=== PATIENT | male | born 1950 | race African-American/Black ===

== ENCOUNTER 2017-12-13 05:12 | Inpatient (IN) | payer MEDICARE, MEDICAID ==
[2017-12-13 05:34] LABS: Actual Bicarbonate (HCO3a) 46.3 mEq/L (22-26); CO2 Tension 114.1 mmHg (35.0-45.0); O2 Tension (PaO2) 147.2 mmHg (80.0-100.0); pH, Arterial 7.23 (7.35-7.45)
[2017-12-13 05:35] LABS: Base Excess (BEa) 14.3 mEq/L (0 (+/-) 2.5); Hematocrit-ABG 40.9 % (42.0-52.0)
[2017-12-13 05:36] LABS: Analyzer IN Cardio ER; Calcium, Ionized 1.2 mmol/L (1.12-1.30); Puncture Site LR
[2017-12-13] MEDS ORDERED: Albuterol Sulfate 2.5 mg/0.5 ml Neb ONE ×2 (05:40→05:41)
[2017-12-13] MEDS ORDERED: Ondansetron HCl/PF 4 MG/2 ML Vial IVP PRN (07:20)
[2017-12-13] MEDS ORDERED: Acetaminophen 325 MG TAB PO PRN (07:20)
[2017-12-13 07:22] LABS: #Basophils 0.1 thou/uL (0.0-0.2); #Eosinphils 0.4 thou/uL (0.0-0.7); #Lymphocytes 4.1 thou/uL (1.20-3.40); %Eosinophils 3.4 % (0.0-10.0); %Monocytes 8.8 % (0.0-10.0); %Neutrophils 51.8 % (42.0-75.0); Hemoglobin 12.2 g/dL (14.0-18.0); Mean Corpuscular HGB CONC 31.1 g/dL (32.0-36.0); Mean Corpuscular Hemoglobin 25.9 pg (27.0-31.0); Mean Corpuscular Volume 83.1 fl (80.0-94.0); Platelet Count 172 thou/uL (130-400); RBC Distribution Width 13.2 % (11.5-14.5); White Blood Cell (WBC) Count 11.6 thou/uL (4.8-10.8)
--- NOTE | 2017-12-13 07:34 | RAD ---
RADIOGRAPH CHEST 1 VIEW: HISTORY: 67-year-old male with dyspnea. FINDINGS: There is hyperinflation of the lungs, consistent with COPD. There is no evidence of air space densit y, pneumothorax, or pulmonary edema. The lateral costophrenic angles are sharp. Cardiomediastinal si lhouette is slightly narrowed by the hyperinflation. IMPRESSION: 1) No acute pulmonary findings. 2) Emphysema. jn POS: TPC
[2017-12-13 07:40] LABS: CKMB 5.4 ng/mL (0-6.6); Troponin I Less than 0.010 ng/mL (< 0.028)
--- NOTE | 2017-12-13 07:59 | HP ---
PRIMARY CARE PROVIDER: Dr. Pereira. REASON FOR ADMISSION/CHIEF COMPLAINT: Referred to [facility] by [facility]. HISTORY OF PRESENT ILLNESS: The patient became acutely short of breath and in respiratory distress a bout 30 minutes before calling 911. He was brought to the emergency room where he was treated aggrsurekha forde for acute exacerbation of COPD. He was found to have marked CO2 retention and a respiratory a cidosis. He is currently on BiPAP. The patient denies any chest pain, fever, or chills. He has sca nt cough. No production. PAST MEDICAL HISTORY: Pertinent for severe COPD, about once a month admissions to [facility] with ac aniak exacerbations. He has hypertension, peripheral vascular disease, chronic hypoxic respiratory rakesh lure. PAST SURGICAL HISTORY: Includes appendectomy and surgery for small bowel obstruction. CURRENT MEDICATIONS: DuoNeb 3 mL 4-5 times a day, Symbicort 2 puffs twice a day, prednisone 10 mg a day, Lasix 40 mg a day, Spiriva HandiHaler 18 one puff daily, Augmentin twice a day, Coreg 3.125 mg t wice a day, Protonix 40 mg a day. SOCIAL HISTORY: . CODE STATUS: FULL CODE status. next of kin for decision making. No tobacco, no alcohol. FAMILY HISTORY: Significant for diabetes, hypertension, coronary artery disease in multiple members. REVIEW OF SYSTEMS: General: He has headaches at times. No dizziness, no fainting. Eyes: No doubl e vision, blurred vision, flashing lights. Ears, Nose, and Throat: No ear pain or drainage. No bryan al bleeding. No trouble swallowing. Cardiac: No history of pressure, chest pain, orthopnea, paroxy smal nocturnal dyspnea. Respirations: See present illness. He has chronic shortness of breath, whe ezes at times. Long history of chronic obstructive pulmonary disease. Gastrointestinal: No nausea, vomiting, diarrhea, constipation, abdominal pain. Genitourinary: No hematuria or dysuria. Musculo skeletal: Positive swelling in his legs chronically. No pain in his muscles. Neurological: No str alejandro, seizures, focal weakness. Psychiatric: No anxiety or depression. Skin: He states he bruises easy on his arms. No rashes. H e does have some chronic skin changes on his lower legs. Heme/Lymph: No tender or swollen lymph nod es in axilla, inguinal, or cervical area. PHYSICAL EXAMINATION: GENERAL: He is comfortable on BiPAP right at the moment. VITAL SIGNS: Respirations 24-30, temperature 99, O2 sats 100 on BiPAP. Blood pressures ranged in [facility] emergency room from 108/68-143/83. Pulses ranged from 113-126. He is alert, oriented, cooperative . HEENT: Examination of his head, eyes, ears, nose, and throat reveal pupils equal and round. Extraoc ular movements are intact. Sclerae white. Tympanic membranes clear. Nose is clear. Oral mucous me mbranes are wet. He is on BiPAP. It is difficult to get a better exam. NECK: No jugular venous distention, adenopathy, or thyromegaly. CHEST: Hyperresonant, decreased breath sounds, coarse inspiratory effort, diffuse rhonchi, wheezes o n expiratory effort. HEART: Tachycardic, hyperdynamic. First and second heart sounds are accentuated no murmurs noted. ABDOMEN: Soft, bowel sounds are normal. There is no hepatosplenomegaly, no mass, no rebound. EXTREMITIES: Reveal 1-2+ edema with what appears to be stasis edema changes in his legs. No cyanosi s or clubbing. PULSES: Carotid, radial, femoral pulses intact, symmetric. Pedal pulses diminished markedly. SKIN: Warm and dry without bruises or rashes. He does have the aforementioned chronic stasis change s on his lower legs. LYMPHATIC SURVEY: No tender or swollen lymph nodes in axilla, inguinal, or cervical area. NEUROLOGICAL: Cranial nerves II-XII are intact. Moves all extremities. Sensation intact. Toes giuliana ngoing. X-RAY FINDINGS: EKG none presented. One will be ordered. Chest x-ray: Marked hyperinflation, no c ardiomegaly, CHF, or infiltrate, reviewed by me. LABORATORY DATA: Only laboratory obtained so far is arterial blood gas, which shows a pH of 7.23, CO 2 of 114, O2 of 147 on 35% O2 BiPAP 09/19/2017. ADMITTING DIAGNOSES: 1. Acute respiratory distress with acute on chronic respiratory failure with hypercapnia. 2. Chronic obstructive pulmonary disease exacerbation. 4. Hypertension. 5. Peripheral vascular disease. PLAN: 1. Continue BiPAP. 2. We will notify Dr. Spencer of his presence. 3. DuoNeb q.4 hours 3 mL. 4. Continue Symbicort substitute 2 puffs q.4 hours. 5. Solu-Medrol IV high dose. 6. IV Zithromax. 7. Selected home medicines.
[2017-12-13 08:18] LABS: ALT (SGPT) 9 U/L (8-55); AST (SGOT) 17 U/L (5-34); Albumin 4.1 g/dL (3.4-4.8); Alkaline Phosphatase 62 U/L (40-150); BUN (Urea Nitrogen) 12 mg/dL (8.4-25.7); Bilirubin, Total 0.3 mg/dL (0.2-1.2); CK (CPK) 180 U/L (30-200); Calc. Creatinine Clearance 0 mL/min (70-130); Estimated GFR-MDRD Greater than 90; Globulin 2.4 g/dL (2.4-3.5); Glucose 148 mg/dL (80-115); Protein, Total 6.5 g/dL (5.8-8.1)
[2017-12-13] MEDS ORDERED: Enoxaparin Sodium 40 MG/0.4 ML SYRINGE ONE (08:18)
[2017-12-13 08:25] LABS: Chloride 93 mmol/L (98-107); Potassium 3.8 mmol/L (3.5-5.1); Sodium 144 mmol/L (136-145)
[2017-12-13 08:26] LABS: Carbon Dioxide 42 mmol/L (23-31)
[2017-12-13 08:27] LABS: Anion Gap 13 mmol/L (10-20)
[2017-12-13 08:51] LABS: Troponin I Less than 0.010 ng/mL (< 0.028)
[2017-12-13] MEDS ORDERED: Furosemide 20 MG TAB PO SCH (09:00)
[2017-12-13 16:28] VITALS: BMI 20.7
[2017-12-13] MEDS: Carvedilol 3.125 MG TAB PO SCH ×2 (16:39→17:30)
[2017-12-13] MEDS: Azithromycin 500 MG in Sodium Chloride 0.9% 250 ML 250 ML IVPB SCH (16:39)
[2017-12-13] MEDS: Enoxaparin Sodium 40 MG/0.4 ML SYRINGE SC SCH (16:39)
[2017-12-13] MEDS: guaiFENesin ER 600 MG TAB PO SCH ×2 (16:40→21:51)
[2017-12-13] MEDS ORDERED: predniSONE 20 MG TAB PO SCH (18:00)
--- NOTE | 2017-12-13 18:08 | CON ---
DATE OF CONSULTATION: 12/13/2017 SERVICE: Pulmonary Medicine. INTERVAL HISTORY: The patient is a 67-year-old -[place] male with past medical history significant for COPD. He had a 2-3 week history of increasing difficulty breathing. Ultimately, he became more abruptly short of breath early this morning and called EMS services. He was brought to the Emergency Department and had a markedly elevated CO2 with increasing oxygen requirements. He was initially placed on BiPAP, but subsequently downgraded. Either way, he was tucked in onto the floor. He feels much improved compared his presentation to the hospital. He denies any recent fevers, chills, nausea or vomiting. His cough is still bringing up clear sputum and has nothing of color. He notes having a right hand stiffness. He occasionally gets some discomfort in his arm, but does not currently have it. Otherwise, he is in his usual state of health. PAST MEDICAL HISTORY: 1. COPD. 2. Chronic hypoxic respiratory failure. 3. Hypertension. 4. Peripheral vascular disease. 5. Chronic hypoxic respiratory failure. PAST SURGICAL HISTORY: 1. Appendectomy. 2. Laparotomy for small-bowel obstruction. ALLERGIES: No known drug allergies. MEDICATIONS LIST: His list of inpatient medications were reviewed. Multiple small updates were made. FAMILY HISTORY: Noncontributory. SOCIAL HISTORY: Negative for current alcohol, tobacco or illicit drug use. He denies any exposure to chemicals, dust asbestos or tuberculosis. REVIEW OF SYSTEMS: Including general, head, ears, eyes, nose, throat, cardiovascular, respiratory, GI, , musculoskeletal, neurologic and skin is negative except as mentioned in the HPI. PHYSICAL EXAMINATION: VITAL SIGNS: Afebrile, pulse 81, blood pressure 138/72, respirations 14, saturation 96% on 2 liters nasal cannula. GENERAL: The patient is awake, alert, in no apparent distress. HEENT: Normocephalic, atraumatic. Sclerae are white, conjunctivae pink. Oral and nasal mucosa is moist without lesions. LUNGS: Reduced air entry with a prolonged expiratory phase. Minimal crackles are present. He is not moving enough air to hear any adventitious sounds. HEART: Normal rate, regular. ABDOMEN: Soft, nontender, nondistended. Bowel sounds are positive. MUSCULOSKELETAL: No cyanosis or clubbing. No pitting in the bilateral lower extremities. He has swelling of the MCP joints of the right upper extremity. GENITOURINARY: No Hinton. LABORATORY DATA: WBC 11.6, hemoglobin 12.2, platelets 172,000. PH 7.23, pCO2 of 114, pO2 of 147. This was on BiPAP at 12/5 with inspired oxygen of 35%. Bicarb 42. Basic metabolic profile and liver function studies are otherwise unremarkable. Cardiac enzymes x2 are negative. IMAGING: Chest x-ray demonstrates extensive reticular changes as well as hyperexpansion of the bilateral lung paige. There is no acute cardiopulmonary abnormality identified, however. ASSESSMENT: 1. Acute on chronic hypoxic and hypercapnic respiratory failure. 2. COPD exacerbation. 3. Metabolic alkalosis above baseline. 4. Right hand swelling. DISCUSSION AND PLAN: We will add rheumatoid factor and CCP to tomorrow morning' s laboratories. We will also get a right hand x-ray to particular attention to the MCP joints to make sure there are no erosions. We will continue our oxygen , nebulized medications, steroids and antibiotics as well as other supportive measures. The patient has extraordinarily sick lungs at baseline and may benefit from a home ventilator, particularly if he is still of a relatively high functional status. Pulmonary Critical Care will continue to follow while the patient remains in this location. 70 minutes have been devoted to this patient in various activities. I personally reviewed all imaging studies and laboratory data noted within this document. For greater than fifty percent of this time, I was interacting with the patient at the bedside or coordinating care with the care team. For the remainder of the time I was immediately available to the patient in the hospital unit. LILIYA
--- NOTE | 2017-12-13 18:45 | RAD ---
RIGHT HAND THREE VIEWS: 12/13/17 HISTORY: Right hand pain. FINDINGS: There is partial collapse of the trapezium where osteoarthritic changes are most pronounced at the fi rst carpometacarpal joint. Less prominent degenerative changes involve the distal interphalangeal re nts. No acute fracture, dislocation, or aggressive osseous erosions. IMPRESSION: Osteoarthritis, most pronounced at the first carpometacarpal joint. POS: ANURADHA
[2017-12-13] MEDS: Mometasone/Formoterol 120 PUFF INHALER INH SCH (19:41)
[2017-12-14 04:53] LABS: #Monocytes 0.3 thou/uL (0.11-0.59); #Neutrophils 8.9 thou/uL (1.40-6.50); %Basophils 0.1 % (0.0-1.0); %Eosinophils 0.1 % (0.0-10.0); %Lymphocytes 9.7 % (21.0-51.0); %Monocytes 3.3 % (0.0-10.0); %Neutrophils 86.8 % (42.0-75.0); Mean Corpuscular HGB CONC 31.9 g/dL (32.0-36.0); Mean Corpuscular Hemoglobin 25.8 pg (27.0-31.0); Mean Corpuscular Volume 80.9 fl (80.0-94.0); Mean Platelet Volume 10.2 fL (7.4-10.4); Platelet Count 163 thou/uL (130-400); RBC Distribution Width 13.1 % (11.5-14.5); Red Blood Cell (RBC) Count 4.26 mill/uL (4.70-6.10); White Blood Cell (WBC) Count 10.2 thou/uL (4.8-10.8)
[2017-12-14 05:14] LABS: BUN (Urea Nitrogen) 13 mg/dL (8.4-25.7); Calc. Creatinine Clearance 95 mL/min (70-130); Calcium 9.1 mg/dL (7.8-10.44); Estimated GFR-MDRD Greater than 90; Glucose 120 mg/dL (80-115)
[2017-12-14 05:23] LABS: Anion Gap 13 mmol/L (10-20); Carbon Dioxide 37 mmol/L (23-31); Chloride 93 mmol/L (98-107); Potassium 4.5 mmol/L (3.5-5.1); Sodium 138 mmol/L (136-145)
[2017-12-14] MEDS: Mometasone/Formoterol 120 PUFF INHALER INH SCH ×2 (06:54→19:21)
[2017-12-14] MEDS ORDERED: FLU VACC TS2017-18 (>65YR) 0.5 ML SYRINGE IM ONE (09:00)
[2017-12-14] MEDS: Carvedilol 3.125 MG TAB PO SCH ×2 (09:34→17:18)
[2017-12-14] MEDS: Enoxaparin Sodium 40 MG/0.4 ML SYRINGE SC SCH (09:34)
[2017-12-14] MEDS: predniSONE 20 MG TAB PO SCH (09:34)
[2017-12-14] MEDS: Furosemide 20 MG TAB PO SCH (09:34)
[2017-12-14] MEDS: guaiFENesin ER 600 MG TAB PO SCH ×3 (09:34→20:11)
[2017-12-14] MEDS: Azithromycin 500 MG in Sodium Chloride 0.9% 250 ML 250 ML IVPB SCH (09:45)
--- NOTE | 2017-12-14 11:04 | PDOC.PN ---
- Subjective Encounter Start Date: 12/14/17 Encounter Start Time: 11:02 Subjective: seen and examined feeling a little bit better - Objective Resuscitation Status: Resuscitation Status FULL:Full Resuscitation Vital Signs & Weight: Vital Signs (12 hours) Temp Pulse Resp BP Pulse Ox 12/14/17 10:56 98.1 F 95 22 H 110/64 99 12/14/17 10:55 100 16 97 12/14/17 07:20 98.4 F 115 H 22 H 126/77 95 12/14/17 06:53 97 18 95 12/14/17 04:00 97.9 F 103 H 18 123/68 92 L 12/14/17 02:08 102 H 16 96 12/14/17 00:00 98.2 F 107 H 20 148/75 H 96 Weight Admit Weight 145 lb Weight 145 lb Result Diagrams: 12/14/17 03:40 12/14/17 03:40 Phys Exam - Physical Examination Constitutional: NAD HEENT: PERRLA, moist MMs, sclera anicteric, TM's clear, oral pharynx no lesions Neck: no nodes, no JVD, supple, full ROM Respiratory: no rales, wheezing present Cardiovascular: RRR, no significant murmur, no rub, gallop Gastrointestinal: soft, non-tender, no distention, positive bowel sounds Dx/Plan (1) Osteoarthritis Code(s): M19.90 - UNSPECIFIED OSTEOARTHRITIS, UNSPECIFIED SITE Status: Acute (2) Acute and chronic respiratory failure ([id number]) Code(s): J96.20 - ACUTE AND CHR RESP FAILURE, UNSP W HYPOXIA OR HYPERCAPNIA Status: Acute (3) COPD exacerbation Code(s): J44.1 - CHRONIC OBSTRUCTIVE PULMONARY DISEASE W (ACUTE) EXACERBATION Status: Acute (4) HTN (hypertension) Code(s): I10 - ESSENTIAL (PRIMARY) HYPERTENSION Status: Chronic Qualifiers: (5) PVD (peripheral vascular disease) Code(s): I73.9 - PERIPHERAL VASCULAR DISEASE, UNSPECIFIED Status: Chronic - Plan continue antibiotics, PT/OT, 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
[2017-12-14 12:32] LABS: CCP IgG Antibody 0.5 EliAU/mL (<7 Negative); EliA RAS New Method **** NEW METHOD ****; Rheumatoid Factor IgA Antibody 3.7 IU/mL (<14 Negative); Rheumatoid Factor IgM Antibody 1.9 IU/mL (<3.5 Negative)
--- NOTE | 2017-12-14 16:28 | PRG ---
DATE OF SERVICE: 12/14/2017 SERVICE: Pulmonary Medicine. INTERVAL HISTORY: The patient is doing fine from a respiratory standpoint. He denies any current fe vers, chills, nausea, vomiting or chest discomfort. Otherwise, there has been no interval change to his condition. His breathing is actually much improved. He has been able to get around his room a t ouch more. PHYSICAL EXAMINATION: VITAL SIGNS: Afebrile, pulse 95, blood pressure 110/64, respirations 16, saturation 97% on room air. GENERAL: The patient is awake, alert, no apparent distress. LUNGS: Excellent air entry with no prolonged expiratory phase, wheezing, rhonchi or crackles. HEART: Normal rate, regular. ABDOMEN: Soft, nontender, nondistended. Bowel sounds are positive. MUSCULOSKELETAL: No cyanosis or clubbing. No pitting in the bilateral lower extremities. NEUROLOGIC: Grossly nonfocal. LABORATORY DATA: WBC 10.2, hemoglobin 11.0, platelets 163,000. Chloride 93. Bicarbonate 37. Basic metabolic profile is otherwise unremarkable. Rheumatoid factor and CCP antibodies were unremarkable . IMAGING: Hand x-ray on the right demonstrates osteoarthritis, most pronounced at the first metacarpo phalangeal joint. DIPs are less involved. No erosions are identified. ASSESSMENT: 1. Acute on chronic hypoxic and hypercapnic respiratory failure. 2. Metabolic alkalosis, back to baseline. 3. Osteoarthritis of the right hand. PLAN: I have assessed this patient and will be ordering volume ventilation for nocturnal and as need ed daytime use for symptom management of chronic respiratory failure. Traditional home BiPAP is insu fficient due to the severity of his disease process. COPD is a major contributing factor to the tha ent's underlying respiratory failure. We will consult a local respiratory therapist to see if we can help this patient get some relief and decrease his frequent hospitalizations. Pulmonary Critical Ca re will continue to follow if he remains in-house, but from my perspective, he is stable for transiti on home.
[2017-12-15] MEDS: Mometasone/Formoterol 120 PUFF INHALER INH SCH (07:00)
[2017-12-15 07:51] VITALS: TEMP 97.9
[2017-12-15] MEDS: predniSONE 20 MG TAB PO SCH (09:00)
[2017-12-15] MEDS: Carvedilol 3.125 MG TAB PO SCH ×2 (09:00→16:19)
[2017-12-15] MEDS: guaiFENesin ER 600 MG TAB PO SCH ×2 (09:27→14:40)
[2017-12-15] MEDS: Enoxaparin Sodium 40 MG/0.4 ML SYRINGE SC SCH (09:27)
[2017-12-15] MEDS: Furosemide 20 MG TAB PO SCH (09:27)
[2017-12-15] MEDS: Azithromycin 500 MG in Sodium Chloride 0.9% 250 ML 250 ML IVPB SCH (09:43)
--- NOTE | 2017-12-15 15:44 | PRG ---
DATE OF SERVICE: 12/15/2017 SERVICE: Pulmonary Medicine. INTERVAL HISTORY: The patient is doing fine from a respiratory standpoint. He currently denies any fevers, chills, nausea or vomiting. He suggests to me that he has returned to his usual state of hea lth and is pretty happy with the way this hospital stay has gone. OBJECTIVE: VITAL SIGNS: Afebrile, pulse 91, blood pressure 110/66, respirations 18%, saturation 100% on 2 liter s nasal cannula. GENERAL: The patient is awake and alert, in no apparent distress. LUNGS: Decreased air entry with a prolonged expiratory phase. No crackles or rhonchi are present. Minimal wheezing is present. HEART: Normal rate and regular. ABDOMEN: Soft, nontender, nondistended. Bowel sounds are positive. MUSCULOSKELETAL: No cyanosis or clubbing. There is no pitting today. : No Hinton. NEUROLOGIC: Grossly nonfocal. ASSESSMENT: 1. Acute on chronic hypoxic and hypercapnic respiratory failure. 2. Chronic obstructive pulmonary disease with acute exacerbation. 3. Metabolic alkalosis at baseline. 4. Osteoarthritis of the right hand. DISCUSSION AND PLAN: The patient is doing absolutely fantastic from a cardiovascular and respiratory perspective. A consultation to [facility] has been made in order to see if we can set the patient up w ith a home ventilator. The patient indicates that whenever he comes into the Emergency Department he was put on BiPAP, he really likes this device and if he could get this thing at home, he would be ve ry appreciative. I will see if we can arrange for this to occur. Pulmonary will continue to follow if he remains in house, but from my perspective, he is stable for transition out of the hospital.
[2017-12-15 16:22] VITALS: BP 119/77
--- NOTE | 2017-12-16 15:45 | EKG ---
Test Reason : SOB Blood Pressure : / mmHG Vent. Rate : 111 BPM Atrial Rate : 111 BPM P-R Int : 086 ms QRS Dur : 088 ms QT Int : 332 ms P-R-T Axes : 000 068 050 degrees QTc Int : 451 ms Sinus tachycardia with short CT Otherwise normal ECG Confirmed by JESUS SO D.O. ([id number]), purchasing expeditor KRISTOPHER BURNETT ([id number]) on 12/16/2017 3:45:38 PM Referred By: Confirmed By:JESUS SO D.O.
== END 2017-12-15 17:38 | disposition home or self-care (01) | DRG 189 ==
LOC: ERS 05:12 → ERHOLD 06:22 → T4-A 15:56
PROVIDERS: ADMIT Family Medicine; ATTEND Family Medicine
PROC: 5A09357 Assistance with Respiratory Ventilation, Less than 24 Consecutive Hours, Continuous Positive Airway Pressure (ICD-10-PCS; principal; 2017-12-13)
DX: J96.22 Acute and chronic respiratory failure with hypercapnia (principal); E87.3 Alkalosis; J44.1 Chronic obstructive pulmonary disease with (acute) exacerbation; J96.21 Acute and chronic respiratory failure with hypoxia; I10 Essential (primary) hypertension; I73.9 Peripheral vascular disease, unspecified; M19.041 Primary osteoarthritis, right hand; F17.210 Nicotine dependence, cigarettes, uncomplicated; Z79.52 Long term (current) use of systemic steroids; Z79.899 Other long term (current) drug therapy
CPT/HCPCS: 36415; 71045; 80048; 80053; 82553; 82805; 83520; 84484; 85025; 86200; 90471; 90682; 93005; 94640; 94644; 94660; 94664; 94760; 96365; 96366; 96367; 96372; G0008; J0456; J1650; J1956; J7050; J7506; J7611; J7620; Q2036

== ENCOUNTER 2018-01-18 05:39 | Inpatient (IN) | payer MEDICARE, MEDICAID ==
[2018-01-18] MEDS ORDERED: Dexamethasone 10 MG/ML VIAL ONE (06:07)
[2018-01-18] MEDS ORDERED: Magnesium 2 GM/NS 0.9% 50 ML 2 GM in Premix Bag 1 BAG IVPB SCH (06:15)
[2018-01-18 06:19] LABS: #Basophils 0.1 thou/uL (0.0-0.2); #Eosinphils 0.3 thou/uL (0.0-0.7); #Lymphocytes 3.7 thou/uL (1.20-3.40); #Monocytes 1.2 thou/uL (0.11-0.59); #Neutrophils 5.5 thou/uL (1.40-6.50); %Basophils 0.8 % (0.0-1.0); %Eosinophils 2.7 % (0.0-10.0); %Lymphocytes 34.7 % (21.0-51.0); %Monocytes 10.8 % (0.0-10.0); %Neutrophils 51.1 % (42.0-75.0); Hemoglobin 12.6 g/dL (14.0-18.0); Mean Corpuscular HGB CONC 31.6 g/dL (32.0-36.0); Mean Corpuscular Volume 82.3 fl (80.0-94.0); Mean Platelet Volume 9.9 fL (7.4-10.4); Platelet Count 204 thou/uL (130-400); RBC Distribution Width 13.3 % (11.5-14.5); Red Blood Cell (RBC) Count 4.84 mill/uL (4.70-6.10); White Blood Cell (WBC) Count 10.7 thou/uL (4.8-10.8)
[2018-01-18 06:20] LABS: pH, Arterial 7.29 (7.35-7.45)
[2018-01-18 06:21] LABS: Actual Bicarbonate (HCO3a) 43.9 mEq/L (22-26); Base Excess (BEa) 13.5 mEq/L (0 (+/-) 2.5); CO2 Tension 94.3 mmHg (35.0-45.0); Hematocrit-ABG 39.5 % (42.0-52.0); Hemoglobin (Hb) 11.9 g/dL (14.0-18.0); O2 Tension (PaO2) 143.1 mmHg (80.0-100.0)
[2018-01-18 06:22] LABS: ALV-art Gradient -4.295 (0-20); Analyzer IN Cardio ER; Calcium, Ionized 1.2 mmol/L (1.12-1.30); Puncture Site RBRACH
[2018-01-18] MEDS ORDERED: Albuterol Sulfate 2.5 mg/0.5 ml Neb ONE (06:23)
[2018-01-18] MEDS ORDERED: Albuterol Sulfate 2.5 mg/3 ml Neb ONE (06:24)
[2018-01-18 06:30] LABS: ALT (SGPT) 13 U/L (8-55); AST (SGOT) 19 U/L (5-34); Albumin 4.1 g/dL (3.4-4.8); Alkaline Phosphatase 62 U/L (40-150); BUN (Urea Nitrogen) 11 mg/dL (8.4-25.7); Bilirubin, Total 0.3 mg/dL (0.2-1.2); CK (CPK) 115 U/L (30-200); Calc. Creatinine Clearance 0 mL/min (70-130); Calcium 9.4 mg/dL (7.8-10.44); Estimated GFR-MDRD Greater than 90; Globulin 2.8 g/dL (2.4-3.5); Glucose 123 mg/dL (80-115); Lipase 30 U/L (8-78); Protein, Total 6.9 g/dL (5.8-8.1)
[2018-01-18 06:34] LABS: CKMB 3.9 ng/mL (0-6.6); Troponin I Less than 0.010 ng/mL (< 0.028)
[2018-01-18 06:38] LABS: Anion Gap 10 mmol/L (10-20); Chloride 93 mmol/L (98-107); Potassium 4.4 mmol/L (3.5-5.1); Sodium 142 mmol/L (136-145)
[2018-01-18 06:47] LABS: Carbon Dioxide 43 mmol/L (23-31)
[2018-01-18 09:02] VITALS: BMI 18.1
[2018-01-18] MEDS ORDERED: Ondansetron HCl/PF 4 MG/2 ML Vial IVP PRN ×2 (09:21→11:35)
[2018-01-18] MEDS ORDERED: Sodium Chloride 0.9% 1,000 ML IV SCH ×2 (09:21→09:30)
[2018-01-18] MEDS ORDERED: Ondansetron ODT 4 MG TAB SL PRN (09:21)
--- NOTE | 2018-01-18 09:37 | RAD ---
SINGLE VIEW CHEST: Date: 01/18/18 COMPARISON: 12/13/17. HISTORY: Shortness of breath that started last night and dyspnea. FINDINGS: Single view of the chest shows normal sized cardiomediastinal silhouette with atherosclerotic calcifi cations in aorta. There is no evidence of consolidation, mass, or pleural effusion. Increased interst itial markings are stable. IMPRESSION: No evidence of acute cardiopulmonary disease. POS: TPC
[2018-01-18] MEDS ORDERED: Acetaminophen 500 MG TAB PO PRN (11:35)
[2018-01-18] MEDS ORDERED: Ondansetron ODT 4 MG TAB PO PRN (11:35)
[2018-01-18] MEDS ORDERED: cloNIDine 0.1 MG TAB PO PRN (11:35)
[2018-01-18] MEDS ORDERED: hydrALAZINE 20 MG/ML VIAL SLOW IVP PRN (11:35)
--- NOTE | 2018-01-18 13:08 | HP ---
PRIMARY CARE PROVIDER: Nestor Pereira M.D. CHIEF COMPLAINT: Shortness of breath. HISTORY OF PRESENT ILLNESS: This is a 67-year-old -[place] male, well known to the [facility] service for repetitive admissions due to hypoxic hypercapnic respiratory failure. The patient is on chronic oxygen supplementation at home up to 2.5-3 liters per minute via nasal cannula. The patie nt apparently ran out of his oxygen concentrator and was in the process of getting this reestablished through [facility], his home provider. The patient developed increasing shortness of breath, worsening over the course of the night on 01/17/2018, presenting at the emergency room for evaluation. The pa madonna denied chest pain, fever, chills, exposure history or recent vaccinations. The patient states he has been compliant with his chronic medication regimen and inhalers to include Symbicort and daily prednisone. In the emergency room, the patient underwent general evaluation including chest imaging showing no acute infiltrates. The patient received DuoNeb therapy x3, as well as 125 mg of IV Solu- Medrol. The patient was placed on BiPAP noninvasive mechanical ventilation with overall stabilizatio n of respiratory status. The patient also received magnesium sulfate, Levaquin, Decadron and inhaled albuterol sulfate. The patient states he had been considered for nocturnal CPAP at home; however, s angélica he has not undergone any specific sleep studies or evaluation. The patient was transferred to the Intermediate Care Unit for further evaluation. PAST MEDICAL HISTORY: 1. Acute on chronic hypoxic hypercapnic respiratory failure. 2. Chronic oxygen supplementation at 2.5-3 liters per minute by nasal cannula. 3. Chronic obstructive pulmonary disease. 4. Emphysema. 5. Hypertension. 6. History of bowel obstruction. PAST SURGICAL HISTORY: 1. Status post appendectomy. 2. Status post bowel resection after small-bowel obstruction. CURRENT MEDICATIONS: 1. Symbicort 160/4.5 two puffs inhaled b.i.d. 2. Coreg 3.125 mg p.o. b.i.d. 3. Lasix 20 mg 1 tab p.o. daily. 4. Mucinex ER 600 mg p.o. t.i.d. p.r.n. 5. Protonix 40 mg 1 tab p.o. daily. 6. Potassium chloride 20 mEq p.o. daily. 7. Prednisone 20 mg p.o. daily. ALLERGIES: No known drug allergies. FAMILY HISTORY: Positive for diabetes, hypertension and coronary artery disease in multiple family m embers. SOCIAL HISTORY: . Resides in [place], [place]. Retired. No current alcohol, tobacco or illi cit drug use. REVIEW OF SYSTEMS: Otherwise negative except as stated per HPI. Constitutional: Weight loss or gain, ability to conduct usual activities. Skin: Rash, itching. Eyes: Double vision, pain. ENT/Mouth: Nose bleeding, neck stiffness, pain, tenderness. Cardiovascular: Palpitations, dyspnea on exertion, orthopnea. Respiratory: Shortness of breath, wheezing, cough, hemoptysis, fever or night sweats. Gastrointestinal: Poor appetite, abdominal pain, heartburn, nausea, vomiting, constipation, or diarr hea. Genitourinary: Urgency, frequency, dysuria, nocturia. Musculoskeletal: Pain, swelling. Neurologic/Psychiatric: Anxiety, depression. Allergy/Immunologic: Skin rash, bleeding tendency. PHYSICAL EXAMINATION: VITAL SIGNS: On admission, blood pressure 113/54, pulse 113, temperature 98.1 degrees Fahrenheit, re spiratory rate 20 and O2 saturation 100% on 2 liters per minute by nasal cannula. GENERAL APPEARANCE: This is a 67-year-old -[place] male, alert and oriented x3, pleasant, co nversant, in no acute distress. HEENT: Pupils are equal, round, and reactive to light and accommodation. Extraocular muscles are in tact. No scleral icterus, no conjunctival injection. Nares patent. OP is clear. NECK: Supple. No cervical adenopathy, no thyromegaly, no carotid bruits, no JVD appreciated. Cervi maribeth spine with full active and passive range of motion. CHEST: Diminished breath sounds in the bases bilaterally. Prolonged expiratory phase. CARDIOVASCULAR: S1 and S2 with distant heart sounds. ABDOMEN: Flat, soft, nontender and nondistended. Bowel sounds are positive in all four quadrants. There is no hepatosplenomegaly, no abdominal bruits, no rebound or guarding appreciated. EXTREMITIES: Warm and dry with fair turgor. No clubbing, cyanosis or asymmetric edema appreciated. Pulses are palpable distally at the dorsalis pedis, posterior tibial, and popliteal arteries bilater ally. Capillary refill less than 2 seconds. NEUROLOGIC: Cranial nerves II-XII are grossly intact. No focal or lateralizing signs appreciated. PERTINENT LABORATORY AND X-RAY FINDINGS: Portable chest x-ray dated 01/18/2018 showed no acute cardi opulmonary process. EKG dated 01/18/2018 by my interpretation shows sinus tachycardia with heart rat es in the 20s. Attenuated R waves noted in the precordial leads. Normal axis. No acute ST-T wave c hanges appreciated. ASSESSMENT AND PLAN: 1. Acute on chronic hypoxic hypercapnic respiratory failure. [facility] Initially, managed with BiPAP noninvasive mechanical ventilation, currently ma intaining O2 saturations on 2 liters per minute by nasal cannula. We will continue general pulmonary supportive measures with DuoNebs q.4 hours. Add Solu-Medrol 40 mg IV q.6 hours. Continue Symbicort 160/4.5 two puffs inhaled b.i.d. Consult Pulmonology Service for further evaluation. 2. Chronic obstructive pulmonary disease exacerbation. See #1 above. Initiate Augmentin 875 mg p.o . b.i.d. Continue oxygen supplementation to maintain O2 saturations greater than or equal to 90%. 3. Hypertension. Resume Coreg 3.125 mg p.o. b.i.d. Continue serial blood pressure monitoring. 4. Gastroesophageal reflux. Continue Pepcid 20 mg p.o. b.i.d. 5. Prophylaxis. Sequential compression devices while in bed. Pepcid 20 mg p.o. b.i.d. 6. CODE STATUS is FULL. Surrogate medical decision maker is the patient's spouse.
[2018-01-18] MEDS ORDERED: Furosemide 40 MG/4 ML VIAL SLOW IVP SCH (14:00)
--- NOTE | 2018-01-18 14:24 | CON ---
DATE OF CONSULTATION: 01/18/2018 SERVICE: Pulmonary Medicine. REASON FOR CONSULTATION: Respiratory failure. HISTORY OF PRESENT ILLNESS: The patient is a 67-year-old -Australian male with past medical history significant for severe COPD and chronic hypercapnic respiratory failure. He is on home oxygen. He is in his usual state of health when he started having increasing shortness of breath over about 12-24 hours. He presented to the Emergency Department. He was given nebulized medications, and steroids. He was put on BiPAP, but as soon as he got to the [facility], it was abruptly discontinued. At that point, he had no conversational dyspnea, chest pain, nausea, vomiting, and was already feeling better. PAST MEDICAL HISTORY: 1. Chronic hypoxic and hypercapnic respiratory failure. 2. Chronic obstructive pulmonary disease. 3. Hypertension. 4. History of bowel obstruction. PAST SURGICAL HISTORY: 1. Appendectomy. 2. Bowel resection following small-bowel obstruction. ALLERGIES: No known drug allergies. MEDICATIONS: List of his inpatient medications were reviewed. Multiple updates were made including deescalating steroids. FAMILY HISTORY: Noncontributory. SOCIAL HISTORY: Lives in [place] and is . He is retired. He denies any alcohol, tobacco or illicit drug use. He has a remote history of smoking. He has no exposure to chemicals, asbestos or tuberculosis. REVIEW OF SYSTEMS: General, head, ears, eyes, nose, throat, cardiovascular, respiratory, GI, , musculoskeletal, neurologic and skin is negative except as mentioned in the HPI. PHYSICAL EXAMINATION: VITAL SIGNS: Afebrile, pulse 113, blood pressure 113/54, respirations 20, saturation 100% on 2 liters nasal cannula. GENERAL: The patient is awake, alert, in no apparent distress. LUNGS: Decreased air entry. There is not much in the way of prolonged expiratory phase or wheezing. Crackles are present dependently. HEART: Normal rate, regular. ABDOMEN: Soft, nontender, nondistended. Bowel sounds are positive. MUSCULOSKELETAL: No cyanosis or clubbing. There are 1-2+ pitting in the bilateral lower extremities, limited to the feet. LABORATORY DATA: WBC 10.7, hemoglobin 12.6, platelets 204,000. PH 7.29, pCO2 of 94, pO2 of 143 on 36% FiO2 at that time. Bicarbonate 43 and likely at baseline. Basic metabolic profile and liver function studies are otherwise unremarkable. BNP 43. Troponin negative. Lactate is 0.9. IMAGING: Chest x-ray demonstrates no acute cardiopulmonary process. He has hyperexpansion of bilateral lung paige. ASSESSMENT. 1. Chronic hypoxic and hypercapnic respiratory failure. 2. Chronic obstructive pulmonary disease with mild acute exacerbation. PLAN: I have assessed the patient and will be ordering volume ventilation for nocturnal and as needed daytime use for symptom management of chronic respiratory failure. Traditional home BiPAP is insufficient due to the severity of his disease process. COPD is a major contributing factor to the patient's chronic respiratory failure. I will deescalated his steroids, and continue nebulized medications. Antibiotics can be limited to a 5-day course. I will give him 1 dose of Lasix and he may need to go out on as needed doses. Dr. Thorne will be notified that the patient is here. Pulmonary will continue to follow while he remains in-house, but if he improves by tomorrow morning, he can be considered for transition home. 70 minutes have been devoted to this patient in various activities. I personally reviewed all imaging studies and laboratory data noted within this document. For fifty percent of this time, I was interacting with the patient at the bedside or coordinating care with the care team. For the remainder of the time I was immediately available to the patient in the hospital unit. LILIYA
[2018-01-18] MEDS: guaiFENesin ER 600 MG TAB PO SCH ×2 (15:05→20:47)
[2018-01-18] MEDS: Carvedilol 3.125 MG TAB PO SCH (16:55)
[2018-01-18] MEDS: Mometasone/Formoterol 120 PUFF INHALER INH SCH (19:51)
[2018-01-18] MEDS: Amoxicillin/Potassium Clav 875 MG TAB PO SCH (20:47)
[2018-01-18] MEDS ORDERED: Famotidine 20 MG TAB PO SCH (21:00)
[2018-01-19 04:49] LABS: BUN (Urea Nitrogen) 13 mg/dL (8.4-25.7); Calc. Creatinine Clearance 79 mL/min (70-130); Calcium 8.6 mg/dL (7.8-10.44); Estimated GFR-MDRD Greater than 90; Glucose 143 mg/dL (80-115)
[2018-01-19 04:58] LABS: Anion Gap 12 mmol/L (10-20); Carbon Dioxide 40 mmol/L (23-31); Chloride 92 mmol/L (98-107); Potassium 3.9 mmol/L (3.5-5.1); Sodium 140 mmol/L (136-145)
[2018-01-19 05:16] LABS: Band 1 % (5-11); Hemoglobin 10.2 g/dL (14.0-18.0); Lymphocytes 16 % (21-51); MDiff Complete? YES; Mean Corpuscular HGB CONC 32.2 g/dL (32.0-36.0); Mean Platelet Volume 9.5 fL (7.4-10.4); Monocytes 10 % (0-10); Neutrophil 73 % (42-75); PLT Morphology Comment Appears Adequate; Platelet Count 181 thou/uL (130-400); RBC Distribution Width 13.2 % (11.5-14.5); RBC Morphology Normal; Red Blood Cell (RBC) Count 3.94 mill/uL (4.70-6.10); White Blood Cell (WBC) Count 14.7 thou/uL (4.8-10.8)
[2018-01-19] MEDS: Mometasone/Formoterol 120 PUFF INHALER INH SCH (06:22)
[2018-01-19] MEDS: Carvedilol 3.125 MG TAB PO SCH ×2 (09:05→18:47)
[2018-01-19] MEDS: Potassium Chloride 20 MEQ TAB PO SCH (09:05)
[2018-01-19] MEDS: predniSONE 20 MG TAB PO SCH (09:06)
[2018-01-19] MEDS: guaiFENesin ER 600 MG TAB PO SCH ×3 (09:06→20:21)
[2018-01-19] MEDS: Furosemide 20 MG TAB PO SCH (09:06)
[2018-01-19] MEDS: Amoxicillin/Potassium Clav 875 MG TAB PO SCH ×2 (09:06→20:21)
--- NOTE | 2018-01-19 10:49 | PRG ---
DATE OF SERVICE: 01/19/2018 SUBJECTIVE: Mr. Jones is a 67-year-old gentleman who was admitted yesterday with COPD exacerbation . He said he is feeling better. He is on low flow O2. OBJECTIVE: VITAL SIGNS: His sats are 98%, respirations 18, temperature 98, blood pressure 130/80. CHEST: Chest reveals decreased breath sounds, no wheezing. CARDIAC: Normal S1, S2. No gallops. ABDOMEN: Soft, no masses. LABORATORY DATA: White count 14,000, H&H is 10 and 31, platelet count is normal. Electrolytes are n ormal. X-RAY FINDINGS: His chest x-ray on admission showed no acute infiltrates. IMPRESSION: Chronic obstructive pulmonary disease with exacerbation, bronchitis, former smoker, end- stage chronic obstructive pulmonary disease. PLAN: He is on p.o. medication. Continue aggressive PT and supportive care. We will follow.
--- NOTE | 2018-01-19 11:55 | PDOC.PN ---
- Subjective Encounter Start Date: 01/19/18 Encounter Start Time: 11:30 Subjective: f/u for acute/chronic hypoxic resp failure and COPD exacerbation. -: Overall feels better maintaining saturations on 2L NC(baseline). - Objective Resuscitation Status: Resuscitation Status FULL:Full Resuscitation MAR Reviewed: Yes Vital Signs & Weight: Vital Signs (12 hours) Temp Pulse Resp BP Pulse Ox 01/19/18 11:00 98.9 F 109 H 20 91/56 L 100 01/19/18 07:58 98.4 F 104 H 18 99 01/19/18 07:05 98.4 F 104 H 18 100/50 L 99 01/19/18 06:22 113 H 14 01/19/18 03:52 98.8 F 86 14 99/51 L 100 Weight Weight 129 lb 4.8 oz I&O: 01/18/18 01/19/18 01/20/18 06:59 06:59 06:59 Intake Total 250 Output Total 1450 300 Balance -1200 -300 Result Diagrams: 01/19/18 04:15 01/19/18 04:15 Additional Labs: Microbiology 01/18/18 05:58 Venous blood - Left Arm Blood Culture - Preliminary Specimen has been received and culture in progress. No Growth to date. 01/18/18 05:48 Venous blood - Left Arm Blood Culture - Preliminary Specimen has been received and culture in progress. No Growth to date. EKG Reviewed by me: Yes (Tele - SR) Phys Exam - Physical Examination Constitutional: NAD HEENT: PERRLA, oral pharynx no lesions Neck: no JVD, supple diminished in bases, few exp wheezes Cardiovascular: RRR Gastrointestinal: soft, non-tender, no distention, positive bowel sounds Musculoskeletal: no edema, pulses present Neurological: normal sensation, moves all 4 limbs Psychiatric: A&O x 3 Skin: normal turgor, cap refill <2 seconds Dx/Plan (1) Acute on chronic respiratory failure with hypoxia and hypercapnia Code(s): J96.21 - ACUTE AND CHRONIC RESPIRATORY FAILURE WITH HYPOXIA; J96.22 - ACUTE AND CHRONIC RESPIRATORY FAILURE WITH HYPERCAPNIA Status: Acute Comment : Improved with pulmonary supportive measures, continue Duonebs, Prednisone, Pulmonology assisting with home CPAP (2) COPD exacerbation Code(s): J44.1 - CHRONIC OBSTRUCTIVE PULMONARY DISEASE W (ACUTE) EXACERBATION Status: Acute Comment: Improved, continue Prednisone, Duonebs, Augmentin (3) HTN (hypertension) Code(s): I10 - ESSENTIAL (PRIMARY) HYPERTENSION Status: Chronic Qualifiers: Hypertension type: essential hypertension Comment: BP low currently, monitor clinically (4) GERD (gastroesophageal reflux disease) Code(s): K21.9 - GASTRO-ESOPHAGEAL REFLUX DISEASE WITHOUT ESOPHAGITIS Status: Chronic Comment: Protonix 40mg po daily - Plan continue antibiotics, PT/OT, social economist, respiratory therapy, out of bed/ ambulate, DVT proph w/SCDs Stable currently -: CM for assistance with resuming home O2 -: Home CPAP being coordinated -: Continue Prednisone -: Continue Augmentin * Transfer to medical * Likely home 01/20/18
--- NOTE | 2018-01-19 14:05 | PQF ---
CLINICAL DOCUMENTATION IMPROVEMENT CLARIFICATION FORM: ICD-10 Updated PLEASE DO AN ADDENDUM TO THE PROGRESS NOTE WITH ANY DOCUMENTATION UPDATES OR ADDITIONS AND CARRY THROUGH TO DC SUMMARY. THANK YOU. Date: 01/19/18 ATTN: DR. WOOD Please exercise your independent, professional judgment in responding to the clarification form. Clinical indicators are provided on the bottom of this form for your review Please check appropriate box(s): [ ] Protein Calorie Malnutrition: [ ] Mild [ ] Moderate [ ] Severe [ ] Other Malnutrition (please specify) __ [ ] Underweight without malnutrition [ ] Cachexia [ ] Other diagnosis [ x ] Unable to determine In addition, please specify: Present on Admission (POA): [ ] Yes [ ] No [ x ] Unable to determine CLINICAL INDICATORS - SIGNS / SYMPTOMS / LABS DIETARY NOTE: "CLAVICLE AND LUTHERAN MUSCLE WASTING" "PATIENT LOST 10% BODY WEIGHT IN 5 WEEKS" BMI 18.1 RISKS: COPD TREATMENT: DIETARY CONSULT NUTRITIONAL SUPPLEMENTS RECOMMENDED Moderate Malnutrition (in acute illness) Energy Intake: <75% of estimated energy requirement for > 7 days Weight Loss: 1-2%/1 week; 5%/ 1 month; 7.5%/3 months Other: mild body fat loss; mild muscle mass loss; mild fluid accumulation; Severe Malnutrition (in acute illness) Energy Intake: < 50% of estimated energy requirement for > 5 days Weight Loss: >1-2%/1 week; >5%/1 month; >7.5%/3 months Other: moderate body fat loss; moderate muscle mass loss; moderate- severe fluid accumulation; measurably reduced twisting frame fixer strength Moderate Malnutrition (in chronic illness) Energy Intake: <75% of estimated energy requirement for >1 month Weight Loss: 5%/1 month; 7.5%/3 months; 10%/6 months; 20%/1 year MTDD
[2018-01-20] MEDS: Mometasone/Formoterol 120 PUFF INHALER INH SCH ×3 (00:09→18:07)
[2018-01-20] MEDS: guaiFENesin ER 600 MG TAB PO SCH ×2 (07:20→15:58)
[2018-01-20] MEDS: Carvedilol 3.125 MG TAB PO SCH ×2 (07:20→15:58)
[2018-01-20] MEDS: Amoxicillin/Potassium Clav 875 MG TAB PO SCH (07:20)
[2018-01-20] MEDS: predniSONE 20 MG TAB PO SCH (07:20)
[2018-01-20] MEDS: Potassium Chloride 20 MEQ TAB PO SCH (07:20)
[2018-01-20] MEDS: Furosemide 20 MG TAB PO SCH (07:20)
[2018-01-20 07:34] VITALS: TEMP 97.9
--- NOTE | 2018-01-20 17:50 | PDOC.PN ---
- Subjective Encounter Start Date: 01/20/18 Encounter Start Time: 10:00 Pt seen for followup re: acute on chronic respiratory failure. Says he feels better. No fevers or chills. - Objective Resuscitation Status: Resuscitation Status FULL:Full Resuscitation MAR Reviewed: Yes Vital Signs & Weight: Vital Signs (12 hours) Temp Pulse Resp BP Pulse Ox 01/20/18 07:39 97.9 F 97 20 91 L 01/20/18 07:33 97.9 F 97 20 117/71 91 L 01/20/18 06:31 98 F 115 H 22 H 99/63 96 Weight Admit Weight 130 lb Weight 130 lb I&O: 01/19/18 01/20/18 01/21/18 06:59 06:59 06:59 Intake Total 250 750 Output Total 1450 3050 Balance -1200 -2300 Result Diagrams: 01/19/18 04:15 01/19/18 04:15 Additional Labs: Accuchecks 01/20/18 01/19/18 04:42 20:43 POC Glucose 82 121 H Phys Exam - Physical Examination Appears frail HEENT: moist MMs Neck: supple Respiratory: clear to auscultation bilateral Cardiovascular: RRR Gastrointestinal: soft Neurological: moves all 4 limbs Psychiatric: normal affect Dx/Plan (1) Acute on chronic respiratory failure with hypoxia and hypercapnia Code(s): J96.21 - ACUTE AND CHRONIC RESPIRATORY FAILURE WITH HYPOXIA; J96.22 - ACUTE AND CHRONIC RESPIRATORY FAILURE WITH HYPERCAPNIA Status: Acute Comment : Improved. Now on oral steroids and antibiotics. Some confusion as to whether his oxygen concetrator is working, therefore unable to discharge home today. (2) COPD exacerbation Code(s): J44.1 - CHRONIC OBSTRUCTIVE PULMONARY DISEASE W (ACUTE) EXACERBATION Status: Acute Comment: Improved, continue steroids and antibiotics and bronchocilators along with supplemental oxygen. (3) GERD (gastroesophageal reflux disease) Code(s): K21.9 - GASTRO-ESOPHAGEAL REFLUX DISEASE WITHOUT ESOPHAGITIS Status: Chronic Comment: Continue Protonix 40mg po daily (4) Osteoarthritis Code(s): M19.90 - UNSPECIFIED OSTEOARTHRITIS, UNSPECIFIED SITE Status: Chronic Comment: stable (5) HTN (hypertension) Code(s): I10 - ESSENTIAL (PRIMARY) HYPERTENSION Status: Chronic Qualifiers: Hypertension type: essential hypertension Comment: Monitor vital signs, titrate antihypertensives as needed. (6) PVD (peripheral vascular disease) Code(s): I73.9 - PERIPHERAL VASCULAR DISEASE, UNSPECIFIED Status: Chronic Comment: stable (7) Moderate protein-calorie malnutrition Code(s): E44.0 - MODERATE PROTEIN-CALORIE MALNUTRITION Status: Chronic Comment: appareciate dietitian input - Plan * . Review of Systems - Review of Systems Constitutional: negative: fever, chills, sweats, weakness, malaise Respiratory: Cough, Dry, SOB with Excertion. negative: Shortness of Breath, Hemoptysis, Pleuritic Pain, Wheezing Cardiovascular: negative: chest pain, palpitations, orthopnea, paroxysmal nocturnal dyspnea, edema, light headedness - Medications/Allergies Allergies/Adverse Reactions: Allergies Allergy/AdvReac Type Severity Reaction Status Date / Time No Known Drug Allergies Allergy Verified 01/18/18 08:54 Medications: Current Medications Acetaminophen (Tylenol) 1,000 mg PO Q6H PRN PRN Reason: Headache/Fever or Mild Pain Albuterol/Ipratropium (Duoneb) 3 ml NEB Q4H PRN PRN Reason: SOB &/or Wheezing Last Admin: 01/19/18 06:22 Dose: 3 ml Amoxicillin/Clavulanate Potassium (Augmentin) 875 mg PO BID [facility] Stop: 01/23/18 09:01 Last Admin: 01/20/18 07:20 Dose: 875 mg Carvedilol (Coreg) 3.125 mg PO BID-WM [facility] Last Admin: 01/20/18 15:58 Dose: Not Given Clonidine (Catapres) 0.1 mg PO Q4H PRN PRN Reason: Systolic BP > 180 Furosemide (Lasix) 20 mg PO DAILY [facility] Last Admin: 01/20/18 07:20 Dose: 20 mg Guaifenesin (Mucinex) 600 mg PO TID [facility] Last Admin: 01/20/18 15:58 Dose: 600 mg Hydralazine HCl (Apresoline) 10 mg SLOW IVP Q4H PRN PRN Reason: Systolic BP > 180 Mometasone Furoate/Formoterol Fumar (Dulera 200 Mcg/5 Mcg Inhaler) 2 puff INH BID-RT [facility] Last Admin: 01/20/18 07:43 Dose: 2 puff Ondansetron HCl (Zofran Odt) 4 mg PO Q6H PRN PRN Reason: Nausea/Vomiting Ondansetron HCl (Zofran) 4 mg IVP Q6H PRN PRN Reason: Nausea/Vomiting Pantoprazole Sodium (Protonix) 40 mg PO DAILY [facility] Last Admin: 01/20/18 07:20 Dose: 40 mg Potassium Chloride (K-Dur) 20 meq PO [facility] Last Admin: 01/20/18 07:20 Dose: 20 meq Prednisone (Prednisone) 40 mg PO [facility] Stop: 01/22/18 08:01 Last Admin: 01/20/18 07:20 Dose: 40 mg
[2018-01-20 18:13] VITALS: BP 104/66
--- NOTE | 2018-01-21 01:31 | DIS ---
PRIMARY CARE PROVIDER: Nestor Pereira MD DATE OF ADMISSION: 01/18/2018 DATE OF DISCHARGE: 01/20/2018 DISCHARGE DIAGNOSES: 1. Acute on chronic respiratory failure, hypoxic and hypercapnic. 2. Chronic obstructive pulmonary disease exacerbation. CONDITION OF PATIENT ON THE DAY OF DISCHARGE: Stable. I assessed Mr. Jones on the day of discharg e. Please refer to my daily hospitalist progress note for further information regarding this face-to -face encounter. CONSULTATIONS DURING THIS HOSPITALIZATION: Pulmonology, Dr. Fernandez. DISCHARGE MEDICATIONS: Amoxicillin/potassium clavulanate 875 mg 2 times a day for 6 more doses, Symb icort 160/4.5 mg 2 puffs 2 times a day, Coreg 3.125 mg 2 times a day, Lasix 20 mg daily, Mucinex 600 mg 3 times a day, Protonix 40 mg daily, potassium chloride 20 mEq daily, prednisone 40 mg daily for 2 more days. HOSPITAL COURSE: Mr. Jones is a pleasant 67-year-old gentleman who was admitted to [facility] on 01/18/2018 for acute on chronic respiratory failure. He was admitted to [facility]. He was initially managed with BiPAP. He was seen by pulmonology service. He was transferred to the medical floor after clinical improvement. He is being discharged home in a stable condition. Pulmo nary service has cleared him for discharge. Many thanks for allowing me to participate in your patient's care. Please feel free to contact me wi th any questions or concerns. DISCHARGE DESTINATION: Home. TOTAL AMOUNT OF TIME SPENT COORDINATING THIS DISCHARGE: 33 minutes.
--- NOTE | 2018-01-21 11:14 | PRG ---
DATE OF SERVICE: 01/20/2018 SUBJECTIVE: This morning, he is awake, alert, and responsive. He is doing better. OBJECTIVE: VITAL SIGNS: Blood pressure is 170/71, sats are 91% on 2 liters, temperature 97 , daope76_, respiratory rate 20. CHEST: Decreased breath sounds, no wheezing. CARDIAC: Normal S1, S2. No gallops. ABDOMEN: Soft, no masses. IMPRESSION: Severe chronic obstructive pulmonary disease, previous former smoker. PLAN: The patient can be discharged home on scheduled neb treatments, Symbicort , and tapering dose of steroids. He can follow up in the office in a month. LILIYA
== END 2018-01-20 20:05 | disposition home or self-care (01) | DRG 189 ==
LOC: ERS 05:39 → IMCU/EMU 07:11 → T4-A 01-19 18:36
PROVIDERS: ADMIT Family Medicine; ATTEND Family Medicine
PROC: 5A09357 Assistance with Respiratory Ventilation, Less than 24 Consecutive Hours, Continuous Positive Airway Pressure (ICD-10-PCS; principal; 2018-01-18)
DX: J96.21 Acute and chronic respiratory failure with hypoxia (principal); E44.0 Moderate protein-calorie malnutrition; Z99.81 Dependence on supplemental oxygen; J44.1 Chronic obstructive pulmonary disease with (acute) exacerbation; Z68.1 Body mass index [BMI] 19.9 or less, adult; J96.22 Acute and chronic respiratory failure with hypercapnia; I10 Essential (primary) hypertension; K21.9 Gastro-esophageal reflux disease without esophagitis; I73.9 Peripheral vascular disease, unspecified
CPT/HCPCS: 36415; 36416; 71045; 80048; 80053; 82550; 82553; 82805; 83605; 83690; 83880; 84484; 85007; 85025; 85027; 87040; 93005; 94640; 94660; 96365; 96375; J1100; J1956; J3475; J7506; J7611; J7620

== ENCOUNTER 2018-02-02 01:50 | Inpatient (IN) | payer MEDICARE, MEDICAID ==
[2018-02-02] MEDS ORDERED: Albuterol Sulfate 2.5 mg/0.5 ml Neb ONE ×2 (02:17)
[2018-02-02] MEDS ORDERED: Albuterol Sulfate 2.5 mg/3 ml Neb ONE ×2 (02:17→02:18)
[2018-02-02] MEDS ORDERED: methylPREDNISolone Sod Succ/PF 125 MG/2 ML VIAL ONE ×2 (02:21→02:24)
[2018-02-02 02:25] LABS: #Basophils 0.1 thou/uL (0.0-0.2); #Eosinphils 0.3 thou/uL (0.0-0.7); #Lymphocytes 4.2 thou/uL (1.20-3.40); #Monocytes 1.4 thou/uL (0.11-0.59); #Neutrophils 7.1 thou/uL (1.40-6.50); %Basophils 0.6 % (0.0-1.0); %Lymphocytes 32.1 % (21.0-51.0); %Neutrophils 54.3 % (42.0-75.0); Hemoglobin 12.5 g/dL (14.0-18.0); Mean Corpuscular HGB CONC 31.5 g/dL (32.0-36.0); Mean Corpuscular Hemoglobin 26.2 pg (27.0-31.0); Mean Corpuscular Volume 83.1 fl (80.0-94.0); Mean Platelet Volume 10.1 fL (7.4-10.4); Platelet Count 172 thou/uL (130-400); RBC Distribution Width 13.5 % (11.5-14.5); Red Blood Cell (RBC) Count 4.76 mill/uL (4.70-6.10)
[2018-02-02 02:50] LABS: ALT (SGPT) 11 U/L (8-55); AST (SGOT) 16 U/L (5-34); Albumin 4.1 g/dL (3.4-4.8); Alkaline Phosphatase 59 U/L (40-150); BUN (Urea Nitrogen) 13 mg/dL (8.4-25.7); Bilirubin, Total 0.3 mg/dL (0.2-1.2); CK (CPK) 88 U/L (30-200); Calc. Creatinine Clearance 0 mL/min (70-130); Calcium 9.6 mg/dL (7.8-10.44); Estimated GFR-MDRD Greater than 90; Globulin 2.9 g/dL (2.4-3.5); Glucose 116 mg/dL (80-115)
[2018-02-02 02:51] LABS: CKMB 2.4 ng/mL (0-6.6); Troponin I Less than 0.010 ng/mL (< 0.028)
[2018-02-02 03:00] LABS: Chloride 93 mmol/L (98-107); Potassium 4.4 mmol/L (3.5-5.1); Sodium 144 mmol/L (136-145)
[2018-02-02 03:02] LABS: Base Excess-Venous 16.8 mmol/L (0 (+/- 2.5)); Bicarbonate (HCO3v) 47.1 mmol/L (1.0-85.0); CO2 Tension (PvCO2) 83.7 mmHg (41.0-51.0); Calcium, Ionized 1.02 mmol/L (1.12-1.32); Hemoglobin - Calc 14.4 g/dL (12.0-18.0); O2 Tension (PvO2) 46.3 mmHg (35.0-45.0); Potassium 4.7 mmol/L (3.4-4.7); T. Carbon Dioxide 49.6 mmol/L (1.0-85.0); pH (Venous) 7.358 (7.35-7.45); vO2 Saturation-calc 76.7 % (94-98)
[2018-02-02 03:03] LABS: Anion Gap 13 mmol/L (10-20)
[2018-02-02 03:05] LABS: Carbon Dioxide 42 mmol/L (23-31)
[2018-02-02] MEDS ORDERED: Cefepime 2 GM, Syringe 2.5 ML in Sodium Chloride 0.9% 10 ML SLOW IVP SCH (03:30)
[2018-02-02] MEDS ORDERED: Ondansetron HCl/PF 4 MG/2 ML Vial IVP PRN (06:22)
[2018-02-02] MEDS ORDERED: Acetaminophen 325 MG TAB PO PRN ×2 (06:22→10:42)
[2018-02-02] MEDS ORDERED: Sodium Chloride 0.9% 1,000 ML IV SCH (06:22)
[2018-02-02] MEDS ORDERED: Ondansetron ODT 4 MG TAB SL PRN (06:22)
--- NOTE | 2018-02-02 08:18 | RAD ---
CHEST 1 VIEW: HISTORY: Dyspnea. COMPARISON: 01/18/18. FINDINGS: Cardiac silhouette and pulmonary vasculature are unremarkable. Mediastinum is midline with aortic ca lcification. Lungs are hyperinflated with flattening of each hemidiaphragm. No lobar consolidation or evidence of pneumothorax. seam closer leads overlie the chest. IMPRESSION: 1. Chronic obstructive pulmonary disease. 2. Atherosclerosis. POS: [facility]
--- NOTE | 2018-02-02 10:26 | CON ---
DATE OF CONSULTATION: 02/02/2018 HISTORY OF PRESENT ILLNESS: Mr. Jones is a 67-year-old male who is a patient of Dr. Gonsalez. He was readmitted to the hospital last night with increasing shortness of breath. It looks like he had just been discharged on 01/20/2018 after a similar hospitalization. The patient is having increasing shortness of breath and cough. He is ordinarily on 2-2.5 liters of oxygen at home. He does have a BiPAP machine at home which he apparently purchased from a friend, but has not been able to use it because he only has a nasal mask. PAST MEDICAL HISTORY: 1. Severe COPD requiring oxygen. 2. Hypertension. 3. Bowel obstruction. PAST SURGICAL HISTORY: Appendectomy and partial small bowel resection. ALLERGIES: None. MEDICATIONS: Medications were reviewed and listed in the home medication orders on the chart. FAMILY MEDICAL HISTORY: Unremarkable. SOCIAL HISTORY: He says he still smokes off and on, but denies that he has smoked since his last hospitalization. Does not consume alcohol. REVIEW OF SYSTEMS: Otherwise, negative. PHYSICAL EXAMINATION: VITAL SIGNS: Temperature 97.8, pulse 102, respirations 29, O2 sat 100%, blood pressure 110/53. GENERAL: He is awake, alert, and in no acute distress. HEENT: Unremarkable. NECK: No JVD. LUNGS: Very distant breath sounds without wheezing or rhonchi. CARDIOVASCULAR: S1, S2 regular. ABDOMEN: Soft, nontender. EXTREMITIES: No clubbing, cyanosis or edema. NEUROLOGIC: Grossly intact throughout. LABORATORY DATA: Sodium 144, potassium 4.4, chloride 93, CO2 42, BUN 13, creatinine 0.7, glucose 166, pH 7.35, pCO2 83.46 - that is a venous blood gas. White blood cell count 13, hematocrit 39.6, platelet count 172. Chest x-ray reviewed by myself shows hyperinflation without mass, effusion or infiltrate. ASSESSMENT: 1. Acute hypoxic respiratory failure. 2. Chronic obstructive pulmonary disease exacerbation. PLAN: 1. Steroids, nebulization treatments. 2. I am not sure he needs antibiotics at this time. 3. Discontinue BiPAP. If he does okay off BiPAP this afternoon he could be transferred to the floor. 70 minutes time spent on consultation. Of that time, >50% was spent with the patient and/or on the patients unit MTDD
[2018-02-02] MEDS ORDERED: Guaifenesin DM 100-10/5 ML UDCUP PO PRN (10:42)
[2018-02-02] MEDS ORDERED: Senokot 8.6 MG TAB PO PRN (10:42)
--- NOTE | 2018-02-02 11:50 | HP ---
REASON FOR ADMISSION: Acute on chronic obstructive pulmonary disease exacerbation, acute on chronic respiratory failure with hypoxia. HISTORY OF PRESENT ILLNESS: The patient gives history of having severe shortness of breath, which started around 11:00 p.m. yesterday night. He could not breathe and finally took 2 nebulizations at home. He normally uses 2 liters of nasal cannula oxygen and increased it up to 2-1/2-3 liters, but did not find any relief. He has expectoration of very little white sputum. No fever at home. The patient states he is very compliant with his medications. Although he admits to smoking 1-2 cigarettes at times, the last one was day before. He finally called 911 and patient was brought to emergency room. No complaints of chest pain, palpitation, PND, or orthopnea. Patient states his threw him out after his last hospitalization and he is currently staying with his sister. PAST MEDICAL/SURGICAL HISTORY: Chronic respiratory failure, on 2 liters nasal cannula; chronic COPD; hypertension; history of bowel obstruction with bowel resection; appendectomy. PERSONAL HISTORY: Smokes 1-2 cigarettes on occasions. Quit heavy smoking of 1- 1/2 packs or so per day from early part of this year. Denies alcohol abuse or drug abuse. FAMILY HISTORY: Mother is alive and is 90 years old and has age-related issues including osteoarthritis. Father at the age of 84 years. He has had history of CVA. No known drug allergies. CURRENT MEDICATIONS: Symbicort inhaler 160/4.5 mcg 2 puffs twice daily, Coreg 3.125 mg p.o. twice daily, Lasix 20 mg daily, Mucinex extended release 600 mg 3 times daily, Protonix 40 mg daily, potassium chloride 20 mEq p.o. daily, prednisone 20 mg daily. Code status: FULL REVIEW OF SYSTEMS: The following complete review of systems was negative, unless otherwise mentioned in the HPI or below: Constitutional: Weight loss or gain, ability to conduct usual activities. Skin: Rash, itching. Eyes: Double vision, pain. ENT/Mouth: Nose bleeding, neck stiffness, pain, tenderness. Cardiovascular: Palpitations, dyspnea on exertion, orthopnea. Respiratory: Shortness of breath, wheezing, cough, hemoptysis, fever, or night sweats. Gastrointestinal: Poor appetite, abdominal pain, heartburn, nausea, vomiting, constipation, or diarrhea. Genitourinary: Urgency, frequency, dysuria, nocturia. Musculoskeletal: Pain, swelling. Neurologic/Psychiatric: Anxiety, depression. Allergy/Immunologic: Skin rash, bleeding tendency. PHYSICAL EXAMINATION: GENERAL: The patient is a 67-year-old male, who is currently off BiPAP from this morning. He has nasal oxygen at 2 liters by nasal cannula and is saturating well. VITAL SIGNS: Temperature is 97.8 degrees Fahrenheit, saturating 100% on 2 liters nasal cannula, pulse is 100 per minute, temperature 97.8 degrees Fahrenheit, blood pressure is 110/54. NECK: Supple, no elevated JVD. HEENT: Extraocular muscles intact. Pupils reacting to light. Oral cavity, mucous membranes are dry. No exudates or congestion. CARDIOVASCULAR SYSTEM: S1 and S2 heard. Regular rhythm. RESPIRATORY SYSTEM: Air entry 1+ bilaterally. Scattered wheezes plus, bilateral. ABDOMEN: Soft, bowel sounds heard. No tenderness, rigidity, or guarding. EXTREMITIES: No peripheral edema or calf tenderness. VASCULAR SYSTEM: Peripheral pulses 1+ bilateral, no ischemic ulcerations or gangrene. CENTRAL NERVOUS SYSTEM: No gross focal deficits seen. Patient is alert, awake , oriented well. PSYCHIATRIC SYSTEM: The patient's mood is euthymic. No hallucinations or delusions. LABORATORY AND X-RAY FINDINGS: Chest x-ray done shows changes of COPD, otherwise no acute infiltrate. Serum glucose 116. Serum bicarbonate 42, BUN is 13, creatinine is 0.7. Electrolytes are stable. Otherwise, liver enzymes are within normal limits. First set of cardiac enzymes are negative. Albumin is 4.1. BNP is 67. White count of 13, H and H 12 and 39, platelet count 172, MCV is 83 with 54% neutrophils. EKG done shows sinus tachycardia at 123 beats per minute with signs suggestive of old Q-waves in V1 and V2. CLINICAL IMPRESSION AND PLAN: The patient will be admitted to medical floor and will be shortly downgraded from [facility] at present. He is off BiPAP. He has a known history of COPD on 2 liters nasal cannula with chronic respiratory failure. He has had acute on chronic obstructive pulmonary disease exacerbation. He will be placed on DuoNeb q.6 hourly along with prednisone 40 mg daily. No further antibiotics will be given. The plan is to mobilize him on the floor. We will continue his Coreg, Pulmicort, Brovana, Lasix 20 mg daily for now. He is already evaluated by Dr. Parks for now. The patient has his birthday on Monday and has plans for celebrating it with his family. We will try to discharge him prior to that. CODE STATUS: FULL. This was discussed with patient. Also, he wants his sister , Ms. Filomena Landers, to be his power of tax associate attorney. [facility]
[2018-02-02] MEDS: Carvedilol 3.125 MG TAB PO SCH (17:32)
[2018-02-02] MEDS: guaiFENesin ER 600 MG TAB PO SCH ×2 (17:32→20:33)
[2018-02-02] MEDS: Budesonide 0.5 MG/2 ML NEB INH SCH (18:54)
[2018-02-02] MEDS: Arformoterol 15 MCG/2 ML NEB NEB SCH (18:54)
[2018-02-02] MEDS: Famotidine 20 MG TAB PO SCH (20:33)
[2018-02-03 05:11] LABS: BUN (Urea Nitrogen) 12 mg/dL (8.4-25.7); Calc. Creatinine Clearance 93 mL/min (70-130); Calcium 8.4 mg/dL (7.8-10.44); Estimated GFR-MDRD Greater than 90; Glucose 115 mg/dL (80-115)
[2018-02-03 05:16] LABS: #Basophils 0.1 thou/uL (0.0-0.2); #Eosinphils 0.1 thou/uL (0.0-0.7); #Lymphocytes 2.3 thou/uL (1.20-3.40); #Monocytes 1.2 thou/uL (0.11-0.59); #Neutrophils 8.2 thou/uL (1.40-6.50); %Basophils 0.5 % (0.0-1.0); %Eosinophils 1.1 % (0.0-10.0); %Lymphocytes 19.1 % (21.0-51.0); %Neutrophils 69.4 % (42.0-75.0); Hemoglobin 9.8 g/dL (14.0-18.0); Mean Corpuscular HGB CONC 30.9 g/dL (32.0-36.0); Mean Corpuscular Hemoglobin 25.5 pg (27.0-31.0); Mean Corpuscular Volume 82.5 fl (80.0-94.0); Mean Platelet Volume 11.1 fL (7.4-10.4); Platelet Count 101 thou/uL (130-400); RBC Distribution Width 13.5 % (11.5-14.5); Red Blood Cell (RBC) Count 3.86 mill/uL (4.70-6.10); White Blood Cell (WBC) Count 11.9 thou/uL (4.8-10.8)
[2018-02-03 05:20] LABS: Anion Gap 9 mmol/L (10-20); Carbon Dioxide 38 mmol/L (23-31); Chloride 97 mmol/L (98-107); Potassium 4.2 mmol/L (3.5-5.1); Sodium 140 mmol/L (136-145)
[2018-02-03] MEDS: Budesonide 0.5 MG/2 ML NEB INH SCH ×2 (08:04→18:35)
[2018-02-03] MEDS: Arformoterol 15 MCG/2 ML NEB NEB SCH ×2 (08:05→18:45)
[2018-02-03] MEDS: Enoxaparin Sodium 40 MG/0.4 ML SYRINGE SC SCH (08:22)
[2018-02-03] MEDS: Furosemide 20 MG TAB PO SCH (08:23)
[2018-02-03] MEDS: Famotidine 20 MG TAB PO SCH ×2 (08:23→20:06)
[2018-02-03] MEDS: Carvedilol 3.125 MG TAB PO SCH ×2 (08:23→16:52)
[2018-02-03] MEDS: predniSONE 20 MG TAB PO SCH (08:23)
[2018-02-03] MEDS: guaiFENesin ER 600 MG TAB PO SCH ×3 (08:23→20:06)
--- NOTE | 2018-02-03 11:22 | PRG ---
DATE OF SERVICE: 02/03/2018 SUBJECTIVE: He feels better, has no complaints. PHYSICAL EXAMINATION: VITAL SIGNS: Temperature 97.8, pulse 85, respiration 16, and O2 sat 100%. He is on 2.5 liters nasal cannula. HEENT: Unremarkable. NECK: No JVD. LUNGS: Clear but distant breath sounds. CARDIAC: S1 and S2, regular. ABDOMEN: Soft. EXTREMITIES: No edema. LABORATORY DATA: White blood cell count 11.9, hematocrit 31.8, platelet count 101. Sodium 140, pota ssium 4.2, chloride 97, CO2 of 38, BUN 12, creatinine 0.6, glucose 115. ASSESSMENT: Chronic obstructive pulmonary disease with exacerbation. PLAN: 1. Try to maintain off BiPAP. 2. Continue nebulization treatments. Hopefully can go home tomorrow.
--- NOTE | 2018-02-03 11:51 | PDOC.PN ---
- Subjective Encounter Start Date: 02/03/18 Encounter Start Time: 12:00 Subjective: No complaints. Admitted yesterday for respiratory failure -: No acute events overnight -: Weaned off Bilevel this am. - Objective Resuscitation Status: Resuscitation Status FULL:Full Resuscitation MAR Reviewed: Yes Vital Signs & Weight: Vital Signs (12 hours) Temp Pulse Resp BP Pulse Ox 02/03/18 11:20 97.8 F 81 18 98/58 L 100 02/03/18 08:05 85 16 100 02/03/18 08:04 96 16 100 02/03/18 07:36 100 02/03/18 07:29 100 02/03/18 07:28 96 16 10 L 02/03/18 07:12 97.8 F 85 16 100 02/03/18 07:00 97.8 F 95 20 102/61 100 02/03/18 04:00 98.5 F 90 20 92/51 L 100 02/03/18 00:18 90 17 100 02/03/18 00:00 84 22 H 104/56 L 100 Weight Admit Weight 129 lb 9.6 oz Weight 133 lb 9.6 oz I&O: 02/02/18 02/03/18 02/04/18 06:59 06:59 06:59 Intake Total 150 980 Output Total 1600 Balance 150 -620 Result Diagrams: 02/03/18 04:41 02/03/18 04:41 Phys Exam - Physical Examination Constitutional: NAD HEENT: PERRLA, moist MMs, sclera anicteric, oral pharynx no lesions Neck: no JVD, supple, full ROM Respiratory: no rales, no rhonchi, wheezing present, clear to auscultation bilateral Cardiovascular: RRR, no significant murmur, no rub Gastrointestinal: soft, non-tender, no distention, positive bowel sounds Musculoskeletal: no edema, pulses present Neurological: non-focal, moves all 4 limbs Psychiatric: normal affect, A&O x 3 Skin: no rash, normal turgor Dx/Plan (1) Acute on chronic respiratory failure with hypoxia and hypercapnia Code(s): J96.21 - ACUTE AND CHRONIC RESPIRATORY FAILURE WITH HYPOXIA; J96.22 - ACUTE AND CHRONIC RESPIRATORY FAILURE WITH HYPERCAPNIA Status: Acute Comment : Improved. Weaned off Bipap. (2) COPD exacerbation Code(s): J44.1 - CHRONIC OBSTRUCTIVE PULMONARY DISEASE W (ACUTE) EXACERBATION Status: Acute Comment: Improved. Continue steroids, antibiotics, bronchocilators, and supplemental oxygen. (3) HTN (hypertension) Code(s): I10 - ESSENTIAL (PRIMARY) HYPERTENSION Status: Chronic Qualifiers: Hypertension type: essential hypertension Comment: Borderline low BP. Will hold antihypertensives. - Plan cont current plan of care, continue antibiotics, out of bed/ambulate, DVT proph w/lovenox Likely discharge tomnorrow if continued improvement.. * . Review of Systems - Medications/Allergies Allergies/Adverse Reactions: Allergies Allergy/AdvReac Type Severity Reaction Status Date / Time No Known Drug Allergies Allergy Verified 01/18/18 08:54 Medications: Current Medications Acetaminophen (Tylenol) 650 mg PO Q4H PRN PRN Reason: Headache/Fever or Pain Albuterol/Ipratropium (Duoneb) 3 ml NEB [id number] [facility] Last Admin: 02/03/18 07:28 Dose: 3 ml Arformoterol Tartrate (Brovana) 15 mcg NEB BID-RT [facility] Last Admin: 02/03/18 08:05 Dose: 15 mcg Budesonide (Pulmicort Neb Solution) 0.5 mg INH BID-RT [facility] Last Admin: 02/03/18 08:04 Dose: 0.5 mg Carvedilol (Coreg) 3.125 mg PO BID-WM [facility] Last Admin: 02/03/18 08:23 Dose: 3.125 mg Enoxaparin Sodium (Lovenox) 40 mg SC 0900 [facility] Last Admin: 02/03/18 08:22 Dose: 40 mg Famotidine (Pepcid) 20 mg PO BID [facility] Last Admin: 02/03/18 08:23 Dose: 20 mg Furosemide (Lasix) 20 mg PO DAILY [facility] Last Admin: 02/03/18 08:23 Dose: 20 mg Guaifenesin (Mucinex) 600 mg PO TID [facility] Last Admin: 02/03/18 08:23 Dose: 600 mg Guaifenesin/Dextromethorphan (Robitussin Dm) 15 ml PO Q4H PRN PRN Reason: Cough Pantoprazole Sodium (Protonix) 40 mg PO DAILY PRN PRN Reason: Heartburn or Indigestion Prednisone (Prednisone) 40 mg PO DAILY [facility] Last Admin: 02/03/18 08:23 Dose: 40 mg Senna (Senokot) 2 tab PO HSPRN PRN PRN Reason: Constipation
[2018-02-04 05:22] LABS: #Basophils 0.1 thou/uL (0.0-0.2); #Eosinphils 0.1 thou/uL (0.0-0.7); #Lymphocytes 2.5 thou/uL (1.20-3.40); #Monocytes 0.8 thou/uL (0.11-0.59); %Basophils 0.6 % (0.0-1.0); %Lymphocytes 23.5 % (21.0-51.0); %Monocytes 7.9 % (0.0-10.0); %Neutrophils 66.9 % (42.0-75.0); Hemoglobin 10.4 g/dL (14.0-18.0); Mean Corpuscular Hemoglobin 26.1 pg (27.0-31.0); Mean Corpuscular Volume 81.6 fl (80.0-94.0); Mean Platelet Volume 9.5 fL (7.4-10.4); Platelet Count 156 thou/uL (130-400); RBC Distribution Width 13.5 % (11.5-14.5); Red Blood Cell (RBC) Count 3.96 mill/uL (4.70-6.10); White Blood Cell (WBC) Count 10.4 thou/uL (4.8-10.8)
[2018-02-04 05:29] LABS: BUN (Urea Nitrogen) 10 mg/dL (8.4-25.7); Calc. Creatinine Clearance 89 mL/min (70-130); Calcium 8.4 mg/dL (7.8-10.44); Estimated GFR-MDRD Greater than 90; Glucose 151 mg/dL (80-115)
[2018-02-04 05:39] LABS: Anion Gap 12 mmol/L (10-20); Carbon Dioxide 38 mmol/L (23-31); Chloride 95 mmol/L (98-107); Potassium 3.5 mmol/L (3.5-5.1); Sodium 141 mmol/L (136-145)
[2018-02-04] MEDS: Arformoterol 15 MCG/2 ML NEB NEB SCH ×2 (07:14→18:40)
[2018-02-04] MEDS: Budesonide 0.5 MG/2 ML NEB INH SCH ×2 (07:15→18:31)
[2018-02-04] MEDS: Enoxaparin Sodium 40 MG/0.4 ML SYRINGE SC SCH (10:01)
[2018-02-04] MEDS: guaiFENesin ER 600 MG TAB PO SCH ×3 (10:01→20:36)
[2018-02-04] MEDS: Carvedilol 3.125 MG TAB PO SCH ×2 (10:01→16:26)
[2018-02-04] MEDS: predniSONE 20 MG TAB PO SCH (10:02)
[2018-02-04] MEDS: Furosemide 20 MG TAB PO SCH (10:02)
[2018-02-04] MEDS: Famotidine 20 MG TAB PO SCH ×2 (10:02→20:35)
--- NOTE | 2018-02-04 10:43 | PRG ---
DATE OF SERVICE: 02/04/2018. SUBJECTIVE: He feels better today. He did not have to wear his BiPAP last night. OBJECTIVE: VITAL SIGNS: Temperature 97.9, pulse 86, respiration 24, O2 sat 98% on 2 liters. HEENT: Unremarkable. NECK: No JVD. CHEST: Clear without wheezing or rhonchi. CARDIAC: S1 and S2 regular. ABDOMEN: Soft. EXTREMITIES: No edema. LABORATORY DATA: White blood cell count 10.4, hematocrit 32.4, platelet count 156. Sodium 141, pota ssium 3.5, chloride 95, CO2 38, BUN 10, creatinine 0.6, glucose 151. ASSESSMENT: Chronic obstructive pulmonary disease exacerbation. PLAN: The patient can be safely moved to the medical floor. Continue steroids and nebulization yuniel tments. If he does well, he can probably go home tomorrow.
[2018-02-04] MEDS ORDERED: Potassium Chloride 20 MEQ TAB PO SCH (10:45)
--- NOTE | 2018-02-04 14:27 | PDOC.PN ---
- Subjective Encounter Start Date: 02/04/18 Encounter Start Time: 14:28 Subjective: No complaints. Feels much better -: No acute events overnight. - Objective Resuscitation Status: Resuscitation Status FULL:Full Resuscitation MAR Reviewed: Yes Vital Signs & Weight: Vital Signs (12 hours) Temp Pulse Resp BP Pulse Ox 02/04/18 11:07 98.1 F 97 19 112/60 100 02/04/18 08:25 97.9 F 86 24 H 98 02/04/18 07:16 97.9 F 86 24 H 103/53 L 100 02/04/18 07:15 107 H 16 100 02/04/18 07:14 107 H 16 100 02/04/18 04:02 98.1 F 92 21 H 109/59 L 100 Weight Admit Weight 129 lb 9.6 oz Weight 133 lb 13.129 oz I&O: 02/03/18 02/04/18 02/05/18 06:59 06:59 06:59 Intake Total 980 1350 Output Total 1600 1925 Balance -620 -378 Result Diagrams: 02/04/18 04:54 02/04/18 04:54 Phys Exam - Physical Examination Constitutional: NAD HEENT: PERRLA, moist MMs, sclera anicteric Neck: no JVD, supple, full ROM Respiratory: no wheezing, no rales, no rhonchi, clear to auscultation bilateral Cardiovascular: RRR, no significant murmur, no rub Gastrointestinal: soft, non-tender, no distention, positive bowel sounds Musculoskeletal: no edema, pulses present Neurological: non-focal, moves all 4 limbs Psychiatric: normal affect, A&O x 3 Skin: no rash, normal turgor Dx/Plan (1) COPD exacerbation Code(s): J44.1 - CHRONIC OBSTRUCTIVE PULMONARY DISEASE W (ACUTE) EXACERBATION Status: Acute Comment: Improved. Continue steroids, antibiotics, bronchocilators, and supplemental oxygen. (2) HTN (hypertension) Code(s): I10 - ESSENTIAL (PRIMARY) HYPERTENSION Status: Chronic Qualifiers: Hypertension type: essential hypertension Comment: At goal now. He had borderline low BP so antihypertensives were held. (3) Acute on chronic respiratory failure with hypoxia and hypercapnia Code(s): J96.21 - ACUTE AND CHRONIC RESPIRATORY FAILURE WITH HYPOXIA; J96.22 - ACUTE AND CHRONIC RESPIRATORY FAILURE WITH HYPERCAPNIA Status: Resolved Comment: Improved. Weaned off Bipap. Uses 2-3 L of O2 at home. - Plan cont current plan of care, continue antibiotics, PT/OT, respiratory therapy, incentive spirometry, out of bed/ambulate, DVT proph w/lovenox Transfer [facility] medical floor from [facility] -: Likely discharge tomorrow. * . Review of Systems - Medications/Allergies Allergies/Adverse Reactions: Allergies Allergy/AdvReac Type Severity Reaction Status Date / Time No Known Drug Allergies Allergy Verified 01/18/18 08:54 Medications: Current Medications Acetaminophen (Tylenol) 650 mg PO Q4H PRN PRN Reason: Headache/Fever or Pain Albuterol/Ipratropium (Duoneb) 3 ml NEB [id number] [facility] Last Admin: 02/04/18 07:15 Dose: 3 ml Arformoterol Tartrate (Brovana) 15 mcg NEB BID-RT [facility] Last Admin: 02/04/18 07:14 Dose: 15 mcg Budesonide (Pulmicort Neb Solution) 0.5 mg INH BID-RT [facility] Last Admin: 02/04/18 07:15 Dose: 0.5 mg Carvedilol (Coreg) 3.125 mg PO BID-WM [facility] Last Admin: 02/04/18 10:01 Dose: 3.125 mg Enoxaparin Sodium (Lovenox) 40 mg SC 0900 [facility] Last Admin: 02/04/18 10:01 Dose: 40 mg Famotidine (Pepcid) 20 mg PO BID [facility] Last Admin: 02/04/18 10:02 Dose: 20 mg Furosemide (Lasix) 20 mg PO DAILY [facility] Last Admin: 02/04/18 10:02 Dose: 20 mg Guaifenesin (Mucinex) 600 mg PO TID [facility] Last Admin: 02/04/18 10:01 Dose: 600 mg Guaifenesin/Dextromethorphan (Robitussin Dm) 15 ml PO Q4H PRN PRN Reason: Cough Pantoprazole Sodium (Protonix) 40 mg PO DAILY PRN PRN Reason: Heartburn or Indigestion Last Admin: 02/03/18 20:06 Dose: 40 mg Potassium Chloride (K-Dur) 20 meq PO QAM-[facility] Prednisone (Prednisone) 40 mg PO DAILY [facility] Last Admin: 02/04/18 10:02 Dose: 40 mg Senna (Senokot) 2 tab PO HSPRN PRN PRN Reason: Constipation
[2018-02-04] MEDS ORDERED: Sodium Chloride 0.9% 500 ML IV SCH (20:15)
[2018-02-05] MEDS: Diltiazem 125 MG in Sodium Chloride 0.9% 100 ML IVPB SCH (04:39)
[2018-02-05] MEDS: Budesonide 0.5 MG/2 ML NEB INH SCH ×2 (06:56→18:10)
[2018-02-05] MEDS: Arformoterol 15 MCG/2 ML NEB NEB SCH ×2 (06:57→18:10)
--- NOTE | 2018-02-05 09:12 | PRG ---
DATE OF SERVICE: 02/05/2018 This morning, awake, responsive and is doing better. He is on Cardizem for his SVT. PHYSICAL EXAMINATION: VITAL SIGNS: Temperature is 98, pulse 100, respirations 20, sats 99%, blood pressure 106/70. He den ies difficulty breathing. CHEST: Chest reveals decreased breath sounds without any wheezing. CARDIAC: Normal S1, S2, no gallops. ABDOMEN: Soft, no masses. IMPRESSION: 1. Severe end-stage chronic obstructive pulmonary disease. 2. Supraventricular tachycardia. PLAN: Switch over to oral medication, Cardizem. Hopefully, can be discharged home in the next 24-48 hours. He is on scheduled neb treatments. He is on Brovana along with Pulmicort twice a day and prednisone.
[2018-02-05] MEDS: Famotidine 20 MG TAB PO SCH ×2 (10:31→21:29)
[2018-02-05] MEDS: Potassium Chloride 20 MEQ TAB PO SCH (10:31)
[2018-02-05] MEDS: predniSONE 20 MG TAB PO SCH (10:31)
[2018-02-05] MEDS: Enoxaparin Sodium 40 MG/0.4 ML SYRINGE SC SCH (10:32)
[2018-02-05] MEDS: guaiFENesin ER 600 MG TAB PO SCH ×3 (10:32→21:29)
[2018-02-05] MEDS: Carvedilol 3.125 MG TAB PO SCH ×2 (10:33→17:24)
[2018-02-05] MEDS: Furosemide 20 MG TAB PO SCH (10:34)
--- NOTE | 2018-02-05 11:05 | PDOC.PN ---
- Subjective Encounter Start Date: 02/05/18 Encounter Start Time: 09:15 Subjective: no c/o sob or wheezing -: no c/o palpitations - Objective Resuscitation Status: Resuscitation Status FULL:Full Resuscitation MAR Reviewed: Yes Vital Signs & Weight: Vital Signs (12 hours) Temp Pulse Resp BP Pulse Ox 02/05/18 08:00 97.8 F 152 H 20 89/52 L 97 02/05/18 00:34 20 99 02/05/18 00:00 98.4 F 141 H 18 106/70 98 Weight Admit Weight 129 lb 9.6 oz Weight 133 lb 13.129 oz I&O: 02/04/18 02/05/18 02/06/18 06:59 06:59 06:59 Intake Total 1350 420 Output Total 1925 300 Balance -575 120 Result Diagrams: 02/04/18 04:54 02/04/18 04:54 Phys Exam - Physical Examination HEENT: PERRLA, moist MMs Neck: no JVD, supple Respiratory: no wheezing, no rales Cardiovascular: no significant murmur, irregular Gastrointestinal: soft, non-tender, positive bowel sounds Musculoskeletal: no edema, pulses present Neurological: non-focal, moves all 4 limbs Psychiatric: normal affect, A&O x 3 Dx/Plan (1) Atrial flutter Code(s): I48.92 - UNSPECIFIED ATRIAL FLUTTER Status: Acute (2) Acute and chronic respiratory failure ([id number]) Code(s): J96.20 - ACUTE AND CHR RESP FAILURE, UNSP W HYPOXIA OR HYPERCAPNIA Status: Acute Qualifiers: Respiratory failure complication: hypoxia and hypercapnia Qualified Code(s) : J96.21 - Acute and chronic respiratory failure with hypoxia; J96.22 - Acute and chronic respiratory failure with hypercapnia; J96.22 - Acute and chronic respiratory failure with hypercapnia; J96.22 - Acute and chronic respiratory failure with hypercapnia (3) COPD exacerbation Code(s): J44.1 - CHRONIC OBSTRUCTIVE PULMONARY DISEASE W (ACUTE) EXACERBATION Status: Acute (4) HTN (hypertension) Code(s): I10 - ESSENTIAL (PRIMARY) HYPERTENSION Status: Chronic Qualifiers: Hypertension type: essential hypertension (5) PVD (peripheral vascular disease) Code(s): I73.9 - PERIPHERAL VASCULAR DISEASE, UNSPECIFIED Status: Chronic Comment: stable - Plan on cardizem drip, may add digoxin if ok with cardio/EP -: hold lasix, continue prednisone, nebs -: gentle iv hydration for low BP -: will f/u, oob to chair -: keep pt npo for possible ep eval/cardioversion/ablation * . Review of Systems - Medications/Allergies Allergies/Adverse Reactions: Allergies Allergy/AdvReac Type Severity Reaction Status Date / Time No Known Drug Allergies Allergy Verified 01/18/18 08:54 Medications: Current Medications Acetaminophen (Tylenol) 650 mg PO Q4H PRN PRN Reason: Headache/Fever or Pain Albuterol/Ipratropium (Duoneb) 3 ml NEB [id number] Last Admin: 02/05/18 06:58 Dose: Not Given Arformoterol Tartrate (Brovana) 15 mcg NEB BID-RT [facility] Last Admin: 02/05/18 06:57 Dose: Not Given Budesonide (Pulmicort Neb Solution) 0.5 mg INH BID-RT [facility] Last Admin: 02/05/18 06:56 Dose: Not Given Carvedilol (Coreg) 3.125 mg PO BID-WM [facility] Last Admin: 02/05/18 10:33 Dose: Not Given Enoxaparin Sodium (Lovenox) 40 mg SC 0900 [facility] Last Admin: 02/05/18 10:32 Dose: 40 mg Famotidine (Pepcid) 20 mg PO BID [facility] Last Admin: 02/05/18 10:31 Dose: 20 mg Furosemide (Lasix) 20 mg PO DAILY [facility] Last Admin: 02/05/18 10:34 Dose: Not Given Guaifenesin (Mucinex) 600 mg PO TID [facility] Last Admin: 02/05/18 10:32 Dose: 600 mg Guaifenesin/Dextromethorphan (Robitussin Dm) 15 ml PO Q4H PRN PRN Reason: Cough Diltiazem HCl 125 mg/ Sodium (Chloride) 125 mls @ 5 mls/hr IVPB INF [facility]; 5 MG/ HR PRN Reason: Protocol Last Admin: 02/05/18 04:39 Dose: 125 mls Pantoprazole Sodium (Protonix) 40 mg PO DAILY PRN PRN Reason: Heartburn or Indigestion Last Admin: 02/03/18 20:06 Dose: 40 mg Potassium Chloride (K-Dur) 20 meq PO QAM-WM [facility] Last Admin: 02/05/18 10:31 Dose: 20 meq Prednisone (Prednisone) 40 mg PO DAILY [facility] Last Admin: 02/05/18 10:31 Dose: 40 mg Senna (Senokot) 2 tab PO HSPRN PRN PRN Reason: Constipation Sodium Chloride (Flush - Normal Saline) 10 ml IVF Q12HR [facility] Last Admin: 02/05/18 10:34 Dose: Not Given Sodium Chloride (Flush - Normal Saline) 10 ml IVF PRN PRN PRN Reason: Saline Flush
[2018-02-05] MEDS: Sodium Chloride 0.9% 1,000 ML IV SCH (11:20)
--- NOTE | 2018-02-05 16:19 | CON ---
DATE OF CONSULTATION: 02/05/2018 ELECTROPHYSIOLOGY CONSULTATION NOTE REFERRING PHYSICIAN: Dr. Aguila. I am seeing Mr. 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 His probl ems are: 1. Newly found atrial flutter. A. Remote history of tachyarrhythmia associated with surgery. 2. History of chronic obstructive pulmonary disease, requiring home oxygen. 3. Hypertension. 4. Preserved left ventricular ejection fraction at 50%-55%, normal left atrial size, mild tricuspid regurgitation and a mitral regurgitation on echo 02/05/2018. ALLERGIES: None. MEDICATIONS AT HOME: Included furosemide, Symbicort, Mucinex, Protonix, prednisone 20 mg a day, Core g 3.125 mg twice a day, potassium chloride, and Augmentin. SUBJECTIVE: Mr. Jones is here admitted with symptoms of dyspnea and appears to be COPD exacerbatio n and acute hypoxic respiratory failure. He received steroids and inhalers, but while on pulmonary f gabby, he did develop rapid heartbeats and was noted to be in atrial flutter. Hence, transferred to [facility]. Dr. Aguila requested my consult for management of his atrial flutter. At this point, jane enriquez is unaware of the rapid heartbeats. He has moderate dyspnea, although not present at rest in his b ed. He denies PND, orthopnea. No current fever, chills, or cough is noted. He has no dizziness, lo ss of consciousness, no stroke-like symptoms. No PND or orthopnea documented. REVIEW OF SYSTEMS: Rest of 12-point system otherwise unremarkable. SOCIAL HISTORY: Patient smoked 1 or 2 cigarettes on occasions with heavy smoking, one and a half pac ks per day early part of this year. Denies ETOH or drug abuse. PAST MEDICAL HISTORY: Significant for chronic obstructive pulmonary disease, hypertension, bowel obs truction in the past with recurrent resection, appendectomy. FAMILY HISTORY: Significant for mother alive at age 90, osteoarthritis. Father at age 84, hist ory of stroke. OBJECTIVE DATA: VITAL SIGNS: The blood pressure is currently 89/52, heart rate 150, respirations 20, temperature 97. 8 degrees Fahrenheit. GENERAL: He is alert and oriented man in no apparent distress. NECK: Supple. Jugular veins not distended. CHEST: Coarse without crackles. CARDIOVASCULAR: Heart sounds are regular to rate and rhythm. No murmur, rub, or gallop. ABDOMEN: Benign. Bowel sounds positive. EXTREMITIES: Lower extremities without edema, clubbing, or cyanosis. Pulses are adequate. NEUROLOGIC: Patient nonfocal. MUSCULOSKELETAL EXAM: No joint swelling or deformities. SKIN: Without rash. DATABASE: EKGs reviewed reveal atrial flutter with 2:1 AV conduction, appears to be typical isthmus- dependent in morphology. Telemetry strips reveal mostly heart rates in 150s. LABORATORY DATA: The sodium is 141, potassium 3.5, BUN is 10, creatinine 0.68. The white count is 1 0.4, hemoglobin 10.4, platelet count is 156. ASSESSMENT AND PLAN: Mr. Jones is a 68-year-old man with history of chronic obstructive pulmonary disease . He has been admitted with chronic obstructive pulmonary disease exacerbation and found to be in atrial flutter. Of note, in a prior surgery, at the time of his bowel obstruction and colon re section, he did have some palpitation as well. Possibly atrial flutter could have been present at at time. Now, he has a recurrence. I discussed the pros and cons about different treatment options. A simple cardioversion would not prevent further recurrences. Antiarrhythmic medication likely less efficaci ous and a safe than the radiofrequency ablation of the cavotricuspid isthmus circuit. As the EKG is suggestive of typical isthmus-dependent flutter, it would be very reasonable to proceed with that. P ros and cons again discussed. He understands potential chance for issues with anesthesia and his res piratory status, although not greatly improved. Transesophageal echocardiogram might be necessary if he does not convert to sinus rhythm until then.
--- NOTE | 2018-02-05 16:39 | EKG ---
Test Reason : STAT Blood Pressure : / mmHG Vent. Rate : 144 BPM Atrial Rate : 288 BPM P-R Int : 000 ms QRS Dur : 072 ms QT Int : 276 ms P-R-T Axes : 269 077 075 degrees QTc Int : 427 ms Atrial flutter with 2:1 A-V conduction Anteroseptal infarct , age undetermined cannot be excluded Abnormal ECG Confirmed by GLORIA ZABALA ([id number]) on 02/05/2018 4:39:00 PM Referred By: Confirmed By:GLORIA ZABALA
[2018-02-06] MEDS: Diltiazem 125 MG in Sodium Chloride 0.9% 100 ML IVPB SCH (01:37)
[2018-02-06] MEDS: Carvedilol 3.125 MG TAB PO SCH ×2 (05:42→18:01)
[2018-02-06] MEDS: Budesonide 0.5 MG/2 ML NEB INH SCH ×2 (06:56→19:09)
[2018-02-06] MEDS: Arformoterol 15 MCG/2 ML NEB NEB SCH (06:57)
[2018-02-06] MEDS: Famotidine 20 MG TAB PO SCH ×2 (08:36→21:19)
[2018-02-06] MEDS: predniSONE 20 MG TAB PO SCH (08:37)
[2018-02-06] MEDS: Enoxaparin Sodium 40 MG/0.4 ML SYRINGE SC SCH (08:37)
[2018-02-06] MEDS: guaiFENesin ER 600 MG TAB PO SCH ×3 (08:37→21:19)
[2018-02-06] MEDS: Potassium Chloride 20 MEQ TAB PO SCH (08:37)
--- NOTE | 2018-02-06 09:42 | PRG ---
DATE OF SERVICE: 02/06/2018 This morning the patient is better, he is less short of breath, still having flutter. EP study, the patient is probably scheduled for an ablation. PHYSICAL EXAMINATION: VITAL SIGNS: Respiratory rate 22, sats 100%, temperature 97, blood pressure 110/61. CHEST: Chest revealed decreased breath sounds, no wheezing. CARDIAC: Normal S1-S2. ABDOMEN: Soft, no masses. IMPRESSION: 1. Chronic obstructive pulmonary disease exacerbation. 2. Atrial flutter. PLAN: Continue neb treatments, supportive care. For ablation today. I will follow.
--- NOTE | 2018-02-06 10:51 | PDOC.PN ---
- Subjective Encounter Start Date: 02/06/18 Encounter Start Time: 07:30 Subjective: no c/o palp or sob -: feels better - Objective Resuscitation Status: Resuscitation Status FULL:Full Resuscitation MAR Reviewed: Yes Vital Signs & Weight: Vital Signs (12 hours) Temp Pulse Resp BP Pulse Ox 02/06/18 08:00 97.3 F L 95 22 H 100 02/06/18 07:00 97.3 F L 95 22 H 110/61 100 02/06/18 06:57 74 16 100 02/06/18 06:56 74 16 100 02/06/18 06:54 74 16 100 02/06/18 04:24 97.7 F 71 20 92/50 L 98 02/06/18 00:15 100 02/06/18 00:00 97.7 F 83 18 113/67 96 02/05/18 23:05 77 18 100 Weight Admit Weight 129 lb 9.6 oz Weight 133 lb 13.129 oz I&O: 02/05/18 02/06/18 02/07/18 06:59 06:59 06:59 Intake Total 420 1560 Output Total 300 1775 Balance 120 -215 Result Diagrams: 02/04/18 04:54 02/04/18 04:54 Phys Exam - Physical Examination HEENT: PERRLA, moist MMs Neck: no JVD, supple Respiratory: no wheezing, no rales Cardiovascular: RRR, no significant murmur Gastrointestinal: soft, non-tender, positive bowel sounds Musculoskeletal: no edema, pulses present Neurological: non-focal, moves all 4 limbs Psychiatric: normal affect, A&O x 3 Dx/Plan (1) Atrial flutter Code(s): I48.92 - UNSPECIFIED ATRIAL FLUTTER Status: Acute Comment: paroxysmal (2) Acute and chronic respiratory failure ([id number]) Code(s): J96.20 - ACUTE AND CHR RESP FAILURE, UNSP W HYPOXIA OR HYPERCAPNIA Status: Resolved Qualifiers: Respiratory failure complication: hypoxia and hypercapnia Qualified Code(s) : J96.21 - Acute and chronic respiratory failure with hypoxia; J96.22 - Acute and chronic respiratory failure with hypercapnia; J96.22 - Acute and chronic respiratory failure with hypercapnia; J96.22 - Acute and chronic respiratory failure with hypercapnia (3) COPD exacerbation Code(s): J44.1 - CHRONIC OBSTRUCTIVE PULMONARY DISEASE W (ACUTE) EXACERBATION Status: Acute Comment: resolving (4) HTN (hypertension) Code(s): I10 - ESSENTIAL (PRIMARY) HYPERTENSION Status: Chronic Qualifiers: Hypertension type: essential hypertension (5) PVD (peripheral vascular disease) Code(s): I73.9 - PERIPHERAL VASCULAR DISEASE, UNSPECIFIED Status: Chronic Comment: stable - Plan is in sinus rhythm now -: on cardizem drip, may dc if ok with EP/cardio -: oral steroids, nebs -: echo shows ef of 50%, no mention of thrombus on TTE -: for ablation and EPS today, is npo * . Review of Systems - Medications/Allergies Allergies/Adverse Reactions: Allergies Allergy/AdvReac Type Severity Reaction Status Date / Time No Known Drug Allergies Allergy Verified 01/18/18 08:54 Medications: Current Medications Acetaminophen (Tylenol) 650 mg PO Q4H PRN PRN Reason: Headache/Fever or Pain Albuterol/Ipratropium (Duoneb) 3 ml NEB [id number] [facility] Last Admin: 02/06/18 06:54 Dose: 3 ml Arformoterol Tartrate (Brovana) 15 mcg NEB BID-RT [facility] Last Admin: 02/06/18 06:57 Dose: 15 mcg Budesonide (Pulmicort Neb Solution) 0.5 mg INH BID-RT [facility] Last Admin: 02/06/18 06:56 Dose: 0.5 mg Carvedilol (Coreg) 3.125 mg PO BID-WM [facility] Last Admin: 02/06/18 05:42 Dose: 3.125 mg Enoxaparin Sodium (Lovenox) 40 mg SC 0900 [facility] Last Admin: 02/06/18 08:37 Dose: Not Given Famotidine (Pepcid) 20 mg PO BID [facility] Last Admin: 02/06/18 08:36 Dose: 20 mg Guaifenesin (Mucinex) 600 mg PO TID [facility] Last Admin: 02/06/18 08:37 Dose: 600 mg Guaifenesin/Dextromethorphan (Robitussin Dm) 15 ml PO Q4H PRN PRN Reason: Cough Diltiazem HCl 125 mg/ Sodium (Chloride) 125 mls @ 5 mls/hr IVPB INF [facility]; 5 MG/ HR PRN Reason: Protocol Last Admin: 02/06/18 01:37 Dose: 125 mls Sodium Chloride (Normal Saline 0.9%) 1,000 mls @ 50 mls/hr IV .Q20H [facility] Last Admin: 02/05/18 11:20 Dose: 1,000 mls Pantoprazole Sodium (Protonix) 40 mg PO DAILY PRN PRN Reason: Heartburn or Indigestion Last Admin: 02/03/18 20:06 Dose: 40 mg Potassium Chloride (K-Dur) 20 meq PO QA-[facility] Last Admin: 02/06/18 08:37 Dose: Not Given Prednisone (Prednisone) 40 mg PO DAILY [facility] Last Admin: 02/06/18 08:37 Dose: 40 mg Senna (Senokot) 2 tab PO HSPRN PRN PRN Reason: Constipation Sodium Chloride (Flush - Normal Saline) 10 ml IVF Q12HR [facility] Last Admin: 02/06/18 08:37 Dose: 10 ml Sodium Chloride (Flush - Normal Saline) 10 ml IVF PRN PRN PRN Reason: Saline Flush
[2018-02-06] MEDS ORDERED: Lidocaine 1% (PF) 30 ML VIAL ONE (12:11)
[2018-02-06] MEDS ORDERED: Heparin 10,000 UNITS/1 ML VIAL ONE (12:11)
[2018-02-06] MEDS ORDERED: Ketamine 50 MG/ML VIAL ONE (13:49)
[2018-02-06] MEDS ORDERED: Midazolam HCl 2 mg/2 ml Vial ONE (13:56)
[2018-02-06] MEDS ORDERED: DOPamine 400 MG/D5W 250 ML 250 ML ONE (15:13)
[2018-02-06] MEDS ORDERED: Promethazine HCl 25 MG/ML VIAL IM PRN (15:57)
[2018-02-06] MEDS ORDERED: Promethazine HCl 25 MG/ML VIAL SLOW IVP PRN (15:57)
[2018-02-06] MEDS ORDERED: Ondansetron HCl/PF 4 MG/2 ML Vial IVP PRN ×2 (15:57→16:56)
[2018-02-06] MEDS ORDERED: Glycopyrrolate 0.2 MG/ML 5 ML SYRINGE ONE (16:20)
[2018-02-06] MEDS ORDERED: Temazepam 15 MG CAP PO PRN (16:56)
[2018-02-06] MEDS ORDERED: Acetaminophen 325 MG TAB PO PRN (16:56)
[2018-02-06] MEDS ORDERED: Bisacodyl 10 MG SUPP PR PRN (16:56)
[2018-02-06] MEDS ORDERED: traMADol HCl 50 MG TAB PO PRN (16:56)
[2018-02-06] MEDS ORDERED: Silver Sulfadiazine 1% Cream 50 GM JAR TOP PRN (16:56)
[2018-02-06] MEDS ORDERED: Nitroglycerin 0.4 MG TAB (25 Tab Bottle) SL PRN (16:56)
[2018-02-06] MEDS ORDERED: Mag-Al 1200 mg/1200 mg/30 ML UDCUP PO PRN (16:56)
[2018-02-06] MEDS ORDERED: diphenhydrAMINE 25 MG CAP PO PRN (16:56)
[2018-02-06] MEDS ORDERED: Bisacodyl 5 MG TAB PO PRN (16:56)
[2018-02-06] MEDS: Sodium Chloride 0.9% 1,000 ML IV SCH (18:03)
--- NOTE | 2018-02-06 19:00 | OP ---
ELECTROPHYSIOLOGY STUDY AND RADIOFREQUENCY ABLATION PROCEDURE REFERRING PHYSICIAN: Alo Aguila M.D. REASON FOR PROCEDURE: Mr. Jones is a 68-year-old man with prior history of COPD, but normal LV fun ction, who presenting with atrial flutter with rapid rates, difficult rate control, who eventually alexandre d a spontaneous termination yesterday. He is here for EP study and radiofrequency ablation of flutte r circuit. PROCEDURE: The patient received a propofol for deep sedation. After adequate sedation, the right fe moral vein was prepped and draped and anesthetized with subcutaneous lidocaine and with ultrasound gu idance, the right femoral vein was cannulated x2 with two 8-[place] short sheath was then introduced. Through these, a Decapolar catheter was raised to the right ventricle, right atrium, His bundle and eventually to the CS position. Pacing, mapping, and recording were performed in each location. The following findings were found, baseline rhythm is sinus rhythm, cycle length is 674, LA 146, QRS 90, QT was 322, AH 97, HV 44 milliseconds. Sinus node recovery time was 240 milliseconds corrected. The AV Wenckebach cycle length 320 milliseconds, retrograde Wenckebach cycle was 300 milliseconds with c oncentric retrograde VA activation was noted. No definite dual AV node physiology was observed. Wit h burst atrial pacing, we were able to induce an atrial flutter with cycle length about 230 milliseco nds with typical proximal to distal activation in the CS atrial signal. Post-pacing intervals is mor e prolonged than lateral CS than in the proximal CS lead to right atrial origin. Following that, a ThermoCool ST catheter was advanced to the right atrium and right atrial map was pe rformed. Radiofrequency ablation of the cavotricuspid isthmus eliminated atrial flutter with proxima l CS spacing. Cavotricuspid isthmus block was demonstrated with longest transisthmus time measured b y the ablation line and shorter transisthmus times were measured by the lateral right atrium suggesti ve of complete cavotricuspid isthmus block. Following that a dopamine was administered and these fin dings were still present. No induction of atrial flutter and was seen. At the end of case, the card iac silhouette did not change. CONCLUSION: 1. Typical isthmus dependent atrial flutter was induced. 2. Successful cavotricuspid isthmus ablation eliminated CTA conduction as well as inducible atrial f lutter. 3. Normal sinus and AV pierce physiology was demonstrated. PLAN: For now, continue current regimen. Consider short term, 30-days of anticoagulation. Monitor for recurrence of non-atrial flutter, atrial arrhythmias, although none seen during the study.
[2018-02-07] MEDS: Sodium Chloride 0.9% 1,000 ML IV SCH (01:14)
[2018-02-07] MEDS: Budesonide 0.5 MG/2 ML NEB INH SCH (07:13)
[2018-02-07] MEDS: Famotidine 20 MG TAB PO SCH (09:29)
[2018-02-07] MEDS: predniSONE 20 MG TAB PO SCH (09:30)
[2018-02-07] MEDS: Potassium Chloride 20 MEQ TAB PO SCH (09:31)
[2018-02-07] MEDS: Carvedilol 3.125 MG TAB PO SCH (09:32)
[2018-02-07] MEDS: guaiFENesin ER 600 MG TAB PO SCH ×2 (09:32→15:34)
[2018-02-07] MEDS: Enoxaparin Sodium 40 MG/0.4 ML SYRINGE SC SCH (09:32)
--- NOTE | 2018-02-07 11:36 | PDOC.PN ---
- Subjective Encounter Start Date: 02/07/18 Encounter Start Time: 08:00 Subjective: no sob or palp - Objective Resuscitation Status: Resuscitation Status FULL:Full Resuscitation MAR Reviewed: Yes Vital Signs & Weight: Vital Signs (12 hours) Temp Pulse Resp BP Pulse Ox 02/07/18 10:53 96 15 02/07/18 07:52 96.2 F L 101 H 18 100 02/07/18 07:51 96.2 F L 101 H 18 120/59 L 100 02/07/18 07:11 80 18 02/07/18 04:32 97.7 F 93 20 89/55 L 100 Weight Admit Weight 129 lb 9.6 oz Weight 133 lb 13.129 oz I&O: 02/06/18 02/07/18 02/08/18 06:59 06:59 06:59 Intake Total 1560 1950 240 Output Total 1775 2325 Balance -215 -375 240 Result Diagrams: 02/04/18 04:54 02/04/18 04:54 Phys Exam - Physical Examination HEENT: PERRLA, moist MMs Neck: no JVD, supple Respiratory: no wheezing, no rales Cardiovascular: RRR, no significant murmur Gastrointestinal: soft, non-tender, positive bowel sounds Musculoskeletal: no edema, pulses present Neurological: non-focal, moves all 4 limbs Psychiatric: normal affect, A&O x 3 Dx/Plan (1) Atrial flutter Code(s): I48.92 - UNSPECIFIED ATRIAL FLUTTER Status: Resolved Comment: s/p cavotricuspid isthmus ablation 02/06/18 (2) Acute and chronic respiratory failure ([id number]) Code(s): J96.20 - ACUTE AND CHR RESP FAILURE, UNSP W HYPOXIA OR HYPERCAPNIA Status: Resolved Qualifiers: Respiratory failure complication: hypoxia and hypercapnia Qualified Code(s) : J96.21 - Acute and chronic respiratory failure with hypoxia; J96.22 - Acute and chronic respiratory failure with hypercapnia; J96.22 - Acute and chronic respiratory failure with hypercapnia; J96.22 - Acute and chronic respiratory failure with hypercapnia (3) COPD exacerbation Code(s): J44.1 - CHRONIC OBSTRUCTIVE PULMONARY DISEASE W (ACUTE) EXACERBATION Status: Acute Comment: resolving (4) HTN (hypertension) Code(s): I10 - ESSENTIAL (PRIMARY) HYPERTENSION Status: Chronic Qualifiers: Hypertension type: essential hypertension (5) PVD (peripheral vascular disease) Code(s): I73.9 - PERIPHERAL VASCULAR DISEASE, UNSPECIFIED Status: Chronic Comment: stable - Plan hemostable -: dc pt home -: 4 weeks of eliquis and stop, for post ablation -: HH if he qualifies * .
--- NOTE | 2018-02-07 14:01 | PRG ---
DATE OF SERVICE: 02/07/2018 SUBJECTIVE: This morning, he is better, less short of breath, he has cough yesterday. He said he alexandre d a problem with Brovana, had some kind of reaction, though I am looking at his medical records, he u sed too many times. Today he was switched over to DuoNeb without any issues. OBJECTIVE: VITAL SIGNS: Sats are 100% on 2 liters, respiration rate 18, pulse 101, temperature 96, blood pressu re 120/59. CHEST: Chest reveals decreased breath sounds, no wheezing. CARDIAC: Normal S1, S2. No gallops. IMPRESSION: 1. Status post ablation, atrial flutter. 2. End-stage chronic obstructive pulmonary disease, tobacco abuse, severe deconditioning. PLAN: Pulmonary kat, he can be discharged home on tapering doses, baseline prednisone 5-10 mg a day .
[2018-02-07 14:25] VITALS: BMI 19.2
[2018-02-07 15:38] VITALS: BP 110/65; TEMP 97.7
--- NOTE | 2018-02-07 16:15 | EKG ---
Test Reason : Blood Pressure : / mmHG Vent. Rate : 080 BPM Atrial Rate : 080 BPM P-R Int : 122 ms QRS Dur : 088 ms QT Int : 344 ms P-R-T Axes : 079 068 062 degrees QTc Int : 396 ms Sinus rhythm with marked sinus arrhythmia Otherwise normal ECG Confirmed by GLORIA ZABALA ([id number]) on 02/07/2018 4:14:49 PM Referred By: Confirmed By:GLORIA ZABALA
--- NOTE | 2018-02-07 18:17 | PRG ---
DATE OF SERVICE: 02/07/2018 ATTENDING PHYSICIAN: Dr. Aguila. SUBJECTIVE: Mr. Jones seems to be doing well one day after his ablation procedure. OBJECTIVE: VITAL SIGNS: Blood pressure is 116/58, heart rate 92, respirations 17, temperature 96.8 degrees Fahr enheit. GENERAL: He is alert and oriented man in no apparent distress. NECK: Supple. Jugular veins not distended. CHEST: Coarse without crackles. CARDIOVASCULAR: Heart sounds are regular to rate and rhythm. No murmur or gallop. ABDOMEN: Benign. Bowel sounds positive. Right femoral venous catheter insertion site is without re action in bandage. EXTREMITIES: Lower extremities without edema, clubbing or cyanosis. DATABASE: Telemetry strips reveal sinus rhythm. LABORATORY DATA: None new labs noted. ASSESSMENT AND PLAN: Mr. Jones is a pleasant 68-year-old man with advanced chronic obstructive pul monary disease, who was noted to have atrial flutter with rapid rates. The flutter eventually , but an EP study was reducible and he underwent a cavotricuspid isthmus ablation eliminating it. Currently, maintaining sinus rhythm. He is stable. I agree with a consideration for a month anticoa gulation, which likely could be stopped afterwards if no further atrial arrhythmias are seen. I have to see him back in the office in about 6 weeks. I discussed the case with Dr. Lopez, his primary care physician.
--- NOTE | 2018-02-07 22:36 | DIS ---
DATE OF ADMISSION: 02/02/2018 DATE OF DISCHARGE: 02/07/2018 DISCHARGE DISPOSITION: To home. PRIMARY DISCHARGE DIAGNOSES: Atrial flutter, status post cavotriscuspid isthmus ablation done on 02/06/2018. Acute on chronic respiratory failure with hypoxia, resolved. Chronic obstructive pulmonary disease exacerbation, resolving. SECONDARY DISCHARGE DIAGNOSES: Hypertension and peripheral vascular disease. PROCEDURES DONE DURING HOSPITALIZATION: Chest x-ray done on the day of admission showed findings of COPD with no acute infiltrate. Echo with 2D Doppler done showed an EF of 50%-55%. Had a cavotricuspid isthmus ablation done by Dr. Mark Wagner on 02/06/2018 for typical isthmus-dependent atrial flutter. DISCHARGE MEDICATIONS: Eliquis 5 mg p.o. twice daily for a total of 30 days post-ablation done for post-ablation, Symbicort inhaler 160/4.5 mcg 2 puffs twice daily, Coreg 3.125 mg p.o. twice daily, Lasix 20 mg daily, Protonix 40 mg daily, K-Dur 20 mEq p.o. daily, and prednisone tapering dose starting at 10 mg twice daily over a course of 10 days. ALLERGIES: No known drug allergies. DISCHARGE PLAN: Patient to follow up with primary care physician in 1 week. He also needs followup with Dr. Thorne as advised. BRIEF COURSE DURING HOSPITALIZATION: Patient initially came in with complaints of shortness of breath and wheezing. He was essentially admitted for acute on chronic COPD exacerbation. He was on steroids and nebulizers. 36 hours into hospitalization, patient went into atrial flutter and had to be moved to telemetry. Patient has had consultation with Cardiology and Dr. Wagner for Electrophysiology. He has had cavotricuspid isthmus ablation done on the . Post-ablation, the patient was placed on Eliquis for a period of 30 days. He is at his baseline 2.5 liters by nasal cannula with saturations above 90%. He is also ambulating in room and eating well prior to discharge. Please see a face to face documentation on [employer] for the day of discharge. [facility]
== END 2018-02-07 17:16 | disposition home or self-care (01) | DRG 981 ==
LOC: ERS 01:50 → IMCU/EMU 02:50 → SURG B 02-04 14:25 → 2NO 02-05 04:00
PROVIDERS: ADMIT Internal Medicine; ATTEND Internal Medicine
PROC: 02583ZZ Destruction of Conduction Mechanism, Percutaneous Approach (ICD-10-PCS; principal; 2018-02-06)
PROC: 02K83ZZ Map Conduction Mechanism, Percutaneous Approach (ICD-10-PCS; 2018-02-06)
PROC: 4A023FZ Measurement of Cardiac Rhythm, Percutaneous Approach (ICD-10-PCS; 2018-02-06)
PROC: 4A0234Z Measurement of Cardiac Electrical Activity, Percutaneous Approach (ICD-10-PCS; 2018-02-06)
DX: J44.1 Chronic obstructive pulmonary disease with (acute) exacerbation (principal); J96.21 Acute and chronic respiratory failure with hypoxia; J96.22 Acute and chronic respiratory failure with hypercapnia; I47.1 Supraventricular tachycardia; I48.3 Typical atrial flutter; I08.1 Rheumatic disorders of both mitral and tricuspid valves; I10 Essential (primary) hypertension; I73.9 Peripheral vascular disease, unspecified; F17.210 Nicotine dependence, cigarettes, uncomplicated
CPT/HCPCS: 36415; 71045; 76942; 80048; 80053; 82330; 82550; 82553; 82803; 83880; 84484; 85025; 87040; 93005; 93010; 93306; 93613; 93623; 93653; 94640; 94644; 94660; 94760; 96361; 96374; 96375; A4216; C1730; C1769; J0692; J1265; J1644; J1650; J2001; J2250; J2930; J3370; J7050; J7506; J7611; J7620; J7626

== ENCOUNTER 2018-03-08 05:46 | Inpatient (IN) | payer MEDICARE, MEDICAID ==
[2018-03-08] MEDS ORDERED: methylPREDNISolone Sod Succ/PF 125 MG/2 ML VIAL ONE (06:14)
[2018-03-08 06:26] LABS: #Basophils 0.1 thou/uL (0.0-0.2); #Eosinphils 0.2 thou/uL (0.0-0.7); #Neutrophils 5.6 thou/uL (1.40-6.50); %Basophils 1.2 % (0.0-1.0); %Eosinophils 1.9 % (0.0-10.0); %Lymphocytes 22.4 % (21.0-51.0); %Neutrophils 63.5 % (42.0-75.0); Mean Corpuscular HGB CONC 31.6 g/dL (32.0-36.0); Mean Corpuscular Hemoglobin 26.3 pg (27.0-31.0); Mean Corpuscular Volume 83.3 fl (80.0-94.0); Mean Platelet Volume 9.4 fL (7.4-10.4); Platelet Count 198 thou/uL (130-400); RBC Distribution Width 13.2 % (11.5-14.5); Red Blood Cell (RBC) Count 4.19 mill/uL (4.70-6.10); White Blood Cell (WBC) Count 8.8 thou/uL (4.8-10.8)
[2018-03-08 06:46] LABS: ALT (SGPT) 9 U/L (8-55); AST (SGOT) 16 U/L (5-34); Albumin 3.8 g/dL (3.4-4.8); Alkaline Phosphatase 60 U/L (40-150); BUN (Urea Nitrogen) 12 mg/dL (8.4-25.7); Bilirubin, Total 0.3 mg/dL (0.2-1.2); Calc. Creatinine Clearance 0 mL/min (70-130); Estimated GFR-MDRD Greater than 90; Globulin 2.6 g/dL (2.4-3.5); Glucose 113 mg/dL (80-115); Protein, Total 6.4 g/dL (5.8-8.1)
[2018-03-08 06:52] LABS: CKMB 1.9 ng/mL (0-6.6); Troponin I Less than 0.010 ng/mL (< 0.028)
[2018-03-08 07:01] LABS: Anion Gap 10 mmol/L (10-20); Chloride 93 mmol/L (98-107); Potassium 3.9 mmol/L (3.5-5.1); Sodium 140 mmol/L (136-145)
[2018-03-08] MEDS ORDERED: Albuterol Sulfate 2.5 mg/0.5 ml Neb ONE (07:08)
[2018-03-08 07:09] LABS: Carbon Dioxide 41 mmol/L (23-31)
[2018-03-08] MEDS ORDERED: Albuterol Sulfate 2.5 mg/3 ml Neb ONE (07:09)
--- NOTE | 2018-03-08 08:59 | RAD ---
CHEST 1 VIEW: Date: 03/08/18 COMPARISON: 02/02/18. HISTORY: Dyspnea. FINDINGS: Atherosclerosis of aorta. Normal cardiac silhouette. Chronic change in lung parenchyma. No pneumothor ax or acute osseous abnormalities. IMPRESSION: COPD. Chronic changes. Atherosclerosis. POS: FERNANDO
[2018-03-08] MEDS ORDERED: Acetaminophen 325 MG TAB PO PRN (10:12)
[2018-03-08] MEDS ORDERED: Guaifenesin DM 100-10/5 ML UDCUP PO PRN (10:12)
--- NOTE | 2018-03-08 11:23 | HP ---
REASON FOR ADMISSION: COPD exacerbation. HISTORY OF PRESENT ILLNESS: The patient gives history of worsening shortness of breath from early this morning. The patient states the humidity with the rain in the last 2 days, made his COPD worse. He started wheezing badly this morning. The patient normally ambulates inside the house and was unable to move or lay down. He finally called 911 and was brought to the emergency room. Initially, he was placed on BiPAP with patient having pursed lip breathing. He has slowly come out of BiPAP at present. He is on his home dose of 2-1/2 liters of oxygen by nasal cannula at present. He still has orthopnea and is at 45 degrees head elevation on the ER gurney at present. The patient states he is compliant with medication. He states he has stopped smoking. No complaints of chest pain, palpitation, PND or orthopnea. The patient has had recurrent hospitalization here and was discharged on the of last month for COPD exacerbation. PAST MEDICAL AND SURGICAL HISTORY: History of atrial flutter, status post cavotricuspid isthmus ablation; chronic respiratory failure with hypoxia, on home oxygen; COPD; hypertension; peripheral vascular disease; prior history of bowel obstruction with surgery and resection; appendectomy. CURRENT MEDICATIONS: The patient is on Symbicort inhaler 2 puffs twice daily, DuoNebs q.6 hourly, Lasix 20 mg daily, Eliquis 5 mg twice daily until the of this month post-ablation, Coreg 3.125 mg p.o. twice daily, Lasix 20 mg daily , Mucinex 600 mg p.o. 3 times daily, Protonix 40 mg daily, potassium chloride 20 mEq p.o. daily. ALLERGIES: No known drug allergies. PERSONAL HISTORY: Quit smoking after his last hospitalization here, does not abuse alcohol or drugs. Lives with his sister. FAMILY HISTORY: Mother is alive and has age related issues including osteoarthritis. Father at the age of 84 years. He had stroke. No known drug allergies. REVIEW OF SYSTEMS: Constitutional: Weight loss or gain, ability to conduct usual activities. Skin: Rash, itching. Eyes: Double vision, pain. ENT/Mouth: Nose bleeding, neck stiffness, pain, tenderness. Cardiovascular: Palpitations, dyspnea on exertion, orthopnea. Respiratory: Shortness of breath, wheezing, cough, hemoptysis, fever or night sweats. Gastrointestinal: Poor appetite, abdominal pain, heartburn, nausea, vomiting, constipation, or diarrhea. Genitourinary: Urgency, frequency, dysuria, nocturia. Musculoskeletal: Pain, swelling. Neurologic/Psychiatric: Anxiety, depression. Allergy/Immunologic: Skin rash, bleeding tendency. PHYSICAL EXAMINATION: GENERAL: The patient is a 68-year-old male who is currently in moderate respiratory distress. VITAL SIGNS: Blood pressure 128/80, pulse 120 per minute, respiratory rate 26 per minute, temperature 97.9 degrees Fahrenheit, saturating 93% on 2-1/2 liters nasal cannula. NECK: Supple, no elevated JVD. HEENT: Eyes: Extraocular muscles intact. Pupils reacting to light. Oral cavity, mucous membranes are moist. No exudates or congestion. CARDIOVASCULAR: S1, S2 heard. Tachycardic, no murmur. RESPIRATORY: Air entry 1+ bilateral. Scattered wheezes plus bilateral. ABDOMEN: Soft, bowel sounds heard. No tenderness, rigidity or guarding. EXTREMITIES: No peripheral edema or calf tenderness. VASCULAR SYSTEM: Peripheral pulses 1+ bilateral, no ischemic ulcerations or gangrene. CENTRAL NERVOUS SYSTEM: No gross focal deficits seen. The patient is alert, awake, oriented well. PSYCHIATRIC: The patient is a bit anxious, otherwise no hallucinations or delusions. LABORATORY AND X-RAY FINDINGS: EKG done shows sinus tachycardia at 110 beats per minute. There are frequent PVC seen. White count of 8, H&H 11 and 34, platelet count 198 with 63% neutrophils, MCV is 83. Electrolytes are stable. Serum bicarbonate 41, BUN 12, creatinine 0.7, glucose 113. Liver enzymes are within normal limits. BNP is 66, troponin I less than 0.01. Albumin is 3.8. Chest x-ray done shows no acute infiltrate. There are chronic changes of COPD seen. CLINICAL IMPRESSION AND PLAN: The patient will be admitted to telemetry for acute on chronic obstructive pulmonary disease exacerbation, acute on chronic respiratory failure with hypoxia and hypercapnia. We will continue him on DuoNebs q.6 hourly, Solu-Medrol 40 mg IV q.6 hourly along with Mucinex as before. We will also continue his Eliquis, Symbicort inhaler, Coreg. We will consult Dr. Thorne, his balance wheel motion inspector. We will continue to closely monitor him for any hemodynamic compromise. He will also be on telemetry to closely monitor for recurrence of supraventricular arrhythmias. MTDD
[2018-03-08] MEDS ORDERED: Sodium Chloride 0.65% Nasal 44 ML BOT EA NARE PRN (14:44)
[2018-03-08 14:49] VITALS: BMI 18.7
[2018-03-08] MEDS: guaiFENesin ER 600 MG TAB PO SCH ×2 (15:31→21:34)
[2018-03-08] MEDS: Carvedilol 3.125 MG TAB PO SCH (16:14)
[2018-03-08] MEDS: Mometasone/Formoterol 120 PUFF INHALER INH SCH (18:34)
[2018-03-08] MEDS: Apixaban 5 MG TAB PO SCH (21:33)
[2018-03-08] MEDS: Docusate 100 MG CAP PO SCH (21:34)
[2018-03-08] MEDS: Famotidine 20 MG TAB PO SCH (21:34)
--- NOTE | 2018-03-09 02:30 | CON ---
DATE OF CONSULTATION: 03/08/2018 HISTORY OF PRESENT ILLNESS: A 68-year-old gentleman well known to me who was in the office on Monday came without any oxygen, saturations on the 80s. He finally gotten some oxygen. A [employer] company was contacted to get him nocturnal ventilation for his end-stage COPD in the process of trying to assess his needs comes into the hospital with marked weakness, shortness of breath, coughing, and basically tired. In fact, he was on some kind of noninvasive ventilation in the ER. He is now being admitted. He had been here numerous times in the hospital. His history is extensively well outlined. On admission, his blood pressure was 121/81, sats were 97% on 1 liter, respirations 30, temperature 97. Chest, dec reased breath sounds. He received several neb treatments in the ER en route. BiPAP in place. He can barely walk even 20 feet without getting markedly short of breath. He recently underwent abla tion for SVT. Discharged home. He continues to smoke, though he stays infrequently. PAST MEDICAL HISTORY: Recent diagnose of atrial fibrillation, end-stage COPD, hypertension, and recu rrent admission for COPD exacerbation. PAST SURGICAL HISTORY: Bowel obstruction and resection of appendix. MEDICATIONS FROM HOME: Includes low flow O2, neb treatment, Symbicort, Eliquis 5 twice a day, Lasix 20, Protonix, potassium, prednisone to be tapered to 10 a day. ALLERGIES: None. SOCIAL/FAMILY HISTORY: Otherwise, as noted. Alcohol, none. Tobacco, persistent, unknown quantity u sed. REVIEW OF SYSTEMS: Ten point negative. PHYSICAL EXAMINATION: VITAL SIGNS: His mouth cannula in place, sats 100% on 2 liters, blood pressure 103/72, temperature 9 7, respirations 18. LUNGS: Decreased breath sounds, no wheezing. CARDIAC: Normal S1, S2, no gallops. ABDOMEN: Soft. EXTREMITIES: No edema. NEUROLOGIC: Awake, alert and responsive. IMAGING AND LABORATORY DATA: Chest x-ray shows hyperinflation, no acute infiltrates seen. His white count 8,000, hemoglobin and hematocrit 11 and 34, platelet count is normal. His bicarbonate is 41 s uggesting chronic respiratory acidosis. Electrolytes are normal. IMPRESSION: 1. Acute on chronic respiratory failure. 2. End-stage chronic obstructive pulmonary disease, severe deconditioning. PLAN: Neb treatments, steroids have been initiated. Low flow O2. Advice to try and keep his nasal cannula in his nose as possible. Consultation note, 70 minutes of which 50% in direct patient care.
[2018-03-09 04:43] LABS: #Lymphocytes 0.9 thou/uL (1.20-3.40); #Monocytes 0.4 thou/uL (0.11-0.59); #Neutrophils 12.3 thou/uL (1.40-6.50); %Basophils 0.1 % (0.0-1.0); %Eosinophils 0.1 % (0.0-10.0); %Lymphocytes 6.6 % (21.0-51.0); %Monocytes 2.6 % (0.0-10.0); %Neutrophils 90.7 % (42.0-75.0); Hemoglobin 9.6 g/dL (14.0-18.0); Mean Corpuscular HGB CONC 31.8 g/dL (32.0-36.0); Mean Corpuscular Volume 81.9 fl (80.0-94.0); Mean Platelet Volume 9.4 fL (7.4-10.4); Platelet Count 192 thou/uL (130-400); RBC Distribution Width 13.2 % (11.5-14.5); White Blood Cell (WBC) Count 13.6 thou/uL (4.8-10.8)
[2018-03-09 05:05] LABS: BUN (Urea Nitrogen) 10 mg/dL (8.4-25.7); Calc. Creatinine Clearance 94 mL/min (70-130); Estimated GFR-MDRD Greater than 90; Glucose 137 mg/dL (80-115)
[2018-03-09 05:15] LABS: Anion Gap 10 mmol/L (10-20); Carbon Dioxide 37 mmol/L (23-31); Chloride 97 mmol/L (98-107); Potassium 4.4 mmol/L (3.5-5.1); Sodium 140 mmol/L (136-145)
[2018-03-09] MEDS: Mometasone/Formoterol 120 PUFF INHALER INH SCH ×2 (06:43→18:55)
[2018-03-09] MEDS: guaiFENesin ER 600 MG TAB PO SCH ×3 (08:42→20:42)
[2018-03-09] MEDS: Docusate 100 MG CAP PO SCH ×2 (08:42→20:42)
[2018-03-09] MEDS: Apixaban 5 MG TAB PO SCH ×2 (08:42→20:42)
[2018-03-09] MEDS: Carvedilol 3.125 MG TAB PO SCH ×2 (08:42→17:17)
[2018-03-09] MEDS: Famotidine 20 MG TAB PO SCH ×2 (08:42→20:42)
--- NOTE | 2018-03-09 08:54 | PRG ---
DATE OF SERVICE: 03/09/2018 He is at his baseline. He is doing well, no new symptoms, coughing, shortness of breath, wheezing. He had a BiPAP last night. PHYSICAL EXAMINATION: VITAL SIGNS: Sats 92%, pulse 93, respiration 20, temperature 97, blood pressure is 96/57. GENERAL: Awake, alert, responsive, less short of breath. CHEST: Chest reveals decreased breath sounds, no wheezing. CARDIAC: Normal S1, S2, no gallops. ABDOMEN: Soft, no mass. IMPRESSION: 1. Chronic obstructive pulmonary disease exacerbation. 2. Bronchitis. 3. Ongoing tobacco abuse. PLAN: I am going to switch him over to his p.o. prednisone baseline. He could be discharged home in the next 24-48 hours. We have arranged from noninvasive ventilation at nighttime on him.
--- NOTE | 2018-03-09 11:45 | PQF ---
Date: 03-09-18 ATTN: DR. FLAVIO ALANIZ Please exercise your independent, professional judgment in responding to the clarification form. Clinical indicators are provided on the bottom of this form for your review Please check appropriate box(s): [ x] Protein Calorie Malnutrition: [ x] Mild [ ] Moderate [ ] Severe [ ] Underweight without malnutrition [ ] Cachexia [ ] Other diagnosis [ ] Unable to determine In addition, please specify: Present on Admission (POA): [ ] Yes [ ] No [ ] Unable to determine CLINICAL INDICATORS - SIGNS / SYMPTOMS / LABS BMI of 18.7 RN MATERNAL CHILD CONSULT 03-08-18: Patient states he has a good appetite, has eaten a little less the last 2-3 days d/t SOB. CONTINUE HEART HEALTHY DIET, CONTINUE GLUCERNA BID TO AID WITH INTAKE, NUTRITION PRESCRIPTION CONSULT NOTE DR. GUERRA 03-08-18: SEVERE DECONDITIONING RISK FACTORS: H&P: HX OF SEVERE COPD, CHRONIC RESPIRATORY FAILURE ON HOME OXYGEN, HTN, PVD, SMOKER TREATMENT: RN MATERNAL CHILD CONSULT 03-08-18: CONTINUE HEART HEALTHY DIET, CONTINUE GLUCERNA BID TO AID WITH INTAKE, NUTRITION PRESCRIPTION Moderate Malnutrition (in acute illness) Energy Intake: <75% of estimated energy requirement for > 7 days Weight Loss: 1-2%/1 week; 5%/ 1 month; 7.5%/3 months Other: mild body fat loss; mild muscle mass loss; mild fluid accumulation; Severe Malnutrition (in acute illness) Energy Intake: < 50% of estimated energy requirement for > 5 days Weight Loss: >1-2%/1 week; >5%/1 month; >7.5%/3 months Other: moderate body fat loss; moderate muscle mass loss; moderate- severe fluid accumulation; measurably reduced produce inspector strength Moderate Malnutrition (in chronic illness) Energy Intake: <75% of estimated energy requirement for >1 month Weight Loss: 5%/1 month; 7.5%/3 months; 10%/6 months; 20%/1 year Other: mild body fat loss; mild muscle mass loss; mild fluid accumulation Severe Malnutrition (in chronic illness) Energy Intake: <75% of estimated energy requirement for >1 month Weight Loss: >5%/1 month; >7.5%/3 months; >10%/6 months; >20%/1 year Other: severe body fat loss; severe muscle mass loss; severe fluid accumulation ; measurably reduced produce inspector strength (This form is maintained as a part of the permanent medical record) 2014 [employer]. All Rights Reserved [email or web address] [email or web address] Office: [phone] [facility] CENTERC[facility]
--- NOTE | 2018-03-09 12:42 | PDOC.PN ---
- Subjective Encounter Start Date: 03/09/18 Encounter Start Time: 08:25 Subjective: breathing better -: no palpitations or chest pain -: is watching tv - Objective Resuscitation Status: Resuscitation Status DNR:Do Not Resuscitate MAR Reviewed: Yes Vital Signs & Weight: Vital Signs (12 hours) Temp Pulse Resp BP Pulse Ox 03/09/18 10:24 117 H 18 97 03/09/18 08:00 97.4 F L 74 20 99 03/09/18 06:46 93 20 95 03/09/18 06:43 93 18 95 03/09/18 04:00 97.7 F 102 H 18 96/57 L 03/09/18 01:34 104 H 26 H 97 03/09/18 01:33 102 H 24 H 99 Weight Admit Weight 130 lb 8 oz Weight 130 lb 8 oz I&O: 03/08/18 03/09/18 03/10/18 06:59 06:59 06:59 Intake Total 325 Output Total 150 Balance 175 Result Diagrams: 03/09/18 04:24 03/09/18 04:24 Phys Exam - Physical Examination HEENT: PERRLA, moist MMs Neck: no JVD, supple Respiratory: no wheezing, no rales Cardiovascular: RRR, no significant murmur Gastrointestinal: soft, non-tender, positive bowel sounds Musculoskeletal: no edema, pulses present Neurological: non-focal, moves all 4 limbs Psychiatric: normal affect, A&O x 3 Dx/Plan (1) Acute on chronic respiratory failure with hypoxia and hypercapnia Code(s): J96.21 - ACUTE AND CHRONIC RESPIRATORY FAILURE WITH HYPOXIA; J96.22 - ACUTE AND CHRONIC RESPIRATORY FAILURE WITH HYPERCAPNIA Status: Acute Comment : resolving (2) COPD exacerbation Code(s): J44.1 - CHRONIC OBSTRUCTIVE PULMONARY DISEASE W (ACUTE) EXACERBATION Status: Acute Comment: resolving (3) Mild protein-calorie malnutrition Code(s): E44.1 - MILD PROTEIN-CALORIE MALNUTRITION Status: Chronic (4) GERD (gastroesophageal reflux disease) Code(s): K21.9 - GASTRO-ESOPHAGEAL REFLUX DISEASE WITHOUT ESOPHAGITIS Status: Chronic Qualifiers: Esophagitis presence: esophagitis presence not specified Qualified Code(s) : K21.9 - Gastro-esophageal reflux disease without esophagitis Comment: Continue Protonix 40mg po daily (5) HTN (hypertension) Code(s): I10 - ESSENTIAL (PRIMARY) HYPERTENSION Status: Chronic Qualifiers: Hypertension type: essential hypertension (6) PVD (peripheral vascular disease) Code(s): I73.9 - PERIPHERAL VASCULAR DISEASE, UNSPECIFIED Status: Chronic Comment: stable (7) Chronic anemia Code(s): D64.9 - ANEMIA, UNSPECIFIED Status: Chronic - Plan is on solumedrol, nebs -: continue eliquis for h/o ablation for a.flutter -: bipap prn -: has end stage copd on home oxygen, lives with his sister -: to amb as tolerated, will tx to med floor * . Review of Systems - Medications/Allergies Allergies/Adverse Reactions: Allergies Allergy/AdvReac Type Severity Reaction Status Date / Time No Known Drug Allergies Allergy Verified 01/18/18 08:54 Medications: Current Medications Acetaminophen (Tylenol) 650 mg PO Q4H PRN PRN Reason: Headache/Fever or Pain Albuterol/Ipratropium (Duoneb) 3 ml NEB [id number] [facility] Last Admin: 03/09/18 10:24 Dose: 3 ml Apixaban (Eliquis) 5 mg PO BID [facility] Stop: 04/07/18 21:01 Last Admin: 03/09/18 08:42 Dose: 5 mg Carvedilol (Coreg) 3.125 mg PO BID-[facility] Last Admin: 03/09/18 08:42 Dose: 3.125 mg Docusate Sodium (Colace) 100 mg PO BID [facility] Last Admin: 03/09/18 08:42 Dose: 100 mg Famotidine (Pepcid) 20 mg PO BID [facility] Last Admin: 03/09/18 08:42 Dose: 20 mg Guaifenesin (Mucinex) 600 mg PO TID [facility] Last Admin: 03/09/18 08:42 Dose: 600 mg Guaifenesin/Dextromethorphan (Robitussin Dm) 15 ml PO Q4H PRN PRN Reason: Cough Mometasone Furoate/Formoterol Fumar (Dulera 200 Mcg/5 Mcg Inhaler) 2 puff INH BID-RT [facility] Last Admin: 03/09/18 06:43 Dose: 2 puff Prednisone (Prednisone) 40 mg PO QAM-[facility] Sodium Chloride ([place] Nasal [place] 0.65%) 1 ml EA NARE TIDPRN PRN PRN Reason: Nasal Congestion
[2018-03-10] MEDS: Mometasone/Formoterol 120 PUFF INHALER INH SCH ×2 (06:27→18:53)
[2018-03-10] MEDS: Carvedilol 3.125 MG TAB PO SCH ×2 (09:30→17:18)
[2018-03-10] MEDS: predniSONE 20 MG TAB PO SCH (09:30)
[2018-03-10] MEDS: Famotidine 20 MG TAB PO SCH ×2 (09:31→21:17)
[2018-03-10] MEDS: Docusate 100 MG CAP PO SCH ×2 (09:31→21:17)
[2018-03-10] MEDS: Apixaban 5 MG TAB PO SCH ×2 (09:31→21:17)
[2018-03-10] MEDS: guaiFENesin ER 600 MG TAB PO SCH ×3 (09:31→21:17)
--- NOTE | 2018-03-10 11:17 | PDOC.PN ---
- Subjective Encounter Start Date: 03/10/18 Encounter Start Time: 09:55 Subjective: breathing better, has not amb yet -: says he gets good sleep now on bipap at night - Objective Resuscitation Status: Resuscitation Status DNR:Do Not Resuscitate MAR Reviewed: Yes Vital Signs & Weight: Vital Signs (12 hours) Temp Pulse Resp BP BP Pulse Ox 03/10/18 09:39 102 H 25 H 97 03/10/18 07:02 97.8 F 86 18 98/62 100 03/10/18 06:27 75 18 98 03/10/18 06:22 75 18 98 03/10/18 04:12 98.1 F 91 20 97/58 L 100 03/10/18 02:25 20 03/10/18 00:40 98 99 03/09/18 23:51 98.0 F 80 20 105/57 L 100 Weight Admit Weight 130 lb 8 oz Weight 130 lb 8 oz I&O: 03/09/18 03/10/18 03/11/18 06:59 06:59 06:59 Intake Total 325 770 Output Total 150 590 Balance 175 180 Result Diagrams: 03/09/18 04:24 03/09/18 04:24 Phys Exam - Physical Examination HEENT: PERRLA, moist MMs Neck: no JVD, supple Respiratory: no wheezing, no rales Cardiovascular: RRR, no significant murmur Gastrointestinal: soft, non-tender, positive bowel sounds Musculoskeletal: no edema, pulses present Neurological: non-focal, moves all 4 limbs Psychiatric: normal affect, A&O x 3 Dx/Plan (1) Acute on chronic respiratory failure with hypoxia and hypercapnia Code(s): J96.21 - ACUTE AND CHRONIC RESPIRATORY FAILURE WITH HYPOXIA; J96.22 - ACUTE AND CHRONIC RESPIRATORY FAILURE WITH HYPERCAPNIA Status: Acute Comment : resolving (2) COPD exacerbation Code(s): J44.1 - CHRONIC OBSTRUCTIVE PULMONARY DISEASE W (ACUTE) EXACERBATION Status: Acute Comment: resolving (3) Mild protein-calorie malnutrition Code(s): E44.1 - MILD PROTEIN-CALORIE MALNUTRITION Status: Chronic (4) GERD (gastroesophageal reflux disease) Code(s): K21.9 - GASTRO-ESOPHAGEAL REFLUX DISEASE WITHOUT ESOPHAGITIS Status: Chronic Qualifiers: Esophagitis presence: esophagitis presence not specified Qualified Code(s) : K21.9 - Gastro-esophageal reflux disease without esophagitis Comment: Continue Protonix 40mg po daily (5) HTN (hypertension) Code(s): I10 - ESSENTIAL (PRIMARY) HYPERTENSION Status: Chronic Qualifiers: Hypertension type: essential hypertension (6) PVD (peripheral vascular disease) Code(s): I73.9 - PERIPHERAL VASCULAR DISEASE, UNSPECIFIED Status: Chronic Comment: stable (7) Chronic anemia Code(s): D64.9 - ANEMIA, UNSPECIFIED Status: Chronic - Plan is using bipap at night, has set this for home use per notes -: is on prednisone, nebs -: to amb as tolerated -: dc plan per pulm advice * . Review of Systems - Medications/Allergies Allergies/Adverse Reactions: Allergies Allergy/AdvReac Type Severity Reaction Status Date / Time No Known Drug Allergies Allergy Verified 01/18/18 08:54 Medications: Current Medications Acetaminophen (Tylenol) 650 mg PO Q4H PRN PRN Reason: Headache/Fever or Pain Albuterol/Ipratropium (Duoneb) 3 ml NEB [id number] [facility] Last Admin: 03/10/18 09:39 Dose: 3 ml Apixaban (Eliquis) 5 mg PO BID [facility] Stop: 04/07/18 21:01 Last Admin: 03/10/18 09:31 Dose: 5 mg Carvedilol (Coreg) 3.125 mg PO BID-[facility] Last Admin: 03/10/18 09:30 Dose: 3.125 mg Docusate Sodium (Colace) 100 mg PO BID [facility] Last Admin: 03/10/18 09:31 Dose: 100 mg Famotidine (Pepcid) 20 mg PO BID [facility] Last Admin: 03/10/18 09:31 Dose: 20 mg Guaifenesin (Mucinex) 600 mg PO TID [facility] Last Admin: 03/10/18 09:31 Dose: 600 mg Guaifenesin/Dextromethorphan (Robitussin Dm) 15 ml PO Q4H PRN PRN Reason: Cough Mometasone Furoate/Formoterol Fumar (Dulera 200 Mcg/5 Mcg Inhaler) 2 puff INH BID-RT [facility] Last Admin: 03/10/18 06:27 Dose: 2 puff Prednisone (Prednisone) 40 mg PO QAM-WM [facility] Last Admin: 03/10/18 09:30 Dose: 40 mg Sodium Chloride ([place] Nasal [place] 0.65%) 1 ml EA NARE TIDPRN PRN PRN Reason: Nasal Congestion
--- NOTE | 2018-03-10 16:04 | PRG ---
DATE OF SERVICE: 03/10/2018 SERVICE: Pulmonary Medicine. INTERVAL HISTORY: The patient is doing fine from cardiovascular and respiratory standpoint. He is breathing comfortably. He says he has essentially returned to his baseline. He has no complaints of fevers or chills. He is coughing up a little bit of white phlegm. PHYSICAL EXAMINATION: VITAL SIGNS: Afebrile, pulse 102, blood pressure 98/62, respirations 20, saturation 98% on 2 liters nasal cannula. GENERAL: The patient is awake, alert, no apparent distress. LUNGS: Reduced air entry. Dependent crackles are present. There is a prolonged expiratory phase, but I do not hear any wheezing or rhonchi. HEART: Normal rate, regular. ABDOMEN: Soft, nontender, nondistended. Bowel sounds are positive. MUSCULOSKELETAL: No cyanosis or clubbing. There is no pitting in the bilateral lower extremities. NEUROLOGIC: Grossly nonfocal. LABORATORY DATA: WBC 13.6, hemoglobin 9.6, platelets 192,000. Basic metabolic profile is essentially unremarkable with bicarbonate of 37, which is down trending to normal range. BNP 66. Troponin is negative x1. Liver function studies were previously unremarkable. ASSESSMENT: 1. Acute on chronic hypoxic respiratory failure. 2. Chronic obstructive pulmonary disease with acute exacerbation. 3. Tobacco abuse, ongoing. 4. Chronic hypercapnic respiratory failure. DISCUSSION AND PLAN: The patient is doing fine from a respiratory standpoint and indicates that he is already returning to his usual state of health. As such, if the white blood cell count comes down by tomorrow morning, he can be considered for transition out of the hospital. We will continue giving him prednisone on a daily basis. I will get rid of cough suppressants. He is being considered for noninvasive ventilation in the outpatient setting. LILIYA
[2018-03-11 05:25] LABS: #Eosinphils 0.1 thou/uL (0.0-0.7); #Lymphocytes 2.4 thou/uL (1.20-3.40); #Monocytes 1.2 thou/uL (0.11-0.59); #Neutrophils 9.4 thou/uL (1.40-6.50); %Basophils 0.1 % (0.0-1.0); %Eosinophils 0.4 % (0.0-10.0); %Lymphocytes 18.2 % (21.0-51.0); %Monocytes 9.3 % (0.0-10.0); %Neutrophils 71.9 % (42.0-75.0); Hemoglobin 9.7 g/dL (14.0-18.0); Mean Corpuscular HGB CONC 32.4 g/dL (32.0-36.0); Mean Corpuscular Hemoglobin 26.4 pg (27.0-31.0); Mean Corpuscular Volume 81.3 fl (80.0-94.0); Mean Platelet Volume 9.8 fL (7.4-10.4); Platelet Count 189 thou/uL (130-400); RBC Distribution Width 13.2 % (11.5-14.5); Red Blood Cell (RBC) Count 3.68 mill/uL (4.70-6.10)
[2018-03-11] MEDS: Mometasone/Formoterol 120 PUFF INHALER INH SCH ×2 (05:59→18:51)
[2018-03-11] MEDS: Docusate 100 MG CAP PO SCH ×2 (08:35→21:31)
[2018-03-11] MEDS: Apixaban 5 MG TAB PO SCH ×2 (08:36→21:31)
[2018-03-11] MEDS: guaiFENesin ER 600 MG TAB PO SCH ×3 (08:36→21:31)
[2018-03-11] MEDS: predniSONE 20 MG TAB PO SCH (08:36)
[2018-03-11] MEDS: Carvedilol 3.125 MG TAB PO SCH ×2 (08:36→16:10)
[2018-03-11] MEDS: Famotidine 20 MG TAB PO SCH ×2 (08:38→21:32)
--- NOTE | 2018-03-11 11:05 | PDOC.PN ---
- Subjective Encounter Start Date: 03/11/18 Encounter Start Time: 09:20 Subjective: breathing better, is amb in room -: on 2.5lts oxygen by nasal canula - Objective Resuscitation Status: Resuscitation Status DNR:Do Not Resuscitate MAR Reviewed: Yes Vital Signs & Weight: Vital Signs (12 hours) Temp Pulse Resp BP BP Pulse Ox 03/11/18 09:41 101 H 18 99 03/11/18 08:00 97.8 F 96 16 99 03/11/18 07:48 97.8 F 96 16 104/60 99 03/11/18 05:59 99 18 97 03/11/18 05:55 99 18 97 03/11/18 04:00 98.2 F 107 H 20 101/51 L 100 03/11/18 02:45 96 20 03/11/18 02:40 112 H 20 03/10/18 23:49 97.9 F 81 20 100/66 100 Weight Admit Weight 130 lb 8 oz Weight 130 lb 8 oz I&O: 03/10/18 03/11/18 03/12/18 06:59 06:59 06:59 Intake Total 770 600 Output Total 590 2950 Balance 180 -2350 Result Diagrams: 03/11/18 04:17 03/09/18 04:24 Phys Exam - Physical Examination HEENT: PERRLA, moist MMs Neck: no JVD, supple Respiratory: no wheezing, no rales Cardiovascular: RRR, no significant murmur Gastrointestinal: soft, non-tender, positive bowel sounds Musculoskeletal: no edema, pulses present Neurological: non-focal, moves all 4 limbs Psychiatric: normal affect, A&O x 3 Dx/Plan (1) Acute on chronic respiratory failure with hypoxia and hypercapnia Code(s): J96.21 - ACUTE AND CHRONIC RESPIRATORY FAILURE WITH HYPOXIA; J96.22 - ACUTE AND CHRONIC RESPIRATORY FAILURE WITH HYPERCAPNIA Status: Acute Comment : resolving (2) COPD exacerbation Code(s): J44.1 - CHRONIC OBSTRUCTIVE PULMONARY DISEASE W (ACUTE) EXACERBATION Status: Acute Comment: resolving (3) Mild protein-calorie malnutrition Code(s): E44.1 - MILD PROTEIN-CALORIE MALNUTRITION Status: Chronic (4) GERD (gastroesophageal reflux disease) Code(s): K21.9 - GASTRO-ESOPHAGEAL REFLUX DISEASE WITHOUT ESOPHAGITIS Status: Chronic Qualifiers: Esophagitis presence: esophagitis presence not specified Qualified Code(s) : K21.9 - Gastro-esophageal reflux disease without esophagitis Comment: Continue Protonix 40mg po daily (5) HTN (hypertension) Code(s): I10 - ESSENTIAL (PRIMARY) HYPERTENSION Status: Chronic Qualifiers: Hypertension type: essential hypertension (6) PVD (peripheral vascular disease) Code(s): I73.9 - PERIPHERAL VASCULAR DISEASE, UNSPECIFIED Status: Chronic Comment: stable (7) Chronic anemia Code(s): D64.9 - ANEMIA, UNSPECIFIED Status: Chronic - Plan on prednisone 40mg daily -: nebs, coreg, eliquis 5mg bid -: may dc home if bipap at home is arranged for use at bedtime -: is at home dose of oxygen now -: hemostable * . Review of Systems - Medications/Allergies Allergies/Adverse Reactions: Allergies Allergy/AdvReac Type Severity Reaction Status Date / Time No Known Drug Allergies Allergy Verified 01/18/18 08:54 Medications: Current Medications Acetaminophen (Tylenol) 650 mg PO Q4H PRN PRN Reason: Headache/Fever or Pain Albuterol/Ipratropium (Duoneb) 3 ml NEB [id number] [facility] Last Admin: 03/11/18 09:41 Dose: 3 ml Apixaban (Eliquis) 5 mg PO BID [facility] Stop: 04/07/18 21:01 Last Admin: 03/11/18 08:36 Dose: 5 mg Carvedilol (Coreg) 3.125 mg PO BID-[facility] Last Admin: 03/11/18 08:36 Dose: 3.125 mg Docusate Sodium (Colace) 100 mg PO BID [facility] Last Admin: 03/11/18 08:35 Dose: 100 mg Famotidine (Pepcid) 20 mg PO BID [facility] Last Admin: 03/11/18 08:38 Dose: 20 mg Guaifenesin (Mucinex) 600 mg PO TID [facility] Last Admin: 03/11/18 08:36 Dose: 600 mg Mometasone Furoate/Formoterol Fumar (Dulera 200 Mcg/5 Mcg Inhaler) 2 puff INH BID-RT [facility] Last Admin: 03/11/18 05:59 Dose: 2 puff Prednisone (Prednisone) 40 mg PO QAM-[facility] Last Admin: 03/11/18 08:36 Dose: 40 mg Sodium Chloride ([place] Nasal [place] 0.65%) 1 ml EA NARE TIDPRN PRN PRN Reason: Nasal Congestion
--- NOTE | 2018-03-11 12:00 | PRG ---
DATE OF SERVICE: 03/11/2018 SERVICE: Pulmonary Medicine. INTERVAL HISTORY: The patient is doing fine from a respiratory standpoint. He is breathing better t keating baseline. He indicates having no cough or difficulty with breathing. He has been able to walk a round the room. Otherwise, there has been no interval change to his condition. He is interested in possibly getting out of here today. PHYSICAL EXAMINATION: VITAL SIGNS: Afebrile, pulse 96, blood pressure 104/60, respirations 16, saturation 99% on 3 liters nasal cannula. GENERAL: The patient is awake, alert, no apparent distress. LUNGS: Decent air entry. There is a prolonged expiratory phase with wheezing. No rhonchi or crackl es are appreciated. No wheezing. HEART: Normal rate and regular. ABDOMEN: Soft, nontender, nondistended. Bowel sounds are positive. MUSCULOSKELETAL: No cyanosis or clubbing. There is no pitting in the bilateral lower extremities. NEUROLOGIC: Grossly nonfocal. LABORATORY DATA: WBC 13.0, hemoglobin 9.7 and platelets 189,000. ASSESSMENT: 1. Acute on chronic hypoxic respiratory failure. 2. Chronic obstructive pulmonary disease with acute exacerbation. 3. Tobacco abuse, ongoing. 4. Chronic hypercapnic respiratory failure. DISCUSSION AND PLAN: The patient would benefit from noninvasive ventilation in the outpatient teddy dutton. I will leave this up to Dr. Thorne to discuss with this patient. Pulmonary or Critical Care will c ontandrewue to follow along as long as he remains in the hospital, but from my perspective, he is stable for transition out of the hospital. He can complete a 7-day course of antibiotic and 10-day course o f prednisone.
[2018-03-11] MEDS: Calcium Carbonate 500 MG ChewTAB PO PRN (19:28)
[2018-03-12 05:15] LABS: #Eosinphils 0.1 thou/uL (0.0-0.7); #Monocytes 1.1 thou/uL (0.11-0.59); #Neutrophils 9.9 thou/uL (1.40-6.50); %Basophils 0.3 % (0.0-1.0); %Eosinophils 0.5 % (0.0-10.0); %Lymphocytes 21.1 % (21.0-51.0); %Monocytes 7.5 % (0.0-10.0); %Neutrophils 70.5 % (42.0-75.0); Hemoglobin 10.7 g/dL (14.0-18.0); Mean Corpuscular HGB CONC 32.1 g/dL (32.0-36.0); Mean Corpuscular Hemoglobin 25.9 pg (27.0-31.0); Mean Corpuscular Volume 80.8 fl (80.0-94.0); Mean Platelet Volume 9.8 fL (7.4-10.4); Platelet Count 193 thou/uL (130-400); RBC Distribution Width 13.3 % (11.5-14.5); Red Blood Cell (RBC) Count 4.11 mill/uL (4.70-6.10); White Blood Cell (WBC) Count 14.1 thou/uL (4.8-10.8)
[2018-03-12] MEDS: Mometasone/Formoterol 120 PUFF INHALER INH SCH ×2 (05:49→18:00)
[2018-03-12] MEDS: predniSONE 20 MG TAB PO SCH (08:16)
[2018-03-12] MEDS: Famotidine 20 MG TAB PO SCH ×2 (08:17→19:34)
[2018-03-12] MEDS: guaiFENesin ER 600 MG TAB PO SCH ×3 (08:17→19:34)
[2018-03-12] MEDS: Apixaban 5 MG TAB PO SCH ×2 (08:17→19:34)
[2018-03-12] MEDS: Docusate 100 MG CAP PO SCH ×2 (08:17→19:34)
[2018-03-12] MEDS: Calcium Carbonate 500 MG ChewTAB PO PRN (08:21)
--- NOTE | 2018-03-12 11:32 | PRG ---
DATE OF SERVICE: 03/12/2018 He has no complaints. He says he is feeling better. PHYSICAL EXAMINATION: VITAL SIGNS: He is afebrile, heart rates in the 90s, respiratory rate is 18, oximetry is 99 on 2-1/2 liters, blood pressure 96/59. LUNGS: Distant and clear. HEART: Regular rhythm. ABDOMEN: Soft. LABORATORY DATA: White count 14.1, hemoglobin 10.7, platelets 193,000. Sodium 140, potassium 4.4, c hloride 97, bicarbonate 37, BUN 10, creatinine 0.63. IMPRESSION: Chronic obstructive pulmonary disease exacerbation, improving. PLAN: Current care. Discharge home would not be unreasonable either today or tomorrow. He will nee d to follow up with Dr. Thorne in 2-3 weeks.
[2018-03-12] MEDS: Carvedilol 3.125 MG TAB PO SCH ×2 (12:19→16:51)
--- NOTE | 2018-03-12 12:54 | PDOC.PN ---
- Subjective Encounter Start Date: 03/12/18 Encounter Start Time: 12:53 Patient seen and examined, no new issues or complaints, no family at bedside, all questions answered. - Objective Resuscitation Status: Resuscitation Status DNR:Do Not Resuscitate Vital Signs & Weight: Vital Signs (12 hours) Temp Pulse Resp BP Pulse Ox 03/12/18 12:17 92 22 H 105/66 99 03/12/18 09:32 94 18 99 03/12/18 08:00 97.6 F 94 18 100 03/12/18 07:46 97.6 F 74 20 96/59 L 100 03/12/18 05:49 110 H 20 96 03/12/18 05:46 110 H 20 96 03/12/18 02:39 95 03/12/18 02:19 16 Weight Admit Weight 130 lb 8 oz Weight 130 lb 8 oz I&O: 03/11/18 03/12/18 03/13/18 06:59 06:59 06:59 Intake Total 600 900 Output Total 2950 1300 Balance -2350 -400 Result Diagrams: 03/12/18 04:38 03/09/18 04:24 Phys Exam - Physical Examination Constitutional: NAD HEENT: PERRLA, moist MMs, sclera anicteric Neck: no nodes, no JVD, supple, full ROM Respiratory: no wheezing, no rales, no rhonchi Cardiovascular: RRR, no significant murmur, no rub Gastrointestinal: soft, non-tender, no distention, positive bowel sounds Musculoskeletal: no edema, pulses present Neurological: non-focal, normal sensation Psychiatric: normal affect, A&O x 3 Skin: no rash, normal turgor Dx/Plan (1) COPD exacerbation Code(s): J44.1 - CHRONIC OBSTRUCTIVE PULMONARY DISEASE W (ACUTE) EXACERBATION Status: Acute Comment: resolving (2) GERD (gastroesophageal reflux disease) Code(s): K21.9 - GASTRO-ESOPHAGEAL REFLUX DISEASE WITHOUT ESOPHAGITIS Status: Chronic Qualifiers: Esophagitis presence: esophagitis presence not specified Qualified Code(s) : K21.9 - Gastro-esophageal reflux disease without esophagitis Comment: Continue Protonix 40mg po daily (3) HTN (hypertension) Code(s): I10 - ESSENTIAL (PRIMARY) HYPERTENSION Status: Chronic Qualifiers: Hypertension type: essential hypertension (4) Osteoarthritis Code(s): M19.90 - UNSPECIFIED OSTEOARTHRITIS, UNSPECIFIED SITE Status: Chronic Comment: stable (5) PVD (peripheral vascular disease) Code(s): I73.9 - PERIPHERAL VASCULAR DISEASE, UNSPECIFIED Status: Chronic Comment: stable - Plan * continue current plan of care * pending insurance approval for Bipap arrangements for home * DC plans once bipap is arranged * case and plan d/w patient at length, he understands and agrees with this plan
[2018-03-13 05:09] LABS: #Basophils 0.1 thou/uL (0.0-0.2); #Eosinphils 0.1 thou/uL (0.0-0.7); #Lymphocytes 2.8 thou/uL (1.20-3.40); #Monocytes 1.3 thou/uL (0.11-0.59); #Neutrophils 10.3 thou/uL (1.40-6.50); %Basophils 0.4 % (0.0-1.0); %Eosinophils 0.7 % (0.0-10.0); %Lymphocytes 19.5 % (21.0-51.0); %Monocytes 8.7 % (0.0-10.0); %Neutrophils 70.8 % (42.0-75.0); Hemoglobin 10.7 g/dL (14.0-18.0); Mean Corpuscular HGB CONC 31.9 g/dL (32.0-36.0); Mean Corpuscular Hemoglobin 25.8 pg (27.0-31.0); Mean Corpuscular Volume 80.9 fl (80.0-94.0); Mean Platelet Volume 9.8 fL (7.4-10.4); Platelet Count 202 thou/uL (130-400); RBC Distribution Width 13.5 % (11.5-14.5); Red Blood Cell (RBC) Count 4.14 mill/uL (4.70-6.10); White Blood Cell (WBC) Count 14.6 thou/uL (4.8-10.8)
[2018-03-13] MEDS: Mometasone/Formoterol 120 PUFF INHALER INH SCH ×2 (07:03→18:57)
[2018-03-13] MEDS: predniSONE 20 MG TAB PO SCH (08:16)
[2018-03-13] MEDS: Apixaban 5 MG TAB PO SCH ×2 (08:16→20:11)
[2018-03-13] MEDS: Docusate 100 MG CAP PO SCH ×2 (08:16→20:11)
[2018-03-13] MEDS: Carvedilol 3.125 MG TAB PO SCH ×2 (08:17→17:09)
[2018-03-13] MEDS: guaiFENesin ER 600 MG TAB PO SCH ×3 (08:17→20:11)
[2018-03-13] MEDS: Famotidine 20 MG TAB PO SCH ×2 (08:17→20:11)
[2018-03-13] MEDS ORDERED: predniSONE 20 MG TAB PO SCH ×2 (09:08→09:30)
--- NOTE | 2018-03-13 09:19 | PRG ---
DATE OF SERVICE: 03/13/2018 This morning she is awake, alert, responsive. PHYSICAL EXAMINATION: VITAL SIGNS: Sats are 100% on 2 liters, respiration 20, temperature 97, pulse 97, blood pressure 102 /63. Denies difficulty breathing. He is walking in the [place]. CHEST: Chest reveals decreased breath sounds, no wheezing. CARDIAC: Normal S1, S2. ABDOMEN: Soft, no masses. LABORATORY DATA: White count 14,000. IMPRESSION: 1. Chronic obstructive pulmonary disease exacerbation, end-stage. 2. Tobacco abuse. PLAN: Nocturnal ventilation. He could be discharged home today if he can arrange for outpatient noct urnal ventilation.
[2018-03-13] MEDS: Calcium Carbonate 500 MG ChewTAB PO PRN (10:35)
--- NOTE | 2018-03-13 12:48 | PDOC.PN ---
- Subjective Encounter Start Date: 03/13/18 Encounter Start Time: 12:47 Patient seen and examined, no new issues or complaints, all questions answered. - Objective Resuscitation Status: Resuscitation Status DNR:Do Not Resuscitate Vital Signs & Weight: Vital Signs (12 hours) Temp Pulse Resp BP Pulse Ox 03/13/18 11:30 97.9 F 84 20 104/59 L 99 03/13/18 10:52 90 14 03/13/18 08:59 93 20 102/63 100 03/13/18 08:15 97.9 F 93 20 100 03/13/18 07:42 97.9 F 87 20 100/68 100 03/13/18 07:03 80 14 03/13/18 05:16 98 17 95 03/13/18 02:35 98 17 95 03/13/18 01:37 102 H 18 97 Weight Admit Weight 130 lb 8 oz Weight 130 lb 8 oz I&O: 03/12/18 03/13/18 03/14/18 06:59 06:59 06:59 Intake Total 900 1195 500 Output Total 1300 1120 1200 Balance -400 75 -700 Result Diagrams: 03/13/18 04:17 03/09/18 04:24 Phys Exam - Physical Examination Constitutional: NAD HEENT: PERRLA, moist MMs, sclera anicteric Neck: no nodes, no JVD, supple, full ROM Respiratory: no wheezing, no rales, no rhonchi Cardiovascular: RRR, no significant murmur, no rub Gastrointestinal: soft, non-tender, no distention Musculoskeletal: no edema, pulses present Neurological: non-focal, normal sensation Psychiatric: normal affect, A&O x 3 Skin: no rash, normal turgor Dx/Plan (1) COPD exacerbation Code(s): J44.1 - CHRONIC OBSTRUCTIVE PULMONARY DISEASE W (ACUTE) EXACERBATION Status: Acute Comment: resolving (2) GERD (gastroesophageal reflux disease) Code(s): K21.9 - GASTRO-ESOPHAGEAL REFLUX DISEASE WITHOUT ESOPHAGITIS Status: Chronic Qualifiers: Esophagitis presence: esophagitis presence not specified Qualified Code(s) : K21.9 - Gastro-esophageal reflux disease without esophagitis Comment: Continue Protonix 40mg po daily (3) HTN (hypertension) Code(s): I10 - ESSENTIAL (PRIMARY) HYPERTENSION Status: Chronic Qualifiers: Hypertension type: essential hypertension (4) Osteoarthritis Code(s): M19.90 - UNSPECIFIED OSTEOARTHRITIS, UNSPECIFIED SITE Status: Chronic Comment: stable (5) PVD (peripheral vascular disease) Code(s): I73.9 - PERIPHERAL VASCULAR DISEASE, UNSPECIFIED Status: Chronic Comment: stable - Plan * continue current plan of care * DC plans once bipap is arranged * d/w CM, pending insurance approval * case and plan d/w patient at length, he understands and agrees with this plan
[2018-03-14] MEDS: Mometasone/Formoterol 120 PUFF INHALER INH SCH ×2 (07:01→19:43)
[2018-03-14] MEDS: Apixaban 5 MG TAB PO SCH ×2 (08:00→20:33)
[2018-03-14] MEDS: Carvedilol 3.125 MG TAB PO SCH ×2 (08:00→16:41)
[2018-03-14] MEDS: Docusate 100 MG CAP PO SCH ×2 (08:02→20:33)
[2018-03-14] MEDS: Famotidine 20 MG TAB PO SCH ×2 (08:03→20:33)
[2018-03-14] MEDS: predniSONE 20 MG TAB PO SCH (08:03)
[2018-03-14] MEDS: guaiFENesin ER 600 MG TAB PO SCH ×3 (08:04→20:33)
[2018-03-14] MEDS: Calcium Carbonate 500 MG ChewTAB PO PRN (08:04)
--- NOTE | 2018-03-14 09:03 | PRG ---
DATE OF SERVICE: 03/14/2018 This morning the patient is awake, alert and responsive. Awaiting his insurance to approve his jacob nvasive ventilation at nighttime. PHYSICAL EXAMINATION: VITAL SIGNS: Sats 100% on 2 liters, temperature 97, blood pressure 95/65. CHEST: Chest reveals decreased breath sounds without any wheezing. CARDIAC: Normal S1, S2. No gallops. ABDOMEN: Soft, no masses. IMPRESSION: 1. End-stage chronic obstructive pulmonary disease. 2. Tobacco abuse. 3. Hypertension. PLAN: Awaiting his BiPAP for discharge. Otherwise, nebulizer treatments and supportive care.
--- NOTE | 2018-03-14 14:24 | PDOC.PN ---
- Subjective Encounter Start Date: 03/14/18 Encounter Start Time: 13:30 patient is seen today, alert and oriented. he seen sitting on chair, alert and oriented. His COPD is under control, and is waiitng on Bipap. - Objective Resuscitation Status: Resuscitation Status DNR:Do Not Resuscitate MAR Reviewed: Yes Vital Signs & Weight: Vital Signs (12 hours) Temp Pulse Resp BP Pulse Ox 03/14/18 10:23 90 14 03/14/18 08:03 97.5 F L 60 20 95/65 100 03/14/18 08:00 97.5 F L 60 20 100 03/14/18 07:02 110 H 14 03/14/18 05:19 97.8 F 105 H 20 105/72 100 03/14/18 03:46 95 18 95 Weight Admit Weight 130 lb 8 oz Weight 130 lb 8 oz I&O: 03/13/18 03/14/18 03/15/18 06:59 06:59 06:59 Intake Total 1195 1780 Output Total 1120 3000 700 Balance 75 -1220 -700 Result Diagrams: 03/13/18 04:17 03/09/18 04:24 Radiology Reviewed by me: Yes Phys Exam - Physical Examination HEENT: PERRLA, moist MMs Neck: no nodes, no JVD Respiratory: no wheezing, no rales Cardiovascular: RRR, no significant murmur Gastrointestinal: soft, non-tender Musculoskeletal: no edema, pulses present Neurological: non-focal, normal sensation Dx/Plan (1) Mild protein-calorie malnutrition Code(s): E44.1 - MILD PROTEIN-CALORIE MALNUTRITION Status: Chronic Comment: improving with modified diet, stbale,. (2) Acute on chronic respiratory failure with hypoxia and hypercapnia Code(s): J96.21 - ACUTE AND CHRONIC RESPIRATORY FAILURE WITH HYPOXIA; J96.22 - ACUTE AND CHRONIC RESPIRATORY FAILURE WITH HYPERCAPNIA Status: Acute Comment : resolving (3) COPD exacerbation Code(s): J44.1 - CHRONIC OBSTRUCTIVE PULMONARY DISEASE W (ACUTE) EXACERBATION Status: Acute Comment: resolving, waiitng on Home Bipap (4) GERD (gastroesophageal reflux disease) Code(s): K21.9 - GASTRO-ESOPHAGEAL REFLUX DISEASE WITHOUT ESOPHAGITIS Status: Chronic Qualifiers: Esophagitis presence: esophagitis presence not specified Qualified Code(s) : K21.9 - Gastro-esophageal reflux disease without esophagitis Comment: Continue Protonix 40mg po daily (5) HTN (hypertension) Code(s): I10 - ESSENTIAL (PRIMARY) HYPERTENSION Status: Chronic Qualifiers: Hypertension type: essential hypertension Comment: stbaole BP. - Plan cont current plan of care, PT/OT, manager social work, respiratory therapy, incentive spirometry, out of bed/ambulate, DVT proph w/lovenox * . Review of Systems - Review of Systems Constitutional: negative: fever, chills, sweats, weakness, malaise, other Eyes: negative: Pain, Vision Change, Conjunctivae Inflammation, Eyelid Inflammation, Redness, Other ENT: negative: Ear Pain, Ear Discharge, Nose Pain, Nose Discharge, Nose Congestion, Mouth Pain, Mouth Swelling, Throat Pain, Throat Swelling, Other Respiratory: Shortness of Breath, SOB with Excertion, Wheezing. negative: Dry, Hemoptysis, Pleuritic Pain, Sputum Cardiovascular: negative: chest pain, palpitations, orthopnea, paroxysmal nocturnal dyspnea, edema, light headedness, other Musculoskeletal: negative: Neck Pain, Shoulder Pain, Arm Pain, Back Pain, Hand Pain, Leg Pain, Foot Pain, Other - Medications/Allergies Allergies/Adverse Reactions: Allergies Allergy/AdvReac Type Severity Reaction Status Date / Time No Known Drug Allergies Allergy Verified 01/18/18 08:54 Medications: Current Medications Acetaminophen (Tylenol) 650 mg PO Q4H PRN PRN Reason: Headache/Fever or Pain Last Admin: 03/11/18 11:07 Dose: 650 mg Albuterol/Ipratropium (Duoneb) 3 ml NEB [id number] [facility] Last Admin: 03/14/18 10:23 Dose: 3 ml Apixaban (Eliquis) 5 mg PO BID [facility] Stop: 04/07/18 21:01 Last Admin: 03/14/18 08:00 Dose: 5 mg Calcium Carbonate (Tums) 500 mg PO BID PRN PRN Reason: Heartburn or Indigestion Last Admin: 03/14/18 08:04 Dose: 500 mg Carvedilol (Coreg) 3.125 mg PO BID-[facility] Last Admin: 03/14/18 08:00 Dose: Not Given Docusate Sodium (Colace) 100 mg PO BID [facility] Last Admin: 03/14/18 08:02 Dose: 100 mg Famotidine (Pepcid) 20 mg PO BID [facility] Last Admin: 03/14/18 08:03 Dose: 20 mg Guaifenesin (Mucinex) 600 mg PO TID [facility] Last Admin: 03/14/18 08:04 Dose: 600 mg Mometasone Furoate/Formoterol Fumar (Dulera 200 Mcg/5 Mcg Inhaler) 2 puff INH BID-RT [facility] Last Admin: 03/14/18 07:01 Dose: 2 puff Prednisone (Prednisone) 20 mg PO QAM-WM [facility] Last Admin: 03/14/18 08:03 Dose: 20 mg Sodium Chloride ([place] Nasal [place] 0.65%) 1 ml EA NARE TIDPRN PRN PRN Reason: Nasal Congestion
[2018-03-15 07:43] VITALS: BP 100/45; TEMP 97.9
[2018-03-15] MEDS: Mometasone/Formoterol 120 PUFF INHALER INH SCH (07:46)
[2018-03-15] MEDS: predniSONE 20 MG TAB PO SCH (08:17)
[2018-03-15] MEDS: Calcium Carbonate 500 MG ChewTAB PO PRN (08:18)
[2018-03-15] MEDS: Apixaban 5 MG TAB PO SCH (08:18)
[2018-03-15] MEDS: guaiFENesin ER 600 MG TAB PO SCH ×2 (08:18→15:37)
[2018-03-15] MEDS: Docusate 100 MG CAP PO SCH (08:18)
[2018-03-15] MEDS: Carvedilol 3.125 MG TAB PO SCH (08:29)
--- NOTE | 2018-03-15 09:19 | PRG ---
DATE OF SERVICE: 03/15/2018 This morning the patient is awake, alert and responsive, appears in no distress. Unable to get a BiPAP because of insurance. PHYSICAL EXAMINATION: VITAL SIGNS: Sats are 99 on 2 liters, temperature 97, blood pressure 100/45, respirations 24. CHEST: Chest reveals decreased breath sounds, no wheezing. CARDIAC: Normal S1, S2, no gallops. ABDOMEN: Soft. IMPRESSION: 1. Severe chronic obstructive pulmonary disease. 2. Ongoing tobacco abuse. PLAN: If he is unable to get BiPAP he could be discharged home on his present neb treatments, Symbicort inhaler,\\or Dulera inhaler, low dose prednisone. MTDD
[2018-03-15] MEDS: Famotidine 20 MG TAB PO SCH (10:01)
--- NOTE | 2018-03-15 14:42 | DIS ---
DATE OF ADMISSION: 03/08/2013 DATE OF DISCHARGE: 03/15/2018 ADMITTING DIAGNOSIS: Acute chronic obstructive pulmonary disease exacerbation. DISCHARGE DIAGNOSIS: Acute chronic obstructive pulmonary disease exacerbation. SECONDARY DIAGNOSES: 1. Acute on chronic hypoxic respiratory failure with hypoxia and hypercapnia. 2. History of atrial fibrillation, on anticoagulation. 3. Hypertension. 4. Peripheral vascular disease. CONSULTANTS INVOLVED IN THIS CARE: Dr. Thorne for Critical Care, Dr. Fernandez for Critical Care. HISTORY OF PRESENT ILLNESS AND HOSPITAL COURSE: In brief, this is a 68-year-old white male with a kn own history of COPD exacerbation with recurrent admissions. The patient initially went to Dr. Thorne's office with saturations in the 80s and he was finally started on oxygen. A [employer] was contacte d to get him nocturnal ventilation for his end-stage COPD, in the process of trying to assess his nee ds. The patient came to the hospital with marked weakness and shortness of breath. He was started o n BiPAP in the ER and is being admitted. He has been admitted many times to the hospital, so he was very well known to Critical Care, Dr. Thorne and his group. The patient was noted to have worsening CO PD and was in need of BiPAP. He was closely monitored during this hospitalization. The patient was waiting for BiPAP, which the settings have already been ordered by Dr. Thorne. The patient finally got BiPAP approved and was discharged home in stable condition. During this admission, the patient was also started on steroids, which was tapered down to his home d ose. PHYSICAL EXAMINATION: VITAL SIGNS: On day of discharge, the blood pressure was 100/45, pulse of 79, respiratory rate of 16 , saturation 100% on 2 liters nasal cannula. GENERAL: The patient is moderately built and moderately nourished, does not appear to be in acute di stress. CARDIOVASCULAR SYSTEM: S1, S2 normal. No murmurs, rubs or gallops. LUNGS: Bilateral air entry was equal. No wheezing, no crackles. ABDOMEN: Soft, nontender, no guarding, no rebound tenderness. Bowel sounds normal. DISCHARGE MEDICATIONS: 1. Lasix 20 mg p.o. daily. 2. Pantoprazole 40 mg p.o. daily. 3. Potassium 20 mEq p.o. daily. 4. Prednisone 10 mg p.o. b.i.d. 5. Eliquis 5 mg p.o. b.i.d. 6. Coreg 3.125 mg p.o. b.i.d. 7. Guaifenesin 600 mg p.o. t.i.d. DISCHARGE INSTRUCTIONS: Continue activity as tolerated. Advised to follow up with Critical Care, Dr Ita Thorne in 1-2 weeks. Advised to explain the patient, the patient would have a DME delivered to his h ome. Advised to continue with a cardiac diet. Advised to return to the ER if any worsening shortness of b philipath. I spent 35 minutes with this patient on date of discharge.
== END 2018-03-15 17:01 | disposition home or self-care (01) | DRG 189 ==
LOC: ERS 05:46 → ERHOLD 07:42 → 2NO 13:37 → T4-A 03-09 17:32
PROVIDERS: ADMIT Internal Medicine; ATTEND Internal Medicine
PROC: 5A09357 Assistance with Respiratory Ventilation, Less than 24 Consecutive Hours, Continuous Positive Airway Pressure (ICD-10-PCS; principal; 2018-03-09)
DX: J96.21 Acute and chronic respiratory failure with hypoxia (principal); J44.1 Chronic obstructive pulmonary disease with (acute) exacerbation; E44.1 Mild protein-calorie malnutrition; Z68.1 Body mass index [BMI] 19.9 or less, adult; J96.22 Acute and chronic respiratory failure with hypercapnia; I10 Essential (primary) hypertension; I73.9 Peripheral vascular disease, unspecified; H53.2 Diplopia; K21.9 Gastro-esophageal reflux disease without esophagitis; D53.9 Nutritional anemia, unspecified; I48.91 Unspecified atrial fibrillation; Z82.3 Family history of stroke; F17.210 Nicotine dependence, cigarettes, uncomplicated; Z86.79 Personal history of other diseases of the circulatory system; Z87.19 Personal history of other diseases of the digestive system; Z90.49 Acquired absence of other specified parts of digestive tract; Z79.899 Other long term (current) drug therapy; Z79.01 Long term (current) use of anticoagulants; Z99.81 Dependence on supplemental oxygen; Z82.61 Family history of arthritis; M15.9 Polyosteoarthritis, unspecified
CPT/HCPCS: 36415; 71045; 80048; 80053; 82553; 83880; 84484; 85025; 93005; 94640; 94660; J2920; J2930; J7506; J7611; J7620

== ENCOUNTER 2018-03-22 08:51 | Emergency (ER) | payer MEDICARE, OTHER ==
--- NOTE | 2018-03-22 09:43 | RAD ---
CHEST 1 VIEW: HISTORY: Dyspnea. COMPARISON: 03/08/18. FINDINGS: Cardiac silhouette and pulmonary vasculature are unremarkable. The lungs remain hyperinflated. Medi astinum midline with aortic calcification. No lobar consolidation or evidence of pneumothorax. IMPRESSION: 1. Chronic obstructive pulmonary disease. 2. Atherosclerosis. POS: [facility]
[2018-03-22 09:47] LABS: #Basophils 0.1 thou/uL (0.0-0.2); #Eosinphils 0.2 thou/uL (0.0-0.7); #Lymphocytes 1.7 thou/uL (1.20-3.40); #Monocytes 0.7 thou/uL (0.11-0.59); #Neutrophils 9.7 thou/uL (1.40-6.50); %Basophils 0.5 % (0.0-1.0); %Eosinophils 1.8 % (0.0-10.0); %Lymphocytes 13.8 % (21.0-51.0); %Monocytes 5.6 % (0.0-10.0); %Neutrophils 78.3 % (42.0-75.0); Hemoglobin 12.7 g/dL (14.0-18.0); Mean Corpuscular HGB CONC 32.1 g/dL (32.0-36.0); Mean Corpuscular Hemoglobin 26.5 pg (27.0-31.0); Mean Corpuscular Volume 82.4 fl (80.0-94.0); Mean Platelet Volume 9.8 fL (7.4-10.4); Platelet Count 175 thou/uL (130-400); RBC Distribution Width 13.7 % (11.5-14.5); Red Blood Cell (RBC) Count 4.81 mill/uL (4.70-6.10); White Blood Cell (WBC) Count 12.3 thou/uL (4.8-10.8)
[2018-03-22 10:06] LABS: ALT (SGPT) 10 U/L (8-55); AST (SGOT) 19 U/L (5-34); Alkaline Phosphatase 60 U/L (40-150); BUN (Urea Nitrogen) 10 mg/dL (8.4-25.7); Bilirubin, Total 0.4 mg/dL (0.2-1.2); Calc. Creatinine Clearance 0 mL/min (70-130); Calcium 9.4 mg/dL (7.8-10.44); Estimated GFR-MDRD Greater than 90; Globulin 2.9 g/dL (2.4-3.5); Glucose 108 mg/dL (80-115); Protein, Total 6.9 g/dL (5.8-8.1)
[2018-03-22 10:09] LABS: CKMB 3.3 ng/mL (0-6.6); Troponin I Less than 0.010 ng/mL (< 0.028)
[2018-03-22 10:15] LABS: Anion Gap 13 mmol/L (10-20); Carbon Dioxide 39 mmol/L (23-31); Chloride 96 mmol/L (98-107); Potassium 4.7 mmol/L (3.5-5.1); Sodium 143 mmol/L (136-145)
== END 2018-03-22 14:17 | disposition home or self-care (01) ==
LOC: ERS 08:51
DX: J44.1 Chronic obstructive pulmonary disease with (acute) exacerbation (principal); F41.9 Anxiety disorder, unspecified; I10 Essential (primary) hypertension; F17.210 Nicotine dependence, cigarettes, uncomplicated; Z79.899 Other long term (current) drug therapy
CPT/HCPCS: 36415; 71045; 80053; 82553; 83605; 83880; 84484; 85025; 93005; 94640; 94760; J7620

== ENCOUNTER 2018-04-07 19:50 | Emergency (ER) | payer MEDICARE, MEDICAID ==
[2018-04-07 20:38] LABS: #Basophils 0.1 thou/uL (0.0-0.2); #Eosinphils 0.1 thou/uL (0.0-0.7); #Lymphocytes 1.7 thou/uL (1.20-3.40); #Neutrophils 10.6 thou/uL (1.40-6.50); %Basophils 0.4 % (0.0-1.0); %Eosinophils 0.8 % (0.0-10.0); %Lymphocytes 12.6 % (21.0-51.0); %Monocytes 7.4 % (0.0-10.0); %Neutrophils 78.9 % (42.0-75.0); Hemoglobin 11.4 g/dL (14.0-18.0); Mean Corpuscular HGB CONC 32.4 g/dL (32.0-36.0); Mean Corpuscular Volume 80.2 fL (78.0-98.0); Mean Platelet Volume 9.5 fL (7.4-10.4); Platelet Count 246 thou/uL (130-400); RBC Distribution Width 14.1 % (11.5-14.5); Red Blood Cell (RBC) Count 4.38 mill/uL (4.70-6.10); White Blood Cell (WBC) Count 13.4 thou/uL (4.8-10.8)
[2018-04-07 20:59] LABS: ALT (SGPT) 11 U/L (8-55); AST (SGOT) 16 U/L (5-34); Albumin 3.9 g/dL (3.4-4.8); Alkaline Phosphatase 70 U/L (40-150); BUN (Urea Nitrogen) 13 mg/dL (8.4-25.7); Bilirubin, Total 0.3 mg/dL (0.2-1.2); CK (CPK) 84 U/L (30-200); Calc. Creatinine Clearance 0 mL/min (70-130); Calcium 9.5 mg/dL (7.8-10.44); Estimated GFR-MDRD Greater than 90; Globulin 3.6 g/dL (2.4-3.5); Glucose 113 mg/dL (80-115); Protein, Total 7.5 g/dL (5.8-8.1)
[2018-04-07 21:03] LABS: CKMB 3.1 ng/mL (0-6.6); Troponin I Less than 0.010 ng/mL (< 0.028)
[2018-04-07 21:09] LABS: Anion Gap 18 mmol/L (10-20); Carbon Dioxide 35 mmol/L (23-31); Chloride 92 mmol/L (98-107); Sodium 141 mmol/L (136-145)
[2018-04-07 21:23] LABS: pH, Arterial 7.35 (7.35-7.45)
[2018-04-07 21:24] LABS: Actual Bicarbonate (HCO3a) 42.2 mEq/L (22-28); Base Excess (BEa) 13.8 mEq/L (-2.0 to +3.0); CO2 Tension 78.6 mmHg (35.0-45.0); Hematocrit-ABG 35.8 % (42.0-52.0); Hemoglobin (Hb) 10.5 g/dL (14.0-18.0); O2 Tension (PaO2) 102.7 mmHg (> 80.0)
[2018-04-07 21:25] LABS: Analyzer IN Cardio ER; Calcium, Ionized 1.1 mmol/L (1.12-1.30); Puncture Site LBA
--- NOTE | 2018-04-07 21:33 | RAD ---
PORTABLE CHEST ONE VIEW: 04/07/18 at 8:56 p.m. HISTORY: Difficulty breathing, dyspnea. FINDINGS/IMPRESSION: Comparison is made with exam of 03/22/18. The heart size is normal. The aorta is tortuous. Changes of COPD are again seen. Interval developmen t of prominence of the interstitial markings, left greater than right. No pneumothoraces or pleural e ffusions are identified. No lobar consolidation is seen. POS: [facility]
== END 2018-04-08 00:50 | disposition home or self-care (01) ==
LOC: ERS 19:50
DX: J44.1 Chronic obstructive pulmonary disease with (acute) exacerbation (principal); F17.210 Nicotine dependence, cigarettes, uncomplicated; Z71.6 Tobacco abuse counseling; Z79.899 Other long term (current) drug therapy; Z79.891 Long term (current) use of opiate analgesic
CPT/HCPCS: 36415; 71045; 80053; 82553; 82805; 83880; 84484; 85025; 93005; 99406

== ENCOUNTER 2018-04-17 12:36 | Emergency (ER) | payer MEDICARE, MEDICAID ==
[2018-04-17] MEDS ORDERED: Acetaminophen 500 MG TAB ONE (13:11)
[2018-04-17 13:17] LABS: #Basophils 0.1 thou/uL (0.0-0.2); #Eosinphils 0.1 thou/uL (0.0-0.7); #Lymphocytes 1.8 thou/uL (1.20-3.40); #Neutrophils 11.7 thou/uL (1.40-6.50); %Basophils 0.8 % (0.0-1.0); %Eosinophils 0.8 % (0.0-10.0); %Lymphocytes 11.2 % (21.0-51.0); %Monocytes 12.7 % (0.0-10.0); %Neutrophils 74.5 % (42.0-75.0); Hemoglobin 11.6 g/dL (14.0-18.0); Mean Corpuscular HGB CONC 31.2 g/dL (32.0-36.0); Mean Corpuscular Hemoglobin 25.3 pg (27.0-31.0); Mean Corpuscular Volume 81.2 fL (78.0-98.0); Mean Platelet Volume 9.3 fL (7.4-10.4); Platelet Count 262 thou/uL (130-400); RBC Distribution Width 14.8 % (11.5-14.5); Red Blood Cell (RBC) Count 4.57 mill/uL (4.70-6.10); White Blood Cell (WBC) Count 15.6 thou/uL (4.8-10.8)
--- NOTE | 2018-04-17 13:29 | RAD ---
PORTABLE CHEST ONE VIEW: Date: 04-17-18 Time: 12:11 p.m. History: Dyspnea. FINDINGS: Comparison made with exam of 04-07-18. Heart size is normal. The aorta is tortuous. The lungs are well expanded without lobar consolidation, pneumothoraces or pleural effusions. Changes of COPD are again seen. IMPRESSION: No radiographic evidence of acute cardiopulmonary process. POS: [facility]
[2018-04-17 13:36] LABS: ALT (SGPT) 48 U/L (8-55); AST (SGOT) 28 U/L (5-34); Albumin 3.6 g/dL (3.4-4.8); Alkaline Phosphatase 73 U/L (40-150); BUN (Urea Nitrogen) 11 mg/dL (8.4-25.7); Bilirubin, Total 0.3 mg/dL (0.2-1.2); Calc. Creatinine Clearance 0 mL/min (70-130); Calcium 8.5 mg/dL (7.8-10.44); Estimated GFR-MDRD Greater than 90; Globulin 2.5 g/dL (2.4-3.5); Glucose 112 mg/dL (80-115); Protein, Total 6.1 g/dL (5.8-8.1)
[2018-04-17 13:47] LABS: Anion Gap 21 mmol/L (10-20); Carbon Dioxide 36 mmol/L (23-31); Chloride 92 mmol/L (98-107); Potassium 4.6 mmol/L (3.5-5.1); Sodium 144 mmol/L (136-145)
[2018-04-17 13:52] LABS: CKMB 1.6 ng/mL (0-6.6); Troponin I Less than 0.010 ng/mL (< 0.028)
== END 2018-04-17 16:09 | disposition home or self-care (01) ==
LOC: ERS 12:36
DX: J44.9 Chronic obstructive pulmonary disease, unspecified (principal); R51 Headache; I10 Essential (primary) hypertension; F17.210 Nicotine dependence, cigarettes, uncomplicated; Z79.51 Long term (current) use of inhaled steroids; Z79.899 Other long term (current) drug therapy
CPT/HCPCS: 36415; 71045; 80053; 82553; 83880; 84484; 85025; 93005; 94640; 94760; J7620

== ENCOUNTER 2018-04-18 22:49 | Inpatient (IN) | payer MEDICARE, MEDICAID ==
[~2018-04-18 22:49] MED LIST: ISOVUE-370 76%-LOCM 1 ML ONE
[2018-04-18] MEDS ORDERED: Propofol 1,000 MG/100 ML VIAL IV ONE (22:55)
[2018-04-18 23:07] LABS: Actual Bicarbonate (HCO3a) 40.6 mEq/L (22-28); Base Excess (BEa) 13.5 mEq/L (-2.0 to +3.0); CO2 Tension 68.7 mmHg (35.0-45.0); Hemoglobin (Hb) 9.4 g/dL (14.0-18.0); O2 Tension (PaO2) 88.8 mmHg (> 80.0); pH, Arterial 7.39 (7.35-7.45)
[2018-04-18 23:08] LABS: ALV-art Gradient 110.525 (0-20); Calcium, Ionized 1.1 mmol/L (1.12-1.30); Puncture Site LRA
[2018-04-18] MEDS ORDERED: Magnesium Sulfate 2 GM in Sodium Chloride 0.9% 100 ML IVPB SCH (23:15)
[2018-04-18] MEDS ORDERED: Fentanyl 100 MCG/2 ML VIAL ONE (23:26)
--- NOTE | 2018-04-19 | CT ---
CT PULMONARY ANGIO CHEST WITH CONTRAST: 04/18/18 Multiple axial tomograms obtained through the chest following pulmonary angio protocol with multiplan ar reconstruction and 3D postprocessing. HISTORY: Dyspnea. Hypotension. Assess for pulmonary embolus. FINDINGS: Pulmonary arteries show adequate opacification. There is no evidence of pulmonary embolus identified. The lungs show diffuse interstitial thickening, presumably on the basis of chronic interstitial proce ss. There is a small left effusion and mild left basilar atelectasis. There is more confluent inters titial density in the left upper lobe along the fissure which could potentially represent inflammator y infiltrate superimposed on interstitial disease. The mediastinum is unremarkable. IMPRESSION: 1. No evidence of pulmonary embolus. 2. Evidence of interstitial lung disease. 3. Question associated inflammatory infiltrate in the left upper lobe along the fissure. There i s also small left effusion and left basilar atelectasis and/or infiltrate posteriorly. POS: [facility]
[2018-04-19] MEDS ORDERED: Sodium Chloride 0.9% 100 ML ONE (00:05)
[2018-04-19] MEDS ORDERED: Piperacillin/Tazobactam 3.375 GM VIAL ONE (00:05)
[2018-04-19] MEDS ORDERED: Piperacillin/Tazobactam 4.5 GM VIAL ONE (00:06)
[2018-04-19] MEDS ORDERED: Ventilator Sedation Protocol 1 EACH FS ONE (00:13)
[2018-04-19] MEDS ORDERED: DISCONTINUE PREVIOUS NARCOTIC PAIN MEDICATIONS AND BENZODIAZEPINES FS SCH (00:16)
[2018-04-19] MEDS ORDERED: Lorazepam 2 MG/ML VIAL SLOW IVP PRN (00:16)
[2018-04-19] MEDS ORDERED: Propofol BOLUS 1,000 MG/100 ML VIAL IV PRN (00:16)
[2018-04-19] MEDS ORDERED: Fentanyl BOLUS 250 ML IVPB PRN (00:16)
[2018-04-19] MEDS ORDERED: fentaNYL Citrate/PF 2,000 MCG in Sodium Chloride 0.9% 60 ML IV SCH (00:16)
[2018-04-19] MEDS ORDERED: Acetaminophen 325 MG TAB PER TUBE PRN (00:20)
[2018-04-19 00:31] LABS: Troponin I Less than 0.010 ng/mL (< 0.028)
--- NOTE | 2018-04-19 02:16 | HP ---
CODE STATUS: FULL code. PRIMARY CARE PHYSICIAN: Damon Kaba MD TIME OF EVALUATION: 12:00 a.m. CHIEF COMPLAINT: Worsening shortness of breath. Information has been gathered from family members and ER staff. The patient is intubated and sedated. HISTORY OF PRESENT ILLNESS: This is a 68-year-old male patient with past medical history of known severe COPD, frequent flyer to hospital, compliant with medication, lives by himself, came to the hospital after having an episode of severe shortness of breath, went into respiratory failure, was hypoxic and hypercapnic, got intubated prior to transfer to our center. CT chest was done. The patient also has pneumonia, has been started on antibiotics. Repeat ABG showed improvement in pH and pCO2. We will place him in NICU, will monitor overnight. Symptoms were severe, likely triggered by COPD exacerbation. Only alleviating factor is medical treatment. REVIEW OF SYSTEMS: Unable to obtain, the patient is intubated and sedated. PAST MEDICAL HISTORY: The patient has a history of COPD, frequent hospitalizations, hypertension, emphysema. PAST SURGICAL HISTORY: Appendectomy, bowel obstruction, heart catheterization in 01/2018. PSYCHIATRIC HISTORY: No previous psychiatric history. FAMILY HISTORY: Reviewed and noncontributory for current presentation. SOCIAL HISTORY: No alcohol, no drugs. The patient smokes cigarettes. ALLERGIES: No reported drug allergies. MEDICATIONS: Prednisone, carvedilol, clonazepam, ProAir, Spiriva, Lasix, Symbicort, pantoprazole, albuterol. PHYSICAL EXAMINATION: VITAL SIGNS: On presentation, blood pressure 145/119 with heart rate 129, respiratory rate 18. He was on a vent. His vital signs have improved with sedation. GENERAL APPEARANCE: The patient is intubated, sedated. HEENT: Eyes: Normal conjunctivae. Moist oral mucosa. Anicteric. NECK: No JVD. RESPIRATORY: Bilateral air entry. The patient has scattered wheezing. No rales. Symmetrical expansion. CARDIOVASCULAR: Normal rate, regular rhythm. No murmurs. No gallop or edema. ABDOMEN: Soft. Normal bowel sounds. MUSCULOSKELETAL: Baseline range of motion and strength. No tenderness. SKIN: Warm and intact. No pallor, no rash, no redness. NEUROLOGIC: The patient is intubated and sedated, unable to fully explore. No evidence of any new focal weakness. PSYCHIATRIC: Unable to explore. LABORATORY DATA: Reviewed. The patient has on last ABG, pH 7.39 with pCO2 of 68.7, pO2 of 88, that was done on SIMV at a rate of 18, 40% oxygen, tidal volume 450, pressure support of 10, PEEP 5. Troponin was negative. White count 14.2, hemoglobin 10.1, MCV 74, platelet count 193. Chemistry: Sodium 141 , potassium 4.3, chloride 93, carbon dioxide 33, chloride 92, anion gap 22, BUN 11, creatinine 0.5. Lactic acid is 1. Beta natriuretic peptide 182. CT chest was done. The patient has no evidence of pulmonary embolism or evidence of interstitial lung disease, question associated inflammatory infiltrate in the left upper lobe along the fissure. There is also small left effusion and left basilar atelectasis and/or infiltrate posteriorly. ASSESSMENT AND PLAN: 1. Acute hypoxic and hypercapnic respiratory failure secondary to chronic obstructive pulmonary disease exacerbation, likely exacerbated by left upper lobe pneumonia. The patient is intubated, continue vent support, placed in ICU. We will consult Pulmonary in the morning for assistance with this patient. 2. Sepsis due to underlying pna, pt has presented with acute respiratory failure , acute encephalopathy, leukocytosis, tachycardia- abt's. follow cultures, adjust treatment as needed. 2. Chronic obstructive pulmonary disease exacerbation. We will place the patient on nebs, steroids, and antibiotics. 3. Ventilatory support. There has been correction of the CO2 and the pH. 4. Left upper lobe pneumonia as reported on the CAT scan. The patient has been placed on broad-spectrum antibiotics. Send cultures. We will reconcile treatment depending on culture results. 5. Acute encephalopathy. As reported, the patient presented to the previous ER with change in mental status. This is likely secondary to CO2 retention and possible component for underlying sepsis. We will treat the underlying condition. As of now, the patient is sedated and intubated. 6. Uncontrolled hypertension, on presentation, likely due to acute distress. We will reconcile home medications. Vital signs have improved after sedation. 7. Metabolic alkalosis, secondary to chronic CO2 retention. We will treat the underlying condition. 8. Hyperglycemia, blood sugar 152, likely due to acute distress. We will monitor and treat accordingly. 9. Deep venous thrombosis prophylaxis. Critical care time, probably more than 35 minutes in bedside assessment, review and elaboration of records, and coordination of care. LILIYA
[2018-04-19 03:28] LABS: Troponin I Less than 0.010 ng/mL (< 0.028)
[2018-04-19 03:30] LABS: Anion Gap 14 mmol/L (10-20); BUN (Urea Nitrogen) 11 mg/dL (8.4-25.7); Calc. Creatinine Clearance 119 mL/min (70-130); Calcium 8.1 mg/dL (7.8-10.44); Carbon Dioxide 33 mmol/L (23-31); Chloride 98 mmol/L (98-107); Estimated GFR-MDRD Greater than 90; Glucose 163 mg/dL (80-115); Potassium 4.8 mmol/L (3.5-5.1); Sodium 140 mmol/L (136-145)
[2018-04-19 03:47] LABS: Band 11 % (5-11); Hemoglobin 10.2 g/dL (14.0-18.0); Lymphocytes 10 % (21-51); MDiff Complete? YES; Mean Corpuscular HGB CONC 30.8 g/dL (32.0-36.0); Mean Corpuscular Hemoglobin 25.1 pg (27.0-31.0); Mean Corpuscular Volume 81.4 fL (78.0-98.0); Mean Platelet Volume 10.1 fL (7.4-10.4); Neutrophil 79 % (42-75); Platelet Count 182 thou/uL (130-400); RBC Distribution Width 14.5 % (11.5-14.5); Red Blood Cell (RBC) Count 4.05 mill/uL (4.70-6.10); White Blood Cell (WBC) Count 13.3 thou/uL (4.8-10.8)
[2018-04-19] MEDS: Sodium Chloride 0.9% 1,000 ML IV SCH ×2 (04:00→17:00)
[2018-04-19] MEDS: Piperacillin/Tazobactam 3.375 GM in Sodium Chloride 0.9% 100 ML IVPB SCH ×3 (06:24→19:44)
[2018-04-19 07:24] LABS: Actual Bicarbonate (HCO3a) 31.4 mEq/L (22-28); Base Excess (BEa) 8.3 mEq/L (-2.0 to +3.0); CO2 Tension 36.4 mmHg (35.0-45.0); O2 Tension (PaO2) 69.7 mmHg (> 80.0); pH, Arterial 7.55 (7.35-7.45)
[2018-04-19 07:25] LABS: Calcium, Ionized 1.1 mmol/L (1.12-1.30); Hemoglobin (Hb) 5.8 g/dL (14.0-18.0); Puncture Site RRA
[2018-04-19] MEDS: Apixaban 5 MG TAB PO SCH ×2 (08:23→21:45)
[2018-04-19] MEDS: Carvedilol 3.125 MG TAB PO SCH ×3 (08:23→19:41)
[2018-04-19] MEDS: Famotidine/PF 20 mg/2ml Vial SLOW IVP SCH ×2 (08:24→22:12)
[2018-04-19] MEDS: guaiFENesin ER 600 MG TAB PO SCH ×2 (08:25→20:13)
[2018-04-19] MEDS: Vancomycin HCl 1 GM in Premix Bag 1 BAG IVPB SCH ×2 (08:25→19:39)
[2018-04-19 08:39] LABS: Magnesium 2.4 mg/dL (1.6-2.6)
[2018-04-19] MEDS: Acetaminophen 650 MG/20.3 ML UDCUP PER TUBE PRN (08:43)
[2018-04-19 08:48] LABS: Phosphorus 1.5 mg/dL (2.3-4.7)
--- NOTE | 2018-04-19 08:51 | CON ---
DATE OF CONSULTATION: 04/19/2018 HISTORY OF PRESENT ILLNESS: This is a 68-year-old gentleman with numerous admissions, presented yest erday evening with shortness of breath. Brought in from home. He was found to have blood in the uri ne. He became sleepy, lethargic. He was on CPAP at home. He became progressively more lethargic. He has been started on noninvasive ventilation at night time for his end-stage chronic obstructive pulmonary disease. The patient was not apparently able to give any history. He states that he is still smoking. He can barely walk 20 feet without getting markedly short of breath. There is no fever or chills. He has lower extremity swelling. Denied any pain. PAST MEDICAL HISTORY: 1. End-stage chronic obstructive pulmonary disease. 2. History of previous cardiac arrhythmias. He was intubated in the ER for progressive respiratory failure. He had a CAT scan done last night which did not show any PE, but there was a questionable new left up per lung infiltrate. PAST MEDICAL HISTORY: Atrial fibrillation, COPD, multiple admissions. PAST SURGICAL HISTORY: Bowel obstruction, appendix resection. ALCOHOL: None. TOBACCO: Ongoing, unknown how much he is still smoking. HOME MEDICATIONS: Prednisone 10, guaifenesin, Klonopin 5 mg twice a day, potassium, Protonix 40, Las ix 20, Coreg 3.125, Symbicort, Eliquis 5 twice a day. ALLERGIES: None. REVIEW OF SYSTEMS: Otherwise unremarkable. PHYSICAL EXAMINATION: VITAL SIGNS: Sats are 99 on vent settings, respiration 22, pulse 100, blood pressure 110-51. GENERAL: He is awake, alert, responsive, nods, moves all 4 extremities. He has got stasis changes o n his legs, 1+ edema. CHEST: Chest reveals decreased breath sounds without any wheezing. CARDIAC: Normal S1, S2, no gallops. ABDOMEN: Soft. NEUROLOGIC: Awake, responsive. LABORATORY: White count 13,000, H&H 10 and 30, platelet count 182. His pO2 is 69, pCO2 36.55, rate of 18. Electrolytes are normal. X-ray was normal as noted. IMPRESSION: 1. Acute on chronic respiratory failure. 2. Chronic obstructive pulmonary disease exacerbation. 3. Ongoing tobacco abuse. 4. Cardiac arrhythmias. PLAN: Minimize sedation. Will start nutrition, PT. Will start weaning in the next day or two. Ove rall, long-term prognosis is grave. This is a 45 minute critical care time.
[2018-04-19] MEDS ORDERED: Prevnar 13-Val Conj/PF 0.5 ML SYRINGE IM ONE (09:00)
[2018-04-19] MEDS: Propofol 1,000 MG/100 ML VIAL IV PRN ×2 (10:12→20:56)
[2018-04-19] MEDS: Diabetic Tussin 200 MG/10 ML UDCUP PO SCH ×2 (15:37→21:45)
--- NOTE | 2018-04-19 23:51 | PDOC.PN ---
- Subjective Encounter Start Date: 04/19/18 Encounter Start Time: 17:00 -: non-verbal Subjective: nsg notes rev, jose alejandro ovn, multiple family members at bedside -: pt intubated, able to nod yes/ no, nonconversant -: h&p rev, pt seen and examined - Objective Vital Signs & Weight: Vital Signs (12 hours) Temp Pulse Resp BP Pulse Ox 04/19/18 22:14 90 100/64 04/19/18 22:00 98.6 F 33 H 04/19/18 20:00 100.2 F H 22 H 04/19/18 19:37 100.2 F H 98 36 H 98 04/19/18 19:00 100.2 F H 04/19/18 18:16 102 H 127/61 04/19/18 18:00 29 H 04/19/18 16:00 98.5 F 22 H 04/19/18 14:27 96 95/56 L 04/19/18 14:00 27 H 04/19/18 12:00 99.4 F 25 H Weight Admit Weight 138 lb 14.259 oz Weight 138 lb 14.259 oz Most Recent Monitor Data Heart Rate from ECG 90 NIBP 98/54 NIBP BP-Mean 65 Respiration from ECG 30 SpO2 100 I&O: 04/18/18 04/19/18 04/20/18 06:59 06:59 06:59 Intake Total 208 1659 Output Total 290 1620 Balance -82 39 Result Diagrams: 04/19/18 03:19 04/19/18 02:59 Phys Exam - Physical Examination Constitutional: NAD lying in hospital bed HEENT: sclera anicteric ETT in place, OGT in place limited anterior exam, coarse ventilator sounds throughout Cardiovascular: RRR, no significant murmur, no rub Gastrointestinal: soft, positive bowel sounds Musculoskeletal: pulses present Dx/Plan - Plan cont current plan of care, plan discussed w/ family, continue antibiotics, respiratory therapy * PNA * empiric antibiotics * ventilatory support * apprec pulmonary c/s COPD with exacerbation * as per above, steroids * end stage COPD * see advanced care planning note diet: TF activity: Bed bound dvt ppx Review of Systems - Medications/Allergies Allergies/Adverse Reactions: Allergies Allergy/AdvReac Type Severity Reaction Status Date / Time No Known Drug Allergies Allergy Verified 01/18/18 08:54 Medications: Current Medications Acetaminophen (Tylenol Elixir) 650 mg PER TUBE Q4H PRN PRN Reason: Headache/Fever or Pain Last Admin: 04/19/18 08:43 Dose: 650 mg Albuterol/Ipratropium (Duoneb) 3 ml NEB Q4H PRN PRN Reason: SOB &/or Wheezing Apixaban (Eliquis) 5 mg PO BID [facility] Stop: 05/19/18 09:01 Last Admin: 04/19/18 21:45 Dose: 5 mg Carvedilol (Coreg) 3.125 mg PO BID-[facility] Last Admin: 04/19/18 19:41 Dose: 3.125 mg Famotidine (Pepcid) 20 mg SLOW IVP BID [facility] Last Admin: 04/19/18 22:12 Dose: 20 mg Guaifenesin (Robitussin Sf) 400 mg PO TID [facility] Last Admin: 04/19/18 21:45 Dose: 400 mg Fentanyl Citrate 2,000 mcg/ (Sodium Chloride) 100 mls @ 0 mls/hr IV INF [facility]; Per Protocol PRN Reason: Protocol Stop: 05/19/18 00:16 Fentanyl Citrate (Fentanyl Bolus) 250 mls @ 0 mls/hr IVPB PRN PRN; As Directed PRN Reason: Breakthrough pain/agitation Stop: 05/19/18 00:16 Piperacillin Sod/Tazobactam (Sod 3.375 gm/ Sodium Chloride) 100 mls @ 200 mls/ hr IVPB Q6HR [facility] Last Admin: 04/20/18 00:05 Dose: 100 mls Vancomycin HCl 1 gm/ Device 200 mls @ 200 mls/hr IVPB 0100,0900,1700 [facility] Last Admin: 04/20/18 00:06 Dose: 200 mls Sodium Chloride (Normal Saline 0.9%) 1,000 mls @ 100 mls/hr IV .Q10H [facility] Last Admin: 04/19/18 17:00 Dose: 1,000 mls Lorazepam (Ativan) 2 mg SLOW IVP Q1H PRN PRN Reason: Breakthrough agitation Stop: 05/19/18 00:16 Methylprednisolone Sodium Succinate (Solu-Medrol) 40 mg IVP Q6HR [facility] Last Admin: 04/20/18 00:03 Dose: 40 mg Morphine Sulfate (Morphine Sulfate) 2 mg SLOW IVP Q1H PRN PRN Reason: BREAKTHROUGH PAIN/AGITATION Stop: 05/19/18 00:16 Discontinue Previous Narcotic Pain Medications And Benzodiazepines 1 each FS .ONE [facility] Stop: 05/19/18 00:16 Ondansetron HCl (Zofran) 4 mg IVP Q6H PRN PRN Reason: Nausea/Vomiting Pantoprazole Sodium (Protonix) 40 mg PO DAILY PRN PRN Reason: Heartburn or Indigestion Propofol (Diprivan) 1,000 mg IV INF PRN; Protocol PRN Reason: TO ACHIEVE GOAL RASS Stop: 05/19/18 00:16 Last Admin: 04/19/18 20:56 Dose: 1,000 mg Propofol (Diprivan Bolus) 20 mg IV Q5MIN PRN PRN Reason: BREAKTHROUGH AGITATION Stop: 05/19/18 00:16
--- NOTE | 2018-04-19 23:51 | PDOC.EVN ---
Event Note - Event Note Event Note: advanced care planning dx: pna, copd exacerbation, acute hypoxic respiratory failure present: ex-, sister, 2 daughters at bedside Summary: Reviewed active diagnoses and treatment plan. Discussed with family his overall poor prognosis as evidenced by increasingly frequent hospitalizations with hypoxic respiratory failure. PAtient has multiple sisters and daughters. They are requesting a family meeting and to keep him full code until he can be extubated and partake in a code conversation. Greater than 20 minutes spent discussing prognosis and code status.
[2018-04-20] MEDS: Piperacillin/Tazobactam 3.375 GM in Sodium Chloride 0.9% 100 ML IVPB SCH ×5 (00:05→23:41)
[2018-04-20] MEDS: Vancomycin HCl 1 GM in Premix Bag 1 BAG IVPB SCH (00:06)
[2018-04-20 00:48] LABS: Vancomycin, Trough 14.8 ug/mL
[2018-04-20 05:06] LABS: #Lymphocytes 0.5 thou/uL (1.20-3.40); #Monocytes 0.9 thou/uL (0.11-0.59); #Neutrophils 11.9 thou/uL (1.40-6.50); %Eosinophils 0.1 % (0.0-10.0); %Lymphocytes 3.9 % (21.0-51.0); %Monocytes 6.4 % (0.0-10.0); %Neutrophils 89.6 % (42.0-75.0); Hemoglobin 8.6 g/dL (14.0-18.0); Mean Corpuscular HGB CONC 32.2 g/dL (32.0-36.0); Mean Corpuscular Hemoglobin 25.4 pg (27.0-31.0); Platelet Count 193 thou/uL (130-400); RBC Distribution Width 14.4 % (11.5-14.5); Red Blood Cell (RBC) Count 3.37 mill/uL (4.70-6.10); White Blood Cell (WBC) Count 13.3 thou/uL (4.8-10.8)
[2018-04-20 05:12] LABS: BUN (Urea Nitrogen) 13 mg/dL (8.4-25.7); Calc. Creatinine Clearance 105 mL/min (70-130); Calcium 8.5 mg/dL (7.8-10.44); Estimated GFR-MDRD Greater than 90; Glucose 152 mg/dL (80-115)
[2018-04-20] MEDS: Sodium Chloride 0.9% 1,000 ML IV SCH ×3 (05:14→21:03)
[2018-04-20 05:21] LABS: Anion Gap 10 mmol/L (10-20); Carbon Dioxide 36 mmol/L (23-31); Chloride 100 mmol/L (98-107); Potassium 3.8 mmol/L (3.5-5.1); Sodium 142 mmol/L (136-145)
[2018-04-20] MEDS: Propofol 1,000 MG/100 ML VIAL IV PRN ×2 (06:33→16:43)
--- NOTE | 2018-04-20 07:44 | PRG ---
DATE OF SERVICE: 04/20/2018 Jessy Jones is intubated on the vent. He is o Diprivan. PHYSICAL EXAMINATION: VITAL SIGNS: His pulse is 93, blood pressure 103/86, sats 90%, respirations 37. His I's and O's are 3562 in, 2275 out. NEUROLOGIC: He is awake, responsive. CHEST: Chest revealed decreased breath sounds, no wheezing. CARDIAC: Normal S1, S2. No gallops. ABDOMEN: Soft, no masses. LABORATORY: His phosphorus was 1.4 was replaced yesterday. White count 13,000, H&H 8 and 26, platel et count is normal. Electrolytes are normal. X-ray shows a left-sided infiltrate. IMPRESSION: 1. End-stage chronic obstructive pulmonary disease. 2. Left-sided pneumonia. 3. Severe deconditioning. PLAN: Overall, prognosis is grave. At this stage, we will try and wean slowly if possible. I see no reason to suspect staph. I am going to discontinue vancomycin. He is on Zosyn, steroids, ne b treatments, Levaquin. Will continue nutrition, PT. Discussed with family once again a code status. Awaiting blood gases, neb treatments. One-half hour critical care time.
[2018-04-20] MEDS ORDERED: Carvedilol 3.125 MG TAB PO SCH (08:00)
[2018-04-20 08:28] LABS: CO2 Tension 54.2 mmHg (35.0-45.0); pH, Arterial 7.45 (7.35-7.45)
[2018-04-20 08:29] LABS: Actual Bicarbonate (HCO3a) 36.7 mEq/L (22-28); Base Excess (BEa) 11.2 mEq/L (-2.0 to +3.0); Calcium, Ionized 1.1 mmol/L (1.12-1.30); Hemoglobin (Hb) 9.1 g/dL (14.0-18.0); Puncture Site RBA
[2018-04-20] MEDS: clonazePAM 1 MG TAB PO SCH ×2 (08:54→21:02)
[2018-04-20] MEDS: Apixaban 5 MG TAB PO SCH (08:54)
[2018-04-20] MEDS: Diabetic Tussin 200 MG/10 ML UDCUP PO SCH ×3 (08:54→21:02)
[2018-04-20] MEDS: Famotidine/PF 20 mg/2ml Vial SLOW IVP SCH (08:54)
[2018-04-20] MEDS ORDERED: CLONAZEPAM 5 MG PO SCH (09:00)
--- NOTE | 2018-04-20 09:21 | RAD ---
CHEST 1 VIEW: COMPARISON: 04/18/18. HISTORY: Respiratory distress. Ventilated patient. FINDINGS: Redemonstration of an endotracheal tube. Interval placement of nasogastric tube, traversing the left upper quadrant. Atherosclerosis of the aorta is noted. Stable configuration of the cardiac silhoue tte. Chronic change of the lung parenchyma. No pneumothorax or pleural effusion. IMPRESSION: Interval placement of nasogastric tube. Otherwise, stable change of the lung parenchyma. POS: [facility]
--- NOTE | 2018-04-20 11:40 | PDOC.PN ---
- Subjective Encounter Start Date: 04/20/18 Encounter Start Time: 11:10 Subjective: awake on vent, minimal sedation - Objective MAR Reviewed: Yes Vital Signs & Weight: Vital Signs (12 hours) Temp Pulse Resp BP Pulse Ox 04/20/18 08:52 101 H 36 H 96 04/20/18 08:00 100.4 F H 04/20/18 07:21 96 103/49 L 04/20/18 06:00 32 H 04/20/18 04:00 98.7 F 25 H 04/20/18 03:29 95 120/65 04/20/18 02:00 26 H 04/20/18 00:00 98.8 F 23 H Weight Admit Weight 138 lb 14.259 oz Weight 138 lb 14.259 oz Most Recent Monitor Data Heart Rate from ECG 108 NIBP 127/78 NIBP BP-Mean 81 Respiration from ECG 35 SpO2 95 I&O: 04/19/18 04/20/18 04/21/18 06:59 06:59 06:59 Intake Total 208 3562.3 Output Total 290 2275 140 Balance -82 1287.3 -140 Result Diagrams: 04/20/18 04:23 04/20/18 04:23 Phys Exam - Physical Examination HEENT: PERRLA, sclera anicteric Neck: no JVD, supple Respiratory: no rales, wheezing present Cardiovascular: RRR, no significant murmur Gastrointestinal: soft, non-tender, positive bowel sounds Musculoskeletal: no edema, pulses present Neurological: non-focal, moves all 4 limbs Dx/Plan (1) Acute on chronic respiratory failure with hypoxia and hypercapnia Code(s): J96.21 - ACUTE AND CHRONIC RESPIRATORY FAILURE WITH HYPOXIA; J96.22 - ACUTE AND CHRONIC RESPIRATORY FAILURE WITH HYPERCAPNIA Status: Acute (2) COPD exacerbation Code(s): J44.1 - CHRONIC OBSTRUCTIVE PULMONARY DISEASE W (ACUTE) EXACERBATION Status: Acute (3) Chronic anemia Code(s): D64.9 - ANEMIA, UNSPECIFIED Status: Chronic (4) HTN (hypertension) Code(s): I10 - ESSENTIAL (PRIMARY) HYPERTENSION Status: Chronic Qualifiers: Hypertension type: essential hypertension (5) Moderate protein-calorie malnutrition Code(s): E44.0 - MODERATE PROTEIN-CALORIE MALNUTRITION Status: Chronic (6) PVD (peripheral vascular disease) Code(s): I73.9 - PERIPHERAL VASCULAR DISEASE, UNSPECIFIED Status: Chronic - Plan may dc eliquis for now -: is on vent, has end stage copd and breathes usually through his mouth with -: oxygen at baseline -: is on solumedrol q6h, coreg and empiric zosyn -: prognosis guarded, was DNR before * . Review of Systems - Medications/Allergies Allergies/Adverse Reactions: Allergies Allergy/AdvReac Type Severity Reaction Status Date / Time No Known Drug Allergies Allergy Verified 01/18/18 08:54 Medications: Current Medications Acetaminophen (Tylenol Elixir) 650 mg PER TUBE Q4H PRN PRN Reason: Headache/Fever or Pain Last Admin: 04/19/18 08:43 Dose: 650 mg Albuterol/Ipratropium (Duoneb) 3 ml NEB [id number] [facility] Last Admin: 04/20/18 08:52 Dose: 3 ml Apixaban (Eliquis) 5 mg PO BID [facility] Stop: 05/19/18 09:01 Last Admin: 04/20/18 08:54 Dose: 5 mg Carvedilol (Coreg) 3.125 mg PO BID-[facility] Last Admin: 04/19/18 19:41 Dose: 3.125 mg Clonazepam (Klonopin) 2 mg PO BID [facility] Last Admin: 04/20/18 08:54 Dose: 2 mg Famotidine (Pepcid) 20 mg PO BID [facility] Guaifenesin (Robitussin Sf) 400 mg PO TID [facility] Last Admin: 04/20/18 08:54 Dose: 400 mg Fentanyl Citrate 2,000 mcg/ (Sodium Chloride) 100 mls @ 0 mls/hr IV INF [facility]; Per Protocol PRN Reason: Protocol Stop: 05/19/18 00:16 Fentanyl Citrate (Fentanyl Bolus) 250 mls @ 0 mls/hr IVPB PRN PRN; As Directed PRN Reason: Breakthrough pain/agitation Stop: 05/19/18 00:16 Piperacillin Sod/Tazobactam (Sod 3.375 gm/ Sodium Chloride) 100 mls @ 200 mls/ hr IVPB Q6HR [facility] Last Admin: 04/20/18 06:00 Dose: 100 mls Sodium Chloride (Normal Saline 0.9%) 1,000 mls @ 100 mls/hr IV .Q10H [facility] Last Admin: 04/20/18 05:14 Dose: 1,000 mls Levofloxacin 750 mg/ Device 150 mls @ 100 mls/hr IVPB Q24HR [facility] Last Admin: 04/20/18 08:53 Dose: 150 mls Lorazepam (Ativan) 2 mg SLOW IVP Q1H PRN PRN Reason: Breakthrough agitation Stop: 05/19/18 00:16 Methylprednisolone Sodium Succinate (Solu-Medrol) 40 mg IVP Q6HR [facility] Last Admin: 04/20/18 06:00 Dose: 40 mg Morphine Sulfate (Morphine Sulfate) 2 mg SLOW IVP Q1H PRN PRN Reason: BREAKTHROUGH PAIN/AGITATION Stop: 05/19/18 00:16 Discontinue Previous Narcotic Pain Medications And Benzodiazepines 1 each FS .ONE [facility] Stop: 05/19/18 00:16 Ondansetron HCl (Zofran) 4 mg IVP Q6H PRN PRN Reason: Nausea/Vomiting Pantoprazole Sodium (Protonix) 40 mg PO DAILY PRN PRN Reason: Heartburn or Indigestion Propofol (Diprivan) 1,000 mg IV INF PRN; Protocol PRN Reason: TO ACHIEVE GOAL RASS Stop: 05/19/18 00:16 Last Admin: 04/20/18 06:33 Dose: 1,000 mg Propofol (Diprivan Bolus) 20 mg IV Q5MIN PRN PRN Reason: BREAKTHROUGH AGITATION Stop: 05/19/18 00:16
--- NOTE | 2018-04-20 17:11 | EKG ---
Test Reason : PREOP Blood Pressure : / mmHG Vent. Rate : 096 BPM Atrial Rate : 096 BPM P-R Int : 110 ms QRS Dur : 082 ms QT Int : 322 ms P-R-T Axes : 076 077 065 degrees QTc Int : 406 ms Sinus rhythm with short OH with Premature supraventricular complexes and with occasional Premature ve ntricular complexes possible septal infarct unknown age When compared with ECG of 18-APR-2018 22:57, (Unconfirmed) Sinus rhythm has replaced Junctional rhythm Confirmed by DR. Kerry STEPHENSON ([id number]) on 04/20/2018 5:10:59 PM Referred By: ELENO Confirmed By:DR. Kerry STEPHENSON
[2018-04-20] MEDS: Carvedilol 3.125 MG TAB PO SCH (17:47)
[2018-04-20] MEDS: Famotidine 20 MG TAB PO SCH (21:03)
--- NOTE | 2018-04-20 22:22 | CON ---
DATE OF CONSULT: 04/20/18 HISTORY OF PRESENT ILLNESS: The patient is a 60-year-old gentleman with history of severe COPD who presented with respiratory failure. The patient has a history of atrial flutter. The patient has been on chronic anticoagulation therapy. The patient was admitted with respiratory failure and was once again emergently intubated. The patient is intubated and sedated. PAST MEDICAL HISTORY: 1. COPD. 2. Atrial flutter. 3. Hypertension. PAST SURGICAL HISTORY: Appendectomy, bowel surgery. SOCIAL HISTORY: Long history of tobacco abuse. MEDICATIONS: See nursing list. REVIEW OF SYSTEMS: Not obtainable. PHYSICAL EXAMINATION: GENERAL: Ill-appearing gentleman, intubated with a blood pressure 102/55, heart rate is 96 and irregular NECK: Full. LUNGS: Coarse breath sounds bilateral. HEART: Irregular rate and rhythm, normal S1, S2. ABDOMEN: Nondistended. EXTREMITIES: Showed trace edema. VASCULAR: Radial pulses 2+. LABORATORY DATA: Sodium 142, potassium 3.8, chloride 100, bicarbonate 36, BUN 30, creatinine, troponin less than 0.01. White blood cell count is 13.3, hemoglobin 8.6, hematocrit 26.6 and his platelets are 193. His EKG revealed him to have an ectopic atrial rhythm with occasional premature ectopic complexes. IMPRESSION: 1. Respiratory failure. 2. Severe chronic obstructive pulmonary disease. 3. History of atrial flutter. This gentleman presents with a severe COPD exacerbation and was emergently intubated. The patient is on chronic anticoagulation therapy with Eliquis. He has also on Coreg. Would recommend discontinuing this medication with severe COPD. Would consider low dose calcium channel vilma with the patient's blood pressure stabilized. We will follow this patient with you through his hospitalization. LILIYA
[2018-04-21 05:05] LABS: #Lymphocytes 0.5 thou/uL (1.20-3.40); #Monocytes 0.9 thou/uL (0.11-0.59); #Neutrophils 12.4 thou/uL (1.40-6.50); %Basophils 0.3 % (0.0-1.0); %Eosinophils 0.1 % (0.0-10.0); %Lymphocytes 3.7 % (21.0-51.0); %Monocytes 6.1 % (0.0-10.0); %Neutrophils 89.9 % (42.0-75.0); Hemoglobin 8.5 g/dL (14.0-18.0); Mean Corpuscular HGB CONC 32.1 g/dL (32.0-36.0); Mean Corpuscular Hemoglobin 25.3 pg (27.0-31.0); Mean Corpuscular Volume 78.7 fL (78.0-98.0); Mean Platelet Volume 10.3 fL (7.4-10.4); Platelet Count 174 thou/uL (130-400); RBC Distribution Width 14.5 % (11.5-14.5); Red Blood Cell (RBC) Count 3.35 mill/uL (4.70-6.10); White Blood Cell (WBC) Count 13.8 thou/uL (4.8-10.8)
[2018-04-21] MEDS: Piperacillin/Tazobactam 3.375 GM in Sodium Chloride 0.9% 100 ML IVPB SCH ×4 (05:06→23:36)
[2018-04-21 05:29] LABS: Anion Gap 8 mmol/L (10-20); BUN (Urea Nitrogen) 17 mg/dL (8.4-25.7); Calc. Creatinine Clearance 111 mL/min (70-130); Calcium 8.6 mg/dL (7.8-10.44); Carbon Dioxide 36 mmol/L (23-31); Chloride 104 mmol/L (98-107); Estimated GFR-MDRD Greater than 90; Glucose 142 mg/dL (80-115); Potassium 3.9 mmol/L (3.5-5.1); Sodium 144 mmol/L (136-145)
[2018-04-21] MEDS: Sodium Chloride 0.9% 1,000 ML IV SCH ×2 (06:04→18:29)
[2018-04-21] MEDS: Propofol 1,000 MG/100 ML VIAL IV PRN ×2 (09:17→18:33)
[2018-04-21] MEDS: Famotidine 20 MG TAB PO SCH ×2 (09:17→20:32)
[2018-04-21] MEDS: Diabetic Tussin 200 MG/10 ML UDCUP PO SCH ×3 (09:17→20:31)
[2018-04-21] MEDS: clonazePAM 1 MG TAB PO SCH ×2 (09:46→20:32)
--- NOTE | 2018-04-21 09:52 | RAD ---
FRONTAL VIEW CHEST: COMPARISON: Previous day. INDICATION: Ventilated patient. FINDINGS: Endotracheal and enteric catheters persist. The lungs are hyperinflated with interstitial prominence . No significant interval change. IMPRESSION: Stable chest. POS: [facility]
[2018-04-21 10:34] LABS: Actual Bicarbonate (HCO3a) 33.8 mEq/L (22-28); Base Excess (BEa) 8.7 mEq/L (-2.0 to +3.0); CO2 Tension 49.6 mmHg (35.0-45.0); O2 Tension (PaO2) 74.7 mmHg (> 80.0); pH, Arterial 7.45 (7.35-7.45)
[2018-04-21 10:35] LABS: Hemoglobin (Hb) 9.3 g/dL (14.0-18.0)
[2018-04-21 10:36] LABS: Calcium, Ionized 1.2 mmol/L (1.12-1.30); Puncture Site RRA
--- NOTE | 2018-04-21 12:05 | PRG ---
DATE OF SERVICE: 04/21/2018 SUBJECTIVE: Mr. Jones remains mechanically ventilated. He will awaken and he nods that he is reasonably comfortable. He moves all extremities to command. PHYSICAL EXAMINATION: HEENT: His pupils are equal. LUNGS: Remarkable for coarse equal breath sounds. HEART: Regular rhythm. ABDOMEN: Soft. EXTREMITIES: Without asymmetry. VITAL SIGNS: Blood pressure 103/56, heart rate is 83. Intake and output is positive 2376. IMPRESSION: 1. Respiratory failure, acute on chronic. 2. Pneumonia. 3. Advanced chronic obstructive pulmonary disease. 4. Deconditioning. 5. Ongoing tobacco use. His son was at bedside. He sounds 2 pack a day smoker and I counseled him about his smoking, but he is watching his dad go through. We will continue with his nebulizer treatments. We will continue with mechanical ventilation. He is not weanable at this point in my opinion. He is still on Zosyn. He is still on Solu-Medrol, probably decrease the dose of his Solu-Medrol tomorrow, he is still on Le vaquin. Tube feeds need to start. Critical care time was 30 minutes.
--- NOTE | 2018-04-21 12:45 | PDOC.PN ---
- Subjective Encounter Start Date: 04/21/18 Encounter Start Time: 12:00 Subjective: on vent, awakens easily - Objective MAR Reviewed: Yes Vital Signs & Weight: Vital Signs (12 hours) Temp Pulse Resp BP Pulse Ox 04/21/18 10:17 83 103/56 L 04/21/18 09:17 81 101/56 L 04/21/18 08:00 27 H 04/21/18 07:00 98.4 F 04/21/18 06:00 28 H 04/21/18 04:00 98.5 F 25 H 04/21/18 02:50 77 04/21/18 02:49 81 25 H 98 04/21/18 02:00 19 Weight Admit Weight 138 lb 14.259 oz Weight 138 lb 14.259 oz Most Recent Monitor Data Heart Rate from ECG 82 NIBP 111/51 NIBP BP-Mean 73 Respiration from ECG 34 SpO2 95 I&O: 04/20/18 04/21/18 04/22/18 06:59 06:59 06:59 Intake Total 3562.3 3606.7 Output Total 2275 1230 130 Balance 1287.3 2376.7 -130 Result Diagrams: 04/21/18 04:26 04/21/18 04:26 Phys Exam - Physical Examination HEENT: PERRLA, sclera anicteric Neck: no JVD, supple Respiratory: no wheezing, no rales rhonchi+ Cardiovascular: RRR, no significant murmur Gastrointestinal: soft, non-tender, positive bowel sounds Musculoskeletal: no edema, pulses present Neurological: non-focal, moves all 4 limbs Dx/Plan (1) Acute on chronic respiratory failure with hypoxia and hypercapnia Code(s): J96.21 - ACUTE AND CHRONIC RESPIRATORY FAILURE WITH HYPOXIA; J96.22 - ACUTE AND CHRONIC RESPIRATORY FAILURE WITH HYPERCAPNIA Status: Acute (2) COPD exacerbation Code(s): J44.1 - CHRONIC OBSTRUCTIVE PULMONARY DISEASE W (ACUTE) EXACERBATION Status: Acute (3) Chronic anemia Code(s): D64.9 - ANEMIA, UNSPECIFIED Status: Chronic (4) HTN (hypertension) Code(s): I10 - ESSENTIAL (PRIMARY) HYPERTENSION Status: Chronic Qualifiers: Hypertension type: essential hypertension (5) Moderate protein-calorie malnutrition Code(s): E44.0 - MODERATE PROTEIN-CALORIE MALNUTRITION Status: Chronic (6) PVD (peripheral vascular disease) Code(s): I73.9 - PERIPHERAL VASCULAR DISEASE, UNSPECIFIED Status: Chronic - Plan weaning per pulm advice -: has end stage copd -: on klonopin for anxiety, cardizem cd for paroxysmal a.flutter -: levaquin and zosyn, steroids, nebs. * . Review of Systems - Medications/Allergies Allergies/Adverse Reactions: Allergies Allergy/AdvReac Type Severity Reaction Status Date / Time No Known Drug Allergies Allergy Verified 01/18/18 08:54 Medications: Current Medications Acetaminophen (Tylenol Elixir) 650 mg PER TUBE Q4H PRN PRN Reason: Headache/Fever or Pain Last Admin: 04/19/18 08:43 Dose: 650 mg Albuterol/Ipratropium (Duoneb) 3 ml NEB [id number] [facility] Last Admin: 04/21/18 09:09 Dose: 3 ml Clonazepam (Klonopin) 2 mg PO BID [facility] Last Admin: 04/21/18 09:46 Dose: 2 mg Diltiazem HCl (Cardizem Cd) 120 mg PO DAILY [facility] Last Admin: 04/21/18 09:17 Dose: 120 mg Famotidine (Pepcid) 20 mg PO BID [facility] Last Admin: 04/21/18 09:17 Dose: 20 mg Guaifenesin (Robitussin Sf) 400 mg PO TID [facility] Last Admin: 04/21/18 09:17 Dose: 400 mg Fentanyl Citrate 2,000 mcg/ (Sodium Chloride) 100 mls @ 0 mls/hr IV INF [facility]; Per Protocol PRN Reason: Protocol Stop: 05/19/18 00:16 Fentanyl Citrate (Fentanyl Bolus) 250 mls @ 0 mls/hr IVPB PRN PRN; As Directed PRN Reason: Breakthrough pain/agitation Stop: 05/19/18 00:16 Piperacillin Sod/Tazobactam (Sod 3.375 gm/ Sodium Chloride) 100 mls @ 200 mls/ hr IVPB Q6HR [facility] Last Admin: 04/21/18 05:06 Dose: 100 mls Sodium Chloride (Normal Saline 0.9%) 1,000 mls @ 100 mls/hr IV .Q10H [facility] Last Admin: 04/21/18 06:04 Dose: 1,000 mls Levofloxacin 750 mg/ Device 150 mls @ 100 mls/hr IVPB Q24HR [facility] Last Admin: 04/21/18 09:16 Dose: 150 mls Lorazepam (Ativan) 2 mg SLOW IVP Q1H PRN PRN Reason: Breakthrough agitation Stop: 05/19/18 00:16 Methylprednisolone Sodium Succinate (Solu-Medrol) 40 mg IVP Q6HR [facility] Last Admin: 04/21/18 05:06 Dose: 40 mg Morphine Sulfate (Morphine Sulfate) 2 mg SLOW IVP Q1H PRN PRN Reason: BREAKTHROUGH PAIN/AGITATION Stop: 05/19/18 00:16 Discontinue Previous Narcotic Pain Medications And Benzodiazepines 1 each FS .ONE [facility] Stop: 05/19/18 00:16 Ondansetron HCl (Zofran) 4 mg IVP Q6H PRN PRN Reason: Nausea/Vomiting Pantoprazole Sodium (Protonix) 40 mg PO DAILY PRN PRN Reason: Heartburn or Indigestion Propofol (Diprivan) 1,000 mg IV INF PRN; Protocol PRN Reason: TO ACHIEVE GOAL RASS Stop: 05/19/18 00:16 Last Admin: 04/21/18 09:17 Dose: 1,000 mg Propofol (Diprivan Bolus) 20 mg IV Q5MIN PRN PRN Reason: BREAKTHROUGH AGITATION Stop: 05/19/18 00:16
[2018-04-22] MEDS: Propofol 1,000 MG/100 ML VIAL IV PRN ×2 (01:39→18:28)
[2018-04-22] MEDS: Sodium Chloride 0.9% 1,000 ML IV SCH ×3 (04:04→23:55)
[2018-04-22 04:32] LABS: Anion Gap 8 mmol/L (10-20); BUN (Urea Nitrogen) 17 mg/dL (8.4-25.7); Calc. Creatinine Clearance 105 mL/min (70-130); Calcium 8.6 mg/dL (7.8-10.44); Carbon Dioxide 35 mmol/L (23-31); Chloride 104 mmol/L (98-107); Estimated GFR-MDRD Greater than 90; Glucose 155 mg/dL (80-115); Potassium 4.3 mmol/L (3.5-5.1); Sodium 143 mmol/L (136-145)
[2018-04-22] MEDS: Piperacillin/Tazobactam 3.375 GM in Sodium Chloride 0.9% 100 ML IVPB SCH ×4 (05:03→23:54)
[2018-04-22 05:36] LABS: Mean Corpuscular HGB CONC 32.2 g/dL (32.0-36.0); Mean Corpuscular Hemoglobin 25.3 pg (27.0-31.0); Mean Corpuscular Volume 78.7 fL (78.0-98.0); Mean Platelet Volume 10.4 fL (7.4-10.4); Platelet Count 173 thou/uL (130-400); RBC Distribution Width 14.4 % (11.5-14.5); Red Blood Cell (RBC) Count 3.56 mill/uL (4.70-6.10); White Blood Cell (WBC) Count 14.9 thou/uL (4.8-10.8)
[2018-04-22 05:37] LABS: Band 12 % (5-11); Lymphocytes 6 % (21-51); MDiff Complete? YES; Monocytes 5 % (0-10); Neutrophil 77 % (42-75); PLT Morphology Comment Appears Adequate
[2018-04-22] MEDS: clonazePAM 1 MG TAB PO SCH ×2 (09:48→20:42)
[2018-04-22] MEDS: Diabetic Tussin 200 MG/10 ML UDCUP PO SCH ×3 (09:48→20:41)
[2018-04-22] MEDS: Famotidine 20 MG TAB PO SCH ×2 (09:49→20:42)
--- NOTE | 2018-04-22 11:59 | RAD ---
CHEST 1 VIEW: COMPARISON: 04/21/18. HISTORY: Ventilated patient. Respiratory distress. FINDINGS: Redemonstration of endotracheal and nasogastric tubes. Stable pleural and parenchymal changes. Stab le hyperinflation. Atherosclerosis of the aorta is noted. Stable cardiac silhouette. IMPRESSION: No significant interval change. POS: [facility]
--- NOTE | 2018-04-22 13:10 | PDOC.PN ---
- Subjective Encounter Start Date: 04/22/18 Encounter Start Time: 11:35 Subjective: awake on vent -: family at bedside - Objective MAR Reviewed: Yes Vital Signs & Weight: Vital Signs (12 hours) Temp Pulse Resp BP Pulse Ox 04/22/18 12:06 84 121/54 L 04/22/18 09:49 81 107/55 L 04/22/18 08:00 98.5 F 81 25 H 100 04/22/18 07:00 98.5 F 04/22/18 06:51 69 103/46 L 04/22/18 06:00 15 04/22/18 04:00 97.7 F 22 H 04/22/18 02:12 93 04/22/18 02:11 75 21 H 100 04/22/18 02:00 18 Weight Admit Weight 138 lb 14.259 oz Weight 155 lb 6.814 oz Most Recent Monitor Data Heart Rate from ECG 85 NIBP 117/38 NIBP BP-Mean 48 Respiration from ECG 25 SpO2 100 I&O: 04/21/18 04/22/18 04/23/18 06:59 06:59 06:59 Intake Total 3606.7 3454 Output Total 1230 1165 150 Balance 2376.7 2289 -150 Result Diagrams: 04/22/18 03:21 04/22/18 03:21 Phys Exam - Physical Examination HEENT: PERRLA, moist MMs Neck: no JVD, supple Respiratory: no wheezing, no rales rhonchi+ Cardiovascular: RRR, no significant murmur Gastrointestinal: soft, non-tender, positive bowel sounds Musculoskeletal: no edema, pulses present Neurological: non-focal, moves all 4 limbs Psychiatric: A&O x 3 Dx/Plan (1) Acute on chronic respiratory failure with hypoxia and hypercapnia Code(s): J96.21 - ACUTE AND CHRONIC RESPIRATORY FAILURE WITH HYPOXIA; J96.22 - ACUTE AND CHRONIC RESPIRATORY FAILURE WITH HYPERCAPNIA Status: Acute (2) COPD exacerbation Code(s): J44.1 - CHRONIC OBSTRUCTIVE PULMONARY DISEASE W (ACUTE) EXACERBATION Status: Acute (3) Chronic anemia Code(s): D64.9 - ANEMIA, UNSPECIFIED Status: Chronic (4) HTN (hypertension) Code(s): I10 - ESSENTIAL (PRIMARY) HYPERTENSION Status: Chronic Qualifiers: Hypertension type: essential hypertension (5) Moderate protein-calorie malnutrition Code(s): E44.0 - MODERATE PROTEIN-CALORIE MALNUTRITION Status: Chronic (6) PVD (peripheral vascular disease) Code(s): I73.9 - PERIPHERAL VASCULAR DISEASE, UNSPECIFIED Status: Chronic - Plan weaning per pulm advice -: is on steroids, nebs, levaq and zosyn -: klonopin bid for anxiety, cardizem cd 120mg daily -: in sinus rhythm this am -: has underlying end stage copd on home oxygen * . Review of Systems - Medications/Allergies Allergies/Adverse Reactions: Allergies Allergy/AdvReac Type Severity Reaction Status Date / Time No Known Drug Allergies Allergy Verified 01/18/18 08:54 Medications: Current Medications Acetaminophen (Tylenol Elixir) 650 mg PER TUBE Q4H PRN PRN Reason: Headache/Fever or Pain Last Admin: 04/19/18 08:43 Dose: 650 mg Albuterol/Ipratropium (Duoneb) 3 ml NEB [id number] [facility] Last Admin: 04/22/18 12:05 Dose: 3 ml Clonazepam (Klonopin) 2 mg PO BID [facility] Last Admin: 04/22/18 09:48 Dose: 2 mg Diltiazem HCl (Cardizem Cd) 120 mg PO DAILY [facility] Last Admin: 04/22/18 09:49 Dose: 120 mg Famotidine (Pepcid) 20 mg PO BID [facility] Last Admin: 04/22/18 09:49 Dose: 20 mg Guaifenesin (Robitussin Sf) 400 mg PO TID [facility] Last Admin: 04/22/18 09:48 Dose: 400 mg Fentanyl Citrate 2,000 mcg/ (Sodium Chloride) 100 mls @ 0 mls/hr IV INF [facility]; Per Protocol PRN Reason: Protocol Stop: 05/19/18 00:16 Fentanyl Citrate (Fentanyl Bolus) 250 mls @ 0 mls/hr IVPB PRN PRN; As Directed PRN Reason: Breakthrough pain/agitation Stop: 05/19/18 00:16 Piperacillin Sod/Tazobactam (Sod 3.375 gm/ Sodium Chloride) 100 mls @ 200 mls/ hr IVPB Q6HR [facility] Last Admin: 04/22/18 05:03 Dose: 100 mls Sodium Chloride (Normal Saline 0.9%) 1,000 mls @ 100 mls/hr IV .Q10H [facility] Last Admin: 04/22/18 04:04 Dose: 1,000 mls Levofloxacin 750 mg/ Device 150 mls @ 100 mls/hr IVPB Q24HR [facility] Last Admin: 04/22/18 09:59 Dose: 150 mls Lorazepam (Ativan) 2 mg SLOW IVP Q1H PRN PRN Reason: Breakthrough agitation Stop: 05/19/18 00:16 Last Admin: 04/21/18 15:47 Dose: 2 mg Methylprednisolone Sodium Succinate (Solu-Medrol) 40 mg IVP Q6HR [facility] Last Admin: 04/22/18 05:03 Dose: 40 mg Morphine Sulfate (Morphine Sulfate) 2 mg SLOW IVP Q1H PRN PRN Reason: BREAKTHROUGH PAIN/AGITATION Stop: 05/19/18 00:16 Discontinue Previous Narcotic Pain Medications And Benzodiazepines 1 each FS .ONE [facility] Stop: 05/19/18 00:16 Ondansetron HCl (Zofran) 4 mg IVP Q6H PRN PRN Reason: Nausea/Vomiting Pantoprazole Sodium (Protonix) 40 mg PO DAILY PRN PRN Reason: Heartburn or Indigestion Propofol (Diprivan) 1,000 mg IV INF PRN; Protocol PRN Reason: TO ACHIEVE GOAL RASS Stop: 05/19/18 00:16 Last Admin: 04/22/18 01:39 Dose: 1,000 mg Propofol (Diprivan Bolus) 20 mg IV Q5MIN PRN PRN Reason: BREAKTHROUGH AGITATION Stop: 05/19/18 00:16
--- NOTE | 2018-04-22 17:58 | PRG ---
DATE OF SERVICE: 04/22/2018 Jessy Jones is awake and listening to gospel music with his family this morning. He is in no distr ess. I explained to him that the weaning process will be slow. PHYSICAL EXAMINATION: GENERAL: His heart rates in the 80s, blood pressure 113/54, respiratory rate was in the 20s. Intake and output was positive 2289. LUNGS: Distant clear. HEART: Regular rhythm. ABDOMEN: Soft. EXTREMITIES: Without asymmetry. Intake and output is positive 2289. He is up close to 6 L since he has been admitted. LABORATORY DATA: White count is 14.9, hemoglobin 9.0, platelets 173,000. LABORATORY DATA: Sodium 142, potassium 4.3, chloride 104, bicarbonate 35, BUN 17, creatinine 0.6. B lood gas 7.45, CO2 49, pO2 74. IMPRESSION: 1. Advanced chronic obstructive pulmonary disease. 2. Respiratory failure secondary to chronic obstructive pulmonary disease exacerbation. Even with h is positive fluid balance, he has not developed any infiltrates. PLAN: We will continue with gradual decrease in ventilatory support. Met with the family and answer ed all their questions. I did really do not feel that this family I met with today understands the s everity of his lung disease, but the son I met with yesterday clearly appeared to have a good underst anding of the gravity of the situation. We will continue with supportive care, slow weaning from mec hanical ventilation. His respiratory rate was turned down to a rate of 4, pressure support of 10 and 5 of PEEP to continue IV antibiotics for now. He is really not requiring much in the way of sedatio n. Critical care time was 30 minutes.
[2018-04-23] MEDS: Propofol 1,000 MG/100 ML VIAL IV PRN ×2 (01:35→21:18)
[2018-04-23 04:58] LABS: Anion Gap 8 mmol/L (10-20); BUN (Urea Nitrogen) 19 mg/dL (8.4-25.7); Calc. Creatinine Clearance 124 mL/min (70-130); Calcium 8.6 mg/dL (7.8-10.44); Carbon Dioxide 35 mmol/L (23-31); Chloride 105 mmol/L (98-107); Estimated GFR-MDRD Greater than 90; Glucose 149 mg/dL (80-115); Sodium 144 mmol/L (136-145)
[2018-04-23 05:42] LABS: Band 11 % (5-11); Hemoglobin 9.1 g/dL (14.0-18.0); Lymphocytes 2 % (21-51); MDiff Complete? YES; Mean Corpuscular HGB CONC 32.8 g/dL (32.0-36.0); Mean Corpuscular Hemoglobin 25.6 pg (27.0-31.0); Mean Corpuscular Volume 78.1 fL (78.0-98.0); Mean Platelet Volume 10.6 fL (7.4-10.4); Monocytes 3 % (0-10); Neutrophil 84 % (42-75); Platelet Count 179 thou/uL (130-400); RBC Distribution Width 14.4 % (11.5-14.5); Red Blood Cell (RBC) Count 3.54 mill/uL (4.70-6.10); White Blood Cell (WBC) Count 17.1 thou/uL (4.8-10.8)
[2018-04-23] MEDS: Piperacillin/Tazobactam 3.375 GM in Sodium Chloride 0.9% 100 ML IVPB SCH ×2 (05:50→13:52)
[2018-04-23 07:03] LABS: Actual Bicarbonate (HCO3a) 35.8 mEq/L (22-28); Base Excess (BEa) 10.2 mEq/L (-2.0 to +3.0); CO2 Tension 54.6 mmHg (35.0-45.0); Hemoglobin (Hb) 9.4 g/dL (14.0-18.0); O2 Tension (PaO2) 82.2 mmHg (> 80.0); pH, Arterial 7.44 (7.35-7.45)
[2018-04-23 07:04] LABS: Calcium, Ionized 1.1 mmol/L (1.12-1.30); Puncture Site RRA
--- NOTE | 2018-04-23 07:24 | PDOC.CTH ---
Cardiology Progress Note - Subjective Pt intubated sedated. - Objective Vital Signs Temp Pulse Resp BP Pulse Ox 04/23/18 06:36 65 127/66 04/23/18 06:30 71 18 99 04/23/18 06:00 21 H 04/23/18 04:00 98 F 32 H 04/23/18 03:20 69 04/23/18 03:19 70 28 H 100 04/23/18 02:00 16 04/23/18 00:00 97.7 F 17 04/22/18 23:08 81 15 100 04/22/18 22:00 32 H 04/22/18 20:00 98.2 F 92 19 100 Admit Weight 138 lb 14.259 oz Weight 157 lb 10.088 oz 04/22/18 04/23/18 04/24/18 06:59 06:59 06:59 Intake Total 3454 3530 Output Total 1165 1325 Balance 2289 2205 - Physical Examination General/Neuro: NAD, other: (I/S) Neck: no JVD present Lungs: CTA, unlabored respirations Heart: PMI normal, other: (ESB) Abdomen: no HSM, NT/ND, soft Extremities: + femoral B - Labs Result Diagrams: 04/23/18 04:08 04/23/18 04:08 Troponin/CKMB Troponin I Less than 0.010 ng/mL (< 0.028) 04/19/18 02:59 - Assessment/Plan 1. Respiratory failure 2. aflutter Pt on NOAC Continues to be intubated Stopped coreg given COPD per MS continue to monitor rate, lung status No new recs at this time
[2018-04-23] MEDS: Famotidine 20 MG TAB PO SCH ×2 (09:33→20:00)
[2018-04-23] MEDS: Apixaban 5 MG TAB PO SCH ×2 (09:39→20:00)
[2018-04-23] MEDS: Sodium Chloride 0.9% 1,000 ML IV SCH ×2 (09:40→10:00)
[2018-04-23] MEDS ORDERED: DC Sedation Protocol FS ONE (09:44)
[2018-04-23] MEDS: Diabetic Tussin 200 MG/10 ML UDCUP PO SCH ×3 (09:59→20:00)
--- NOTE | 2018-04-23 11:43 | PRG ---
DATE OF SERVICE: 04/23/2018 SUBJECTIVE: This morning, he is awake, alert, and responsive. He is sedated. His vent withheld thi s morning. OBJECTIVE: VITAL SIGNS: Temperature is 98, pulse is 73, blood pressure is 126/74, sats are 98%. NEUROLOGICAL: He is awake, alert, responsive. EXTREMITIES: Moves all 4 extremities, 2+ edema. CHEST: Decreased breath sounds, prolonged expiration. CARDIAC: Normal S1, S2, no gallops. ABDOMEN: Soft without masses. LABORATORY DATA: White count 17,000, H and H is stable. Electrolytes are normal. Bicarbonate is 35 , pO2 is 82, pCO2 of 50% on 44 on a rate of 32%. IMPRESSION: 1. End-stage chronic obstructive pulmonary disease. 2. History of cardiac arrhythmias. 3. Severe deconditioning. PLAN: All cultures are negative. We are going to put him on a CPAP trial. Discussed with the patie nt about ongoing issues, extubation, comfort care, etc. We will follow. [id number] critical care time.
--- NOTE | 2018-04-23 11:48 | PDOC.PN ---
- Subjective Encounter Start Date: 04/23/18 Encounter Start Time: 11:10 Subjective: awake, oriented well - Objective MAR Reviewed: Yes Vital Signs & Weight: Vital Signs (12 hours) Temp Pulse Resp BP Pulse Ox 04/23/18 11:13 141 H 37 H 99 04/23/18 11:06 136 H 38 H 99 04/23/18 09:45 105 H 28 H 99 04/23/18 09:33 79 04/23/18 08:00 18 04/23/18 07:55 98.1 F 69 19 98 04/23/18 07:00 98.1 F 04/23/18 06:36 65 127/66 04/23/18 06:30 71 18 99 04/23/18 06:00 21 H 04/23/18 04:00 98 F 32 H 04/23/18 03:20 69 04/23/18 03:19 70 28 H 100 04/23/18 02:00 16 04/23/18 00:00 97.7 F 17 Weight Admit Weight 138 lb 14.259 oz Weight 157 lb 10.088 oz Most Recent Monitor Data Heart Rate from ECG 135 NIBP 144/73 NIBP BP-Mean 110 Respiration from ECG 38 SpO2 100 I&O: 04/22/18 04/23/18 04/24/18 06:59 06:59 06:59 Intake Total 3454 3530 102 Output Total 1165 1325 500 Balance 2289 2205 -398 Result Diagrams: 04/23/18 04:08 04/23/18 04:08 Phys Exam - Physical Examination HEENT: PERRLA, moist MMs Neck: no JVD, supple Respiratory: no wheezing, no rales Cardiovascular: RRR, no significant murmur Gastrointestinal: soft, non-tender, positive bowel sounds Musculoskeletal: no edema, pulses present Neurological: non-focal, moves all 4 limbs Psychiatric: A&O x 3 Dx/Plan (1) Acute on chronic respiratory failure with hypoxia and hypercapnia Code(s): J96.21 - ACUTE AND CHRONIC RESPIRATORY FAILURE WITH HYPOXIA; J96.22 - ACUTE AND CHRONIC RESPIRATORY FAILURE WITH HYPERCAPNIA Status: Acute (2) COPD exacerbation Code(s): J44.1 - CHRONIC OBSTRUCTIVE PULMONARY DISEASE W (ACUTE) EXACERBATION Status: Acute (3) Chronic anemia Code(s): D64.9 - ANEMIA, UNSPECIFIED Status: Chronic (4) HTN (hypertension) Code(s): I10 - ESSENTIAL (PRIMARY) HYPERTENSION Status: Chronic Qualifiers: Hypertension type: essential hypertension (5) Moderate protein-calorie malnutrition Code(s): E44.0 - MODERATE PROTEIN-CALORIE MALNUTRITION Status: Chronic (6) PVD (peripheral vascular disease) Code(s): I73.9 - PERIPHERAL VASCULAR DISEASE, UNSPECIFIED Status: Chronic - Plan got extubated this am -: imaging for right UE edema and inability to mobilize -: on levaq and zosyn, nebs, steroids -: on cardizem, klonopin * . Review of Systems - Medications/Allergies Allergies/Adverse Reactions: Allergies Allergy/AdvReac Type Severity Reaction Status Date / Time No Known Drug Allergies Allergy Verified 01/18/18 08:54 Medications: Current Medications Acetaminophen (Tylenol Elixir) 650 mg PER TUBE Q4H PRN PRN Reason: Headache/Fever or Pain Last Admin: 04/19/18 08:43 Dose: 650 mg Albuterol/Ipratropium (Duoneb) 3 ml NEB [id number] [facility] Last Admin: 04/23/18 11:06 Dose: 3 ml Apixaban (Eliquis) 5 mg PO BID [facility] Last Admin: 04/23/18 09:39 Dose: 5 mg Clonazepam (Klonopin) 2 mg PO BID [facility] Last Admin: 04/22/18 20:42 Dose: 2 mg Diltiazem HCl (Cardizem Cd) 120 mg PO DAILY [facility] Last Admin: 04/23/18 09:33 Dose: 120 mg Famotidine (Pepcid) 20 mg PO BID [facility] Last Admin: 04/23/18 09:33 Dose: 20 mg Guaifenesin (Robitussin Sf) 400 mg PO TID [facility] Last Admin: 04/23/18 09:59 Dose: 400 mg Piperacillin Sod/Tazobactam (Sod 3.375 gm/ Sodium Chloride) 100 mls @ 200 mls/ hr IVPB Q6HR [facility] Last Admin: 04/23/18 05:50 Dose: 100 mls Levofloxacin 750 mg/ Device 150 mls @ 100 mls/hr IVPB Q24HR [facility] Last Admin: 04/23/18 09:25 Dose: 150 mls Sodium Chloride (Normal Saline 0.9%) 1,000 mls @ 50 mls/hr IV .Q20H [facility] Last Admin: 04/23/18 10:00 Dose: 1,000 mls Methylprednisolone Sodium Succinate (Solu-Medrol) 40 mg IVP Q6HR [facility] Last Admin: 04/23/18 05:50 Dose: 40 mg Ondansetron HCl (Zofran) 4 mg IVP Q6H PRN PRN Reason: Nausea/Vomiting Pantoprazole Sodium (Protonix) 40 mg PO DAILY PRN PRN Reason: Heartburn or Indigestion
[2018-04-23] MEDS: clonazePAM 1 MG TAB PO SCH (11:55)
--- NOTE | 2018-04-23 12:43 | RAD ---
RIGHT SHOULDER THREE VIEWS: HISTORY: Right shoulder pain. COMPARISON: None. FINDINGS: Three views of the right shoulder show no evidence of acute fracture or dislocation. There may be mi ld degenerative changes in the glenohumeral joint. The visualized right thorax is unremarkable. IMPRESSION: No evidence of acute osseous abnormality. POS: [facility]
--- NOTE | 2018-04-23 12:44 | RAD ---
2 VIEWS RIGHT HUMERUS: Date: 04/23/18 COMPARISON: None. HISTORY: Right arm pain. Evaluate for fracture. FINDINGS: Two views of the right humerus show no evidence of acute fracture or dislocation. No degenerative elaina nges are seen in the shoulder or elbow. IMPRESSION: No evidence of acute osseous abnormality. POS: [facility]
--- NOTE | 2018-04-23 13:11 | ULT ---
VENOUS DUPLEX SONOGRAM RIGHT UPPER EXTREMITY: History: Right arm pain and edema. FINDINGS: The right internal jugular and subclavian veins were evaluated along with the axillary, brachial, cep halic, and proximal basilic. There is good color and spectral doppler flow. IMPRESSION: No sonographic evidence of DVT right upper extremity. POS: [facility]
[2018-04-23 13:15] LABS: Actual Bicarbonate (HCO3a) 36.5 mEq/L (22-28); Base Excess (BEa) 7.1 mEq/L (-2.0 to +3.0); CO2 Tension 83.5 mmHg (35.0-45.0); Hemoglobin (Hb) 11.2 g/dL (14.0-18.0); O2 Tension (PaO2) 61.3 mmHg (> 80.0); pH, Arterial 7.26 (7.35-7.45)
[2018-04-23 13:16] LABS: ALV-art Gradient 48.225 (0-20); Calcium, Ionized 1.2 mmol/L (1.12-1.30); Puncture Site RRA
[2018-04-23] MEDS ORDERED: Midazolam HCl 2 mg/2 ml Vial ONE ×2 (14:33→15:19)
[2018-04-23] MEDS ORDERED: Propofol 1,000 MG/100 ML VIAL IV ONE (14:45)
[2018-04-23] MEDS ORDERED: Ventilator Sedation Protocol 1 EACH FS SCH (15:00)
[2018-04-23] MEDS ORDERED: fentaNYL Citrate/PF 2,000 MCG in Sodium Chloride 0.9% 60 ML IV SCH (15:03)
[2018-04-23] MEDS ORDERED: DISCONTINUE PREVIOUS NARCOTIC PAIN MEDICATIONS AND BENZODIAZEPINES FS SCH (15:03)
[2018-04-23] MEDS ORDERED: Fentanyl BOLUS 250 ML IVPB PRN (15:03)
[2018-04-23] MEDS ORDERED: Propofol BOLUS 1,000 MG/100 ML VIAL IV PRN (15:03)
[2018-04-23] MEDS ORDERED: Vecuronium 10 MG VIAL ONE (15:18)
[2018-04-23] MEDS ORDERED: Lidocaine 1% w/Epinephrine 1:100K 20 ML VIAL ONE (15:19)
[2018-04-23] MEDS ORDERED: Fentanyl 100 MCG/2 ML VIAL ONE (15:19)
[2018-04-23] MEDS ORDERED: Fentanyl 100 MCG/2 ML VIAL SLOW IVP SCH (15:30)
[2018-04-23] MEDS ORDERED: Midazolam HCl 2 mg/2 ml Vial SLOW IVP SCH (15:30)
[2018-04-23] MEDS ORDERED: Vecuronium 10 MG VIAL IV SCH (15:30)
[2018-04-23] MEDS ORDERED: Lidocaine 1% w/Epinephrine 1:100K 20 ML VIAL FS SCH (15:30)
[2018-04-23] MEDS: Lorazepam 2 MG/ML VIAL SLOW IVP PRN (16:44)
[2018-04-23] MEDS: Piperacillin/Tazobactam 3.375 GM, Admixture Fee 1 EACH in Sodium Chloride 0.9% 100 ML IVPB SCH (18:47)
--- NOTE | 2018-04-23 21:50 | PRG ---
DATE OF SERVICE: 04/23/2018 Jessy Jones is a 68-year-old gentleman who was extubated earlier. We had a very lengthy discussion with the patient prior to extubation. He wanted no trach. He did not want to be PEG'd. He wants c omfort measures. I spoke to his sister who apparently has a legal power over his medical issues. Hi s legal for years, they live apart. On BiPAP, his pO2 was 61, pCO2 83, pH 26 at a rat e of 12 and 30% FiO2. This is probably at his baseline. His sister arrived at about 0130 with charmaine ruiz family members, multiple sisters, [id number]. The patient now states that he wants to be trac hed and PEG'd. Several times I asked him the same question again whether he wants to be trached and PEG'd and sent to a long-term facility, he said yes. All his sisters are in agreement that he needs a trach including his [id number] who is a preacher. I contacted surgery on-call for the patient to be trached and PEG'd today. Surgery wanted the patient to be intubated. They are going to do a b edside trach and PEG. Therefore, once again, the patient was re-asked before intubation whether he wanted to be intubated a nd trach and PEG'd, he said yes. An endotracheal tube was placed above the bronchoscope. Patient wa s intubated without any difficulty. He was bagged and his sats were improved. He was connected to w arm cycle respirator. Trach and PEG was made. Eventually placement will be done. 30-minute critical time exclusive of the intubation with the bronchoscope.
[2018-04-24] MEDS: Propofol 1,000 MG/100 ML VIAL IV PRN (03:57)
[2018-04-24] MEDS: Sodium Chloride 0.9% 1,000 ML IV SCH (04:16)
[2018-04-24 05:21] LABS: Anion Gap 7 mmol/L (10-20); BUN (Urea Nitrogen) 20 mg/dL (8.4-25.7); Calc. Creatinine Clearance 132 mL/min (70-130); Calcium 8.6 mg/dL (7.8-10.44); Carbon Dioxide 37 mmol/L (23-31); Chloride 105 mmol/L (98-107); Estimated GFR-MDRD Greater than 90; Glucose 110 mg/dL (80-115); Potassium 4.3 mmol/L (3.5-5.1); Sodium 145 mmol/L (136-145)
[2018-04-24 06:12] LABS: Band 9 % (5-11); Hemoglobin 9.1 g/dL (14.0-18.0); MDiff Complete? YES; Mean Corpuscular HGB CONC 32.1 g/dL (32.0-36.0); Mean Corpuscular Hemoglobin 25.1 pg (27.0-31.0); Mean Corpuscular Volume 78.1 fL (78.0-98.0); Mean Platelet Volume 10.5 fL (7.4-10.4); Monocytes 2 % (0-10); Neutrophil 89 % (42-75); Platelet Count 186 thou/uL (130-400); RBC Distribution Width 14.7 % (11.5-14.5); Red Blood Cell (RBC) Count 3.63 mill/uL (4.70-6.10)
[2018-04-24] MEDS: Piperacillin/Tazobactam 3.375 GM, Admixture Fee 1 EACH in Sodium Chloride 0.9% 100 ML IVPB SCH ×5 (06:31→23:31)
--- NOTE | 2018-04-24 07:00 | PDOC.CTH ---
Cardiology Progress Note - Subjective NO changes overnight. Pt scheduled for trach and peg - Objective Vital Signs Temp Pulse Resp BP Pulse Ox 04/24/18 06:31 56 L 136/80 04/24/18 06:30 63 12 99 04/24/18 06:00 12 04/24/18 04:19 66 04/24/18 04:00 98.3 F 12 04/24/18 02:00 12 04/24/18 00:00 98.2 F 12 04/23/18 23:08 60 110/71 04/23/18 22:00 12 04/23/18 20:00 98.7 F 12 Admit Weight 138 lb 14.259 oz Weight 157 lb 10.088 oz 04/22/18 04/23/18 04/24/18 06:59 06:59 06:59 Intake Total 3454 3530 1741 Output Total 1165 1325 1695 Balance 2289 2205 46 - Physical Examination General/Neuro: NAD Neck: no JVD present Lungs: unlabored respirations Heart: other: (RRR with ESB) - Labs Result Diagrams: 04/24/18 04:05 04/24/18 04:05 Troponin/CKMB Troponin I Less than 0.010 ng/mL (< 0.028) 04/19/18 02:59 - Assessment/Plan 1. Respiratory failure 2. aflutter 3. Respiratory failure 4. COPD 5. Tobacco abuse CV status stable Trach and peg today continue CV meds as Rx prognosis guarded
[2018-04-24] MEDS ORDERED: Lidocaine 1% w/Epinephrine 1:100K 20 ML VIAL FS SCH (08:00)
[2018-04-24] MEDS ORDERED: Midazolam HCl 2 mg/2 ml Vial SLOW IVP SCH (08:00)
[2018-04-24] MEDS ORDERED: Vecuronium 10 MG VIAL IV SCH (08:00)
[2018-04-24] MEDS ORDERED: Fentanyl 100 MCG/2 ML VIAL SLOW IVP SCH (08:00)
[2018-04-24] MEDS: Apixaban 5 MG TAB PO SCH ×2 (09:01→20:35)
[2018-04-24] MEDS: Famotidine 20 MG TAB PO SCH ×2 (09:02→20:35)
[2018-04-24] MEDS: Diabetic Tussin 200 MG/10 ML UDCUP PO SCH ×3 (09:13→20:35)
--- NOTE | 2018-04-24 11:20 | RAD ---
CHEST ONE VIEW: History: COPD. Comparison: 04-22-18 FINDINGS: Cardiac silhouette is magnified by projection. Pulmonary vasculature are upper limits of normal. Medi astinum is midline with tracheostomy appliance in place. Nasogastric tube not well visualized. Medias tinum midline with aortic calcification. Lungs remain hyperinflated. potline monitor leads overlie th e chest. IMPRESSION: 1. Tracheostomy appliance is in good radiographic position. 2. Interval removal of nasogastric tube. 3. COPD and other chronic type findings are stable. POS: [facility]
--- NOTE | 2018-04-24 12:03 | PRG ---
DATE OF SERVICE: 04/24/2018 SUBJECTIVE: This morning, has a trach and a PEG in place. OBJECTIVE: VITAL SIGNS: Pulse 56, blood pressure 130/80, respirations 12, sats 98%. CHEST: Decreased breath sounds, no wheezing. CARDIAC: Normal S1 and S2, no gallops. ABDOMEN: Soft, no masses. LABORATORY DATA: White count 17,000, hemoglobin and hematocrit 9 and 28, platelet count is normal. Electrolytes are normal. IMPRESSION: 1. Cardiac arrhythmia, status post ablation. 2. End-stage chronic obstructive pulmonary disease. 3. Respiratory failure, numerous times. PLAN: Once he wakes up, I will try to get him off the vent. Eventually, he is going to need placeme nt. In the meantime, PT, supportive care and nutrition. [id number] critical care time.
[2018-04-24] MEDS: Acetaminophen 650 MG/20.3 ML UDCUP PER TUBE PRN (12:17)
--- NOTE | 2018-04-24 12:52 | OP ---
DATE OF OPERATION: 04/24/2018 PRETOPERATIVE DIAGNOSIS: Acute on chronic respiratory failure. POSTOPERATIVE DIAGNOSIS: Acute on chronic respiratory failure. PROCEDURES PERFORMED: 1. Percutaneous tracheostomy tube placement. 2. Percutaneous endoscopic gastrostomy tube placement. SURGEON: Scar Dale D.O. ANESTHESIA: Deep sedation and local. INDICATIONS FOR PROCEDURE: A 68-year-old man who has a history of chronic COPD. The patient is curr ently on mechanical ventilatory support and has failed extubation and I was asked to place percutaneo us tracheostomy tube placement to facilitate ventilatory wean. Percutaneous endoscopic gastrostomy t ube was also requested to facilitate enteral nutritional supplementation. DESCRIPTION OF PROCEDURE: Informed consent obtained from patient and family. The patient is placed in supine position. Fiberoptic bronchoscope was introduced through the previous endotracheal tube an d advanced to visualize the mery. The scope was then withdrawn visualizing the tip of the endotrac heal tube which was then withdrawn to 6 cm above the mery as light was transilluminated two fingerb readths above the suprasternal notch in the anterior neck. The anterior neck was then sterilely prep ped and draped in usual fashion. The skin two fingerbreadths above the suprasternal notch was anesth etized with 1% lidocaine with epinephrine. A 1 cm vertical incision was made using 15 scalpel. An i ntroducer needle was then inserted through this incision, advanced through the anterior tracheal wall . A guidewire was passed through the needle and advanced into distal tracheal lumen without resistan ce. Proper placement of the guidewire is confirmed by bronchoscopy. Needle was withdrawn over the g uidewire. Anterior tracheal wall was sterilely dilated over the guidewire. Finally, a size 8 trache ostomy tube and introducer plastic dilator was passed over the guidewire as a unit and placed in the distal tracheal lumen. The inner cannula dilator and a stylet were withdrawn as a unit with the guid ewire leaving the tracheostomy tube in place. Inner cannula was then inserted through the tracheosto my tube and patient was connected to mechanical ventilation via newly placed tracheostomy tube. Once the tracheal balloon was inflated, good tidal volume is returned. The tracheostomy tube was secured to anterior neck using old silk suture at 2 points. Trach dressings and tie were then applied. The bronchoscope was withdrawn with the previous endotracheal tube as a unit visualizing the tracheostom y site from above with good hemostasis. Once the endotracheal tube was removed, the bronchoscope was introduced through the newly placed tracheostomy tube and advanced to visualize the mery again. T he scope was then withdrawn visualizing the tracheostomy site from below with good hemostasis. The p atient tolerated this procedure without any apparent complications. I then turned my attention to th e abdomen for the placement of the PEG tube. At this juncture, a mouthguard was put in place. Fiber optic endoscope was introduced per oral advanced and the esophagus was intubated with gentle insuffla tion, the gastric lumen was intubated and insufflated. The scope was advanced to proximal duodenum. No gastritis or peptic ulcerations were present. The scope having been withdrawn into the gastric l umen was used to transilluminate the left upper quadrant and area chosen for the gastrostomy tube rosenda cement. At this juncture, my preschool assistant held the scope in place with fresh gown and gloves. I then w idely prepped the left upper quadrant and sterilely draped. The skin is anesthetized with 1% lidocai ne. A stab incision was made using an 11 scalpel. Then, I inserted introducer needle through this a dvancing this into the gastric lumen, visualized by endoscopy. Guidewire was passed through this nee dle and advanced into the gastric lumen and then captured with an endosnare. The guidewire, I then p ulled out through the mouth and then connected to a 20-Uzbek gastrostomy tube. The distal end of th e guidewire was then pulled out through the stab incision leaving the mushroom end of the PEG tube wi thin the gastric lumen abutting the gastric wall as visualized by endoscopy. The PEG tube was then f ashioned to length. A bolster was used to secure this to the anterior abdominal wall at 3 cm. Dress ings were then applied. The endoscope visualized. The mushroom end of the PEG tube within the gastr ic lumen, it turned freely as it was rotated. Finding no other pathology, endoscopy was terminated. The stomach was desufflated. The endoscope was withdrawn visualizing intact esophageal mucosa. The patient tolerated this operation without any apparent complication and remains hemodynamically stabl e following completion of the procedure.
--- NOTE | 2018-04-24 13:36 | PDOC.PN ---
- Subjective Encounter Start Date: 04/24/18 Encounter Start Time: 13:00 Subjective: had trach and peg placed this am -: on vent weaning, awake -: family at bedside - Objective MAR Reviewed: Yes Vital Signs & Weight: Vital Signs (12 hours) Temp Pulse Resp BP Pulse Ox 04/24/18 12:00 97.8 F 16 04/24/18 10:31 65 123/50 L 04/24/18 10:30 77 17 99 04/24/18 10:00 16 04/24/18 09:01 68 115/50 L 04/24/18 08:00 98.1 F 19 04/24/18 06:31 56 L 136/80 04/24/18 06:30 63 12 99 04/24/18 06:00 12 04/24/18 04:19 66 04/24/18 04:00 98.3 F 12 04/24/18 02:00 12 Weight Admit Weight 138 lb 14.259 oz Weight 154 lb 15.759 oz Most Recent Monitor Data Heart Rate from ECG 75 NIBP 124/68 NIBP BP-Mean 87 Respiration from ECG 15 SpO2 99 I&O: 04/23/18 04/24/18 04/25/18 06:59 06:59 06:59 Intake Total 3530 1741 54 Output Total 1325 1695 350 Balance 2205 46 -296 Result Diagrams: 04/24/18 04:05 04/24/18 04:05 Phys Exam - Physical Examination HEENT: PERRLA, sclera anicteric Neck: no JVD trach+ Respiratory: no wheezing, no rales Cardiovascular: RRR, no significant murmur Gastrointestinal: soft, no distention, positive bowel sounds peg+ Musculoskeletal: no edema, pulses present right UE edema Neurological: non-focal, moves all 4 limbs Psychiatric: A&O x 3 Dx/Plan (1) Acute on chronic respiratory failure with hypoxia and hypercapnia Code(s): J96.21 - ACUTE AND CHRONIC RESPIRATORY FAILURE WITH HYPOXIA; J96.22 - ACUTE AND CHRONIC RESPIRATORY FAILURE WITH HYPERCAPNIA Status: Acute (2) COPD exacerbation Code(s): J44.1 - CHRONIC OBSTRUCTIVE PULMONARY DISEASE W (ACUTE) EXACERBATION Status: Acute Comment: end stage copd (3) Chronic anemia Code(s): D64.9 - ANEMIA, UNSPECIFIED Status: Chronic (4) HTN (hypertension) Code(s): I10 - ESSENTIAL (PRIMARY) HYPERTENSION Status: Chronic Qualifiers: Hypertension type: essential hypertension (5) Moderate protein-calorie malnutrition Code(s): E44.0 - MODERATE PROTEIN-CALORIE MALNUTRITION Status: Chronic (6) PVD (peripheral vascular disease) Code(s): I73.9 - PERIPHERAL VASCULAR DISEASE, UNSPECIFIED Status: Chronic - Plan had trach and peg today -: weaning off vent today -: off sedation and comfortably weaning -: on levaquin and zosyn, solumedrol, gentle iv hydration -: cardizem 120mg daily and eliquis for paroxysmal afib * . Will need placement eventually. Review of Systems - Medications/Allergies Allergies/Adverse Reactions: Allergies Allergy/AdvReac Type Severity Reaction Status Date / Time No Known Drug Allergies Allergy Verified 01/18/18 08:54 Medications: Current Medications Acetaminophen (Tylenol Elixir) 650 mg PER TUBE Q4H PRN PRN Reason: Headache/Fever or Pain Last Admin: 04/24/18 12:17 Dose: 650 mg Albuterol/Ipratropium (Duoneb) 3 ml NEB [id number] [facility] Last Admin: 04/24/18 10:30 Dose: 3 ml Apixaban (Eliquis) 5 mg PO BID [facility] Last Admin: 04/24/18 09:01 Dose: 5 mg Diltiazem HCl (Cardizem Cd) 120 mg PO DAILY [facility] Last Admin: 04/24/18 09:01 Dose: 120 mg Famotidine (Pepcid) 20 mg PO BID [facility] Last Admin: 04/24/18 09:02 Dose: 20 mg Guaifenesin (Robitussin Sf) 400 mg PO TID [facility] Last Admin: 04/24/18 09:13 Dose: 400 mg Levofloxacin 750 mg/ Device 150 mls @ 100 mls/hr IVPB Q24HR [facility] Last Admin: 04/24/18 08:51 Dose: 150 mls Sodium Chloride (Normal Saline 0.9%) 1,000 mls @ 50 mls/hr IV .Q20H [facility] Last Admin: 04/24/18 04:16 Dose: 1,000 mls Fentanyl Citrate 2,000 mcg/ (Sodium Chloride) 100 mls @ 0 mls/hr IV INF [facility]; Per Protocol PRN Reason: Protocol Stop: 05/23/18 15:03 Fentanyl Citrate (Fentanyl Bolus) 250 mls @ 0 mls/hr IVPB PRN PRN; As Directed PRN Reason: Breakthrough pain/agitation Stop: 05/23/18 15:03 Piperacillin Sod/Tazobactam Sod 3.375 gm/ Miscellaneous Medication 1 each/ Sodium Chloride 100 mls @ 200 mls/hr IVPB Q6HR [facility] Last Admin: 04/24/18 12:14 Dose: Not Given Lorazepam (Ativan) 2 mg SLOW IVP Q1H PRN PRN Reason: Breakthrough agitation Stop: 05/23/18 15:03 Last Admin: 04/23/18 16:44 Dose: 2 mg Methylprednisolone Sodium Succinate (Solu-Medrol) 40 mg IVP BID [facility] Morphine Sulfate (Morphine Sulfate) 2 mg SLOW IVP Q1H PRN PRN Reason: BREAKTHROUGH PAIN/AGITATION Stop: 05/23/18 15:03 Ondansetron HCl (Zofran) 4 mg IVP Q6H PRN PRN Reason: Nausea/Vomiting Pantoprazole Sodium (Protonix) 40 mg PO DAILY PRN PRN Reason: Heartburn or Indigestion Propofol (Diprivan) 1,000 mg IV INF PRN; Protocol PRN Reason: TO ACHIEVE GOAL RASS Stop: 05/23/18 15:03 Last Admin: 04/24/18 03:57 Dose: 1,000 mg Propofol (Diprivan Bolus) 20 mg IV Q5MIN PRN PRN Reason: BREAKTHROUGH AGITATION Stop: 05/23/18 15:03
[2018-04-24] MEDS: Lorazepam 2 MG/ML VIAL SLOW IVP PRN (20:35)
[2018-04-24] MEDS: Ondansetron HCl/PF 4 MG/2 ML Vial IVP PRN (21:18)
[2018-04-25] MEDS: Ondansetron HCl/PF 4 MG/2 ML Vial IVP PRN (03:25)
[2018-04-25] MEDS: Sodium Chloride 0.9% 1,000 ML IV SCH (03:42)
[2018-04-25] MEDS: Piperacillin/Tazobactam 3.375 GM, Admixture Fee 1 EACH in Sodium Chloride 0.9% 100 ML IVPB SCH (05:19)
[2018-04-25 05:54] LABS: BUN (Urea Nitrogen) 20 mg/dL (8.4-25.7); Calc. Creatinine Clearance 120 mL/min (70-130); Calcium 8.2 mg/dL (7.8-10.44); Estimated GFR-MDRD Greater than 90; Glucose 95 mg/dL (80-115)
[2018-04-25 06:04] LABS: Anion Gap 11 mmol/L (10-20); Carbon Dioxide 32 mmol/L (23-31); Chloride 103 mmol/L (98-107); Potassium 4.2 mmol/L (3.5-5.1); Sodium 142 mmol/L (136-145)
[2018-04-25 06:50] LABS: Hemoglobin 8.9 g/dL (14.0-18.0); Mean Corpuscular HGB CONC 33.4 g/dL (32.0-36.0); Mean Corpuscular Hemoglobin 25.8 pg (27.0-31.0); Mean Corpuscular Volume 77.3 fL (78.0-98.0); Mean Platelet Volume 10.1 fL (7.4-10.4); Platelet Count 167 thou/uL (130-400); RBC Distribution Width 15.1 % (11.5-14.5); Red Blood Cell (RBC) Count 3.43 mill/uL (4.70-6.10); White Blood Cell (WBC) Count 16.1 thou/uL (4.8-10.8)
--- NOTE | 2018-04-25 06:53 | PDOC.CTH ---
Cardiology Progress Note - Objective Vital Signs Temp Pulse Resp Pulse Ox 04/25/18 06:38 98 04/25/18 06:36 66 04/25/18 06:00 14 04/25/18 04:00 98.4 F 12 04/25/18 02:55 82 17 100 04/25/18 02:00 16 04/25/18 00:00 99.1 F 29 H 04/24/18 22:46 86 16 98 04/24/18 22:00 15 04/24/18 20:00 98.7 F 86 16 99 Admit Weight 138 lb 14.259 oz Weight 153 lb 7.068 oz 04/23/18 04/24/18 04/25/18 06:59 06:59 06:59 Intake Total 3530 1741 1183 Output Total 1325 1695 1382 Balance 2205 46 -199 - Labs Result Diagrams: 04/25/18 05:29 04/25/18 05:29 Troponin/CKMB Troponin I Less than 0.010 ng/mL (< 0.028) 04/19/18 02:59 - Assessment/Plan 1. Respiratory failure 2. aflutter 3. Respiratory failure 4. COPD 5. Tobacco abuse Nothing new to add Trach and pegplaced yesterday HR appears stable
[2018-04-25 06:54] LABS: Band 7 % (5-11); Lymphocytes 7 % (21-51); MDiff Complete? YES; Monocytes 5 % (0-10); Neutrophil 81 % (42-75)
[2018-04-25] MEDS ORDERED: DC Sedation Protocol FS ONE (07:58)
--- NOTE | 2018-04-25 08:17 | PRG ---
DATE OF SERVICE: 04/25/2018 This morning he is awake, alert, responsive. He has a lot of secretions. They are relatively frothy bloody on the trachea. His x-ray looks stable. PHYSICAL EXAMINATION: VITAL SIGNS: Pulse 84, blood pressure 110/54, sats 98% on trach collar, respirations 25. GENERAL: He is in no distress. CHEST: Anterior rhonchi, without any wheezing. CARDIAC: Normal S1, S2, no gallops. ABDOMEN: Soft, no masses. IMPRESSION: 1. End-stage chronic obstructive pulmonary disease. 2. Recurrent respiratory failure requiring multiple intubations, status post trach and PEG. 3. Deconditioning. 4. Major anxiety. PLAN: I switched him over to p.o. medication and p.o. antibiotics. Discussed with the health care social worker , he needs long-term placement. Maybe nocturnal ventilation. One-half hour critical care time.
--- NOTE | 2018-04-25 08:53 | RAD ---
SINGLE VIEW CHEST: Date: 04/25/18 COMPARISON: 04/24/18. HISTORY: Ventilated patient with respiratory failure. FINDINGS: Single view of the chest shows a normal sized cardiomediastinal silhouette with atherosclerotic calci fications in the aorta. The tracheostomy is unchanged in position. There is no evidence of consolidat ion, mass, or pleural effusion. IMPRESSION: No evidence of acute cardiopulmonary disease. POS: [facility]
[2018-04-25] MEDS: Amoxicillin/Potassium Clav 250 mg/5 ml Oral Suspension PO SCH ×2 (09:49→21:06)
[2018-04-25] MEDS: Diabetic Tussin 200 MG/10 ML UDCUP PO SCH ×3 (09:50→21:08)
[2018-04-25] MEDS: Famotidine 20 MG TAB PO SCH ×2 (09:50→21:08)
[2018-04-25] MEDS: Scopolamine 1.5 mg/72 hour Patch TD SCH (09:50)
[2018-04-25] MEDS: Acetaminophen 650 MG/20.3 ML UDCUP PER TUBE PRN ×2 (09:50→21:08)
[2018-04-25] MEDS: Apixaban 5 MG TAB PO SCH ×2 (09:50→21:08)
--- NOTE | 2018-04-25 10:43 | PRG ---
DATE OF SERVICE: 04/25/2018 SUBJECTIVE: Ms. Jones is postoperative day #1 status post percutaneous tracheostomy tube and percu taneous endoscopic gastrostomy tube placement. He is awake and alert this morning. The pain is adequately controlled. He has remained hemodynamica lly stable since procedures yesterday. HEENT: Tracheostomy site is an intact, clean, and dry. No hematoma. No bloody secretions from the trachea. ABDOMEN: Reveals clean, dry, and intact PEG tube site. The patient has no peritoneal signs on exami nation. He is otherwise stable postoperatively. General Surgery will sign off and be available to evaluate the patient on demand.
--- NOTE | 2018-04-25 18:25 | PDOC.PN ---
- Subjective Encounter Start Date: 04/25/18 Encounter Start Time: 10:20 Pt seen for followup re: acute hypoxic and hypercapnic respiratory failure. s/ p tracheostomy, pt is unable to answer questions, unable to complete ROS. - Objective MAR Reviewed: Yes Vital Signs & Weight: Vital Signs (12 hours) Temp Pulse Pulse Pulse Resp BP BP 04/25/18 16:00 98.4 F 04/25/18 14:03 87 18 04/25/18 12:00 98.7 F 04/25/18 11:03 91 15 04/25/18 09:51 89 115/88 04/25/18 08:49 105 H 81 115/88 04/25/18 08:00 98.2 F 89 25 H 04/25/18 07:00 98.2 F 04/25/18 06:38 04/25/18 06:36 66 BP Pulse Ox Pulse Ox Pulse Ox 04/25/18 16:00 04/25/18 14:03 99 04/25/18 12:00 04/25/18 11:03 98 04/25/18 09:51 04/25/18 08:49 130/60 94 L 98 04/25/18 08:00 99 04/25/18 07:00 04/25/18 06:38 98 04/25/18 06:36 Weight Admit Weight 138 lb 14.259 oz Weight 153 lb 7.068 oz Most Recent Monitor Data Heart Rate from ECG 93 NIBP 130/52 NIBP BP-Mean 80 Respiration from ECG 23 SpO2 100 I&O: 04/24/18 04/25/18 04/26/18 06:59 06:59 06:59 Intake Total 1741 1183 957 Output Total 1695 1382 1895 Balance 56 -234 -954 Result Diagrams: 04/25/18 05:29 04/25/18 05:29 EKG Reviewed by me: Yes (Tele: patric mercado) Phys Exam - Physical Examination Constitutional: NAD HEENT: moist MMs, sclera anicteric, oral pharynx no lesions, 2+ tonsils s/p tracheostomy Diminished air entry luis daniel bases Cardiovascular: no rub, irregular S1, S2 Gastrointestinal: soft, non-tender, no distention, positive bowel sounds G-tube Neurological: moves all 4 limbs Psychiatric: normal affect Deviation from normal: Unable to assess orientation to person, place or time Dx/Plan (1) Acute on chronic respiratory failure with hypoxia and hypercapnia Code(s): J96.21 - ACUTE AND CHRONIC RESPIRATORY FAILURE WITH HYPOXIA; J96.22 - ACUTE AND CHRONIC RESPIRATORY FAILURE WITH HYPERCAPNIA Status: Acute Comment : s/p tracheostomy (2) COPD exacerbation Code(s): J44.1 - CHRONIC OBSTRUCTIVE PULMONARY DISEASE W (ACUTE) EXACERBATION Status: Acute Comment: end stage copd, pt is now s/p trach (3) GERD (gastroesophageal reflux disease) Code(s): K21.9 - GASTRO-ESOPHAGEAL REFLUX DISEASE WITHOUT ESOPHAGITIS Status: Chronic Qualifiers: Esophagitis presence: esophagitis presence not specified Qualified Code(s) : K21.9 - Gastro-esophageal reflux disease without esophagitis Comment: Continue PPI (4) HTN (hypertension) Code(s): I10 - ESSENTIAL (PRIMARY) HYPERTENSION Status: Chronic Qualifiers: Hypertension type: essential hypertension Qualified Code(s): I10 - Essential (primary) hypertension Comment: controlled (5) PVD (peripheral vascular disease) Code(s): I73.9 - PERIPHERAL VASCULAR DISEASE, UNSPECIFIED Status: Chronic Comment: stable (6) Afib Code(s): I48.91 - UNSPECIFIED ATRIAL FIBRILLATION Status: Chronic Comment: on Cardizem and Eliquis - Plan * . Review of Systems - Medications/Allergies Allergies/Adverse Reactions: Allergies Allergy/AdvReac Type Severity Reaction Status Date / Time No Known Drug Allergies Allergy Verified 01/18/18 08:54 Medications: Current Medications Acetaminophen (Tylenol Elixir) 650 mg PER TUBE Q4H PRN PRN Reason: Headache/Fever or Pain Last Admin: 04/25/18 09:50 Dose: 650 mg Albuterol/Ipratropium (Duoneb) 3 ml NEB [id number] Last Admin: 04/25/18 14:03 Dose: 3 ml Amoxicillin/Clavulanate Potassium (Augmentin 250mg/5ml Oral Susp) 500 mg PO BID [facility] Stop: 04/30/18 09:01 Last Admin: 04/25/18 09:49 Dose: 500 mg Apixaban (Eliquis) 5 mg PO BID [facility] Last Admin: 04/25/18 09:50 Dose: 5 mg Diltiazem HCl (Cardizem Cd) 120 mg PO DAILY [facility] Last Admin: 04/25/18 09:51 Dose: 120 mg Famotidine (Pepcid) 20 mg PO BID [facility] Last Admin: 04/25/18 09:50 Dose: 20 mg Guaifenesin (Robitussin Sf) 400 mg PO TID [facility] Last Admin: 04/25/18 17:16 Dose: 400 mg Sodium Chloride (Normal Saline 0.9%) 1,000 mls @ 50 mls/hr IV .Q20H [facility] Last Admin: 04/25/18 03:42 Dose: 1,000 mls Morphine Sulfate (Morphine Sulfate) 2 mg SLOW IVP Q1H PRN PRN Reason: BREAKTHROUGH PAIN/AGITATION Stop: 05/23/18 15:03 Ondansetron HCl (Zofran) 4 mg IVP Q6H PRN PRN Reason: Nausea/Vomiting Last Admin: 04/25/18 03:25 Dose: 4 mg Pantoprazole Sodium (Protonix) 40 mg PO DAILY PRN PRN Reason: Heartburn or Indigestion Prednisone (Prednisone) 20 mg PO QAM-[facility] Scopolamine (Transderm Scop) 1.5 mg TD Q3D [facility] Last Admin: 04/25/18 09:50 Dose: 1.5 mg
--- NOTE | 2018-04-25 20:52 | OP ---
PROCEDURE: Therapeutic bronchoscopy. INDICATIONS: Retained secretions. The patient underwent a percutaneous trach by General Surgery. I t was fairly a large volume of secretions although during the procedure there was still large volume of secretions this morning, coughing up large frothy secretions. It is felt he needed a therapeutic bronchoscopy. Informed consent from the patient. An adaptor was placed on his trach site. Flexible bronchoscope w as passed. His distal mery and trachea were quite normal and there was moderate amount of relative ly clear frothy secretions in the right lung, upper and middle lobe visualized. No endobronchial dis ease was seen. No pus was seen. It was lavaged to clear. Left lung was inspected thereafter. Ther e is also had moderate amount of frothy relatively clear secretions, which were suctioned and lavaged to clear. Again, the left upper and left lower visualized. No additional endobronchial disease or bladder pus was seen. Both areas were lavaged to complete clear. The patient otherwise tolerated th e procedure well. The bronchial washings appeared to be relatively clear, will not be sent for any c ulture.
[2018-04-26] MEDS: Sodium Chloride 0.9% 1,000 ML IV SCH (01:24)
[2018-04-26] MEDS: Ondansetron HCl/PF 4 MG/2 ML Vial IVP PRN (04:23)
[2018-04-26] MEDS: Acetaminophen 650 MG/20.3 ML UDCUP PER TUBE PRN (04:24)
[2018-04-26 05:37] LABS: #Eosinphils 0.2 thou/uL (0.0-0.7); #Lymphocytes 1.5 thou/uL (1.20-3.40); #Monocytes 1.5 thou/uL (0.11-0.59); #Neutrophils 11.5 thou/uL (1.40-6.50); %Basophils 0.1 % (0.0-1.0); %Eosinophils 1.4 % (0.0-10.0); %Lymphocytes 9.9 % (21.0-51.0); %Monocytes 10.2 % (0.0-10.0); %Neutrophils 78.4 % (42.0-75.0); Hemoglobin 9.3 g/dL (14.0-18.0); Mean Corpuscular HGB CONC 32.8 g/dL (32.0-36.0); Mean Corpuscular Hemoglobin 25.6 pg (27.0-31.0); Mean Platelet Volume 9.8 fL (7.4-10.4); Platelet Count 167 thou/uL (130-400); RBC Distribution Width 15.1 % (11.5-14.5); Red Blood Cell (RBC) Count 3.63 mill/uL (4.70-6.10); White Blood Cell (WBC) Count 14.7 thou/uL (4.8-10.8)
[2018-04-26 05:54] LABS: BUN (Urea Nitrogen) 14 mg/dL (8.4-25.7); Calc. Creatinine Clearance 128 mL/min (70-130); Calcium 7.9 mg/dL (7.8-10.44); Estimated GFR-MDRD Greater than 90; Glucose 81 mg/dL (80-115)
[2018-04-26 06:04] LABS: Anion Gap 11 mmol/L (10-20); Carbon Dioxide 35 mmol/L (23-31); Chloride 101 mmol/L (98-107); Potassium 3.8 mmol/L (3.5-5.1); Sodium 143 mmol/L (136-145)
[2018-04-26] MEDS: predniSONE 20 MG TAB PO SCH (08:07)
[2018-04-26] MEDS: Apixaban 5 MG TAB PO SCH ×2 (08:08→21:18)
[2018-04-26] MEDS: Famotidine 20 MG TAB PO SCH ×2 (08:08→21:19)
[2018-04-26] MEDS: Amoxicillin/Potassium Clav 250 mg/5 ml Oral Suspension PO SCH ×2 (08:08→21:18)
[2018-04-26] MEDS: Diabetic Tussin 200 MG/10 ML UDCUP PO SCH ×3 (08:08→21:10)
--- NOTE | 2018-04-26 08:44 | PRG ---
DATE OF SERVICE: 04/26/2018 This morning status post trach and PEG, is complaining of abdominal pain. A KUB was done which shows distended bowel. PHYSICAL EXAMINATION: VITAL SIGNS: Sats 100% on a trach collar, 24-28%, temperature 98, blood pressure 120/54. GENERAL: Awake, responsive except for pain. Denies any discomfort. LABORATORY: Electrolytes are normal. White count 14,000, H&H is 9 and 28, platelet count is normal. CHEST: Chest reveals decreased breath sounds, no wheezing. CARDIAC: Normal S1, S2, no gallops. ABDOMEN: No masses. IMPRESSION: 1. End-stage chronic obstructive pulmonary disease, status post trach and PEG. 2. Supraventricular tachycardia. 3. Pneumonia. PLAN: He underwent a bronchoscopy yesterday for copious secretions. He is better. His abdominal pa in february be postop. We will watch and follow. Eventually placement. One-half hour critical care time.
--- NOTE | 2018-04-26 08:59 | RAD ---
SINGLE AP VIEW CHEST: INDICATION: Intubation. COMPARISON: Abdomen radiograph dated 04/26/2018 and chest radiograph dated 04/25/2018. IMPRESSION: There are bibasilar opacities that are stable. Chronic lung changes are similar. A tracheostomy tub e is similar appearing. Heart size is within normal limits. No acute osseous abnormality is evident . The costophrenic angles are excluded on the current exam; however, these are better assessed on e concurrently performed KUB. POS: [facility]
--- NOTE | 2018-04-26 09:03 | RAD ---
KUB: INDICATIONS: Abdominal pain at PEG site. IMPRESSION: There is a percutaneous gastrostomy tube noted in the left upper quadrant. The bowel gas pattern is nonspecific. There are gas-filled loops of small and large bowel seen diffusely through the abdomen. The lower portions of the pelvis are excluded. Patchy opacities are seen involving both lung bases , left greater than right. There is mild thoracolumbar scoliosis. POS: [facility]
[2018-04-26] MEDS ORDERED: clonazePAM 1 MG TAB PO SCH ×2 (12:00→21:00)
--- NOTE | 2018-04-26 12:41 | PDOC.PN ---
- Subjective Encounter Start Date: 04/26/18 Encounter Start Time: 09:40 Patient seen for followup re: acute on chronic respiratory failure. Reports abdo pain. Denies chest pain, shortness of breath, fevers or chills. - Objective Vital Signs & Weight: Vital Signs (12 hours) Temp Pulse Resp Pulse Ox 04/26/18 11:00 98.8 F 04/26/18 10:20 114 H 17 92 L 04/26/18 08:11 94 04/26/18 08:00 98.7 F 114 H 17 92 L 04/26/18 07:47 94 10 L 100 04/26/18 07:00 98.7 F 04/26/18 06:00 12 04/26/18 04:00 98.8 F 15 04/26/18 02:33 90 17 96 04/26/18 02:00 17 Weight Admit Weight 138 lb 14.259 oz Weight 152 lb 5.431 oz Most Recent Monitor Data Heart Rate from ECG 100 NIBP 132/60 NIBP BP-Mean 79 Respiration from ECG 28 SpO2 92 I&O: 04/25/18 04/26/18 04/27/18 06:59 06:59 06:59 Intake Total 1183 2214 250 Output Total 1382 3170 330 Balance -199 -956 -80 Result Diagrams: 04/26/18 05:17 04/26/18 05:17 Phys Exam - Physical Examination Constitutional: NAD HEENT: moist MMs Tracheostomy collar+ Respiratory: clear to auscultation bilateral Cardiovascular: RRR Gastrointestinal: soft Neurological: moves all 4 limbs Psychiatric: normal affect Dx/Plan (1) Acute on chronic respiratory failure with hypoxia and hypercapnia Code(s): J96.21 - ACUTE AND CHRONIC RESPIRATORY FAILURE WITH HYPOXIA; J96.22 - ACUTE AND CHRONIC RESPIRATORY FAILURE WITH HYPERCAPNIA Status: Acute Comment : s/p tracheostomy, currently in CCU (2) COPD exacerbation Code(s): J44.1 - CHRONIC OBSTRUCTIVE PULMONARY DISEASE W (ACUTE) EXACERBATION Status: Acute Comment: Due to end stage copd, s/p tracheostomy (3) GERD (gastroesophageal reflux disease) Code(s): K21.9 - GASTRO-ESOPHAGEAL REFLUX DISEASE WITHOUT ESOPHAGITIS Status: Chronic Qualifiers: Esophagitis presence: esophagitis presence not specified Qualified Code(s) : K21.9 - Gastro-esophageal reflux disease without esophagitis Comment: continue Protonix (4) HTN (hypertension) Code(s): I10 - ESSENTIAL (PRIMARY) HYPERTENSION Status: Chronic Qualifiers: Hypertension type: essential hypertension Qualified Code(s): I10 - Essential (primary) hypertension Comment: controlled (5) PVD (peripheral vascular disease) Code(s): I73.9 - PERIPHERAL VASCULAR DISEASE, UNSPECIFIED Status: Chronic Comment: stable (6) Afib Code(s): I48.91 - UNSPECIFIED ATRIAL FIBRILLATION Status: Chronic Comment: on Cardizem and Eliquis - Plan * . Review of Systems - Review of Systems Respiratory: negative: Cough, Shortness of Breath, SOB with Excertion, Pleuritic Pain, Wheezing Cardiovascular: negative: chest pain, palpitations, orthopnea, paroxysmal nocturnal dyspnea, edema, light headedness Gastrointestinal: Abdominal Pain. negative: Nausea, Vomiting, Diarrhea, Constipation, Melena, Hematochezia - Medications/Allergies Allergies/Adverse Reactions: Allergies Allergy/AdvReac Type Severity Reaction Status Date / Time No Known Drug Allergies Allergy Verified 01/18/18 08:54 Medications: Current Medications Acetaminophen (Tylenol Elixir) 650 mg PER TUBE Q4H PRN PRN Reason: Headache/Fever or Pain Last Admin: 04/26/18 04:24 Dose: 650 mg Albuterol/Ipratropium (Duoneb) 3 ml NEB [id number] [facility] Last Admin: 04/26/18 10:20 Dose: 3 ml Amoxicillin/Clavulanate Potassium (Augmentin 250mg/5ml Oral Susp) 500 mg PO BID [facility] Stop: 04/30/18 09:01 Last Admin: 04/26/18 08:08 Dose: 500 mg Apixaban (Eliquis) 5 mg PO BID [facility] Last Admin: 04/26/18 08:08 Dose: 5 mg Clonazepam (Klonopin) 2 mg PO BID [facility] Clonazepam (Klonopin) 2 mg PO 1200 [facility] Stop: 04/26/18 13:00 Last Admin: 04/26/18 12:09 Dose: 2 mg Diltiazem HCl (Cardizem Cd) 120 mg PO DAILY [facility] Last Admin: 04/26/18 08:11 Dose: 120 mg Famotidine (Pepcid) 20 mg PO BID [facility] Last Admin: 04/26/18 08:08 Dose: 20 mg Guaifenesin (Robitussin Sf) 400 mg PO TID [facility] Last Admin: 04/26/18 08:08 Dose: 400 mg Sodium Chloride (Normal Saline 0.9%) 1,000 mls @ 50 mls/hr IV .Q20H [facility] Last Admin: 04/26/18 01:24 Dose: 1,000 mls Morphine Sulfate (Morphine Sulfate) 2 mg SLOW IVP Q1H PRN PRN Reason: BREAKTHROUGH PAIN/AGITATION Stop: 05/23/18 15:03 Last Admin: 04/26/18 09:36 Dose: 2 mg Ondansetron HCl (Zofran) 4 mg IVP Q6H PRN PRN Reason: Nausea/Vomiting Last Admin: 04/26/18 04:23 Dose: 4 mg Pantoprazole Sodium (Protonix) 40 mg PO DAILY PRN PRN Reason: Heartburn or Indigestion Prednisone (Prednisone) 20 mg PO QAM-WM [facility] Last Admin: 04/26/18 08:07 Dose: 20 mg Scopolamine (Transderm Scop) 1.5 mg TD Q3D [facility] Last Admin: 04/25/18 09:50 Dose: 1.5 mg
[2018-04-26] MEDS ORDERED: Bisacodyl 10 MG SUPP PR SCH (15:00)
[2018-04-26] MEDS: clonazePAM 1 MG TAB PO SCH (21:28)
[2018-04-27] MEDS: Sodium Chloride 0.9% 1,000 ML IV SCH ×2 (00:01→16:10)
[2018-04-27 04:35] LABS: BUN (Urea Nitrogen) 12 mg/dL (8.4-25.7); Calc. Creatinine Clearance 135 mL/min (70-130); Calcium 7.9 mg/dL (7.8-10.44); Estimated GFR-MDRD Greater than 90; Glucose 78 mg/dL (80-115)
[2018-04-27 04:46] LABS: Anion Gap 10 mmol/L (10-20); Carbon Dioxide 37 mmol/L (23-31); Chloride 98 mmol/L (98-107); Potassium 3.9 mmol/L (3.5-5.1); Sodium 141 mmol/L (136-145)
[2018-04-27 05:01] LABS: Band 2 % (5-11); Hemoglobin 9.1 g/dL (14.0-18.0); Hypochromia SLIGHT = 6-15 cells (100X) (0-5/hpf); Lymphocytes 5 % (21-51); MDiff Complete? YES; Mean Corpuscular HGB CONC 33.2 g/dL (32.0-36.0); Mean Corpuscular Hemoglobin 26.1 pg (27.0-31.0); Mean Corpuscular Volume 78.6 fL (78.0-98.0); Mean Platelet Volume 9.8 fL (7.4-10.4); Monocytes 8 % (0-10); Neutrophil 82 % (42-75); PLT Morphology Comment Appears Adequate; Platelet Count 161 thou/uL (130-400); Reactive Lymphocytes 3 % (0-10); Red Blood Cell (RBC) Count 3.47 mill/uL (4.70-6.10); White Blood Cell (WBC) Count 15.9 thou/uL (4.8-10.8)
[2018-04-27] MEDS ORDERED: Furosemide 20 MG/2 ML VIAL SLOW IVP SCH (07:45)
[2018-04-27] MEDS: Furosemide 20 MG TAB PO SCH ×2 (07:55→08:10)
--- NOTE | 2018-04-27 08:07 | RAD ---
CHEST 1 VIEW: HISTORY: A 68-year-old male with respiratory insufficiency. COMPARISON: 04/26/18. FINDINGS: Extensive bilateral interstitial and alveolar parenchymal changes and pleural effusions which appear to be worsening when compared to the prior study. Tracheostomy tube in place. IMPRESSION: Worsening bilateral interstitial and alveolar parenchymal changes and pleural effusions from the prio r study. Continued short-term followup. POS: TPC
[2018-04-27] MEDS: predniSONE 20 MG TAB PO SCH (08:09)
[2018-04-27] MEDS: Diabetic Tussin 200 MG/10 ML UDCUP PO SCH ×3 (08:09→21:19)
[2018-04-27] MEDS: clonazePAM 1 MG TAB PO SCH ×2 (08:09→21:19)
--- NOTE | 2018-04-27 08:09 | PRG ---
DATE OF SERVICE: 04/27/2018 SUBJECTIVE: This morning, he is awake, alert and responsive. He said he is less short of breath. OBJECTIVE: VITAL SIGNS: Sats are 95 on a trach collar, pulse 117, blood pressure 91/57, respiration rate 18. H is I's and O's have been 2214 in and 317 out. CHEST: Reveals extensive rhonchi and crackles. CARDIAC: Normal S1, S2. No gallops. ABDOMEN: Soft, without any masses. NEUROLOGIC: He is awake. EXTREMITIES: No edema. LABORATORY DATA: White count 15,000, H&H is 9 and 27, platelet count 61. IMAGING: His chest x-ray shows worsening bilateral infiltrates considering CHF. IMPRESSION: 1. Worsening congestive heart failure. 2. End stage chronic obstructive pulmonary disease. 3. History of cardiac arrhythmias. PLAN: Daily Lasix is being initiated along with his neb treatments. Continue nocturnal ventilation. Awaiting placement. One-half hour critical care time.
[2018-04-27] MEDS: Apixaban 5 MG TAB PO SCH ×2 (08:10→21:19)
[2018-04-27] MEDS: Famotidine 20 MG TAB PO SCH ×2 (08:10→21:19)
[2018-04-27] MEDS ORDERED: Magnesium Citrate 300 ML BOT PO SCH (10:15)
[2018-04-27] MEDS: Amoxicillin/Potassium Clav 250 mg/5 ml Oral Suspension PO SCH ×2 (11:02→21:19)
--- NOTE | 2018-04-27 17:28 | PDOC.PN ---
- Subjective Encounter Start Date: 04/27/18 Encounter Start Time: 08:40 Pt seen for followup re: acute on chronic respiratory failure. Unable to understand pt's words through tracheostomy, unable to complete ROS. - Objective MAR Reviewed: Yes Vital Signs & Weight: Vital Signs (12 hours) Temp Pulse Resp BP Pulse Ox 04/27/18 16:53 100 04/27/18 16:49 106 H 29 H 100 04/27/18 16:00 98.9 F 04/27/18 12:00 98.2 F 04/27/18 11:59 107 H 31 H 98 04/27/18 08:00 99.0 F 120 H 22 H 95 04/27/18 07:35 91 L 04/27/18 06:41 81 109/46 L 100 04/27/18 06:39 101 H 15 96 04/27/18 06:00 12 Weight Admit Weight 138 lb 14.259 oz Weight 159 lb 2.78 oz Most Recent Monitor Data Heart Rate from ECG 92 NIBP 102/41 NIBP BP-Mean 66 Respiration from ECG 26 SpO2 100 I&O: 04/26/18 04/27/18 04/28/18 06:59 06:59 06:59 Intake Total 2214 1285 1169 Output Total 6450 6480 7505 [facility] - Result Diagrams: 04/27/18 04:00 04/27/18 04:00 EKG Reviewed by me: Yes (Tele: NSR) Phys Exam - Physical Examination Constitutional: NAD HEENT: moist MMs Tracheostomy collar Daniel crackles Cardiovascular: RRR Gastrointestinal: soft, non-tender, positive bowel sounds G-tube Neurological: moves all 4 limbs Psychiatric: normal affect Dx/Plan (1) Acute on chronic respiratory failure with hypoxia and hypercapnia Code(s): J96.21 - ACUTE AND CHRONIC RESPIRATORY FAILURE WITH HYPOXIA; J96.22 - ACUTE AND CHRONIC RESPIRATORY FAILURE WITH HYPERCAPNIA Status: Acute Comment : Pt had tracheostomy, is being managed in CCU (2) Constipation Code(s): K59.00 - CONSTIPATION, UNSPECIFIED Status: Acute Comment: Trial magnesium citrate (3) COPD exacerbation Code(s): J44.1 - CHRONIC OBSTRUCTIVE PULMONARY DISEASE W (ACUTE) EXACERBATION Status: Acute Comment: s/p tracheostomy (4) GERD (gastroesophageal reflux disease) Code(s): K21.9 - GASTRO-ESOPHAGEAL REFLUX DISEASE WITHOUT ESOPHAGITIS Status: Chronic Qualifiers: Esophagitis presence: esophagitis presence not specified Qualified Code(s) : K21.9 - Gastro-esophageal reflux disease without esophagitis Comment: continue Protonix (5) HTN (hypertension) Code(s): I10 - ESSENTIAL (PRIMARY) HYPERTENSION Status: Chronic Qualifiers: Hypertension type: essential hypertension Qualified Code(s): I10 - Essential (primary) hypertension Comment: controlled (6) PVD (peripheral vascular disease) Code(s): I73.9 - PERIPHERAL VASCULAR DISEASE, UNSPECIFIED Status: Chronic Comment: stable (7) Afib Code(s): I48.91 - UNSPECIFIED ATRIAL FIBRILLATION Status: Chronic Comment: on Cardizem and Eliquis - Plan * . Review of Systems - Medications/Allergies Allergies/Adverse Reactions: Allergies Allergy/AdvReac Type Severity Reaction Status Date / Time No Known Drug Allergies Allergy Verified 01/18/18 08:54 Medications: Current Medications Acetaminophen (Tylenol Elixir) 650 mg PER TUBE Q4H PRN PRN Reason: Headache/Fever or Pain Last Admin: 04/26/18 04:24 Dose: 650 mg Albuterol/Ipratropium (Duoneb) 3 ml NEB [id number] [facility] Last Admin: 04/27/18 16:49 Dose: 3 ml Amoxicillin/Clavulanate Potassium (Augmentin 250mg/5ml Oral Susp) 500 mg PO BID [facility] Stop: 04/30/18 09:01 Last Admin: 04/27/18 11:02 Dose: 500 mg Apixaban (Eliquis) 5 mg PO BID [facility] Last Admin: 04/27/18 08:10 Dose: 5 mg Clonazepam (Klonopin) 2 mg PO BID [facility] Last Admin: 04/27/18 08:09 Dose: 2 mg Diltiazem HCl (Cardizem Cd) 120 mg PO DAILY [facility] Last Admin: 04/27/18 08:09 Dose: 120 mg Famotidine (Pepcid) 20 mg PO BID [facility] Last Admin: 04/27/18 08:10 Dose: 20 mg Furosemide (Lasix) 20 mg PO DAILY [facility] Last Admin: 04/27/18 08:10 Dose: 20 mg Guaifenesin (Robitussin Sf) 400 mg PO TID [facility] Last Admin: 04/27/18 16:09 Dose: 400 mg Sodium Chloride (Normal Saline 0.9%) 1,000 mls @ 50 mls/hr IV .Q20H [facility] Last Admin: 04/27/18 16:10 Dose: 1,000 mls Morphine Sulfate (Morphine Sulfate) 2 mg SLOW IVP Q1H PRN PRN Reason: BREAKTHROUGH PAIN/AGITATION Stop: 05/23/18 15:03 Last Admin: 04/27/18 05:05 Dose: 2 mg Ondansetron HCl (Zofran) 4 mg IVP Q6H PRN PRN Reason: Nausea/Vomiting Last Admin: 04/26/18 04:23 Dose: 4 mg Pantoprazole Sodium (Protonix) 40 mg PO DAILY PRN PRN Reason: Heartburn or Indigestion Prednisone (Prednisone) 20 mg PO QAM-WM [facility] Last Admin: 04/27/18 08:09 Dose: 20 mg Scopolamine (Transderm Scop) 1.5 mg TD Q3D [facility] Last Admin: 04/25/18 09:50 Dose: 1.5 mg
[2018-04-28 04:05] LABS: #Eosinphils 0.2 thou/uL (0.0-0.7); #Lymphocytes 1.5 thou/uL (1.20-3.40); #Monocytes 1.3 thou/uL (0.11-0.59); #Neutrophils 11.7 thou/uL (1.40-6.50); %Basophils 0.2 % (0.0-1.0); %Eosinophils 1.2 % (0.0-10.0); %Lymphocytes 10.1 % (21.0-51.0); %Monocytes 8.6 % (0.0-10.0); Hemoglobin 8.8 g/dL (14.0-18.0); Mean Corpuscular HGB CONC 31.7 g/dL (32.0-36.0); Mean Corpuscular Hemoglobin 25.3 pg (27.0-31.0); Mean Corpuscular Volume 79.8 fL (78.0-98.0); Mean Platelet Volume 10.2 fL (7.4-10.4); Platelet Count 163 thou/uL (130-400); RBC Distribution Width 15.1 % (11.5-14.5); Red Blood Cell (RBC) Count 3.48 mill/uL (4.70-6.10); White Blood Cell (WBC) Count 14.7 thou/uL (4.8-10.8)
[2018-04-28 04:13] LABS: BUN (Urea Nitrogen) 9 mg/dL (8.4-25.7); Calc. Creatinine Clearance 160 mL/min (70-130); Estimated GFR-MDRD Greater than 90; Glucose 91 mg/dL (80-115)
[2018-04-28 04:24] LABS: Anion Gap 10 mmol/L (10-20); Carbon Dioxide 40 mmol/L (23-31); Chloride 97 mmol/L (98-107); Potassium 4.5 mmol/L (3.5-5.1); Sodium 142 mmol/L (136-145)
[2018-04-28] MEDS: Acetaminophen 650 MG/20.3 ML UDCUP PER TUBE PRN ×2 (05:00→14:12)
--- NOTE | 2018-04-28 07:30 | PRG ---
DATE OF SERVICE: 04/28/2018 SUBJECTIVE: The patient had an uneventful night. As I was walking into the room, the patient was be ing placed on a tracheostomy collar. He appears to have marginal oxygenation on the trach collar. OBJECTIVE: VITAL SIGNS: His exam is significant for temperature of 98.7, pulse 82, blood pressure 91/45, and an O2 sat of around 87%. Total intake for the last 24 hours was 1999 mL and output was 4395. HEENT EXAM: Remarkable for bitemporal wasting. NECK: Tracheostomy in site with mucoid secretions. LUNGS: Have coarse breath sounds. CARDIAC: Rhythm is distant without murmur. ABDOMEN: Soft and nontender. EXTREMITIES: No edema. LABORATORY DATA: White blood cell count 14.7, hemoglobin 8.8, hematocrit 27.8, platelet count 163. Sodium 142, potassium 4.5, chloride 97, CO2 of 40, BUN 9, creatinine 0.5, glucose 91. ASSESSMENT: 1. End-stage chronic obstructive pulmonary disease, requiring tracheostomy and PEG tube placement. 2. Acute on chronic hypoxic respiratory failure. 3. Supraventricular tachycardia. 4. Pneumonia. 5. Pulmonary edema. PLAN: 1. Continue trach collar trials to the greatest extent possible. 2. Continue low-dose Lasix. 3. Continue steroids.
[2018-04-28] MEDS: Sodium Chloride 0.9% 1,000 ML IV SCH (08:58)
[2018-04-28] MEDS: Diabetic Tussin 200 MG/10 ML UDCUP PO SCH ×3 (08:59→21:26)
[2018-04-28] MEDS: Famotidine 20 MG TAB PO SCH ×2 (08:59→21:25)
[2018-04-28] MEDS: Scopolamine 1.5 mg/72 hour Patch TD SCH (09:01)
[2018-04-28] MEDS: Furosemide 20 MG TAB PO SCH (09:02)
[2018-04-28] MEDS: predniSONE 20 MG TAB PO SCH (09:02)
[2018-04-28] MEDS: Apixaban 5 MG TAB PO SCH ×2 (09:02→21:25)
[2018-04-28] MEDS: clonazePAM 1 MG TAB PO SCH ×2 (10:00→21:25)
[2018-04-28] MEDS: Amoxicillin/Potassium Clav 250 mg/5 ml Oral Suspension PO SCH ×2 (10:18→21:24)
[2018-04-28] MEDS ORDERED: Docusate Sodium 100 MG/10 ML UDCUP PER TUBE SCH (10:30)
[2018-04-28] MEDS ORDERED: Bisacodyl 10 MG SUPP PR SCH (10:30)
--- NOTE | 2018-04-28 15:26 | PDOC.PN ---
- Subjective Encounter Start Date: 04/28/18 Encounter Start Time: 09:00 Pt seen for followup re: acute respiratory failure. Sleepy but arousable, not answering questions, unable to complete ROS. - Objective MAR Reviewed: Yes Vital Signs & Weight: Vital Signs (12 hours) Temp Pulse Pulse Pulse Resp BP BP 04/28/18 15:05 110 H 32 H 04/28/18 13:29 65 66 95/56 L 70/55 L 04/28/18 12:00 99.2 F 04/28/18 10:42 83 18 04/28/18 08:00 98.9 F 100 18 04/28/18 07:08 04/28/18 06:26 79 12 04/28/18 06:00 17 04/28/18 04:00 98.7 F 14 Pulse Ox Pulse Ox Pulse Ox 04/28/18 15:05 100 04/28/18 13:29 95 94 L 04/28/18 12:00 04/28/18 10:42 100 04/28/18 08:00 98 04/28/18 07:08 90 L 04/28/18 06:26 100 04/28/18 06:00 04/28/18 04:00 Weight Admit Weight 138 lb 14.259 oz Weight 151 lb 14.376 oz Most Recent Monitor Data Heart Rate from ECG 113 NIBP 101/53 NIBP BP-Mean 72 Respiration from ECG 36 SpO2 100 I&O: 04/27/18 04/28/18 04/29/18 06:59 06:59 06:59 Intake Total 1285 1999 Output Total 2084 [address] [facility] -25 -3402 -5371 Result Diagrams: 04/28/18 03:06 04/28/18 03:06 EKG Reviewed by me: Yes (Tele: patric mercado) Phys Exam - Physical Examination Constitutional: NAD HEENT: moist MMs Tracheostomy Daniel crackles Cardiovascular: RRR Gastrointestinal: soft Neurological: moves all 4 limbs Deviation from normal: Unable to assess Dx/Plan (1) Acute on chronic respiratory failure with hypoxia and hypercapnia Code(s): J96.21 - ACUTE AND CHRONIC RESPIRATORY FAILURE WITH HYPOXIA; J96.22 - ACUTE AND CHRONIC RESPIRATORY FAILURE WITH HYPERCAPNIA Status: Acute Comment : s/p tracheostomy (2) Constipation Code(s): K59.00 - CONSTIPATION, UNSPECIFIED Status: Acute Comment: PRN Dulcolax (3) COPD exacerbation Code(s): J44.1 - CHRONIC OBSTRUCTIVE PULMONARY DISEASE W (ACUTE) EXACERBATION Status: Acute Comment: s/p tracheostomy (4) GERD (gastroesophageal reflux disease) Code(s): K21.9 - GASTRO-ESOPHAGEAL REFLUX DISEASE WITHOUT ESOPHAGITIS Status: Chronic Qualifiers: Esophagitis presence: esophagitis presence not specified Qualified Code(s) : K21.9 - Gastro-esophageal reflux disease without esophagitis Comment: continue Protonix (5) HTN (hypertension) Code(s): I10 - ESSENTIAL (PRIMARY) HYPERTENSION Status: Chronic Qualifiers: Hypertension type: essential hypertension Qualified Code(s): I10 - Essential (primary) hypertension Comment: BP low, cardizem on hold (6) PVD (peripheral vascular disease) Code(s): I73.9 - PERIPHERAL VASCULAR DISEASE, UNSPECIFIED Status: Chronic Comment: stable (7) Afib Code(s): I48.91 - UNSPECIFIED ATRIAL FIBRILLATION Status: Chronic Comment: BP borderline low, cardizem on hold, heart rate in 90s - Plan * . Review of Systems - Medications/Allergies Allergies/Adverse Reactions: Allergies Allergy/AdvReac Type Severity Reaction Status Date / Time No Known Drug Allergies Allergy Verified 01/18/18 08:54 Medications: Current Medications Acetaminophen (Tylenol Elixir) 650 mg PER TUBE Q4H PRN PRN Reason: Headache/Fever or Pain Last Admin: 04/28/18 14:12 Dose: 650 mg Albuterol/Ipratropium (Duoneb) 3 ml NEB [id number] Last Admin: 04/28/18 15:05 Dose: 3 ml Amoxicillin/Clavulanate Potassium (Augmentin 250mg/5ml Oral Susp) 500 mg PO BID [facility] Stop: 04/30/18 09:01 Last Admin: 04/28/18 10:18 Dose: 500 mg Apixaban (Eliquis) 5 mg PO BID [facility] Last Admin: 04/28/18 09:02 Dose: 5 mg Clonazepam (Klonopin) 2 mg PO BID [facility] Last Admin: 04/28/18 10:00 Dose: 2 mg Diltiazem HCl (Cardizem Cd) 120 mg PO DAILY [facility] Last Admin: 04/28/18 09:03 Dose: Not Given Docusate Sodium (Colace Liquid) 100 mg PER TUBE DAILY [facility] Famotidine (Pepcid) 20 mg PO BID [facility] Last Admin: 04/28/18 08:59 Dose: 20 mg Furosemide (Lasix) 20 mg PO DAILY [facility] Last Admin: 04/28/18 09:02 Dose: 20 mg Guaifenesin (Robitussin Sf) 400 mg PO TID [facility] Last Admin: 04/28/18 14:12 Dose: 400 mg Sodium Chloride (Normal Saline 0.9%) 1,000 mls @ 50 mls/hr IV .Q20H [facility] Last Admin: 04/28/18 08:58 Dose: 1,000 mls Morphine Sulfate (Morphine Sulfate) 2 mg SLOW IVP Q1H PRN PRN Reason: BREAKTHROUGH PAIN/AGITATION Stop: 05/23/18 15:03 Last Admin: 04/27/18 05:05 Dose: 2 mg Ondansetron HCl (Zofran) 4 mg IVP Q6H PRN PRN Reason: Nausea/Vomiting Last Admin: 04/26/18 04:23 Dose: 4 mg Pantoprazole Sodium (Protonix) 40 mg PO DAILY PRN PRN Reason: Heartburn or Indigestion Prednisone (Prednisone) 20 mg PO QAM-WM [facility] Last Admin: 04/28/18 09:02 Dose: 20 mg Scopolamine (Transderm Scop) 1.5 mg TD Q3D [facility] Last Admin: 04/28/18 09:01 Dose: 1.5 mg Sodium Chloride (Flush - Normal Saline) 10 ml IVF Q12HR [facility] Sodium Chloride (Flush - Normal Saline) 10 ml IVF PRN PRN PRN Reason: Saline Flush
[2018-04-29] MEDS: Sodium Chloride 0.9% 1,000 ML IV SCH ×2 (04:54→22:22)
[2018-04-29 05:26] LABS: #Eosinphils 0.2 thou/uL (0.0-0.7); #Lymphocytes 1.4 thou/uL (1.20-3.40); #Monocytes 1.3 thou/uL (0.11-0.59); #Neutrophils 11.9 thou/uL (1.40-6.50); %Basophils 0.2 % (0.0-1.0); %Eosinophils 1.5 % (0.0-10.0); %Lymphocytes 9.4 % (21.0-51.0); %Monocytes 8.8 % (0.0-10.0); %Neutrophils 80.1 % (42.0-75.0); Hemoglobin 8.4 g/dL (14.0-18.0); Mean Corpuscular HGB CONC 31.6 g/dL (32.0-36.0); Mean Corpuscular Volume 79.1 fL (78.0-98.0); Mean Platelet Volume 9.4 fL (7.4-10.4); Platelet Count 180 thou/uL (130-400); RBC Distribution Width 14.8 % (11.5-14.5); Red Blood Cell (RBC) Count 3.35 mill/uL (4.70-6.10); White Blood Cell (WBC) Count 14.8 thou/uL (4.8-10.8)
[2018-04-29 05:33] LABS: BUN (Urea Nitrogen) 7 mg/dL (8.4-25.7); Calc. Creatinine Clearance 157 mL/min (70-130); Estimated GFR-MDRD Greater than 90; Glucose 109 mg/dL (80-115)
[2018-04-29 05:44] LABS: Anion Gap 8 mmol/L (10-20); Carbon Dioxide 38 mmol/L (23-31); Chloride 99 mmol/L (98-107); Potassium 3.9 mmol/L (3.5-5.1); Sodium 141 mmol/L (136-145)
--- NOTE | 2018-04-29 09:22 | PRG ---
DATE OF SERVICE: 04/29/2018 SUBJECTIVE: This patient used mechanical ventilation last night. He is on trach collar this morning . He appears comfortable. He has lots of frothy tracheostomy secretions. PHYSICAL EXAMINATION: VITAL SIGNS: Temperature is 98.2, pulse 78, blood pressure 93/60. A 24-intake 2104 and output 3510. HEENT EXAM: Remarkable for bitemporal wasting. NECK: Trach in good position. Frothy pink secretions present. CARDIAC: S1 and S2, regular. LUNGS: Clear, but distant breath sounds. ABDOMEN: Soft, nontender. PEG tube noted. EXTREMITIES: No edema. LABORATORY DATA: White blood cell count 14.8, hematocrit 26.5, platelet count 180. Sodium 141, pota ssium 3.9, chloride 99, CO2 of 38, BUN 7, creatinine 0.4, glucose 109. ASSESSMENT: 1. Chronic obstructive pulmonary disease with exacerbation. 2. Acute on chronic respiratory failure, requiring tracheostomy placement. 3. Supraventricular tachycardia. 4. Pneumonia. 5. Pulmonary edema. PLAN: The patient looks stable from a pulmonary standpoint. Hopefully, tomorrow we can start backin g off on his nocturnal ventilation. His secretions are prominent. He is currently on a scopolamine patch for that. He is constipated, and he is currently on docusate and Dulcolax for that.
[2018-04-29] MEDS: Diabetic Tussin 200 MG/10 ML UDCUP PO SCH ×3 (09:24→21:58)
[2018-04-29] MEDS: Docusate Sodium 100 MG/10 ML UDCUP PER TUBE SCH (09:25)
[2018-04-29] MEDS: clonazePAM 1 MG TAB PO SCH ×2 (09:25→21:58)
[2018-04-29] MEDS: Acetaminophen 650 MG/20.3 ML UDCUP PER TUBE PRN (09:25)
[2018-04-29] MEDS: Apixaban 5 MG TAB PO SCH ×2 (09:25→21:57)
[2018-04-29] MEDS: Furosemide 20 MG TAB PO SCH (09:26)
[2018-04-29] MEDS: predniSONE 20 MG TAB PO SCH (09:26)
[2018-04-29] MEDS: Famotidine 20 MG TAB PO SCH ×2 (09:26→21:58)
[2018-04-29] MEDS: Amoxicillin/Potassium Clav 250 mg/5 ml Oral Suspension PO SCH ×2 (10:40→21:57)
--- NOTE | 2018-04-29 15:11 | PDOC.PN ---
- Subjective Encounter Start Date: 04/29/18 Encounter Start Time: 09:20 Pt seen for followup re: acute on chronic respiratory failure. Nonverbal, unable to complete ROS. - Objective Vital Signs & Weight: Vital Signs (12 hours) Temp Pulse Resp Pulse Ox 04/29/18 14:59 85 32 H 100 04/29/18 13:54 98.4 F 04/29/18 13:00 88 22 H 98 04/29/18 10:41 108 H 04/29/18 08:00 98.4 F 87 20 98 04/29/18 06:55 99 04/29/18 06:22 108 H 17 94 L 04/29/18 06:00 25 H 04/29/18 04:00 98.5 F 13 Weight Admit Weight 138 lb 14.259 oz Weight 142 lb 3.17 oz Most Recent Monitor Data Heart Rate from ECG 86 NIBP 118/60 NIBP BP-Mean 76 Respiration from ECG 14 SpO2 100 I&O: 04/28/18 04/29/18 04/30/18 06:59 06:59 06:59 Intake Total 19984 200 Output Total 4395 3510 860 Balance -2396 -1406 -660 Result Diagrams: 04/29/18 05:08 04/29/18 05:08 EKG Reviewed by me: Yes (Tele: patric mercado) Phys Exam - Physical Examination HEENT: moist MMs tracheostomy collar Daniel crackles Cardiovascular: no rub, irregular Gastrointestinal: soft, non-tender G-tube Neurological: moves all 4 limbs Psychiatric: normal affect Dx/Plan (1) Acute on chronic respiratory failure with hypoxia and hypercapnia Code(s): J96.21 - ACUTE AND CHRONIC RESPIRATORY FAILURE WITH HYPOXIA; J96.22 - ACUTE AND CHRONIC RESPIRATORY FAILURE WITH HYPERCAPNIA Status: Acute Comment : s/p tracheostomy, in CCU (2) Constipation Code(s): K59.00 - CONSTIPATION, UNSPECIFIED Status: Acute Comment: PRN Dulcolax, will trial magnesium citrate if needed (3) COPD exacerbation Code(s): J44.1 - CHRONIC OBSTRUCTIVE PULMONARY DISEASE W (ACUTE) EXACERBATION Status: Acute Comment: s/p tracheostomy (4) GERD (gastroesophageal reflux disease) Code(s): K21.9 - GASTRO-ESOPHAGEAL REFLUX DISEASE WITHOUT ESOPHAGITIS Status: Chronic Qualifiers: Esophagitis presence: esophagitis presence not specified Qualified Code(s) : K21.9 - Gastro-esophageal reflux disease without esophagitis Comment: on Protonix (5) HTN (hypertension) Code(s): I10 - ESSENTIAL (PRIMARY) HYPERTENSION Status: Chronic Qualifiers: Hypertension type: essential hypertension Qualified Code(s): I10 - Essential (primary) hypertension Comment: cardizem on hold for hypotension (6) PVD (peripheral vascular disease) Code(s): I73.9 - PERIPHERAL VASCULAR DISEASE, UNSPECIFIED Status: Chronic Comment: stable (7) Afib Code(s): I48.91 - UNSPECIFIED ATRIAL FIBRILLATION Status: Chronic Comment: cardizem on hold, heart rate in 90s - Plan * . Review of Systems - Medications/Allergies Allergies/Adverse Reactions: Allergies Allergy/AdvReac Type Severity Reaction Status Date / Time No Known Drug Allergies Allergy Verified 01/18/18 08:54 Medications: Current Medications Acetaminophen (Tylenol Elixir) 650 mg PER TUBE Q4H PRN PRN Reason: Headache/Fever or Pain Last Admin: 04/29/18 09:25 Dose: 650 mg Albuterol/Ipratropium (Duoneb) 3 ml NEB [id number] [facility] Last Admin: 04/29/18 14:59 Dose: 3 ml Amoxicillin/Clavulanate Potassium (Augmentin 250mg/5ml Oral Susp) 500 mg PO BID [facility] Stop: 04/30/18 09:01 Last Admin: 04/29/18 10:40 Dose: 500 mg Apixaban (Eliquis) 5 mg PO BID [facility] Last Admin: 04/29/18 09:25 Dose: 5 mg Clonazepam (Klonopin) 2 mg PO BID [facility] Last Admin: 04/29/18 09:25 Dose: 2 mg Diltiazem HCl (Cardizem Cd) 120 mg PO DAILY [facility] Last Admin: 04/29/18 10:41 Dose: Not Given Docusate Sodium (Colace Liquid) 100 mg PER TUBE DAILY [facility] Last Admin: 04/29/18 09:25 Dose: 100 mg Famotidine (Pepcid) 20 mg PO BID [facility] Last Admin: 04/29/18 09:26 Dose: 20 mg Furosemide (Lasix) 20 mg PO DAILY [facility] Last Admin: 04/29/18 09:26 Dose: 20 mg Guaifenesin (Robitussin Sf) 400 mg PO TID [facility] Last Admin: 04/29/18 09:24 Dose: 400 mg Sodium Chloride (Normal Saline 0.9%) 1,000 mls @ 50 mls/hr IV .Q20H [facility] Last Admin: 04/29/18 04:54 Dose: 1,000 mls Morphine Sulfate (Morphine Sulfate) 2 mg SLOW IVP Q1H PRN PRN Reason: BREAKTHROUGH PAIN/AGITATION Stop: 05/23/18 15:03 Last Admin: 04/27/18 05:05 Dose: 2 mg Ondansetron HCl (Zofran) 4 mg IVP Q6H PRN PRN Reason: Nausea/Vomiting Last Admin: 04/26/18 04:23 Dose: 4 mg Pantoprazole Sodium (Protonix) 40 mg PO DAILY PRN PRN Reason: Heartburn or Indigestion Prednisone (Prednisone) 20 mg PO QAM-WM [facility] Last Admin: 04/29/18 09:26 Dose: 20 mg Scopolamine (Transderm Scop) 1.5 mg TD Q3D [facility] Last Admin: 04/28/18 09:01 Dose: 1.5 mg Sodium Chloride (Flush - Normal Saline) 10 ml IVF Q12HR [facility] Last Admin: 04/29/18 10:41 Dose: Not Given Sodium Chloride (Flush - Normal Saline) 10 ml IVF PRN PRN PRN Reason: Saline Flush
[2018-04-30 04:44] LABS: #Eosinphils 0.2 thou/uL (0.0-0.7); #Lymphocytes 1.8 thou/uL (1.20-3.40); #Neutrophils 11.3 thou/uL (1.40-6.50); %Basophils 0.1 % (0.0-1.0); %Eosinophils 1.2 % (0.0-10.0); %Lymphocytes 12.6 % (21.0-51.0); %Monocytes 7.3 % (0.0-10.0); %Neutrophils 78.9 % (42.0-75.0); Hemoglobin 8.3 g/dL (14.0-18.0); Mean Corpuscular HGB CONC 31.9 g/dL (32.0-36.0); Mean Corpuscular Hemoglobin 25.2 pg (27.0-31.0); Mean Corpuscular Volume 78.9 fL (78.0-98.0); Mean Platelet Volume 9.1 fL (7.4-10.4); Platelet Count 181 thou/uL (130-400); RBC Distribution Width 15.2 % (11.5-14.5); Red Blood Cell (RBC) Count 3.29 mill/uL (4.70-6.10); White Blood Cell (WBC) Count 14.3 thou/uL (4.8-10.8)
[2018-04-30 04:51] LABS: BUN (Urea Nitrogen) 8 mg/dL (8.4-25.7); Calc. Creatinine Clearance 150 mL/min (70-130); Calcium 7.9 mg/dL (7.8-10.44); Estimated GFR-MDRD Greater than 90; Glucose 112 mg/dL (80-115)
[2018-04-30 04:59] LABS: Anion Gap 10 mmol/L (10-20); Carbon Dioxide 35 mmol/L (23-31); Chloride 101 mmol/L (98-107); Potassium 3.5 mmol/L (3.5-5.1); Sodium 142 mmol/L (136-145)
--- NOTE | 2018-04-30 08:32 | PRG ---
DATE OF SERVICE: 04/30/2018 This morning he is awake, alert, responsive. He is on a trach collar without any distress. PHYSICAL EXAMINATION: VITAL SIGNS: Sats 100%, pulse 114, blood pressure is 93/41, respiration 21. GENERAL: He denies any pain or discomfort. X-rays reveal trace edema. CHEST: Chest reveals decreased breath sounds without any wheezing. CARDIAC: Normal S1, S2. No gallop. LABORATORY: White count 14,000, H&H 8 and 25, platelet count normal. His electrolytes are normal. The patient is presently on a trach collar, 35% FiO2. He is on nocturnal ventilation with rate of 8, tidal volume 450, pressure support of 10, PEEP of 5, 35% FiO2. Additional medication includes fdc clonazepam 2 mg twice a day for major anxiety. He is on med ication for SVT, recurrent. Presently he is hypotensive so his medicine has been withheld. Medicines that he is taking Cardizem-CD 120 a day. Prednisone 20 a day, scopolamine patch 1.5 every 3 days, antibiotics for several days and neb treatments every 4 hours. IMPRESSION: 1. End-stage chronic obstructive pulmonary disease, status post trach and PEG. 2. Severe deconditioning. 3. Major anxiety. 4. Recurrent supraventricular tachycardia. PLAN: The patient is a long time smoker who initially did not want a trach. Now he wants a trach. We are waiting for long-term care for him. Supportive care and PT. It is very unlikely it will be d iscontinued. It is very unlikely he will ever be off the vent. He is going to always require noctur nal ventilation for his end-stage COPD. One-half hour critical care time.
--- NOTE | 2018-04-30 08:56 | PDOC.PN ---
- Subjective Encounter Start Date: 04/30/18 Encounter Start Time: 08:54 Subjective: post trach, on vent - Objective MAR Reviewed: Yes Vital Signs & Weight: Vital Signs (12 hours) Temp Pulse Resp Pulse Ox 04/30/18 07:06 96 21 H 100 04/30/18 07:05 97 04/30/18 07:00 98.4 F 04/30/18 06:00 19 04/30/18 04:00 98.6 F 17 04/30/18 02:27 82 16 100 04/30/18 02:00 16 04/30/18 00:00 98.0 F 18 04/29/18 23:00 16 04/29/18 22:55 90 21 H 100 Weight Admit Weight 138 lb 14.259 oz Weight 142 lb 3.17 oz Most Recent Monitor Data Heart Rate from ECG 95 NIBP 95/34 NIBP BP-Mean 51 Respiration from ECG 16 SpO2 100 I&O: 04/29/18 04/30/18 05/01/18 06:59 06:59 06:59 Intake Total 2104 2383 Output Total 3510 2550 35 Balance -1406 -167 -35 Result Diagrams: 04/30/18 04:34 04/30/18 04:34 Phys Exam - Physical Examination Neck: no JVD hyperresonant, diffuse rhonchi, wheezes Cardiovascular: no significant murmur, irregular Gastrointestinal: soft, positive bowel sounds Musculoskeletal: no edema Dx/Plan (1) Afib Code(s): I48.91 - UNSPECIFIED ATRIAL FIBRILLATION Status: Chronic Qualifiers: Atrial fibrillation type: chronic Qualified Code(s): I48.2 - Chronic atrial fibrillation Comment: cardizem on hold, heart rate in 90s (2) Acute on chronic respiratory failure with hypoxia and hypercapnia Code(s): J96.21 - ACUTE AND CHRONIC RESPIRATORY FAILURE WITH HYPOXIA; J96.22 - ACUTE AND CHRONIC RESPIRATORY FAILURE WITH HYPERCAPNIA Status: Acute Comment : s/p tracheostomy, in CCU (3) COPD exacerbation Code(s): J44.1 - CHRONIC OBSTRUCTIVE PULMONARY DISEASE W (ACUTE) EXACERBATION Status: Acute Comment: s/p tracheostomy (4) HTN (hypertension) Code(s): I10 - ESSENTIAL (PRIMARY) HYPERTENSION Status: Chronic Qualifiers: Hypertension type: essential hypertension Qualified Code(s): I10 - Essential (primary) hypertension Comment: cardizem on hold for hypotension (5) Mild protein-calorie malnutrition Code(s): E44.1 - MILD PROTEIN-CALORIE MALNUTRITION Status: Chronic Comment: improving with modified diet, stbale,. (6) Osteoarthritis Code(s): M19.90 - UNSPECIFIED OSTEOARTHRITIS, UNSPECIFIED SITE Status: Chronic Qualifiers: Osteoarthritis location: unspecified site Osteoarthritis type: unspecified Qualified Code(s): M19.90 - Unspecified osteoarthritis, unspecified site Comment: stable (7) PVD (peripheral vascular disease) Code(s): I73.9 - PERIPHERAL VASCULAR DISEASE, UNSPECIFIED Status: Chronic Comment: stable - Plan vent dependant, cont nebs, antibx, etc -: CM for placement in terminal make up operator care -: weakness , edema R arm- post CVA?- CT brain * .
--- NOTE | 2018-04-30 09:36 | RAD ---
FRONTAL RADIOGRAPH CHEST: Date: 04/30/18 COMPARISON: 04/27/18. HISTORY: Congestive heart failure. FINDINGS: There is a tracheostomy tube in stable position. No pneumothorax is noted. There is atherosclerotic c alcification of the aortic arch. There is pulmonary vascular congestion with perihilar and bibasilar interstitial prominence, left gre ater than right, as well as small bilateral pleural effusions and mild bibasilar air space disease. R ight greater than left. When compared to the 04/27/18 examination, aeration within bilateral lung bas es and perihilar regions has significantly improved. IMPRESSION: Findings suggesting interval improvement of pulmonary edema. Superimposed infection cannot be exclude d. Recommend follow-up to full resolution. POS: FERNANDO
--- NOTE | 2018-04-30 10:19 | CT ---
CT BRAIN WITHOUT CONTRAST: DATE: 04/30/18. COMPARISON: 12/06/15. HISTORY: Possible stroke, right arm weakness over 7-8 months. TECHNIQUE: Serial axial CT imaging at 5 mm intervals from vertex through the skull base without contrast. FINDINGS: There is wall thickening and increased sclerosis involving the right sphenoid sinus, a stable finding . The mastoid air cells on the left are opacified, stable. No displaced calvarial fracture. No int racranial hemorrhage, midline shift, mass effect, or ventricular enlargement. IMPRESSION: Stable head CT - no intracranial hemorrhage seen. If there is clinical concern for acute infarction, brain MRI recommended. POS: FERNANDO
[2018-04-30] MEDS: Apixaban 5 MG TAB PO SCH ×2 (10:22→21:39)
[2018-04-30] MEDS: predniSONE 20 MG TAB PO SCH (10:22)
[2018-04-30] MEDS: Furosemide 20 MG TAB PO SCH (10:23)
[2018-04-30] MEDS: Diabetic Tussin 200 MG/10 ML UDCUP PO SCH ×3 (10:23→21:38)
[2018-04-30] MEDS: Famotidine 20 MG TAB PO SCH ×2 (10:23→21:39)
[2018-04-30] MEDS: Docusate Sodium 100 MG/10 ML UDCUP PER TUBE SCH (10:23)
[2018-04-30] MEDS: Amoxicillin/Potassium Clav 250 mg/5 ml Oral Suspension PO SCH (10:43)
[2018-04-30] MEDS: clonazePAM 1 MG TAB PO SCH (10:43)
[2018-04-30] MEDS ORDERED: clonazePAM 0.5 MG TAB PO SCH (21:30)
[2018-05-01] MEDS: clonazePAM 1 MG TAB PO SCH (07:17)
--- NOTE | 2018-05-01 08:06 | PRG ---
DATE OF SERVICE: 05/01/2018 Mr. Jones this morning remains awake, alert, responsive. He is weak. His right upper extremity is still weak. A CT of his head at least twice shows no acute infarct. X-ray showed no broken bones. PHYSICAL EXAMINATION: VITAL SIGNS: Pulse is 98, blood pressure 90/56, sats 90% on 35% trach collar, respirations 18, he is afebrile. CHEST: Chest reveals decreased breath sounds, no wheezing. CARDIAC: Normal S1, S2, no gallops. ABDOMEN: Soft. EXTREMITIES: No edema. NEUROLOGIC: Awake, alert, responsive. IMPRESSION: 1. Respiratory failure, end-stage, status post trach. 2. Recurrent supraventricular tachycardia. 3. Right upper weakness. 4. Status post trach and PEG. PLAN: The patient is unlikely to be able to go home without any kind of help. I am not really so s ure he is a candidate for a chcf. He probably needs to go to LTAC until he gets stronger and is able to ambulate and move. I will discuss with appropriate physicians involved. In the meantime, neb treatments and steroids. One-half hour critical care time.
[2018-05-01] MEDS: Famotidine 20 MG TAB PO SCH ×2 (09:01→21:36)
[2018-05-01] MEDS: Scopolamine 1.5 mg/72 hour Patch TD SCH (09:02)
[2018-05-01] MEDS: predniSONE 20 MG TAB PO SCH (09:02)
[2018-05-01] MEDS: Furosemide 20 MG TAB PO SCH (09:02)
[2018-05-01] MEDS: Apixaban 5 MG TAB PO SCH ×2 (09:02→21:36)
[2018-05-01] MEDS: clonazePAM 0.5 MG TAB PO SCH ×2 (09:08→21:36)
--- NOTE | 2018-05-01 10:09 | PDOC.PN ---
- Subjective Encounter Start Date: 05/01/18 Encounter Start Time: 10:07 Subjective: alert, post trach-on vent - Objective MAR Reviewed: Yes Vital Signs & Weight: Vital Signs (12 hours) Temp Pulse Resp BP Pulse Ox 05/01/18 10:02 91 26 H 94 L 05/01/18 08:00 98.7 F 100 18 94 L 05/01/18 07:07 89 20 96 05/01/18 06:00 18 05/01/18 04:00 97.9 F 18 05/01/18 02:12 78 107/47 L 05/01/18 02:00 21 H 05/01/18 00:00 22 H 04/30/18 22:50 89 100/54 L Weight Admit Weight 138 lb 14.259 oz Weight 2.293 oz Most Recent Monitor Data Heart Rate from ECG 95 NIBP 97/55 NIBP BP-Mean 71 Respiration from ECG 22 SpO2 92 I&O: 04/30/18 05/01/18 05/02/18 06:59 06:59 06:59 Intake Total 2383 1075 90 Output Total 2550 3430 155 Balance -167 -2355 -65 Result Diagrams: 04/30/18 04:34 04/30/18 04:34 Phys Exam - Physical Examination Neck: no JVD bilat, rhonchi, coarse BS Cardiovascular: no significant murmur, irregular Gastrointestinal: soft, non-tender, positive bowel sounds PEG Musculoskeletal: no edema Dx/Plan (1) Afib Code(s): I48.91 - UNSPECIFIED ATRIAL FIBRILLATION Status: Chronic Qualifiers: Atrial fibrillation type: chronic Qualified Code(s): I48.2 - Chronic atrial fibrillation Comment: cardizem on hold, heart rate in 90s (2) Acute on chronic respiratory failure with hypoxia and hypercapnia Code(s): J96.21 - ACUTE AND CHRONIC RESPIRATORY FAILURE WITH HYPOXIA; J96.22 - ACUTE AND CHRONIC RESPIRATORY FAILURE WITH HYPERCAPNIA Status: Acute Comment : s/p tracheostomy, in CCU (3) COPD exacerbation Code(s): J44.1 - CHRONIC OBSTRUCTIVE PULMONARY DISEASE W (ACUTE) EXACERBATION Status: Acute Comment: s/p tracheostomy (4) HTN (hypertension) Code(s): I10 - ESSENTIAL (PRIMARY) HYPERTENSION Status: Chronic Qualifiers: Hypertension type: essential hypertension Qualified Code(s): I10 - Essential (primary) hypertension Comment: cardizem on hold for hypotension (5) Mild protein-calorie malnutrition Code(s): E44.1 - MILD PROTEIN-CALORIE MALNUTRITION Status: Chronic Comment: improving with modified diet, stbale,. (6) Osteoarthritis Code(s): M19.90 - UNSPECIFIED OSTEOARTHRITIS, UNSPECIFIED SITE Status: Chronic Qualifiers: Osteoarthritis location: unspecified site Osteoarthritis type: unspecified Qualified Code(s): M19.90 - Unspecified osteoarthritis, unspecified site Comment: stable (7) PVD (peripheral vascular disease) Code(s): I73.9 - PERIPHERAL VASCULAR DISEASE, UNSPECIFIED Status: Chronic Comment: stable - Plan vent dependent COPD/ resp failure- post trach -: cont nebs, etc -: on diltiazem, anticoag for atrial fib -: LTAC consult * .
[2018-05-01] MEDS: Diabetic Tussin 200 MG/10 ML UDCUP PO SCH ×3 (11:08→21:36)
[2018-05-01] MEDS: Docusate Sodium 100 MG/10 ML UDCUP PER TUBE SCH (11:09)
--- NOTE | 2018-05-02 08:25 | PRG ---
DATE OF SERVICE: 05/02/2018 This morning he is awake, alert, responsive, in severe distress, unable to sit up and stand without g etting markedly out of breath. PHYSICAL EXAMINATION: VITAL SIGNS: Sats 100%, blood pressure is 90/40. CHEST: Chest revealed decreased breath sounds, minimal rhonchi. CARDIAC: Sinus tachycardia. ABDOMEN: Soft. EXTREMITIES: Trace edema. NEURO: He is awake, alert, and responsive. I spoke to the LTAC physician taking care of Mr. Jones placement out of [facility]. She, at this stage, has denied to him going to an LTAC. They have criteria for LTAC admission. It appears the ma in criteria as per the doctor was that he was not long enough in the hospital with a trach in to qual anaya for LTAC. They said a minimal of 2-3 weeks with a trach in place was a qualifying need for him t o go to an LTAC. We have reapplied and a final motion to reappeal his denial. The licensed master social worker was informed about it. PLAN: Continue aggressive PT, neb treatments, supportive care.
[2018-05-02] MEDS: Famotidine 20 MG TAB PO SCH ×2 (08:56→21:58)
[2018-05-02] MEDS: Furosemide 20 MG TAB PO SCH (08:56)
[2018-05-02] MEDS: Apixaban 5 MG TAB PO SCH ×2 (08:56→21:58)
[2018-05-02] MEDS: Docusate Sodium 100 MG/10 ML UDCUP PER TUBE SCH (08:56)
[2018-05-02] MEDS: Diabetic Tussin 200 MG/10 ML UDCUP PO SCH ×3 (08:56→21:59)
[2018-05-02] MEDS: predniSONE 20 MG TAB PO SCH (08:57)
[2018-05-02] MEDS: clonazePAM 0.5 MG TAB PO SCH ×2 (09:10→22:03)
--- NOTE | 2018-05-02 09:20 | PDOC.PN ---
- Subjective Encounter Start Date: 05/02/18 Encounter Start Time: :18 Subjective: no complaints - Objective MAR Reviewed: Yes Vital Signs & Weight: Vital Signs (12 hours) Temp Pulse Resp BP Pulse Ox 05/02/18 08:00 98.8 F 95 26 H 93 L 05/02/18 06:48 85 22 H 100 05/02/18 06:00 22 H 05/02/18 04:00 98.9 F 20 05/02/18 02:18 94 05/02/18 02:00 18 05/02/18 00:00 98.6 F 18 05/01/18 22:06 92 141/70 H Weight Admit Weight 138 lb 14.259 oz Weight 141 lb 1.533 oz Most Recent Monitor Data Heart Rate from ECG 99 NIBP 152/61 NIBP BP-Mean 79 Respiration from ECG 29 SpO2 88 I&O: 05/01/18 05/02/18 05/03/18 06:59 06:59 06:59 Intake Total 1075 720 Output Total 3430 3110 180 Balance -9525 -2390 -180 Result Diagrams: 04/30/18 04:34 04/30/18 04:34 Phys Exam - Physical Examination Neck: no JVD trach distant BS, rhonchi Cardiovascular: RRR, no significant murmur Gastrointestinal: soft, positive bowel sounds PEG Musculoskeletal: no edema Dx/Plan (1) Afib Code(s): I48.91 - UNSPECIFIED ATRIAL FIBRILLATION Status: Chronic Qualifiers: Atrial fibrillation type: chronic Qualified Code(s): I48.2 - Chronic atrial fibrillation Comment: cardizem on hold, heart rate in 90s (2) Acute on chronic respiratory failure with hypoxia and hypercapnia Code(s): J96.21 - ACUTE AND CHRONIC RESPIRATORY FAILURE WITH HYPOXIA; J96.22 - ACUTE AND CHRONIC RESPIRATORY FAILURE WITH HYPERCAPNIA Status: Acute Comment : s/p tracheostomy, in CCU (3) COPD exacerbation Code(s): J44.1 - CHRONIC OBSTRUCTIVE PULMONARY DISEASE W (ACUTE) EXACERBATION Status: Acute Comment: s/p tracheostomy (4) HTN (hypertension) Code(s): I10 - ESSENTIAL (PRIMARY) HYPERTENSION Status: Chronic Qualifiers: Hypertension type: essential hypertension Qualified Code(s): I10 - Essential (primary) hypertension Comment: cardizem on hold for hypotension (5) Mild protein-calorie malnutrition Code(s): E44.1 - MILD PROTEIN-CALORIE MALNUTRITION Status: Chronic Comment: improving with modified diet, stbale,. (6) Osteoarthritis Code(s): M19.90 - UNSPECIFIED OSTEOARTHRITIS, UNSPECIFIED SITE Status: Chronic Qualifiers: Osteoarthritis location: unspecified site Osteoarthritis type: unspecified Qualified Code(s): M19.90 - Unspecified osteoarthritis, unspecified site Comment: stable (7) PVD (peripheral vascular disease) Code(s): I73.9 - PERIPHERAL VASCULAR DISEASE, UNSPECIFIED Status: Chronic Comment: stable - Plan nebs, vent, O2 -: nutrition -: PT * .
[2018-05-03] MEDS ORDERED: Sodium Chloride 0.9% 500 ML IVPB SCH (03:00)
[2018-05-03 04:30] LABS: Hemoglobin 7.9 g/dL (14.0-18.0); Platelet Count 200 thou/uL (130-400)
[2018-05-03 05:03] LABS: Calc. Creatinine Clearance 152 mL/min (70-130); Estimated GFR-MDRD Greater than 90
--- NOTE | 2018-05-03 08:11 | PRG ---
DATE OF SERVICE: 05/03/2018 This morning he is better. He is less short of breath. We are trying to get him to a long-term plac e to try and get stronger. Eventually probably home. More than likely his trach is permanent for e time being. PHYSICAL EXAMINATION: VITAL SIGNS: His pulse is 84, blood pressure 93/54, sats are 96%, 35% trach, decrease it to 30%, res piration 22. I's & O's have been good, 720 in, 3110. CHEST: Chest reveals decreased breath sounds, no wheezing. CARDIAC: Normal S1, S2. No gallops or rubs. No gallops. ABDOMEN: No masses. . EXTREMITIES: No edema. H&H is and 7.9 and 24. IMPRESSION: 1. Chronic obstructive pulmonary disease with respiratory failure, end stage, status post trach. 2. Recurrent supraventricular tachycardia. PLAN: Decrease prednisone to 10, decrease the FiO2 to 30%. Continue PT, placement.
[2018-05-03 08:17] VITALS: BMI 20.1
[2018-05-03] MEDS: clonazePAM 0.5 MG TAB PO SCH ×2 (10:07→21:02)
[2018-05-03] MEDS: Apixaban 5 MG TAB PO SCH ×2 (10:07→21:02)
[2018-05-03] MEDS: predniSONE 5 MG TAB PO SCH (10:07)
[2018-05-03] MEDS: Furosemide 20 MG TAB PO SCH (10:08)
[2018-05-03] MEDS: Famotidine 20 MG TAB PO SCH ×2 (10:08→21:02)
[2018-05-03] MEDS: Diabetic Tussin 200 MG/10 ML UDCUP PO SCH ×3 (10:08→21:03)
[2018-05-03] MEDS: Docusate Sodium 100 MG/10 ML UDCUP PER TUBE SCH (10:09)
--- NOTE | 2018-05-03 10:58 | PDOC.PN ---
- Subjective Encounter Start Date: 05/03/18 Encounter Start Time: 10:56 Subjective: no distress, alert - Objective MAR Reviewed: Yes Vital Signs & Weight: Vital Signs (12 hours) Temp Pulse Resp BP Pulse Ox 05/03/18 10:49 87 29 H 96 05/03/18 08:00 98 F 05/03/18 07:30 96 05/03/18 07:13 72 102/62 05/03/18 07:10 76 14 99 05/03/18 04:21 84 05/03/18 04:00 98.2 F 05/03/18 03:58 100 05/03/18 00:00 98.0 F 05/02/18 23:33 89 113/60 05/02/18 23:29 99 Weight Admit Weight 138 lb 14.259 oz Weight 140 lb 10.479 oz Most Recent Monitor Data Heart Rate from ECG 85 NIBP 112/62 NIBP BP-Mean 90 Respiration from ECG 17 SpO2 100 I&O: 05/02/18 05/03/18 05/04/18 06:59 06:59 06:59 Intake Total 720 2358 Output Total 3110 1995 125 Balance -2390 363 -125 Result Diagrams: 05/03/18 04:10 05/03/18 04:10 Phys Exam - Physical Examination Neck: no JVD hyperresonant, distant BS Cardiovascular: RRR, no significant murmur Gastrointestinal: soft, non-tender Musculoskeletal: no edema Dx/Plan (1) Afib Code(s): I48.91 - UNSPECIFIED ATRIAL FIBRILLATION Status: Chronic Qualifiers: Atrial fibrillation type: chronic Qualified Code(s): I48.2 - Chronic atrial fibrillation Comment: cardizem on hold, heart rate in 90s (2) Acute on chronic respiratory failure with hypoxia and hypercapnia Code(s): J96.21 - ACUTE AND CHRONIC RESPIRATORY FAILURE WITH HYPOXIA; J96.22 - ACUTE AND CHRONIC RESPIRATORY FAILURE WITH HYPERCAPNIA Status: Acute Comment : s/p tracheostomy, in CCU (3) COPD exacerbation Code(s): J44.1 - CHRONIC OBSTRUCTIVE PULMONARY DISEASE W (ACUTE) EXACERBATION Status: Acute Comment: s/p tracheostomy (4) HTN (hypertension) Code(s): I10 - ESSENTIAL (PRIMARY) HYPERTENSION Status: Chronic Qualifiers: Hypertension type: essential hypertension Qualified Code(s): I10 - Essential (primary) hypertension Comment: cardizem on hold for hypotension (5) Mild protein-calorie malnutrition Code(s): E44.1 - MILD PROTEIN-CALORIE MALNUTRITION Status: Chronic Comment: improving with modified diet, stbale,. (6) Osteoarthritis Code(s): M19.90 - UNSPECIFIED OSTEOARTHRITIS, UNSPECIFIED SITE Status: Chronic Qualifiers: Osteoarthritis location: unspecified site Osteoarthritis type: unspecified Qualified Code(s): M19.90 - Unspecified osteoarthritis, unspecified site Comment: stable (7) PVD (peripheral vascular disease) Code(s): I73.9 - PERIPHERAL VASCULAR DISEASE, UNSPECIFIED Status: Chronic Comment: stable - Plan cont current plan of care, PT/OT, respiratory therapy weaning in progress * .
[2018-05-03 19:39] VITALS: BP 107/59
--- NOTE | 2018-05-04 08:06 | PRG ---
DATE OF SERVICE: 05/04/2018 This morning he is awake, alert, responsive . He has been off the vent for 24 hours. PHYSICAL EXAMINATION: VITAL SIGNS: Blood pressure 110/58, sats 96% on room air, respirations 29, pulse 80, he is afebrile. CHEST: Chest revealed decreased breath sounds, no wheezing. CARDIAC: Normal S1-S2. No gallops. ABDOMEN: No masses. IMPRESSION: 1. End-stage chronic obstructive pulmonary disease. 2. Supraventricular tachycardia. PLAN: Trach and PEG in. I have asked Speech to see him regarding considering a swallow test. Eventually placement. Keep in the ICU until he is able to be transferred to a long-term facility.
[2018-05-04] MEDS: Scopolamine 1.5 mg/72 hour Patch TD SCH (08:57)
[2018-05-04] MEDS: Diabetic Tussin 200 MG/10 ML UDCUP PO SCH ×3 (08:57→20:16)
[2018-05-04] MEDS: Famotidine 20 MG TAB PO SCH ×2 (08:58→20:16)
[2018-05-04] MEDS: Docusate Sodium 100 MG/10 ML UDCUP PER TUBE SCH (08:58)
[2018-05-04] MEDS: Furosemide 20 MG TAB PO SCH (08:58)
[2018-05-04] MEDS: predniSONE 5 MG TAB PO SCH (08:58)
[2018-05-04] MEDS: Apixaban 5 MG TAB PO SCH ×2 (08:58→20:16)
[2018-05-04] MEDS: clonazePAM 0.5 MG TAB PO SCH ×2 (09:41→20:16)
--- NOTE | 2018-05-04 23:10 | PDOC.PN ---
- Subjective Encounter Start Date: 05/04/18 Encounter Start Time: 23:08 Subjective: nsg notes rev, jose alejandro ovn -: pt with trach in place - able to appropriately nod/ shake head to questions -: denies any pain, discomfort, dififculty breathing, or abdominal issues - Objective Vital Signs & Weight: Vital Signs (12 hours) Temp Pulse Resp Pulse Ox 05/04/18 22:09 83 26 H 92 L 05/04/18 20:00 98.2 F 05/04/18 18:18 86 36 H 96 05/04/18 16:00 98.1 F 05/04/18 14:44 104 H 37 H 91 L 05/04/18 12:00 98.3 F 05/04/18 11:15 107 H 32 H 99 Weight Admit Weight 138 lb 14.259 oz Weight 133 lb 13.129 oz Most Recent Monitor Data Heart Rate from ECG 81 NIBP 112/61 NIBP BP-Mean 71 Respiration from ECG 15 SpO2 95 I&O: 05/03/18 05/04/18 05/05/18 06:59 06:59 06:59 Intake Total 6706 1413 494 Output Total 1994 6600 2307 Balance 067 -4621 -9199 Result Diagrams: 05/03/18 04:10 05/03/18 04:10 Phys Exam - Physical Examination Constitutional: NAD lying in hospital bed, easily aroused from sleep HEENT: sclera anicteric slightly dry mm, trach site c/d/i Respiratory: no wheezing, no rales, no rhonchi limited anterior exam - coarse breath sounds throughout Cardiovascular: RRR, no significant murmur, no rub Gastrointestinal: soft, non-tender, no distention, positive bowel sounds PEG site c/d/i Dx/Plan - Plan cont current plan of care (1) Afib rate controlled cardizem on hold, heart rate in 90s (2) Acute on chronic respiratory failure with hypoxia and hypercapnia s/p tracheostomy, in CCU apprec pulm c/s able to use speech valve for very short periods of time only will need LTACH placement (3) COPD exacerbation see above (4) HTN (hypertension) cardizem on hold for hypotension (5) Mild protein-calorie malnutrition s/p PEG tube, continue TF (6) Osteoarthritis stable (7) PVD (peripheral vascular disease) stable diet: TF activity: as conner Review of Systems - Medications/Allergies Allergies/Adverse Reactions: Allergies Allergy/AdvReac Type Severity Reaction Status Date / Time No Known Drug Allergies Allergy Verified 01/18/18 08:54 Medications: Current Medications Acetaminophen (Tylenol Elixir) 650 mg PER TUBE Q4H PRN PRN Reason: Headache/Fever or Pain Last Admin: 04/29/18 09:25 Dose: 650 mg Albuterol/Ipratropium (Duoneb) 3 ml NEB [id number] [facility] Last Admin: 05/04/18 22:09 Dose: 3 ml Apixaban (Eliquis) 5 mg PO BID [facility] Last Admin: 05/04/18 20:16 Dose: 5 mg Clonazepam (Klonopin) 2 mg PO BID [facility] Last Admin: 05/04/18 20:16 Dose: 2 mg Diltiazem HCl (Cardizem) 30 mg PER TUBE TID [facility] Last Admin: 05/04/18 20:17 Dose: 30 mg Docusate Sodium (Colace Liquid) 100 mg PER TUBE DAILY [facility] Last Admin: 05/04/18 08:58 Dose: Not Given Famotidine (Pepcid) 20 mg PO BID [facility] Last Admin: 05/04/18 20:16 Dose: 20 mg Furosemide (Lasix) 20 mg PO DAILY [facility] Last Admin: 05/04/18 08:58 Dose: 20 mg Guaifenesin (Robitussin Sf) 400 mg PO TID [facility] Last Admin: 05/04/18 20:16 Dose: 400 mg Ondansetron HCl (Zofran) 4 mg IVP Q6H PRN PRN Reason: Nausea/Vomiting Last Admin: 04/26/18 04:23 Dose: 4 mg Pantoprazole Sodium (Protonix) 40 mg PO DAILY PRN PRN Reason: Heartburn or Indigestion Prednisone (Prednisone) 10 mg PO QAM-WM [facility] Last Admin: 05/04/18 08:58 Dose: 10 mg Scopolamine (Transderm Scop) 1.5 mg TD Q3D [facility] Last Admin: 05/04/18 08:57 Dose: 1.5 mg Sodium Chloride (Flush - Normal Saline) 10 ml IVF Q12HR [facility] Last Admin: 05/04/18 20:17 Dose: 10 ml Sodium Chloride (Flush - Normal Saline) 10 ml IVF PRN PRN PRN Reason: Saline Flush
[2018-05-05 06:47] LABS: Hemoglobin 9.3 g/dL (14.0-18.0); Platelet Count 219 thou/uL (130-400)
[2018-05-05 07:05] LABS: Calc. Creatinine Clearance 92 mL/min (70-130); Estimated GFR-MDRD Greater than 90
[2018-05-05] MEDS: clonazePAM 0.5 MG TAB PO SCH (09:50)
[2018-05-05] MEDS: Diabetic Tussin 200 MG/10 ML UDCUP PO SCH (09:50)
[2018-05-05] MEDS: Furosemide 20 MG TAB PO SCH (09:51)
[2018-05-05] MEDS: Apixaban 5 MG TAB PO SCH (09:51)
[2018-05-05] MEDS: Docusate Sodium 100 MG/10 ML UDCUP PER TUBE SCH (09:51)
[2018-05-05] MEDS: Famotidine 20 MG TAB PO SCH (09:51)
[2018-05-05] MEDS: predniSONE 5 MG TAB PO SCH (09:53)
--- NOTE | 2018-05-05 11:17 | PRG ---
DATE OF SERVICE: 05/05/2018 SERVICE: Pulmonary Medicine. INTERVAL HISTORY: The patient is doing fine from a respiratory standpoint. He is breathing comforta kb. He is in no apparent distress. Otherwise, there has been no interval change to his condition. He is tolerating T-collar trial just fine. PHYSICAL EXAMINATION: VITAL SIGNS: Afebrile, pulse 107, blood pressure 106/60, respirations 25, saturation 94% on T-collar . GENERAL: The patient is awake and alert, in no apparent distress. LUNGS: Decreased air entry. Rhonchi are present. There is a prolonged expiratory phase, but he is not moving enough air to hear wheezing or crackles. HEART: Normal rate, regular. ABDOMEN: Soft, nontender, nondistended. Bowel sounds are positive. MUSCULOSKELETAL: No cyanosis or clubbing. There is no pitting in the bilateral lower extremities. NEUROLOGIC: It demonstrates paresis of the right upper extremity. Otherwise, nonfocal. LABORATORY DATA: Hemoglobin 9.3, creatinine 0.51. Blood cultures x2 remain negative. ASSESSMENT: 1. Acute on chronic hypoxic and hypercapnic respiratory failure, resolved to baseline. 2. Chronic obstructive pulmonary disease, end-stage. PLAN: We will transition him off of his continuous feeds on to bolus feeds. We will have him work w [facility] therapy and occupational therapy in order to recover strength. We will try to get him i nto a chair x2 times on a daily basis. Ultimately, he is stable for transition out of the hospital p rovided that we find the appropriate level of care for him.
[2018-05-05 15:48] VITALS: TEMP 98.7
--- NOTE | 2018-05-06 00:01 | DIS ---
DATE OF ADMISSION: 04/19/2018 DATE OF DISCHARGE: 05/05/2018 DISCHARGE DISPOSITION: To the [facility]. MEDICATIONS: Reconciled at discharge, 1. Tylenol elixir 650 mg q.4 hours p.r.n. 2. Diltiazem 30 mg per tube t.i.d. 3. Docusate sodium 100 mg per tube daily. 4. Famotidine 20 mg per tube b.i.d. 5. DuoNeb q.4 hours scheduled. 6. Zofran 4 mg IV q.6 hours p.r.n. 7. Scopolamine patch 1.5 mg every 3 days. 8. Clonazepam 2 mg p.o. b.i.d. 9. Prednisone 10 mg daily. 10. Furosemide 20 mg daily. 11. Eliquis 5 mg b.i.d. 12. Protonix 40 mg daily. HOME MEDICATIONS THAT WERE DISCONTINUED: 1. Carvedilol. 2. Potassium. 3. Higher dose of clonazepam. 4. Symbicort. 5. Guaifenesin. 6. Higher dose of prednisone. FINAL DIAGNOSES: 1. Acute on chronic respiratory failure secondary to COPD now s/p trach and PEG tube 2. Hypertension 3. Atrial flutter 4. Sepsis secondary to pneumonia, resolved. 5. Encephalopathy, resolved. 6. Protein Calorie Malnutrition. 7. Peripheral Vascular Disease. 8. Osteoarthritis. HOSPITAL COURSE: Mr. Jones is a 68-year-old male with severe COPD and frequent hospitalizations who came to the hospital after severe shortness of breath. He was hypoxic and hypercapnic, was intubated and a chest CT showed pneumonia for which he was started on antibiotics. This was considered a COPD exacerbation and he was admitted to the ICU. Patient was managed by Pulmonology , he was unable to be weaned from the ventilator due to acute on chronic respiratory failure, and bronchoscopy was performed on 04/25/[address] Thorne, which showed large volume of retained secretions. Bronchial washings were performed. Patient underwent PEG tube placement and tracheostomy on 04/24/2018 and tolerated this well. He has been on continuous feeding and will roll changer to bolus feeding at the LTAC. Patient underwent a tracheostomy and PEG tube placement on 04/24/[address] Dale due to inability to wean from the ventilator. He has been optimized with the tracheostomy, and has been off of the ventilator for 2 nights with sats of 96% with a trach collar 28% O2. Also during this hospitalization, Cardiology was consulted for atrial flutter, with the recommendation to roll changer to a low dose calcium channel vilma rather than a beta vilma. Patient has tolerated the diltiazem with his heart rates in the 100s and 110s. The patient has been overall considered stable for transfer to a long-term acute care hospital for management of the trach and PEG tubes, strengthening and optimization. PHYSICAL EXAMINATION: VITAL SIGNS: On day of discharge, blood pressure 96/52, pulse 111, respirations 30, saturations 99% on trach collar. GENERAL: Patient is awake, responsive, in no apparent distress. LUNGS: Fair air movement. No audible wheezing or rhonchi. HEART: Normal S1, S2: Regular rate, no audible murmurs, although distant heart sounds. ABDOMEN: Soft. Present bowel sounds. Nontender. EXTREMITIES: No clubbing. No edema. NEUROLOGIC: Right upper extremity contracture of the hand. ZEPEDA FINDINGS AND TEST RESULTS: For this hospitalization, creatinine today 0.51 , last metabolic panel 04/30/2018, 142, 3.5, 101, 35, 8, 0.43, 112. Troponins at admission negative. Hemoglobin 9.3 today. Last CBC was 14.3, 8.3, 25.9, 181 on 04/30/2018. OTHER ZEPEDA FINDINGS: Brain CT on 04/30/2018, stable head CT, no intracranial hemorrhage. Chest x-ray on 04/30/2018, findings suggestive of interval improvement of pulmonary edema, superimposed infection cannot be excluded. Chest x-ray on 04/27/2018, worsening bilateral interstitial and alveolar parenchymal changes and pleural effusions. Shoulder x-ray on 04/23/2018, no evidence of an acute abnormality. Humerus x-ray 04/23/2018, no evidence of an acute abnormality. CT angiogram of the chest 04/18/2018 shows no evidence of PE, evidence of interstitial lung disease, question associated inflammatory infiltrate of the left upper lobe along the fissure, small left effusion and left basilar atelectasis and/or infiltrate posteriorly. DIET: Tube feeds information placed on the chart about this. Hinton catheter is in place. CODE STATUS: FULL. FOLLOW UP: Patient consented to transfer, ex- and best friend here at time of transfer. No questions or further needs. Total time coordinating discharge is 30 minutes. MTDD
== END 2018-05-05 17:20 | DRG 3 ==
LOC: ERS 22:49 → CCU 04-19 01:04
PROVIDERS: ADMIT Hospitalist; ATTEND Hospitalist
PROC: 5A1955Z Respiratory Ventilation, Greater than 96 Consecutive Hours (ICD-10-PCS; 2018-04-19)
PROC: 5A09357 Assistance with Respiratory Ventilation, Less than 24 Consecutive Hours, Continuous Positive Airway Pressure (ICD-10-PCS; 2018-04-23)
PROC: 0BH18EZ Insertion of Endotracheal Airway into Trachea, Via Natural or Artificial Opening Endoscopic (ICD-10-PCS; 2018-04-23)
PROC: 0B113F4 Bypass Trachea to Cutaneous with Tracheostomy Device, Percutaneous Approach (ICD-10-PCS; principal; 2018-04-24)
PROC: 0DH63UZ Insertion of Feeding Device into Stomach, Percutaneous Approach (ICD-10-PCS; 2018-04-24)
PROC: 0B9D8ZZ Drainage of Right Middle Lung Lobe, Via Natural or Artificial Opening Endoscopic (ICD-10-PCS; 2018-04-25)
PROC: 0B9C8ZZ Drainage of Right Upper Lung Lobe, Via Natural or Artificial Opening Endoscopic (ICD-10-PCS; 2018-04-25)
PROC: 0B9J8ZZ Drainage of Left Lower Lung Lobe, Via Natural or Artificial Opening Endoscopic (ICD-10-PCS; 2018-04-25)
PROC: 0B9G8ZZ Drainage of Left Upper Lung Lobe, Via Natural or Artificial Opening Endoscopic (ICD-10-PCS; 2018-04-25)
PROC: 3E1F88Z Irrigation of Respiratory Tract using Irrigating Substance, Via Natural or Artificial Opening Endoscopic (ICD-10-PCS; 2018-04-25)
DX: A41.9 Sepsis, unspecified organism (principal); J96.21 Acute and chronic respiratory failure with hypoxia; J18.9 Pneumonia, unspecified organism; G93.49 Other encephalopathy; J96.22 Acute and chronic respiratory failure with hypercapnia; J44.1 Chronic obstructive pulmonary disease with (acute) exacerbation; J44.0 Chronic obstructive pulmonary disease with (acute) lower respiratory infection; E87.3 Alkalosis; E44.0 Moderate protein-calorie malnutrition; Z68.1 Body mass index [BMI] 19.9 or less, adult; I48.92 Unspecified atrial flutter; I47.1 Supraventricular tachycardia; L89.151 Pressure ulcer of sacral region, stage 1; I48.2 Chronic atrial fibrillation; I49.1 Atrial premature depolarization; R73.9 Hyperglycemia, unspecified; J43.9 Emphysema, unspecified; M19.90 Unspecified osteoarthritis, unspecified site; E86.0 Dehydration; I10 Essential (primary) hypertension; I73.9 Peripheral vascular disease, unspecified; F41.9 Anxiety disorder, unspecified; K21.9 Gastro-esophageal reflux disease without esophagitis; K59.00 Constipation, unspecified; D53.9 Nutritional anemia, unspecified; F17.210 Nicotine dependence, cigarettes, uncomplicated; Z78.1 Physical restraint status; Z79.899 Other long term (current) drug therapy; Z79.52 Long term (current) use of systemic steroids; Z90.49 Acquired absence of other specified parts of digestive tract; Z91.81 History of falling
CPT/HCPCS: 36415; 70450; 71045; 71275; 74018; 80048; 80053; 80202; 82553; 82565; 82805; 83735; 83880; 84100; 84484; 85014; 85018; 85025; 85049; 87040; 90471; 90670; 93005; 93010; 94002; 94003; 94640; 94660; 94760; 96365; 96366; 96367; 96375; A4216; G0009; G8978-GP-CN; G8979-GP-CK; G8979-GP-CL; G8996-GN-CN; G8997-GN-CK; J1940; J1956; J2001; J2060; J2250; J2270; J2405; J2543; J2704; J2920; J3010; J3370; J3475; J7050; J7506; J7620; S0028

== ENCOUNTER 2018-06-14 09:20 | Inpatient (IN) | payer MEDICARE, MEDICAID ==
[2018-06-14 10:26] LABS: #Basophils 0.1 thou/uL (0.0-0.2); #Eosinphils 0.4 thou/uL (0.0-0.7); #Lymphocytes 1.9 thou/uL (1.20-3.40); #Monocytes 1.5 thou/uL (0.11-0.59); %Basophils 0.6 % (0.0-1.0); %Eosinophils 2.8 % (0.0-10.0); %Lymphocytes 12.7 % (21.0-51.0); %Monocytes 9.9 % (0.0-10.0); %Neutrophils 74.1 % (42.0-75.0); Hemoglobin 11.7 g/dL (14.0-18.0); Mean Corpuscular HGB CONC 32.2 g/dL (32.0-36.0); Mean Corpuscular Hemoglobin 24.5 pg (27.0-31.0); Mean Corpuscular Volume 75.9 fL (78.0-98.0); Mean Platelet Volume 10.1 fL (7.4-10.4); Platelet Count 307 thou/uL (130-400); RBC Distribution Width 17.3 % (11.5-14.5); Red Blood Cell (RBC) Count 4.77 mill/uL (4.70-6.10); White Blood Cell (WBC) Count 14.9 thou/uL (4.8-10.8)
[2018-06-14 10:45] LABS: ALT (SGPT) 14 U/L (8-55); AST (SGOT) 16 U/L (5-34); Albumin 3.8 g/dL (3.4-4.8); Alkaline Phosphatase 85 U/L (40-150); Anion Gap 14 mmol/L (10-20); BUN (Urea Nitrogen) 8 mg/dL (8.4-25.7); Bilirubin, Total 0.3 mg/dL (0.2-1.2); Calc. Creatinine Clearance 0 mL/min (70-130); Calcium 9.3 mg/dL (7.8-10.44); Carbon Dioxide 36 mmol/L (23-31); Chloride 92 mmol/L (98-107); Estimated GFR-MDRD Greater than 90; Globulin 3.5 g/dL (2.4-3.5); Glucose 95 mg/dL (80-115); Potassium 3.7 mmol/L (3.5-5.1); Protein, Total 7.3 g/dL (5.8-8.1); Sodium 138 mmol/L (136-145)
[2018-06-14 10:49] LABS: CKMB 1.5 ng/mL (0-6.6); Troponin I Less than 0.010 ng/mL (< 0.028)
--- NOTE | 2018-06-14 10:55 | RAD ---
AP VIEW CHEST: Date: 06/14/18 INDICATION: History of tracheostomy. COMPARISON: Prior exam dated 04/30/18. FINDINGS: There is a left-sided PICC line in place projecting over origin of SVC. There is a tracheostomy tube that is unchanged in position. There is prominent COPD change. Suspicion for small hiatal hernia. No acute osseous abnormality is evident. IMPRESSION: 1. Stable severe COPD. 2. Stable tracheostomy tube. 3. Left-sided PICC line. 4. Suspicion for small hiatal hernia. POS: FERNANDO
[2018-06-14 11:08] LABS: Bilirubin Negative (Negative); Blood, Urine Trace (Negative); Clarity CLOUDY (Clear); Glucose, Urine (Dipstick) Negative (Negative); Leukocyte Large (Negative); Nitrite Negative (Negative); Protein, Urine (Dipstick) Negative (Neg-Trace); Specific Gravity, Urine 1.008 (1.002-1.036); pH, Urine 6.5 (5.0-9.0)
[2018-06-14 11:11] LABS: Bacteria/HPF 1+ HPF (None Seen); Hyaline Casts/LPF 0-3 HYALINE CAST LPF (0-3 Hyaline); Pathc Cast-AUWi Flag 0.29 (0-2.49); RBC/HPF 0-3 HPF (0-3); Squamous Epithelial None Seen HPF (0-3); WBC/HPF 21-50 HPF (0-3)
[2018-06-14] MEDS ORDERED: Diltiazem 125 MG in Sodium Chloride 0.9% 100 ML IVPB SCH (14:30)
[2018-06-14] MEDS ORDERED: niCARdipine 20MG In NaCl 0 MG/0 ML BAG ONE (14:39)
[2018-06-14] MEDS ORDERED: Vancomycin HCl 1 GM in Premix Bag 1 BAG IVPB SCH (15:00)
[2018-06-14] MEDS ORDERED: Senokot 8.6 MG TAB PER TUBE PRN (15:17)
[2018-06-14] MEDS ORDERED: Nitroglycerin 0.4 MG TAB (25 Tab Bottle) PO PRN (15:17)
[2018-06-14] MEDS ORDERED: Piperacillin/Tazobactam 4.5 GM VIAL ONE (15:17)
[2018-06-14] MEDS ORDERED: Simethicone Chewable 80 MG TAB PO PRN (15:23)
--- NOTE | 2018-06-14 15:31 | HP ---
DATE OF ADMISSION: 06/14/2018 PRIMARY CARE PHYSICIAN: Dr. Suleman Neal at [facility]. Patient has seen Dr. Avril Almodovar in the past. PRIMARY CLERICAL WAREHOUSE WORKER: Dr. Thorne. HISTORY OF PRESENT ILLNESS: The patient is a 68-year-old male with chronic respiratory failure with recent tracheostomy, hypertension, and atrial flutter, presented to the emergency room from the nursing facility with low oxygen saturation. His O2 sats in the prison was in 80s. For this reason, EMS was called. After clearing the trachea, his O2 saturation started to improve. His O2 sats per EMS was 95%-98%. He denies any respiratory distress at the time of my evaluation. He has some palpitations. No fever or chills reported. All of his symptoms started this morning. He denies any syncope, dysuria, hematuria, or urgency. PAST MEDICAL HISTORY: 1. Chronic respiratory failure, status post trach and PEG. 2. Hypertension. 3. Recent atrial flutter. 4. Recent pneumonia. 5. Moderate protein-calorie malnutrition. 6. Peripheral vascular disease. 7. Degenerative joint disease. 8. History of tobacco abuse. PAST SURGICAL HISTORY: 1. Recent tracheostomy and PEG tube placement. 2. Appendectomy. 3. Cardiac catheterization. 4. Abdominal surgery. ALLERGIES: No known drug allergies. CURRENT HOME MEDICATIONS: Per prison record, 1. Tylenol as needed. 2. Nebulizer treatment as needed. 3. Aspirin 81 mg daily. 4. Ativan as needed. 5. Brovana twice a day. 6. Cardizem 30 mg 3 times a day. 7. Clonazepam 0.5 mg twice a day. 8. Prednisone 20 mg daily. 9. Apixaban 5 mg twice a day. 10. Famotidine 40 mg b.i.d. 11. Lasix 40 mg daily, melatonin 3 mg daily. 12. Pulmicort nebulization twice a day. 13. Scopolamine patch every 3 days. 14. Simethicone 80 mg as needed. 15. Tramadol as needed. CURRENT DIET: At the nursing facility, Jevity 1.5 mg 4 times a day with water flushes. SOCIAL HISTORY: Patient has a history of smoking. He is currently at [facility] facility. He makes his own decision with the help of his family. He is FULL CODE. FAMILY HISTORY: Reviewed with the patient and none. REVIEW OF SYSTEMS: The following complete review of systems was negative, unless otherwise mentioned in the HPI or below: Constitutional: Weight loss or gain, ability to conduct usual activities. Skin: Rash, itching. Eyes: Double vision, pain. ENT/Mouth: Nose bleeding, neck stiffness, pain, tenderness. Cardiovascular: Palpitations, dyspnea on exertion, orthopnea. Respiratory: Shortness of breath, wheezing, cough, hemoptysis, fever, or night sweats. Gastrointestinal: Poor appetite, abdominal pain, heartburn, nausea, vomiting, constipation, or diarrhea. Genitourinary: Urgency, frequency, dysuria, nocturia. Musculoskeletal: Pain, swelling. Neurologic/Psychiatric: Anxiety, depression. Allergy/Immunologic: Skin rash, bleeding tendency. PHYSICAL EXAMINATION: VITAL SIGNS: Temperature 97.7, respirations 20, pulse rate of 146, blood pressure of 106/68 with O2 saturation 100% on 3-liter nasal cannula. GENERAL: This 68-year-old male appears uncomfortable. Denies any chest pain. HEENT: Head, atraumatic and normocephalic. Sclerae are anicteric. Moist mucous membrane, no oral lesion. NECK: Supple, no JVD appreciated. No carotid bruit. LUNGS: Showed scattered rhonchi, without any rales. No wheezing appreciated. Minimal accessory muscle use noted. HEART: S1 and S2 present, tachycardic, regular rate, no significant rubs or gallops appreciated. No murmurs appreciated. ABDOMEN: Soft. PEG tube present. No rebound or guarding. EXTREMITIES: No edema or calf tenderness. NEUROLOGIC: Grossly nonfocal, moves all 4 extremities. PSYCHIATRY: Alert, awake, oriented x3. SKIN: Warm and dry. LYMPH NODES: No palpable lymph nodes in the neck. PERIPHERAL VASCULAR: Radial pulses palpable bilaterally. MUSCULOSKELETAL: No joint swelling or tenderness. LABORATORY FINDINGS: CBC showed WBC 14.9 with hemoglobin 11.7, hematocrit 36.2 , platelets 307. Chemistries showed sodium 138, potassium 3.7, chloride 92, bicarbonate of 36, BUN 8, creatinine 0.64. Troponins were normal. TSH 1.2. EKG, by my review, showed atrial flutter with rapid ventricular response. Chest x-ray, by my review, showed severe COPD. IMPRESSION: 1. Atrial flutter with rapid ventricular response. 2. COPD Exacerbation. 3. Urinary tract infection. Urinalysis showed 21-50 wbcs with 1+ bacteria. 4. Chronic leukocytosis. 5. Severe chronic obstructive pulmonary disease with chronic respiratory failure, status post tracheostomy and PEG tube. 6. Hypertension. 7. History of tobacco abuse. 8. Peripheral vascular disease. 9. Chronic kidney disease, stage 2. PLAN: The patient will be monitored on the telemetry unit. We will start him on Cardizem drip. Cardiology and Pulmonary will be consulted. We will continue Eliquis. Tube feedings will be resumed. Serial troponins will be done. We will start him on empiric antibiotics for UTI. Urine cultures will be added. Plan of care was discussed with the patient in detail. He stated understanding. LINNEAD
[2018-06-14] MEDS ORDERED: Lorazepam 2 MG/ML VIAL ONE (15:41)
[2018-06-14 16:54] LABS: Phosphorus 2.6 mg/dL (2.3-4.7)
[2018-06-14] MEDS: Digoxin 0.5 MG/2 ML AMP SLOW IVP SCH ×2 (18:45→20:40)
[2018-06-14] MEDS: Budesonide 0.5 MG/2 ML NEB INH SCH (18:55)
[2018-06-14] MEDS: Scopolamine 1.5 mg/72 hour Patch TD SCH (20:39)
[2018-06-14] MEDS: clonazePAM 0.5 MG TAB PER TUBE SCH (20:39)
[2018-06-14] MEDS: Famotidine 20 MG TAB PER TUBE SCH (20:39)
[2018-06-14] MEDS: Acetaminophen 325 MG TAB PER TUBE PRN (20:39)
[2018-06-14] MEDS: Melatonin 3 MG TAB PO SCH (20:39)
[2018-06-14] MEDS: predniSONE 20 MG TAB PO SCH ×2 (20:40→20:50)
[2018-06-14] MEDS: Apixaban 5 MG TAB PER TUBE SCH (20:40)
[2018-06-14] MEDS: cefTRIAXone\\ROCEPHIN 1 GM in Sodium Chloride 0.9% 100 ML IVPB SCH (20:51)
--- NOTE | 2018-06-15 00:38 | CON ---
DATE OF CONSULTATION: 06/14/2018 DATE OF ADMISSION: 06/14/2018 INDICATION FOR CONSULTATION: A 68-year-old gentleman with respiratory distress with hypoxemia and at rial flutter with rapid ventricular response. HISTORY OF PRESENT ILLNESS: This very unfortunate 68-year-old gentleman who has had several admissio ns now for severe COPD exacerbations. He recently was in the hospital back in April, at which time he had severe COPD, underwent a tracheostomy. I believe at that time, he also had been on the ventilat or. He had also been noted, he had a PEG tube placed also and then noted to have atrial flutter. He was controlled with medications. I did not believe he was ever converted back to sinus rhythm, but the rate was controlled with medications. I believe he was discharged home on calcium blockers. He apparently did not tolerate the beta blockers very well, but at this time, he was in the [facility] and presented again with having decrease O2 saturations. I believe perhaps he had a mucous plug, wh en this was removed I believe the O2 saturations are improved; however, he was found to be in atrial flutter again with a heart rate approximately 150 beats per minute. He denies any significant compla ints at this time, but he is somewhat lethargic says he is fatigued. O2 saturations have improved an d he does not appear to be in any distress at this time, but his atrial fibrillation continues, blood pressure is stable and he is on IV diltiazem. PAST MEDICAL HISTORY: Significant for the chronic respiratory failure. He has had COPD. He has had status post tracheotomy. He has a PEG tube due to possible aspirations. He has history of hyperten rafael, atrial flutter, History of peripheral vascular disease, degenerative joint disease. He smoked in the past. He has had an appendectomy. He has had abdominal surgery. He has had a cardiac tatiana terization. ALLERGIES: None. MEDICATIONS PRIOR TO ADMISSION: Include Tylenol, aspirin, Atrovent nebulizer treatments, Bg cuba at 30 mg t.i.d., Brovana twice a day, clonazepam 0.5 mg b.i.d., apixaban 5 mg b.i.d., prednisone 2 0 mg a day, famotidine 40 mg b.i.d., Lasix 40 mg daily, melatonin 3 mg daily, Pulmicort nebulizer michael atments b.i.d., scopolamine patch every 3 days, simethicone 80 mg as needed, and tramadol p.r.n. He was being fed at the [facility] with tube feedings via his PEG tube. SOCIAL HISTORY: Positive for tobacco abuse. He is in a halfway facility at [facility]. At this time, he remains a FULL CODE. FAMILY HISTORY: Please refer the notes already dictated. REVIEW OF SYSTEMS: I cannot retain a complete review of systems, please refer to the notes dictated by the hospitalist on this admission. PHYSICAL EXAMINATION: GENERAL: Reveals a very thin, ill-appearing gentleman. VITAL SIGNS: His blood pressure at this time is 123/68, heart rate is 148 and regular. HEENT: Unremarkable. Head is normocephalic and atraumatic. He has a tracheostomy in place. I did not hear any significant bruits. CHEST: Has decreased breath sounds throughout. Occasional rhonchi that I did not appreciate any whe ezing. CARDIOVASCULAR: He has a tachycardia with a regular rhythm. I cannot hear any significant murmurs. Heart sounds are distant. ABDOMEN: PEG tube is present. I did not see any significant evidence of infection. No palpable mas ses. EXTREMITIES: Showed no clubbing, cyanosis, or edema. Pedal pulses were not palpable, but popliteal and femoral pulses are present. NEUROLOGIC: He appears to be relatively nonfocal. He is able to move his extremities. SKIN: Warm and dry. LABORATORY DATA: Shows WBC of 14.9, hemoglobin 11.7. Potassium is 3.7, creatinine of 0.64. He has negative cardiac enzymes and EKG shows atrial flutter with a rapid ventricular response with no signi ficant EKG changes and chest x-ray shows severe COPD. IMPRESSION: 1. Atrial flutter with rapid ventricular response and most likely exacerbated by his chronic obstruc tive pulmonary disease exacerbation with a decreased O2 saturations and demand ischemia associated wi th the hypoxemia. He seems to be doing better. We will try to increase the diltiazem as tolerated. May add digoxin. He may be a candidate to undergo an ablation of the atrial flutter since this seem s to be a recurrence, but he is obviously very ill patient. 2. History of chronic and severe chronic obstructive pulmonary disease. This will be dealt with by the primary care service or by Pulmonology. The O2 saturations seem to be better after the tracheal opening was suctioned out. 3. Hypertension is under good control at this time. 4. Peripheral vascular disease. He is asymptomatic and at this time we will continue just to monito r him. He is not a good candidate for any intervention and is not indicated at this time. Further c are of the patient will be by Dr. Aguila when he visits with the patient tomorrow.
--- NOTE | 2018-06-15 01:51 | CON ---
DATE OF CONSULTATION: 06/14/2018 HISTORY OF PRESENT ILLNESS: This is a 68-year-old gentleman status post trach, recently [facility] He is now in the intermediate in [place]. Someone has switched him over to a #4 cuffless trach. He states that he apparently presented with shortness of breath, headache, and apparently his trach was clogged up and his sats were low. The ER removed the mucus plugs after suction. When I arrived, he was in SVT. Heart rate 130-140, which is recurrent. Apparently, he was admitted to the hospital. The patient has longstanding history of tobacco abuse. He at one time was a DNR. He rescinded the D NR orders and had a trach placed in. He has severe limitation with activity even prior to his trach. HOME MEDICATIONS: Prednisone 10, Klonopin mg, scopolamine patch 1.5, Protonix 40, Lasix 20, Du oNeb, Pepcid, Cardizem 30 three times a day, Eliquis 5 twice a day. PAST MEDICAL HISTORY: Extensive previous medical history is outlined, COPD, SVT, hypertension, anxie ty. PAST SURGICAL HISTORY: Previous surgeries otherwise included appendix, bowel obstruction, cardiac ca theterization. ALLERGIES: None. REVIEW OF SYSTEMS: Otherwise, 10-point negative. PHYSICAL EXAMINATION: VITAL SIGNS: His heart rate is 145, blood pressure 138/88, respirations 20, sats 99%. CHEST: Decreased breath sounds without wheezing. CARDIAC: SVT. ABDOMEN: Soft. EXTREMITIES: No edema. LABORATORY AND X-RAY FINDINGS: His chest x-ray shows hyperinflation, no acute infiltrates were seen. His lab shows white count 14,000, H&H , platelet count normal. Electrolytes are normal. IMPRESSION: 1. End-stage chronic obstructive pulmonary disease. 2. Cuffless trach in place. Prior to his discharge from the hospital, he had #[address] 3. Retained secretions and mucus. 4. Recurrent supraventricular tachycardia. It is unclear why his trach was changed to #4. We will try and see if we can change it to #6 once hi s cardiac situation improved. Otherwise, I would continue all home medication including prednisone, neb treatments. I do not see any reason to start him on any vancomycin. Chest x-ray was normal. We will follow. Consultation note 70 minutes, 50% in direct patient care.
[2018-06-15 06:11] LABS: #Basophils 0.1 thou/uL (0.0-0.2); #Eosinphils 0.5 thou/uL (0.0-0.7); #Lymphocytes 1.3 thou/uL (1.20-3.40); #Monocytes 1.2 thou/uL (0.11-0.59); #Neutrophils 7.7 thou/uL (1.40-6.50); %Basophils 0.5 % (0.0-1.0); %Eosinophils 4.5 % (0.0-10.0); %Lymphocytes 11.8 % (21.0-51.0); %Monocytes 11.4 % (0.0-10.0); %Neutrophils 71.7 % (42.0-75.0); Hemoglobin 9.8 g/dL (14.0-18.0); Mean Corpuscular HGB CONC 32.5 g/dL (32.0-36.0); Mean Corpuscular Hemoglobin 24.9 pg (27.0-31.0); Mean Corpuscular Volume 76.7 fL (78.0-98.0); Mean Platelet Volume 10.2 fL (7.4-10.4); Platelet Count 277 thou/uL (130-400); RBC Distribution Width 16.9 % (11.5-14.5); Red Blood Cell (RBC) Count 3.93 mill/uL (4.70-6.10); White Blood Cell (WBC) Count 10.7 thou/uL (4.8-10.8)
[2018-06-15 06:29] LABS: BUN (Urea Nitrogen) 6 mg/dL (8.4-25.7); Calc. Creatinine Clearance 95 mL/min (70-130); Calcium 8.6 mg/dL (7.8-10.44); Estimated GFR-MDRD Greater than 90; Glucose 89 mg/dL (80-115)
[2018-06-15 06:38] LABS: Anion Gap 11 mmol/L (10-20); Carbon Dioxide 35 mmol/L (23-31); Chloride 100 mmol/L (98-107); Potassium 3.5 mmol/L (3.5-5.1); Sodium 142 mmol/L (136-145)
[2018-06-15] MEDS: Acetaminophen 325 MG TAB PER TUBE PRN (06:59)
[2018-06-15] MEDS: Budesonide 0.5 MG/2 ML NEB INH SCH ×2 (07:16→18:46)
--- NOTE | 2018-06-15 09:02 | PDOC.CTH ---
<Sylwia Zamora - Last Filed: 06/15/18 09:42> Cardiology Progress Note - Subjective The pt seen and examined. No overnight events. No cardiac complaints. He stated he used to eat prior to this admission. - Objective Vital Signs Temp Pulse Resp BP Pulse Ox 06/15/18 07:29 98.9 F 147 H 20 109/58 L 100 06/15/18 07:20 99 06/15/18 07:16 89 20 99 06/15/18 04:00 98.2 F 88 22 H 107/58 L 98 06/15/18 03:22 100 06/15/18 02:18 108 H 20 100 06/15/18 00:00 97.8 F 138 H 18 117/55 L 100 Weight 111 lb 6.4 oz - Physical Examination Neck: no JVD present Lungs: CTA, other: (coarses and diminished at bases) Heart: other: (irregular) Abdomen: soft Extremities: other: (No edema) - Telemetry Telemetry Rhythm: Aflutter HR 100-150s - Labs Result Diagrams: 06/15/18 05:15 06/15/18 05:15 Troponin/CKMB CK-MB (CK-2) 1.5 ng/mL (0-6.6) 06/14/18 10:09 Troponin I 0.010 ng/mL (< 0.028) 06/14/18 16:20 - Assessment/Plan 1. Aflutter with RVR - HR has been 130-150s with Diltiazem 5mg/h. Start digoxin 0.25mg IV q6hrs x2 and change to 0.125mg PO daily. Cont. to monitor. EP consult. 2. Severe COPD with Trach - managed by human resource advisor 3. HTN - stable 4. PVD - stable MAR reviewed * Echo in 01/2018 showed EF 50-55%, mod dilated atrium? mild MR and TR. * The pt is Dr Aguila's pt. <Addendum> Per Dr Wagner, the pt may undergo Aflutter Ablation today or next Monday. Review of Systems - Review of Systems Constitutional: reports: no symptoms reported EENTM: reports: no symptoms reported Respiratory: reports: no symptoms reported Cardiac (ROS): reports: no symptoms reported ABD/GI: reports: no symptoms reported : reports: no symptoms reported Musculoskeletal: reports: no symptoms reported <Kali Jack - Last Filed: 06/15/18 14:09> Cardiology Progress Note - Objective Vital Signs Temp Pulse Pulse Pulse Resp BP BP 06/15/18 11:26 98.4 F 94 20 06/15/18 10:47 85 90 95/53 L 95/51 L 06/15/18 10:32 95 22 H 06/15/18 09:48 107 H 06/15/18 09:42 91 06/15/18 09:38 147 H 06/15/18 08:07 147 H 95/51 L 06/15/18 07:29 98.9 F 147 H 20 06/15/18 07:20 06/15/18 07:16 89 20 06/15/18 04:00 98.2 F 88 22 H 06/15/18 03:22 06/15/18 02:18 108 H 20 BP Pulse Ox Pulse Ox Pulse Ox 06/15/18 11:26 95/51 L 100 06/15/18 10:47 100 100 06/15/18 10:32 100 06/15/18 09:48 103/59 L 06/15/18 09:42 97/54 L 06/15/18 09:38 88/51 L 06/15/18 08:07 100 06/15/18 07:29 109/58 L 100 06/15/18 07:20 99 06/15/18 07:16 99 06/15/18 04:00 107/58 L 98 06/15/18 03:22 100 06/15/18 02:18 100 Admit Weight 111 lb 6.4 oz Weight 111 lb 6.4 oz - Labs Result Diagrams: 06/15/18 05:15 06/15/18 05:15 Troponin/CKMB CK-MB (CK-2) 1.5 ng/mL (0-6.6) 06/14/18 10:09 Troponin I 0.010 ng/mL (< 0.028) 06/14/18 16:20 - Assessment/Plan Pt. seen and eval. by me. I agree with the A/P by the FISHER LOBSTER. He was also seen by EP and the plan is to repeat the ablation of the atrial flutter to help control the HR.
--- NOTE | 2018-06-15 09:19 | PRG ---
DATE OF SERVICE: 06/15/2018 This morning he is awake, alert, responsive. He says he is feeling better. PHYSICAL EXAMINATION: VITAL SIGNS: Heart rate is still 147, temperature is 98, sats 100%, blood pressure 190/58. CHEST: Chest revealed decreased breath sounds, no wheezing. CARDIAC: Normal S1, S2, no gallops. LABORATORY: Unremarkable. IMPRESSION: 1. Chronic obstructive pulmonary disease exacerbation, end-stage. 2. Supraventricular tachycardia. 3. Severe deconditioning. PLAN: Continue neb treatments, supportive care. Low dose prednisone. We will follow.
[2018-06-15] MEDS: Apixaban 5 MG TAB PER TUBE SCH (09:36)
[2018-06-15] MEDS: Digoxin 0.5 MG/2 ML AMP SLOW IVP SCH ×2 (09:38→16:18)
[2018-06-15] MEDS: clonazePAM 0.5 MG TAB PER TUBE SCH ×2 (09:40→20:19)
[2018-06-15] MEDS: Famotidine 20 MG TAB PER TUBE SCH ×2 (09:43→20:19)
[2018-06-15] MEDS: predniSONE 20 MG TAB PO SCH (09:43)
[2018-06-15] MEDS: Aspirin 81 mg Enteric Coated Tablet PER TUBE SCH (10:13)
--- NOTE | 2018-06-15 12:56 | CON ---
DATE OF CONSULTATION: 06/15/2018 REFERRING PHYSICIAN: Dr. Loretta Jack HISTORY OF PRESENT ILLNESS: I am seeing Mr. 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 His problems are: 1. Recurrent atrial arrhythmias. A. Initial presentation in January with sustained atrial flutter. B. Status post cavotricuspid ablation for typical atrial flutter. C. Now recurrent atrial flutter with rapid rates are documented. 2. Chronic anticoagulation with Eliquis. 3. History of chronic obstructive pulmonary disease, advanced lung disease, status post PEG tube and tracheostomy placement. 4. History of normal LVEF of 50-55% and normal left atrial size, mild TR and mild MR on echo 02/05/2018. 5. Risk factor including hypertension. ALLERGIES: None. MEDICATIONS: At home include Tylenol, aspirin, Atrovent nebulizers, Cardizem drip currently ongoing and 30 mg p.o. t.i.d., is also on Brovana twice daily, clonazepam, apixaban, prednisone 10 mg daily, famotidine 40 mg twice a day, Lasix, melatonin, Pulmicort, scopolamine, simethicone, home feeding via PEG tube. SUBJECTIVE: Mr. Jones is here with recurrent palpitations. He has experienced decreasing O2 sats, EMS was called. Trachea was cleared, O2 sats improved after that. He does experience some palpitations and on evaluation he is in atrial flutter with rapid rates. He was also noted to have mild UTI and Pulmonary and Cardiology Service was consulted. Currently, he denies chest pains, no fever, chills, or cough. No stroke-like symptoms, no neurological deficits. His respiratory rate is reasonably stable. He is still continuing nebulizer treatments and low dose prednisone. The rest of 12-point system otherwise unremarkable. OBJECTIVE: VITAL SIGNS: Blood pressure is 103/59, heart rate 107, respirations 22, temperature 98.9 degrees Fahrenheit. GENERAL: He is an alert, oriented man who is chronically ill appearing and somewhat cachectic. NECK: Supple. Jugular veins not distended. CHEST: Coarse without crackles. CARDIAC: Heart sounds are regular to rate and rhythm. No murmur or gallop, but tachycardic. PMI is nondisplaced. ABDOMEN: Benign. Bowel sounds positive. EXTREMITIES: Legs without edema, clubbing or cyanosis. DATABASE: The EKGs reviewed reveals atrial flutter, likely typical isthmus dependent morphology. LABORATORY DATA: White cell count 10.7, hemoglobin 9.8, platelet count is 277. Sodium 142, potassium 3.5, BUN 6, creatinine 0.53. TSH 1.2552. Troponin levels are negative. The chest x-ray from yesterday reveal stable severe COPD, tracheostomy in place and left-sided PICC line. Small hiatal hernia. ASSESSMENT AND PLAN: Mr. Jones is a pleasant 68-year-old man with history of advanced COPD who had typical atrial flutter on presentation in January. He underwent an EP study and ablation demonstrating inducible typical atrial flutter. Cavotricuspid isthmus ablation was performed. No other atrial flutter or fibrillation was noted during the ablation. Now, he is here with recurrent atrial flutter, which morphology could be consistent with typical flutter. I discussed the issue with him. Recurrent atrial flutter, possibly due to healing back of his cavotricuspid isthmus to normal conduction is a possibility. Hence, he is well anticoagulated and rates are very difficult to control. It is reasonable for him to proceed with an ablation. For now, we will hold Jillian. Risks, benefits of procedure have been explained. He remembers from the procedure from last time in January. We will schedule him for this procedure in a near date. In the meantime rate control with continued diltiazem and digoxin as initiated is reasonable He may be cardioverted, hence the uninterrupted anticoagulation. Thank you again for allowing me to participate in the care of this patient. LILIYA
--- NOTE | 2018-06-15 14:38 | PDOC.PN ---
- Subjective Encounter Start Date: 06/15/18 Encounter Start Time: 11:30 Patient seen and examined for A flutter/COPD flare. SOB improving. No CP. No overnight events - Objective Resuscitation Status: Resuscitation Status FULL:Full Resuscitation MAR Reviewed: Yes Vital Signs & Weight: Vital Signs (12 hours) Temp Pulse Pulse Pulse Resp BP BP 06/15/18 11:26 98.4 F 94 20 06/15/18 10:47 85 90 95/53 L 95/51 L 06/15/18 10:32 95 22 H 06/15/18 09:48 107 H 06/15/18 09:42 91 06/15/18 09:38 147 H 06/15/18 08:07 147 H 95/51 L 06/15/18 07:29 98.9 F 147 H 20 06/15/18 07:20 06/15/18 07:16 89 20 06/15/18 04:00 98.2 F 88 22 H 06/15/18 03:22 BP Pulse Ox Pulse Ox Pulse Ox 06/15/18 11:26 95/51 L 100 06/15/18 10:47 100 100 06/15/18 10:32 100 06/15/18 09:48 103/59 L 06/15/18 09:42 97/54 L 06/15/18 09:38 88/51 L 06/15/18 08:07 100 06/15/18 07:29 109/58 L 100 06/15/18 07:20 99 06/15/18 07:16 99 06/15/18 04:00 107/58 L 98 06/15/18 03:22 100 Weight Admit Weight 111 lb 6.4 oz Weight 111 lb 6.4 oz Result Diagrams: 06/15/18 05:15 06/15/18 05:15 EKG Reviewed by me: Yes (Tele Aflutter) Phys Exam - Physical Examination Constitutional: NAD Respiratory: no wheezing Scat rhonchi, No rales, Mild accessory muscle use Cardiovascular: no rub Tachycardic, S1S2 + Gastrointestinal: soft, non-tender, no distention, positive bowel sounds Musculoskeletal: no edema Neurological: non-focal, moves all 4 limbs Psychiatric: normal affect, A&O x 3 Dx/Plan - Plan IMPRESSION: 1. Atrial flutter with rapid ventricular response. 2. COPD Exacerbation. 3. Sepsis due to UTI. 4. Chronic kidney disease, stage 2. 5. Severe chronic obstructive pulmonary disease with chronic respiratory failure, status post tracheostomy and PEG tube. 6. Hypertension. 7. History of tobacco abuse. 8. Peripheral vascular disease. PLAN: Cont Cardizem drip with Digoxin NPO for CV vs Ablation today Cont tube feed Cont ATbx Cont Anticoag AM labs Cont Nebs Cont home meds including Prednisone Review of Systems - Review of Systems Constitutional: negative: fever, chills, sweats, weakness, malaise, other Gastrointestinal: negative: Nausea, Vomiting, Abdominal Pain, Diarrhea, Constipation, Melena, Hematochezia, Other - Medications/Allergies Allergies/Adverse Reactions: Allergies Allergy/AdvReac Type Severity Reaction Status Date / Time No Known Drug Allergies Allergy Verified 06/15/18 07:32 Medications: Current Medications Acetaminophen (Tylenol) 650 mg PER TUBE Q4H PRN PRN Reason: Headache/Fever or Pain Last Admin: 06/15/18 06:59 Dose: 650 mg Albuterol/Ipratropium (Duoneb) 3 ml NEB [id number] [facility] Last Admin: 06/15/18 10:32 Dose: 3 ml Albuterol/Ipratropium (Duoneb) 3 ml NEB [id number] PRN PRN Reason: SOB &/or Wheezing Apixaban (Eliquis) 5 mg PER TUBE BID [facility] Last Admin: 06/15/18 09:36 Dose: Not Given Aspirin (Ecotrin) 81 mg PER TUBE DAILY [facility] Last Admin: 06/15/18 10:13 Dose: Not Given Budesonide (Pulmicort Neb Solution) 0.5 mg INH BID-RT [facility] Last Admin: 06/15/18 07:16 Dose: 0.5 mg Calcium Carbonate (Tums) 1,000 mg PO Q4H PRN PRN Reason: Heartburn or Indigestion Clonazepam (Klonopin) 0.5 mg PER TUBE BID [facility] Last Admin: 06/15/18 09:40 Dose: 0.5 mg Digoxin (Lanoxin) 0.25 mg SLOW IVP Q6H [facility] Stop: 06/15/18 15:31 Last Admin: 06/15/18 09:38 Dose: 0.25 mg Digoxin (Lanoxin) 0.125 mg PO QAM [facility] Famotidine (Pepcid) 20 mg PER TUBE BID [facility] Last Admin: 06/15/18 09:43 Dose: 20 mg Diltiazem HCl 125 mg/ Sodium (Chloride) 125 mls @ 5 mls/hr IVPB INF [facility] Last Admin: 06/15/18 12:46 Dose: 125 mls Ceftriaxone Sodium 1 gm/ (Sodium Chloride) 100 mls @ 200 mls/hr IVPB 2100 [facility] Last Admin: 06/14/18 20:51 Dose: 100 mls Lactulose (Lactulose) 20 gm PO DAILYPRN PRN PRN Reason: Constipation Melatonin (Melatonin) 3 mg PO HS [facility] Last Admin: 06/14/18 20:39 Dose: 3 mg Nitroglycerin (Nitrostat) 0.4 mg PO Q5MIN PRN PRN Reason: Chest Pain Prednisone (Prednisone) 20 mg PO QAM-WM [facility] Last Admin: 06/15/18 09:43 Dose: 20 mg Scopolamine (Transderm Scop) 1.5 mg TD Q3D [facility] Last Admin: 06/14/18 20:39 Dose: 1.5 mg Senna (Senokot) 2 tab PER TUBE HSPRN PRN PRN Reason: Constipation Simethicone (Mylicon Chewable) 80 mg PO PCHS PRN PRN Reason: Gas Pain Sodium Chloride (Flush - Normal Saline) 10 ml IVF PRN PRN PRN Reason: Saline Flush Last Admin: 06/15/18 09:41 Dose: 10 ml
[2018-06-15] MEDS ORDERED: Apixaban 5 MG TAB PER TUBE SCH (15:45)
[2018-06-15] MEDS: cefTRIAXone\\ROCEPHIN 1 GM in Sodium Chloride 0.9% 100 ML IVPB SCH (20:18)
[2018-06-15] MEDS: Melatonin 3 MG TAB PO SCH (20:19)
[2018-06-16] MEDS ORDERED: Sodium Chloride 0.9% 250 ML 250 ML IVPB SCH (00:30)
[2018-06-16] MEDS: Amiodarone HCl 450 MG, Admixture Fee 1 EACH in Dextrose 5% in Water 250 ML IVPB SCH ×2 (00:33→11:02)
[2018-06-16] MEDS: Calcium Carbonate 500 MG ChewTAB PO PRN ×2 (01:00→04:21)
[2018-06-16] MEDS ORDERED: Apixaban 5 MG TAB PER TUBE SCH ×2 (01:00→11:00)
[2018-06-16 05:52] LABS: #Basophils 0.1 thou/uL (0.0-0.2); #Eosinphils 0.2 thou/uL (0.0-0.7); #Lymphocytes 1.3 thou/uL (1.20-3.40); #Monocytes 1.4 thou/uL (0.11-0.59); #Neutrophils 11.3 thou/uL (1.40-6.50); %Basophils 0.4 % (0.0-1.0); %Eosinophils 1.4 % (0.0-10.0); %Lymphocytes 9.4 % (21.0-51.0); %Monocytes 9.5 % (0.0-10.0); %Neutrophils 79.4 % (42.0-75.0); Hemoglobin 9.2 g/dL (14.0-18.0); Mean Corpuscular HGB CONC 31.9 g/dL (32.0-36.0); Mean Corpuscular Hemoglobin 24.5 pg (27.0-31.0); Platelet Count 272 thou/uL (130-400); RBC Distribution Width 17.1 % (11.5-14.5); Red Blood Cell (RBC) Count 3.75 mill/uL (4.70-6.10); White Blood Cell (WBC) Count 14.3 thou/uL (4.8-10.8)
[2018-06-16 06:07] LABS: Anion Gap 9 mmol/L (10-20); BUN (Urea Nitrogen) 7 mg/dL (8.4-25.7); Calc. Creatinine Clearance 97 mL/min (70-130); Calcium 8.6 mg/dL (7.8-10.44); Carbon Dioxide 37 mmol/L (23-31); Chloride 97 mmol/L (98-107); Estimated GFR-MDRD Greater than 90; Glucose 158 mg/dL (80-115); Potassium 3.5 mmol/L (3.5-5.1); Sodium 139 mmol/L (136-145)
[2018-06-16] MEDS: Budesonide 0.5 MG/2 ML NEB INH SCH ×2 (07:20→19:02)
[2018-06-16] MEDS ORDERED: Mag-Al 1200 mg/1200 mg/30 ML UDCUP PER TUBE PRN (08:44)
[2018-06-16] MEDS ORDERED: Sucralfate 1 GM/10 ML UDCUP PER TUBE PRN (08:48)
[2018-06-16] MEDS ORDERED: Mag-Al 1200 mg/1200 mg/30 ML UDCUP PER TUBE SCH (09:00)
[2018-06-16] MEDS: Pantoprazole 40 MG GRANULES PACKET PER TUBE SCH (09:03)
[2018-06-16] MEDS: Aspirin 81 mg Enteric Coated Tablet PER TUBE SCH (09:03)
[2018-06-16] MEDS: clonazePAM 0.5 MG TAB PER TUBE SCH ×2 (09:03→21:22)
[2018-06-16] MEDS: Digoxin 0.125 MG TAB PO SCH (09:03)
[2018-06-16] MEDS: predniSONE 20 MG TAB PO SCH (09:03)
[2018-06-16] MEDS: Acetaminophen 325 MG TAB PER TUBE PRN (09:04)
[2018-06-16] MEDS ORDERED: Promethazine HCl 6.25 MG/5 ML Syrup PER TUBE SCH (09:30)
[2018-06-16 09:32] LABS: Troponin I Less than 0.010 ng/mL (< 0.028)
--- NOTE | 2018-06-16 17:16 | PDOC.CTH ---
Cardiology Progress Note - Subjective He has no new issues. He continues to have aflutter with HR in the 130's. - Objective Vital Signs Temp Pulse Resp BP Pulse Ox 06/16/18 15:55 98.1 F 129 H 18 99/63 100 06/16/18 14:54 128 H 20 06/16/18 11:20 98.5 F 135 H 20 121/66 95 06/16/18 10:30 135 H 28 H 06/16/18 09:03 134 H 06/16/18 07:30 98.5 F 135 H 20 114/64 96 Admit Weight 111 lb 6.4 oz Weight 116 lb 11.2 oz 06/15/18 06/16/18 06/17/18 06:59 06:59 06:59 Intake Total 3216 190 Output Total 300 Balance 2916 190 - Physical Examination General/Neuro: NAD Neck: no JVD present Lungs: unlabored respirations Heart: RRR Abdomen: NT/ND Extremities: other: (no edema.) - Telemetry Telemetry Rhythm: Aflutter HR 130's. - Labs Result Diagrams: 06/16/18 05:02 06/16/18 05:02 Troponin/CKMB CK-MB (CK-2) 1.5 ng/mL (0-6.6) 06/14/18 10:09 Troponin I Less than 0.010 ng/mL (< 0.028) 06/16/18 08:46 - Assessment/Plan 1. Aflutter with RVR 2. Severe COPD s/p Trach 3. HTN 4. PVD PLAN: - Will switch her diltiazem to amiodarone drip as his BP is starting to come down with diltiazem. - Plan for ablation next week. - Continue Eliquis.
--- NOTE | 2018-06-16 20:22 | EKG ---
Test Reason : Blood Pressure : / mmHG Vent. Rate : 145 BPM Atrial Rate : 145 BPM P-R Int : 122 ms QRS Dur : 088 ms QT Int : 314 ms P-R-T Axes : 075 067 074 degrees QTc Int : 487 ms Sinus tachycardia Nonspecific ST abnormality Abnormal ECG Confirmed by RODERICK AKINS M.D. ([id number]), editorial project manager [employer]IR[employer] FOR[employer]ES ([id number] on 06/16/2018 8:21:48 PM Referred By: Confirmed By:RODERICK AKINS M.D.
[2018-06-16] MEDS: cefTRIAXone\\ROCEPHIN 1 GM in Sodium Chloride 0.9% 100 ML IVPB SCH (21:16)
[2018-06-16] MEDS: Apixaban 5 MG TAB PER TUBE SCH (21:22)
[2018-06-16] MEDS: Melatonin 3 MG TAB PO SCH (21:22)
--- NOTE | 2018-06-16 21:50 | PDOC.PN ---
- Subjective Encounter Start Date: 06/16/18 Encounter Start Time: 10:00 Patient seen and examined for Aflutter. Nausea with mild epig pain +, No vomiting. No new complaints. No overnight events - Objective Resuscitation Status: Resuscitation Status FULL:Full Resuscitation MAR Reviewed: Yes Vital Signs & Weight: Vital Signs (12 hours) Temp Pulse Resp BP Pulse Ox 06/16/18 21:11 98 F 128 H 18 091/55 L 100 06/16/18 19:00 127 H 16 100 06/16/18 15:55 98.1 F 129 H 18 99/63 100 06/16/18 14:54 128 H 20 06/16/18 11:20 98.5 F 135 H 20 121/66 95 06/16/18 10:30 135 H 28 H Weight Admit Weight 111 lb 6.4 oz Weight 116 lb 11.2 oz I&O: 06/15/18 06/16/18 06/17/18 06:59 06:59 06:59 Intake Total 3216 190 Output Total 300 Balance 2916 190 Result Diagrams: 06/16/18 05:02 06/16/18 05:02 Phys Exam - Physical Examination Constitutional: NAD On Amiodarone drip Respiratory: no wheezing, no rhonchi Cardiovascular: no rub S1S2 +, tachycardic Gastrointestinal: soft, positive bowel sounds Musculoskeletal: no edema Neurological: moves all 4 limbs Dx/Plan - Plan IMPRESSION: 1. Atrial flutter with rapid ventricular response - on Amiodarone drip. 2. COPD Exacerbation. 3. Sepsis due to E coli UTI - on Ceftriaxone 4. Chronic kidney disease, stage 2. 5. Severe chronic obstructive pulmonary disease with chronic respiratory failure, status post tracheostomy and PEG tube. 6. Hypertension. 7. History of tobacco abuse. 8. Peripheral vascular disease. PLAN: Cont Amiodarone drip Cont Anticoag Ablation next week Cont tube feed Cont ATbx AM labs Cont Nebs and current meds as below Add PPI Antiemetics Review of Systems - Review of Systems Constitutional: negative: fever, chills, sweats, weakness, malaise, other Cardiovascular: palpitations. negative: chest pain, orthopnea, paroxysmal nocturnal dyspnea, edema, light headedness, other - Medications/Allergies Allergies/Adverse Reactions: Allergies Allergy/AdvReac Type Severity Reaction Status Date / Time No Known Drug Allergies Allergy Verified 06/15/18 07:32 Medications: Current Medications Acetaminophen (Tylenol) 650 mg PER TUBE Q4H PRN PRN Reason: Headache/Fever or Pain Last Admin: 06/16/18 09:04 Dose: 650 mg Al Hydroxide/Mg Hydroxide (Maalox) 30 ml PER TUBE Q6H PRN PRN Reason: Heartburn or Indigestion Albuterol/Ipratropium (Duoneb) 3 ml NEB [id number] [facility] Last Admin: 06/16/18 19:00 Dose: 3 ml Albuterol/Ipratropium (Duoneb) 3 ml NEB [id number] PRN PRN Reason: SOB &/or Wheezing Apixaban (Eliquis) 5 mg PER TUBE BID [facility] Stop: 06/19/18 23:59 Last Admin: 06/16/18 21:22 Dose: 5 mg Aspirin (Ecotrin) 81 mg PER TUBE DAILY [facility] Last Admin: 06/16/18 09:03 Dose: 81 mg Budesonide (Pulmicort Neb Solution) 0.5 mg INH BID-RT [facility] Last Admin: 06/16/18 19:02 Dose: 0.5 mg Calcium Carbonate (Tums) 1,000 mg PO Q4H PRN PRN Reason: Heartburn or Indigestion Last Admin: 06/16/18 04:21 Dose: 1,000 mg Clonazepam (Klonopin) 0.5 mg PER TUBE BID [facility] Last Admin: 06/16/18 21:22 Dose: 0.5 mg Digoxin (Lanoxin) 0.125 mg PO QAM [facility] Last Admin: 06/16/18 09:03 Dose: 0.125 mg Ceftriaxone Sodium 1 gm/ (Sodium Chloride) 100 mls @ 200 mls/hr IVPB 2100 [facility] Last Admin: 06/16/18 21:16 Dose: 100 mls Amiodarone HCl 450 mg/Miscellaneous Medication 1 each/ Dextrose/Water 259 mls @ 0 mls/hr IVPB INF [facility]; Protocol Last Admin: 06/16/18 11:02 Dose: 259 mls Lactulose (Lactulose) 20 gm PO DAILYPRN PRN PRN Reason: Constipation Melatonin (Melatonin) 3 mg PO HS [facility] Last Admin: 06/16/18 21:22 Dose: 3 mg Nitroglycerin (Nitrostat) 0.4 mg PO Q5MIN PRN PRN Reason: Chest Pain Pantoprazole Sodium (Protonix) 40 mg PER TUBE DAILY [facility] Last Admin: 06/16/18 09:03 Dose: 40 mg Prednisone (Prednisone) 20 mg PO QAM-[facility] Last Admin: 06/16/18 09:03 Dose: 20 mg Scopolamine (Transderm Scop) 1.5 mg TD Q3D [facility] Last Admin: 06/14/18 20:39 Dose: 1.5 mg Senna (Senokot) 2 tab PER TUBE HSPRN PRN PRN Reason: Constipation Simethicone (Mylicon Chewable) 80 mg PO PCHS PRN PRN Reason: Gas Pain Sodium Chloride (Flush - Normal Saline) 10 ml IVF PRN PRN PRN Reason: Saline Flush Last Admin: 06/15/18 20:19 Dose: 10 ml Sucralfate (Carafate) 1 gm PER TUBE Q6H PRN PRN Reason: GERD
--- NOTE | 2018-06-16 22:47 | PRG ---
DATE OF SERVICE: 06/16/2018 SUBJECTIVE: Mr. Jones had his straight catheterization today. He appears to be doing well. He is in no distress. OBJECTIVE: VITAL SIGNS: Afebrile, heart rate , respiratory rate is 18, oximetry is 100% on 2 liter cannula , blood pressure 99/63. Intake and output . LUNGS: Distant and clear. HEART: Regular rhythm. ABDOMEN: Soft. LABORATORY DATA: White count 14.3, hemoglobin 9.2, platelets 272. Electrolytes were normal except f or elevated bicarbonate as expected. IMPRESSION: 1. End-stage chronic obstructive pulmonary disease with a trach in place that appears to be #6. 2. Atrial flutter. 3. Hypertension. 4. Peripheral vascular disease, he is now on amiodarone. We will continue to follow. His chronic o bstructive pulmonary disease appears to be stable for now.
[2018-06-17] MEDS: Amiodarone HCl 450 MG, Admixture Fee 1 EACH in Dextrose 5% in Water 250 ML IVPB SCH (02:20)
[2018-06-17 05:43] LABS: Anion Gap 12 mmol/L (10-20); BUN (Urea Nitrogen) 6 mg/dL (8.4-25.7); Calc. Creatinine Clearance 94 mL/min (70-130); Carbon Dioxide 36 mmol/L (23-31); Chloride 99 mmol/L (98-107); Estimated GFR-MDRD Greater than 90; Glucose 87 mg/dL (80-115); Potassium 4.3 mmol/L (3.5-5.1); Sodium 143 mmol/L (136-145)
[2018-06-17 05:58] LABS: Hemoglobin 9.5 g/dL (14.0-18.0); Platelet Count 261 thou/uL (130-400)
[2018-06-17] MEDS: Budesonide 0.5 MG/2 ML NEB INH SCH ×2 (06:44→18:57)
[2018-06-17] MEDS: Digoxin 0.125 MG TAB PO SCH (07:53)
[2018-06-17] MEDS: clonazePAM 0.5 MG TAB PER TUBE SCH ×2 (07:53→20:38)
[2018-06-17] MEDS: Aspirin 81 mg Enteric Coated Tablet PER TUBE SCH (07:53)
[2018-06-17] MEDS: predniSONE 20 MG TAB PO SCH (07:53)
[2018-06-17] MEDS: Apixaban 5 MG TAB PER TUBE SCH ×2 (07:53→20:38)
[2018-06-17] MEDS: Pantoprazole 40 MG GRANULES PACKET PER TUBE SCH (07:53)
--- NOTE | 2018-06-17 11:30 | PDOC.PN ---
- Subjective Encounter Start Date: 06/17/18 Encounter Start Time: 09:15 Patient seen and examined for A flutter. No new complaints. No overnight events. On Amiodarone drip. - Objective Resuscitation Status: Resuscitation Status FULL:Full Resuscitation MAR Reviewed: Yes Vital Signs & Weight: Vital Signs (12 hours) Temp Pulse Resp BP Pulse Ox 06/17/18 11:03 97.7 F 126 H 18 105/67 100 06/17/18 10:09 127 H 20 99 06/17/18 07:53 128 H 06/17/18 07:47 97.8 F 128 H 18 112/71 99 06/17/18 06:44 125 H 14 06/17/18 03:57 97.8 F 124 H 20 99/58 L 100 06/17/18 02:46 100 06/17/18 02:11 126 H 16 06/17/18 00:24 98.1 F 127 H 16 100/57 L 100 Weight Admit Weight 111 lb 6.4 oz Weight 108 lb 3 oz I&O: 06/16/18 06/17/18 06/18/18 06:59 06:59 06:59 Intake Total 3216 1206 Output Total 300 Balance 2916 1206 Result Diagrams: 06/17/18 04:44 06/17/18 04:44 EKG Reviewed by me: Yes (Tele A flutter) Phys Exam - Physical Examination Constitutional: NAD Respiratory: no wheezing Scat rhonchi, trach + Cardiovascular: no rub S1S2 +, tachycardic Gastrointestinal: soft, non-tender, positive bowel sounds Musculoskeletal: no edema Neurological: moves all 4 limbs Dx/Plan - Plan IMPRESSION/PLAN: 1. Atrial flutter with rapid ventricular response - HR in 130s Cont Amiodarone drip with Digoxin. No Betablockers due to severe COPD ( Become hypotensive with IV Diltiazem) Cont Eliquis 2. COPD Exacerbation.- improving Cont Nebs/Prednisone/Scopolamine patch 3. Sepsis due to E coli UTI Cont Ceftriaxone 4. GERD Cont PPI 5. Severe chronic obstructive pulmonary disease with chronic respiratory failure, status post tracheostomy and PEG tube. 6. Hypertension. 7. History of tobacco abuse. 8. Peripheral vascular disease. 9. Chronic kidney disease, stage 2. 10. Swallow dys - on tube feeds. Review of Systems - Review of Systems Constitutional: negative: fever, chills, sweats, weakness, malaise, other Respiratory: negative: Cough, Dry, Shortness of Breath, Hemoptysis, SOB with Excertion, Pleuritic Pain, Sputum, Wheezing - Medications/Allergies Allergies/Adverse Reactions: Allergies Allergy/AdvReac Type Severity Reaction Status Date / Time No Known Drug Allergies Allergy Verified 06/15/18 07:32 Medications: Current Medications Acetaminophen (Tylenol) 650 mg PER TUBE Q4H PRN PRN Reason: Headache/Fever or Pain Last Admin: 06/16/18 09:04 Dose: 650 mg Al Hydroxide/Mg Hydroxide (Maalox) 30 ml PER TUBE Q6H PRN PRN Reason: Heartburn or Indigestion Albuterol/Ipratropium (Duoneb) 3 ml NEB [id number] [facility] Last Admin: 06/17/18 10:09 Dose: 3 ml Albuterol/Ipratropium (Duoneb) 3 ml NEB [id number] PRN PRN Reason: SOB &/or Wheezing Apixaban (Eliquis) 5 mg PER TUBE BID [facility] Stop: 06/19/18 23:59 Last Admin: 06/17/18 07:53 Dose: 5 mg Aspirin (Ecotrin) 81 mg PER TUBE DAILY [facility] Last Admin: 06/17/18 07:53 Dose: 81 mg Budesonide (Pulmicort Neb Solution) 0.5 mg INH BID-RT [facility] Last Admin: 06/17/18 06:44 Dose: 0.5 mg Calcium Carbonate (Tums) 1,000 mg PO Q4H PRN PRN Reason: Heartburn or Indigestion Last Admin: 06/16/18 04:21 Dose: 1,000 mg Clonazepam (Klonopin) 0.5 mg PER TUBE BID [facility] Last Admin: 06/17/18 07:53 Dose: 0.5 mg Digoxin (Lanoxin) 0.125 mg PO QAM [facility] Last Admin: 06/17/18 07:53 Dose: 0.125 mg Ceftriaxone Sodium 1 gm/ (Sodium Chloride) 100 mls @ 200 mls/hr IVPB 2100 [facility] Last Admin: 06/16/18 21:16 Dose: 100 mls Amiodarone HCl 450 mg/Miscellaneous Medication 1 each/ Dextrose/Water 259 mls @ 0 mls/hr IVPB INF [facility]; Protocol Last Admin: 06/17/18 02:20 Dose: 259 mls Lactulose (Lactulose) 20 gm PO DAILYPRN PRN PRN Reason: Constipation Melatonin (Melatonin) 3 mg PO HS [facility] Last Admin: 06/16/18 21:22 Dose: 3 mg Nitroglycerin (Nitrostat) 0.4 mg PO Q5MIN PRN PRN Reason: Chest Pain Pantoprazole Sodium (Protonix) 40 mg PER TUBE DAILY [facility] Last Admin: 06/17/18 07:53 Dose: 40 mg Prednisone (Prednisone) 20 mg PO QAM[facility] Last Admin: 06/17/18 07:53 Dose: 20 mg Scopolamine (Transderm Scop) 1.5 mg TD Q3D [facility] Last Admin: 06/14/18 20:39 Dose: 1.5 mg Senna (Senokot) 2 tab PER TUBE HSPRN PRN PRN Reason: Constipation Simethicone (Mylicon Chewable) 80 mg PO PCHS PRN PRN Reason: Gas Pain Sodium Chloride (Flush - Normal Saline) 10 ml IVF PRN PRN PRN Reason: Saline Flush Last Admin: 06/15/18 20:19 Dose: 10 ml Sucralfate (Carafate) 1 gm PER TUBE Q6H PRN PRN Reason: GERD
--- NOTE | 2018-06-17 15:13 | PRG ---
DATE OF SERVICE: 06/17/2018 SUBJECTIVE: Jessy Jones has just received a bath when I walked in the room. He is still tachycard ic running in the 120s. PHYSICAL EXAMINATION: VITAL SIGNS: He is afebrile, respiratory rate is 18. He is in no distress. Oximetry is 100% on 2 l iters, blood pressure 105/67. He will not let the respiratory therapist place the inner cannula in h is trach and keeps the button on his trach. LUNGS: Clear and distant. HEART: Regular rhythm. ABDOMEN: Soft. EXTREMITIES: Without asymmetry. IMPRESSION: 1. Advanced near end-stage chronic obstructive pulmonary disease, clinically stable. 2. Status post tracheostomy. 3. Deconditioning. 4. Atrial flutter. 5. Hypertension. 6. Peripheral vascular disease. PLAN: Continue supportive care. His atrial flutter was variable right now that is being treated.
--- NOTE | 2018-06-17 17:18 | PDOC.CTH ---
Cardiology Progress Note - Subjective No new issues. - Objective Vital Signs Temp Pulse Pulse Pulse Resp BP BP 06/17/18 15:04 97 F L 124 H 18 06/17/18 14:21 123 H 14 06/17/18 11:03 97.7 F 126 H 18 06/17/18 10:09 127 H 20 06/17/18 08:35 127 H 126 H 124/75 100/60 06/17/18 07:53 128 H 06/17/18 07:47 97.8 F 128 H 18 06/17/18 06:44 125 H 14 BP Pulse Ox Pulse Ox 06/17/18 15:04 94/55 L 100 06/17/18 14:21 06/17/18 11:03 105/67 100 06/17/18 10:09 99 06/17/18 08:35 100 06/17/18 07:53 06/17/18 07:47 112/71 99 06/17/18 06:44 Admit Weight 111 lb 6.4 oz Weight 108 lb 3 oz 06/16/18 06/17/18 06/18/18 06:59 06:59 06:59 Intake Total 3216 1206 Output Total 300 Balance 2916 1206 - Physical Examination General/Neuro: alert & oriented x3, NAD Neck: no JVD present Lungs: CTA, unlabored respirations Heart: RRR Abdomen: NT/ND Extremities: other: (no edema) - Telemetry Telemetry Rhythm: Aflutter HR 120's - Labs Result Diagrams: 06/17/18 04:44 06/17/18 04:44 Troponin/CKMB CK-MB (CK-2) 1.5 ng/mL (0-6.6) 06/14/18 10:09 Troponin I Less than 0.010 ng/mL (< 0.028) 06/16/18 08:46 - Assessment/Plan 1. Aflutter with RVR 2. Severe COPD s/p Trach 3. HTN 4. PVD PLAN: - BP more stable on amiodarone. - HR still high. Offered DCCV he would prefer to wait until the ablation as it would still need to be done. - Plan for ablation Nona. - Continue Eliquis.
[2018-06-17] MEDS: Scopolamine 1.5 mg/72 hour Patch TD SCH (17:48)
[2018-06-17] MEDS: cefTRIAXone\\ROCEPHIN 1 GM in Sodium Chloride 0.9% 100 ML IVPB SCH (20:30)
[2018-06-17] MEDS: Melatonin 3 MG TAB PO SCH (20:38)
[2018-06-18] MEDS: Budesonide 0.5 MG/2 ML NEB INH SCH ×2 (06:50→18:53)
[2018-06-18] MEDS: Aspirin 81 mg Enteric Coated Tablet PER TUBE SCH (08:31)
[2018-06-18] MEDS: predniSONE 20 MG TAB PO SCH (08:31)
[2018-06-18] MEDS: Pantoprazole 40 MG GRANULES PACKET PER TUBE SCH (08:31)
[2018-06-18] MEDS: Digoxin 0.125 MG TAB PO SCH (08:31)
[2018-06-18] MEDS: clonazePAM 0.5 MG TAB PER TUBE SCH ×2 (08:31→20:36)
[2018-06-18] MEDS ORDERED: Enoxaparin Sodium 30 MG/0.3 ML SYRINGE SC SCH (09:00)
[2018-06-18] MEDS ORDERED: Gabapentin 100 MG CAP PO SCH (09:30)
[2018-06-18] MEDS: Apixaban 5 MG TAB PER TUBE SCH ×2 (09:47→20:36)
[2018-06-18] MEDS: Amiodarone HCl 450 MG, Admixture Fee 1 EACH in Dextrose 5% in Water 250 ML IVPB SCH (11:28)
--- NOTE | 2018-06-18 12:41 | PRG ---
DATE OF SERVICE: 06/18/2018 SUBJECTIVE: Mr. Jones appears reasonably well compared to what I have seen him in the past. PHYSICAL EXAMINATION: VITAL SIGNS: Temperature 98.3, pulse 78, respirations 18, O2 sat 100% on 2 liters, and blood pressur e 124/76. HEENT: Unremarkable. NECK: No JVD. Trach in good position, appears clean. CARDIAC: S1 and S2, regular. LUNGS: clear breath sounds. ABDOMEN: Soft, nontender. EXTREMITIES: Severe muscle wasting throughout. LABORATORY DATA: No labs were done today. ASSESSMENT: 1. End-stage chronic obstructive pulmonary disease, requiring tracheostomy placement. 2. Deconditioning. 3. Atrial flutter. 4. Hypertension. PLAN: EP study is planned for tomorrow. I believe his pulmonary status is stable on the antibiotics , nebulization treatments, and steroids. We will follow.
[2018-06-18] MEDS: cefTRIAXone\\ROCEPHIN 1 GM in Sodium Chloride 0.9% 100 ML IVPB SCH (20:35)
[2018-06-18] MEDS: Gabapentin 100 MG CAP PO SCH (20:36)
[2018-06-18] MEDS: Melatonin 3 MG TAB PO SCH (20:36)
--- NOTE | 2018-06-18 21:24 | PDOC.PN ---
- Subjective Encounter Start Date: 06/18/18 Encounter Start Time: 08:30 Patient seen and examined for A flutter. On Amio drip. No new complaints. No overnight events - Objective Resuscitation Status: Resuscitation Status FULL:Full Resuscitation MAR Reviewed: Yes Vital Signs & Weight: Vital Signs (12 hours) Temp Pulse Pulse Resp BP BP Pulse Ox 06/18/18 18:51 122 H 16 100 06/18/18 15:41 98 F 123 H 18 115/64 100 06/18/18 14:00 120 H 14 06/18/18 11:35 98.3 F 78 18 124/76 100 06/18/18 11:20 88 150/85 H 06/18/18 10:33 126 H 14 Pulse Ox 06/18/18 18:51 06/18/18 15:41 06/18/18 14:00 06/18/18 11:35 06/18/18 11:20 100 06/18/18 10:33 Weight Admit Weight 111 lb 6.4 oz Weight 112 lb 8 oz I&O: 06/17/18 06/18/18 06/19/18 06:59 06:59 06:59 Intake Total 1206 2079 834 Balance 1206 2079 834 Result Diagrams: 06/17/18 04:44 06/17/18 04:44 EKG Reviewed by me: Yes (Tele A flutter with RVR) Phys Exam - Physical Examination Constitutional: NAD Respiratory: no wheezing, no rhonchi Cardiovascular: no rub S1S2 +, tachycardic Gastrointestinal: soft, non-tender, positive bowel sounds Musculoskeletal: no edema Neurological: moves all 4 limbs Dx/Plan - Plan IMPRESSION/PLAN: 1. Atrial flutter with rapid ventricular response Cont Eliquis,Amiodarone drip & Digoxin. No Betablockers due to severe COPD ( Become hypotensive with IV Diltiazem) 2. COPD Exacerbation.- improving Cont Nebs/Prednisone/Scopolamine patch/O2 3. Sepsis due to E coli UTI Cont Ceftriaxone 4. GERD Cont PPI 5. Severe chronic obstructive pulmonary disease with chronic respiratory failure, status post tracheostomy and PEG tube. 6. Hypertension. 7. History of tobacco abuse. 8. Peripheral vascular disease. 9. Chronic kidney disease, stage 2. 10. Swallow dys - on tube feeds. Modified Barium pending. Review of Systems - Review of Systems Respiratory: negative: Cough, Dry, Shortness of Breath, Hemoptysis, SOB with Excertion, Pleuritic Pain, Sputum, Wheezing Cardiovascular: negative: chest pain, palpitations, orthopnea, paroxysmal nocturnal dyspnea, edema, light headedness, other - Medications/Allergies Allergies/Adverse Reactions: Allergies Allergy/AdvReac Type Severity Reaction Status Date / Time No Known Drug Allergies Allergy Verified 06/15/18 07:32 Medications: Current Medications Acetaminophen (Tylenol) 650 mg PER TUBE Q4H PRN PRN Reason: Headache/Fever or Pain Last Admin: 06/16/18 09:04 Dose: 650 mg Al Hydroxide/Mg Hydroxide (Maalox) 30 ml PER TUBE Q6H PRN PRN Reason: Heartburn or Indigestion Albuterol/Ipratropium (Duoneb) 3 ml NEB [id number] [facility] Last Admin: 06/18/18 18:51 Dose: 3 ml Albuterol/Ipratropium (Duoneb) 3 ml NEB [id number] PRN PRN Reason: SOB &/or Wheezing Aspirin (Ecotrin) 81 mg PER TUBE DAILY [facility] Last Admin: 06/18/18 08:31 Dose: 81 mg Budesonide (Pulmicort Neb Solution) 0.5 mg INH BID-RT [facility] Last Admin: 06/18/18 18:53 Dose: 0.5 mg Calcium Carbonate (Tums) 1,000 mg PO Q4H PRN PRN Reason: Heartburn or Indigestion Last Admin: 06/16/18 04:21 Dose: 1,000 mg Clonazepam (Klonopin) 0.5 mg PER TUBE BID [facility] Last Admin: 06/18/18 20:36 Dose: 0.5 mg Digoxin (Lanoxin) 0.125 mg PO QAM [facility] Last Admin: 06/18/18 08:31 Dose: 0.125 mg Gabapentin (Neurontin) 100 mg PO BID [facility] Last Admin: 06/18/18 20:36 Dose: 100 mg Ceftriaxone Sodium 1 gm/ (Sodium Chloride) 100 mls @ 200 mls/hr IVPB 2100 [facility] Last Admin: 06/18/18 20:35 Dose: 100 mls Amiodarone HCl 450 mg/Miscellaneous Medication 1 each/ Dextrose/Water 259 mls @ 0 mls/hr IVPB INF [facility]; Protocol Last Admin: 06/18/18 11:28 Dose: 259 mls Lactulose (Lactulose) 20 gm PO DAILYPRN PRN PRN Reason: Constipation Melatonin (Melatonin) 3 mg PO HS [facility] Last Admin: 06/18/18 20:36 Dose: 3 mg Nitroglycerin (Nitrostat) 0.4 mg PO Q5MIN PRN PRN Reason: Chest Pain Pantoprazole Sodium (Protonix) 40 mg PER TUBE DAILY [facility] Last Admin: 06/18/18 08:31 Dose: 40 mg Prednisone (Prednisone) 20 mg PO QAM-WM [facility] Last Admin: 06/18/18 08:31 Dose: 20 mg Scopolamine (Transderm Scop) 1.5 mg TD Q3D [facility] Last Admin: 06/17/18 17:48 Dose: 1.5 mg Senna (Senokot) 2 tab PER TUBE HSPRN PRN PRN Reason: Constipation Simethicone (Mylicon Chewable) 80 mg PO PCHS PRN PRN Reason: Gas Pain Sodium Chloride (Flush - Normal Saline) 10 ml IVF PRN PRN PRN Reason: Saline Flush Last Admin: 06/18/18 20:37 Dose: 10 ml Sucralfate (Carafate) 1 gm PER TUBE Q6H PRN PRN Reason: GERD
[2018-06-19] MEDS: Amiodarone HCl 450 MG, Admixture Fee 1 EACH in Dextrose 5% in Water 250 ML IVPB SCH (03:58)
[2018-06-19 05:29] LABS: Hemoglobin 8.9 g/dL (14.0-18.0); Platelet Count 297 thou/uL (130-400)
[2018-06-19 05:41] LABS: BUN (Urea Nitrogen) 8 mg/dL (8.4-25.7); Calc. Creatinine Clearance 104 mL/min (70-130); Calcium 8.8 mg/dL (7.8-10.44); Estimated GFR-MDRD Greater than 90; Glucose 107 mg/dL (80-115)
[2018-06-19 05:50] LABS: Anion Gap 9 mmol/L (10-20); Chloride 98 mmol/L (98-107); Potassium 3.8 mmol/L (3.5-5.1); Sodium 145 mmol/L (136-145)
[2018-06-19 05:55] LABS: Carbon Dioxide 42 mmol/L (23-31)
[2018-06-19] MEDS: Digoxin 0.125 MG TAB PO SCH (05:58)
[2018-06-19] MEDS: Pantoprazole 40 MG GRANULES PACKET PER TUBE SCH (05:58)
[2018-06-19] MEDS: Aspirin 81 mg Enteric Coated Tablet PER TUBE SCH (05:59)
[2018-06-19] MEDS: predniSONE 20 MG TAB PO SCH (05:59)
[2018-06-19] MEDS: clonazePAM 0.5 MG TAB PER TUBE SCH ×2 (05:59→20:38)
[2018-06-19] MEDS: Gabapentin 100 MG CAP PO SCH ×2 (05:59→20:38)
[2018-06-19] MEDS: Budesonide 0.5 MG/2 ML NEB INH SCH ×2 (07:06→18:51)
--- NOTE | 2018-06-19 09:00 | PRG ---
DATE OF SERVICE: 06/19/2018 This morning he is doing better. He is complaining of mucous. He is on a scopolamine patch. PHYSICAL EXAMINATION: VITAL SIGNS: Pulse 120, atrial fibrillation, temperature is 97, sats are 100% on 2 liters, respirations 20. CHEST: Chest reveals decreased breath sounds, no wheezing. CARDIAC: Normal S1, S2. ABDOMEN: Soft, no masses. LABORATORY: Bicarb is 42 secondary to chronic respiratory acidosis. IMPRESSION: 1. Acute on chronic respiratory failure. 2. Marked metabolic alkalosis from severe respiratory acidosis. PLAN: Low dose prednisone, neb treatments, supportive care, p.o. antibiotics. DISPOSITION: As per Cardiology. I will follow. [facility]
[2018-06-19] MEDS ORDERED: Heparin 10,000 UNITS/1 ML VIAL ONE (11:32)
[2018-06-19] MEDS ORDERED: Lidocaine 1% (PF) 30 ML VIAL ONE (12:32)
[2018-06-19] MEDS ORDERED: Fentanyl 100 MCG/2 ML VIAL ONE (12:38)
[2018-06-19] MEDS ORDERED: Isoproterenol 0.2 MG/1 ML AMP ONE (12:45)
[2018-06-19] MEDS ORDERED: PHENYLEPHRINE-NS 100 MCG/ML 10 ML SYRINGE ONE (13:40)
[2018-06-19] MEDS: Cefdinir 300 MG CAP PO SCH ×2 (13:45→20:37)
[2018-06-19] MEDS ORDERED: DOPamine 400 MG/D5W 250 ML 250 ML ONE (13:46)
--- NOTE | 2018-06-19 14:07 | PQF ---
CLINICAL DOCUMENTATION IMPROVEMENT CLARIFICATION FORM: ICD-10 Updated PLEASE DO AN ADDENDUM TO THE PROGRESS NOTE WITH ANY DOCUMENTATION UPDATES OR ADDITIONS AND CARRY THROUGH TO DC SUMMARY. THANK YOU. Date: 06/19/18 ATTN: Dr. Lui Please exercise your independent, professional judgment in responding to the clarification form. Clinical indicators are provided on the bottom of this form for your review Please check appropriate box(s): [ x] Protein Calorie Malnutrition: [ ] Mild [ x ] Moderate [ ] Severe [ ] Other Malnutrition (please specify) [ ] Other diagnosis [ ] Unable to determine In addition, please specify: Present on Admission (POA): [ ] Yes [ ] No [ ] Unable to determine CLINICAL INDICATORS - SIGNS / SYMPTOMS / LABS PEDIATRIC ASSISTANT ASSESSMENT 06/15: NUTRITION DX: MALNUTRITION RELATED TO COPD, INADEQUATE TF EVIDENCED BY: 20% WEIGHT LOSS IN 2 MONTHS, MUSCLE WASTING OBSERVED PULMONARY PN 06/18: EXTREMITIES: SEVERE MUSCLE WASTING THROUGHOUT RISKS: H&P 06/14: PAST MEDICAL HISTORY: MODERATE PROTEIN-CALORIE MALNUTRITION. SEVERE COPD W/ CHRONIC RESPIRATORY FAILURE, S/P TRACHEOSTOMY & PEG TUBE. TREATMENT: ORDER 06/14: PEDIATRIC ASSISTANT CONSULT FOR TUBE FEED RECS. PEDIATRIC ASSISTANT ASSESSMENT 06/15: TRIGGERED FOR TPN/ FOOD PUMP/ BMI 16.0 Moderate Malnutrition (in acute illness) Energy Intake: <75% of estimated energy requirement for > 7 days Weight Loss: 1-2%/1 week; 5%/ 1 month; 7.5%/3 months Other: mild body fat loss; mild muscle mass loss; mild fluid accumulation; Severe Malnutrition (in acute illness) Energy Intake: < 50% of estimated energy requirement for > 5 days Weight Loss: >1-2%/1 week; >5%/1 month; >7.5%/3 months Other: moderate body fat loss; moderate muscle mass loss; moderate- severe fluid accumulation; measurably reduced furniture crater strength Moderate Malnutrition (in chronic illness) Energy Intake: <75% of estimated energy requirement for >1 month Weight Loss: 5%/1 month; 7.5%/3 months; 10%/6 months; 20%/1 year Other: mild body fat loss; mild muscle mass loss; mild fluid accumulation Severe Malnutrition (in chronic illness) Energy Intake: <75% of estimated energy requirement for >1 month Weight Loss: >5%/1 month; >7.5%/3 months; >10%/6 months; >20%/1 year Other: severe body fat loss; severe muscle mass loss; severe fluid accumulation; measurably reduced furniture crater strength Thank you, Susanna (This form is maintained as a part of the permanent medical record) 2014 [employer]. All Rights Reserved Susanna Shaw RN, BSN [email or web address] Office: [phone] [facility]ITAL[facility]
--- NOTE | 2018-06-19 17:18 | PDOC.PN ---
- Subjective Encounter Start Date: 06/19/18 Encounter Start Time: 16:45 No complaints. Tolerated ablation procedure well. - Objective Resuscitation Status: Resuscitation Status FULL:Full Resuscitation Vital Signs & Weight: Vital Signs (12 hours) Temp Pulse Resp BP Pulse Ox 06/19/18 17:04 78 18 131/60 98 06/19/18 16:50 98.1 F 79 16 138/63 06/19/18 07:10 97.4 F L 120 H 14 100 06/19/18 07:06 120 H 14 06/19/18 07:05 97.4 F L 120 H 18 120/69 100 06/19/18 05:58 120 H Weight Admit Weight 111 lb 6.4 oz Weight 112 lb 8 oz I&O: 06/18/18 06/19/18 06/20/18 06:59 06:59 06:59 Intake Total 2 2724 Balance 9 2728 Result Diagrams: 06/19/18 04:45 06/19/18 04:45 Phys Exam - Physical Examination Constitutional: NAD Trach Respiratory: no wheezing, no rales Decreased BS Cardiovascular: RRR, no significant murmur Gastrointestinal: soft, non-tender, no distention Musculoskeletal: no edema Neurological: non-focal Dx/Plan (1) Chronic anemia Code(s): D64.9 - ANEMIA, UNSPECIFIED Status: Chronic (2) Mild protein-calorie malnutrition Code(s): E44.1 - MILD PROTEIN-CALORIE MALNUTRITION Status: Chronic Comment: improving with modified diet, stbale,. (3) PVD (peripheral vascular disease) Code(s): I73.9 - PERIPHERAL VASCULAR DISEASE, UNSPECIFIED Status: Chronic Comment: stable (4) Acute and chronic respiratory failure ([id number]) Code(s): J96.20 - ACUTE AND CHR RESP FAILURE, UNSP W HYPOXIA OR HYPERCAPNIA Status: Resolved Qualifiers: Respiratory failure complication: hypoxia and hypercapnia Qualified Code(s) : J96.21 - Acute and chronic respiratory failure with hypoxia; J96.22 - Acute and chronic respiratory failure with hypercapnia; J96.22 - Acute and chronic respiratory failure with hypercapnia; J96.22 - Acute and chronic respiratory failure with hypercapnia (5) Atrial flutter Code(s): I48.92 - UNSPECIFIED ATRIAL FLUTTER Status: Resolved - Plan * Had ablation today. Now is NSR with good rate control. Off Amiodarone. Will continue to monitor overnight. Needs MBS tomorrow.
--- NOTE | 2018-06-19 20:14 | OP ---
DATE OF SERVICE: 06/19/2018 ELECTROPHYSIOLOGY STUDY AND RADIOFREQUENCY ABLATION REPORT REFERRING PHYSICIAN: Bruno Tuttle M.D. REASON FOR PROCEDURE: Mr. Jones is a 68-year-old man with history of atrial flutter in the past. He also has advanced COPD, chronic respiratory failure, trach and PEG placement due to recent pneumon ia, malnutrition. He has had an ablation in 01/2018 for typical atrial flutter, now returns with rec urrence with EKG picture concern with the isthmus dependent atrial flutter again. The patient has been on anticoagulation with Eliquis persistently without a fail. PROCEDURE: The patient received propofol by Anesthesia specialist. After adequate level of sedation achieved, the right femoral venous area prepped, draped and anesthetized using subcutaneous lidocain e and with ultrasound guidance, the femoral vein was accessed x2 and two 8 [place] short sheath was in troduced. Following that a decapolar catheter was advanced to the right ventricular, right atrium Hi s bundle and CS area. Pacing mapping and recording was performed in each location. The following ba seline findings were noted baseline cycle length 738 minute sinus rhythm, PA 136, QRS 84, QT 341, AH 99, HV 48 milliseconds. The sinus node recovery time was 1265, corrected 385 milliseconds. AV Wenck ebach cycle length 360 milliseconds, retrograde Wenckebach cycle length 350 milliseconds. With burst atrial pacing, we were able to re-induce an atrial flutter with the patient appeared to have central to lateral activation on the CS catheter suggestive of right atrial origin. Following that, overdri ve pacing, mapping was performed with a post-pacing interval bilateral CS. Following that, the atrial flutter was terminated with overdrive pacing. Following that, a [employer] SF ST catheter was advanced to the right atrium and 3D map of the right atrium was performed. The proximal CS pacing activation map of the cavotricuspid isthmus area as wel l as voltage map of the cavotricuspid study was obtained. We found a potential breakthrough site in the middle of the cavotricuspid isthmus line adequately preserved voltages and early in this ar ea as well as in the posterior portion of the line, we were able to eliminate this conduction. There was a posterior activation was seen in the inferior portion of the line, but barring that the transi t time was over segment. The burst atrial pacing after this ablation, we were unable to re-induce th e initially easily inducible atrial flutter. CONCLUSION: 1. Easily reinducible atrial flutter, which is isthmus dependent. 2. Reablation of the cavotricuspid isthmus line eliminated the inducibility atrial flutter and prolo nging the transisthmus time through the cavotricuspid isthmus. 3. Borderline normal sinus node recovery time and AV pierce function and His-Purkinje function noted. 4. No significant change in the cardiac silhouette pre and post-ablation. No significant complicati on noted. PLAN: 1. Resume short term anticoagulation and monitor the patient. 2. Stop amiodarone.
[2018-06-19] MEDS: Melatonin 3 MG TAB PO SCH (20:37)
[2018-06-19] MEDS: Apixaban 5 MG TAB PO SCH (20:38)
[2018-06-20 06:25] LABS: #Eosinphils 0.2 thou/uL (0.0-0.7); #Lymphocytes 1.4 thou/uL (1.20-3.40); #Monocytes 1.1 thou/uL (0.11-0.59); #Neutrophils 9.6 thou/uL (1.40-6.50); %Basophils 0.3 % (0.0-1.0); %Eosinophils 1.5 % (0.0-10.0); %Lymphocytes 11.7 % (21.0-51.0); %Neutrophils 77.5 % (42.0-75.0); Hemoglobin 8.9 g/dL (14.0-18.0); Mean Corpuscular HGB CONC 30.5 g/dL (32.0-36.0); Mean Corpuscular Volume 78.7 fL (78.0-98.0); Mean Platelet Volume 9.7 fL (7.4-10.4); Platelet Count 361 thou/uL (130-400); RBC Distribution Width 17.4 % (11.5-14.5); Red Blood Cell (RBC) Count 3.72 mill/uL (4.70-6.10); White Blood Cell (WBC) Count 12.3 thou/uL (4.8-10.8)
[2018-06-20 06:35] LABS: BUN (Urea Nitrogen) 10 mg/dL (8.4-25.7); Calc. Creatinine Clearance 98 mL/min (70-130); Calcium 8.6 mg/dL (7.8-10.44); Estimated GFR-MDRD Greater than 90; Glucose 113 mg/dL (80-115)
[2018-06-20 06:44] LABS: Chloride 97 mmol/L (98-107); Sodium 143 mmol/L (136-145)
[2018-06-20 06:47] LABS: Anion Gap 14 mmol/L (10-20); Carbon Dioxide 36 mmol/L (23-31)
[2018-06-20] MEDS: Budesonide 0.5 MG/2 ML NEB INH SCH ×2 (07:26→18:57)
[2018-06-20 08:02] LABS: Potassium 4.3 mmol/L (3.5-5.1)
[2018-06-20] MEDS: predniSONE 20 MG TAB PO SCH ×2 (08:58→09:36)
[2018-06-20] MEDS: Gabapentin 100 MG CAP PO SCH ×2 (08:59→20:08)
[2018-06-20] MEDS: Cefdinir 300 MG CAP PO SCH ×2 (08:59→20:08)
[2018-06-20] MEDS: Apixaban 5 MG TAB PO SCH ×2 (08:59→20:08)
[2018-06-20] MEDS: Pantoprazole 40 MG GRANULES PACKET PER TUBE SCH (08:59)
[2018-06-20] MEDS: clonazePAM 0.5 MG TAB PER TUBE SCH ×2 (08:59→20:08)
[2018-06-20] MEDS: Aspirin 81 mg Enteric Coated Tablet PER TUBE SCH (08:59)
[2018-06-20] MEDS: Digoxin 0.125 MG TAB PO SCH (08:59)
--- NOTE | 2018-06-20 09:56 | PRG ---
DATE OF SERVICE: 06/20/2018 SUBJECTIVE: He is better. This morning, he is less short of breath. He had a swallow study done, which I am told was unremarkable. OBJECTIVE: VITAL SIGNS: Sats are 92% on 2 liters, respiratory rate of 16, temperature 98, blood pressure is 100/50. CHEST: Reveals decreased breath sounds, minimal rhonchi. CARDIAC: Normal S1, S2. No gallops. ABDOMEN: Soft, no masses. LABORATORY DATA: Electrolytes are normal. White count is unremarkable. H& H is stable. IMPRESSION: Chronic obstructive pulmonary disease exacerbation, bronchitis, retained secretions, recurrent supraventricular tachycardia, status post ablation. PLAN: Pulmonary kat, decrease steroids. Continue scopolamine patch. He needs inner_cannula for his trach, which can be washed and cleaned daily. This was discussed with the patient at length. Otherwise, he has a #6 trach, we will get occluded from time to time. Pulmonary kat, he is stable enough to be discharged home anytime. LILIYA
--- NOTE | 2018-06-20 11:00 | PRG ---
DATE OF SERVICE: 06/20/2018 SUBJECTIVE: The patient is doing very well, has no complaints. He tells me that prior to his admiss ion, he was living with his sister and was fully functional and getting up and around fairly normally . OBJECTIVE: VITAL SIGNS: Temperature 98.2, pulse 82, respirations 18, O2 sat 100% on 2 liters, trach collar. Bl ood pressure 111/56. GENERAL APPEARANCE: Age appropriate male. He is in no distress. He is awake, alert, conversant, an d appropriate. HEENT: PERRL. No OP lesions. NECK: Trach in place. HEART: Regular rate and rhythm without murmurs. LUNGS: Have diminished breath sounds with very minimal scattered rales, but good air exchange. ABDOMEN: Soft, nontender, nondistended. PEG tube site looks good. EXTREMITIES: Warm and dry without edema. LABORATORY DATA: White blood cell count 12.3, hemoglobin 8.9, platelets 361. Sodium 143, potassium 4.3, chloride 97, CO2 is 36, BUN 10, creatinine 0.54. IMPRESSION AND PLAN: 1. Chronic respiratory failure. He is stable on trach, continue to be followed by Pulmonary. 2. Chronic obstructive pulmonary disease exacerbation. Managing his medications through Pulmonology . He is still on nebs and weaning some steroids. 3. History of pneumonia with sepsis, improved on Omnicef orally or intraorally. 4. Dysphagia. The patient has PEG tube in place. He had a swallow study done this morning, which p resumably was good. We will wait for speech therapy to continue to work with him to see if we can in struct the transition to oral medications and feeds. In the meantime, continue with the PEG feeds. 5. Chronic anemia, stable. 6. Mild protein calorie nutrition. Continue with PEG feeds. 7. Peripheral vascular disease, stable. 8. Atrial flutter, status post ablation, back in sinus rhythm and stable. DISPOSITION: The patient is generally stable and it would be reasonable for transition to rehab very soon. Discussed with case management.
--- NOTE | 2018-06-20 11:11 | RAD ---
MODIFIED BARIUM SWALLOW WITH SPEECH THERAPIST: 06/20/2018 HISTORY: A 68-year-old male with dysphagia, unspecified (R13.10); and feeding difficulties (R63.3). The patient has been n.p.o. for a few months. Evaluation of swallowing function prior to initiating oral feeding. FINDINGS: There is a tracheostomy tube. The jaws are edentulous. There is premature free spillage into the va llecula and some into the piriform sinuses, with slightly delayed swallow trigger, during feeding wit h thin liquids. There is no penetration or aspiration with any consistency administered. There is m ild residue in the vallecula after the administration of the thicker consistencies. IMPRESSION: 1. No penetration or aspiration. 2. Edentulous. 3. Tracheostomy tube. POS: [facility]
[2018-06-20 14:36] VITALS: BMI 16.7
[2018-06-20] MEDS: Scopolamine 1.5 mg/72 hour Patch TD SCH (17:40)
--- NOTE | 2018-06-20 17:43 | PDOC.CTH ---
<PaulcherriSarah enriquez - Last Filed: 06/20/18 17:40> Cardiology Progress Note - Subjective EP progress note: Patient seen and evaluated. No new cardiac concerns or complaints. Groin site stable. Resting in bed. - Objective Vital Signs Temp Pulse Resp BP Pulse Ox 06/20/18 16:00 96.9 F L 81 16 105/53 L 100 06/20/18 14:01 56 L 16 06/20/18 12:00 98.1 F 89 18 110/58 L 97 06/20/18 11:13 85 16 06/20/18 07:32 98.2 F 82 18 100 06/20/18 07:28 98.2 F 82 18 111/56 L 100 06/20/18 07:27 99 06/20/18 07:26 85 16 99 Admit Weight 111 lb 6.4 oz Weight 116 lb 9.6 oz 06/19/18 06/20/18 06/21/18 06:59 06:59 06:59 Intake Total 2728 2648 417 Balance 2728 2648 417 - Physical Examination General/Neuro: alert & oriented x3, NAD Neck: carotid US brisk, no JVD present Lungs: CTA, unlabored respirations Heart: PMI normal, RRR Abdomen: no HSM, NT/ND - Telemetry Telemetry Rhythm: NSR - Labs Result Diagrams: 06/20/18 05:46 06/20/18 05:46 Troponin/CKMB CK-MB (CK-2) 1.5 ng/mL (0-6.6) 06/14/18 10:09 Troponin I Less than 0.010 ng/mL (< 0.028) 06/16/18 08:46 - Assessment/Plan 1. Recurrent typical atrial flutter s/p redo CTI ablation yesterday. Now in NSR. Off antiarrhythmics. Needs to continue OAC x 30 days post ablation. Ok to DC by EP once ready. 6 week follow up with [facility] in [place] is requested. <Mark Wagner - Last Filed: 06/20/18 18:00> Cardiology Progress Note - Objective Vital Signs Temp Pulse Resp BP Pulse Ox 06/20/18 16:00 96.9 F L 81 16 105/53 L 100 06/20/18 14:01 56 L 16 06/20/18 12:00 98.1 F 89 18 110/58 L 97 06/20/18 11:13 85 16 06/20/18 07:32 98.2 F 82 18 100 06/20/18 07:28 98.2 F 82 18 111/56 L 100 06/20/18 07:27 99 06/20/18 07:26 85 16 99 Admit Weight 111 lb 6.4 oz Weight 116 lb 9.6 oz 06/19/18 06/20/18 06/21/18 06:59 06:59 06:59 Intake Total 2728 2648 417 Balance 2728 2648 417 - Labs Result Diagrams: 06/20/18 05:46 06/20/18 05:46 Troponin/CKMB CK-MB (CK-2) 1.5 ng/mL (0-6.6) 06/14/18 10:09 Troponin I Less than 0.010 ng/mL (< 0.028) 06/16/18 08:46 Attending Addendum - Attending Addendum Date/Time: 06/20/18 1800 I personally evaluated the patient and discussed the management with Ms Davis. I agree with the History, Examination, Assessment and Plan documented above with any addition or exceptions noted below.
[2018-06-20] MEDS: Melatonin 3 MG TAB PO SCH (20:08)
[2018-06-21 05:07] LABS: #Basophils 0.1 thou/uL (0.0-0.2); #Eosinphils 0.3 thou/uL (0.0-0.7); #Lymphocytes 1.3 thou/uL (1.20-3.40); #Monocytes 1.1 thou/uL (0.11-0.59); #Neutrophils 8.1 thou/uL (1.40-6.50); %Basophils 0.5 % (0.0-1.0); %Eosinophils 2.5 % (0.0-10.0); %Lymphocytes 12.2 % (21.0-51.0); %Monocytes 9.9 % (0.0-10.0); %Neutrophils 74.8 % (42.0-75.0); Hemoglobin 7.9 g/dL (14.0-18.0); Mean Corpuscular HGB CONC 31.9 g/dL (32.0-36.0); Mean Corpuscular Hemoglobin 24.9 pg (27.0-31.0); Mean Platelet Volume 9.8 fL (7.4-10.4); Platelet Count 307 thou/uL (130-400); RBC Distribution Width 17.7 % (11.5-14.5); Red Blood Cell (RBC) Count 3.17 mill/uL (4.70-6.10); White Blood Cell (WBC) Count 10.9 thou/uL (4.8-10.8)
[2018-06-21 05:19] LABS: BUN (Urea Nitrogen) 10 mg/dL (8.4-25.7); Calc. Creatinine Clearance 96 mL/min (70-130); Calcium 8.5 mg/dL (7.8-10.44); Estimated GFR-MDRD Greater than 90; Glucose 152 mg/dL (80-115)
[2018-06-21 05:28] LABS: Anion Gap 11 mmol/L (10-20); Carbon Dioxide 39 mmol/L (23-31); Chloride 96 mmol/L (98-107); Potassium 4.2 mmol/L (3.5-5.1); Sodium 142 mmol/L (136-145)
[2018-06-21] MEDS: Acetaminophen 325 MG TAB PER TUBE PRN (05:51)
[2018-06-21] MEDS: Budesonide 0.5 MG/2 ML NEB INH SCH (07:26)
[2018-06-21] MEDS: clonazePAM 0.5 MG TAB PER TUBE SCH (08:49)
[2018-06-21] MEDS: Apixaban 5 MG TAB PO SCH (08:50)
[2018-06-21] MEDS: Cefdinir 300 MG CAP PO SCH (08:50)
[2018-06-21] MEDS: predniSONE 20 MG TAB PO SCH (08:50)
[2018-06-21] MEDS: Digoxin 0.125 MG TAB PO SCH (08:50)
[2018-06-21] MEDS: Gabapentin 100 MG CAP PO SCH (08:50)
[2018-06-21] MEDS: Aspirin 81 mg Enteric Coated Tablet PER TUBE SCH (08:51)
[2018-06-21] MEDS: Pantoprazole 40 MG GRANULES PACKET PER TUBE SCH (08:51)
--- NOTE | 2018-06-21 09:56 | PQF ---
CLINICAL DOCUMENTATION IMPROVEMENT CLARIFICATION FORM: ICD-10 Updated PLEASE DO AN ADDENDUM TO THE PROGRESS NOTE WITH ANY DOCUMENTATION UPDATES OR ADDITIONS AND CARRY THROUGH TO DC SUMMARY. THANK YOU. DATE: 06/21/18 ATTN: Dr. Lui Please exercise your independent, professional judgment in responding to the clarification form. Clinical indicators are provided on the bottom of this form for your review SEPSIS DUE TO E COLI UTI Please check appropriate box(s) to clarify if the following diagnosis has been ruled in or ruled out: [ x Ruled in diagnosis [ ] Continue to treat [ x] Resolved [ ] Ruled out diagnosis [ ] Cannot rule out diagnosis [ ] Other diagnosis [ ] Unable to determine In addition, please specify: Present on Admission (POA): [ ] Yes [ ] No [ ] Unable to determine For continuity of documentation, please document condition throughout progress notes and discharge summary. Thank You. CLINICAL INDICATORS - SIGNS / SYMPTOMS / LABS H&P 06/14: ATRIAL FLUTTER WITH RVR COPD EXACERBATION UTI. URINALYSIS SHOWED 21-59 WBCS WITH 1+ BACTERIA. PN 9/2: SEPSIS DUE TO E COLI UTI PN 06/20: HISTORY OF PNEUMONIA WITH SEPSIS, IMPROVED ON OMNICEF ORALLY RISKS: H&P 06/14: HX RECENT PNEUMONIA. CHRONIC RESPIRATORY FAILURE, S/P TRACH & PEG. TREATMENT: CPOE 06/14: CEFTRIAXONE 1 GM IV. DC'D 06/19/18 CPOE 06/19: OMNICEF 300MG PO BID Thank you, Susanna (This form is maintained as a part of the permanent medical record) 2015 [employer]. All Rights Reserved Susanna Shaw RN, BSN [email or web address] Office: [phone] [facility]
--- NOTE | 2018-06-21 11:54 | PRG ---
DATE OF SERVICE: 06/21/2018 This morning he still has a #6 trach without any cannula. Once again he was told to place the cannul a otherwise he would have a blocked endotracheal tube. On trying to examine the tube, his #6 tube wa s attached to the mucosa. It is unclear when the last time it was changed. A fenestrated cuffless t magaly has been ordered to replace the present one. PHYSICAL EXAMINATION: VITAL SIGNS: Sats are 97% on 2 liters, temperature 97, blood pressure 135/56. CHEST: Chest reveals decreased breath sounds, no wheezing. CARDIAC: Normal S1, S2. ABDOMEN: Soft, no masses. LABORATORY: Bicarb is 39 from chronic metabolic alkalosis secondary to respiratory acidosis. IMPRESSION: 1. Severe end-stage chronic obstructive pulmonary disease. 2. A #[address] 3. Severe deconditioning. 4. Supraventricular tachycardia. PLAN: Pulmonary kat, I will replace his trach with a #6 cuffless trach. He can be discharged anyti me back to the [facility].
--- NOTE | 2018-06-21 12:39 | OP ---
DATE OF PROCEDURE: 06/21/2018 SURGEON: Dr. Baljit Thorne PROCEDURE: He had a #[address] which was removed. There was a minimal amount of secre tions that are much shorter cue, a #6 fenestrated longer Shiley cuffless tube was placed in without d ifficulty. A cannula was left in. I discussed these findings with the who was at the bedside from time to time once a shift they n eed to kind of clean the inner cannula with water and soap. The patient tolerated the procedure well.
[2018-06-21 16:23] VITALS: BP 133/62; TEMP 98.4
--- NOTE | 2018-06-22 14:48 | DIS ---
DATE OF ADMISSION: 06/14/2018 DATE OF DISCHARGE: 06/21/2018 DISCHARGE DIAGNOSES: 1. End-stage chronic obstructive pulmonary disease with tracheostomy and PEG tube. 2. Atrial flutter with rapid ventricular rate. 3. Urinary tract infection. 4. Chronic anemia. 5. Protein-calorie malnutrition. 6. Peripheral vascular disease.\ PROCEDURE: EP ablation of atrial flutter HOSPITAL COURSE: The patient is a 68-year-old male who had recently been admitted to the hospital with pneumonia and sepsis requiring ventilator support. The patient was not weanable because of underlying COPD and ultimately required trach and PEG placement. The patient was subsequently discharged, but was found to be hypoxic at the nursing facility and came back to the hospital. The patient was in atrial flutter and Cardiology was consulted. He had digoxin and Cardizem used and Dr. Wagner was consulted. Ultimately, the patient underwent ablation with return to sinus rhythm. The patient then had evaluation by Speech Therapy, in which he was able to tolerate pureed diet with thin liquids; however, the patient remained profoundly deconditioned secondary to hospitalizations. He was subsequently felt to be appropriate for discharge to a rehab. PHYSICAL EXAMINATION: VITAL SIGNS: On the day of discharge, temperature is 98.4, pulse 83, respirations 16, O2 sat 100% on 2 liters nasal cannula oxygen, BP is 133/62. GENERAL APPEARANCE: Age-appropriate male who is awake, alert, oriented, talkative. He is generally quite thin with sarcopenia. HEENT: PERRL. No OP lesions. NECK: Trach is in place. HEART: Regular rate and rhythm. LUNGS: Clear bilaterally. ABDOMEN: Soft, nontender, nondistended. PEG is in place. EXTREMITIES: Warm and dry. Of note, Dr. Thorne placed a #6 fenestrated Shiley cuffless tube without difficulty, had an inner cannula that would require cleaning with soap and water every shift. DISCHARGE MEDICATIONS: He will remain on DuoNeb nebulizers, nitroglycerin p.r.n., Tylenol p.r.n., Maalox p.r.n., Eliquis 5 mg b.i.d., aspirin 81 mg every day, budesonide 0.5 mg inhaled b.i.d., calcium 1000 mg q.4 hours p.r.n., Omnicef 300 mg b.i.d., Klonopin 0.5 mg b.i.d., digoxin 0.125 q.a.m., gabapentin 100 mg b.i.d., lactulose 20 grams every day p.r.n., melatonin 3 mg at bedtime, prednisone 10 mg every morning, scopolamine patch every 3 days, Senokot 2 tabs at bedtime p.r.n., Brovana 15 mcg nebulizer b.i.d., and Pulmicort inhalation b.i.d. He is to stop the chlorhexidine. DIET: He is to be on a regular diet with pureed consistency and thin liquids. ACTIVITY: His activity level is as tolerated and he will continue to obtain OT , PT and speech therapy. FOLLOWUP: He is to follow up with Dr. Mancilla and Dr. Wagner in 3-4 weeks; and Dr. Thorne, supposed to follow up with him in 2-3 weeks as well. [facility]ITAL[facility]es[facility]
== END 2018-06-21 18:44 | DRG 853 ==
LOC: ERS 09:20 → 2NO 16:39
PROVIDERS: ADMIT Internal Medicine; ATTEND Internal Medicine
PROC: 02583ZZ Destruction of Conduction Mechanism, Percutaneous Approach (ICD-10-PCS; 2018-06-19)
PROC: 0B21XFZ Change Tracheostomy Device in Trachea, External Approach (ICD-10-PCS; principal; 2018-06-21)
DX: A41.51 Sepsis due to Escherichia coli [E. coli] (principal); J96.21 Acute and chronic respiratory failure with hypoxia; I48.92 Unspecified atrial flutter; J44.1 Chronic obstructive pulmonary disease with (acute) exacerbation; E87.3 Alkalosis; E87.2 Acidosis; E44.1 Mild protein-calorie malnutrition; N39.0 Urinary tract infection, site not specified; Z68.1 Body mass index [BMI] 19.9 or less, adult; N18.2 Chronic kidney disease, stage 2 (mild); I12.9 Hypertensive chronic kidney disease with stage 1 through stage 4 chronic kidney disease, or unspecified chronic kidney disease; Z93.0 Tracheostomy status; I73.9 Peripheral vascular disease, unspecified; M19.90 Unspecified osteoarthritis, unspecified site; Z79.899 Other long term (current) drug therapy; Z79.82 Long term (current) use of aspirin; Z79.52 Long term (current) use of systemic steroids; Z93.1 Gastrostomy status; K21.9 Gastro-esophageal reflux disease without esophagitis
CPT/HCPCS: 36415; 71045; 74230; 76942; 80048; 80053; 81003; 81015; 82553; 83605; 83735; 83880; 84100; 84443; 84484; 85014; 85018; 85025; 85049; 87077; 87086; 87186; 93005; 93010; 93613; 93621; 93623; 93653; 94760; 96361; 96365; 96367; 96368; 96375; 96376; C1730; C1769; G8978-GP-CM; G8979-GP-CK; G8987-GO-CM; G8988-GO-CM; G8989-GO-CM; G8996-GN-CJ; G8996-GN-CM; G8997-GN-CJ; G8997-GN-CK; J0282; J0696; J1160; J1265; J1644; J2001; J2060; J2543; J3010; J3370; J3490; J7050; J7070; J7506; J7620; J7626

== ENCOUNTER 2018-06-22 09:36 | Observation (INO) | payer MEDICARE, MEDICAID ==
[2018-06-22 10:05] LABS: Hemoglobin 9.2 g/dL (14.0-18.0); Mean Corpuscular HGB CONC 31.6 g/dL (32.0-36.0); Mean Corpuscular Hemoglobin 24.4 pg (27.0-31.0); Mean Corpuscular Volume 77.4 fL (78.0-98.0); Platelet Count 370 thou/uL (130-400); RBC Distribution Width 17.8 % (11.5-14.5); Red Blood Cell (RBC) Count 3.76 mill/uL (4.70-6.10); White Blood Cell (WBC) Count 17.9 thou/uL (4.8-10.8)
[2018-06-22 10:21] LABS: Anisocytosis SLIGHT = 6-15 cells (100X) (0-5/hpf); Band 8 % (5-11); Hypochromia SLIGHT = 6-15 cells (100X) (0-5/hpf); Lymphocytes 2 % (21-51); MDiff Complete? YES; Microcytosis SLIGHT = 6-15 cells (100X) (0-5/hpf); Monocytes 2 % (0-10); Neutrophil 88 % (42-75); PLT Morphology Comment Appears Adequate
--- NOTE | 2018-06-22 10:27 | RAD ---
CHEST 1 VIEW: HISTORY: Shortness of breath. COMPARISON: Chest radiograph 06/14/18. FINDINGS: Tracheostomy is in lace with the tip in good position. Lungs are hyperinflated. Scarring of lung ba ses. No acute osseous abnormality. IMPRESSION: 1. Chronic changes. No acute abnormality. 2. Interval removal of PICC. POS: [facility]
[2018-06-22 10:38] LABS: ALT (SGPT) 19 U/L (8-55); AST (SGOT) 23 U/L (5-34); Albumin 3.5 g/dL (3.4-4.8); Alkaline Phosphatase 73 U/L (40-150); BUN (Urea Nitrogen) 10 mg/dL (8.4-25.7); Bilirubin, Total 0.3 mg/dL (0.2-1.2); Calc. Creatinine Clearance 0 mL/min (70-130); Calcium 8.9 mg/dL (7.8-10.44); Estimated GFR-MDRD Greater than 90; Globulin 3.2 g/dL (2.4-3.5); Glucose 108 mg/dL (80-115); Protein, Total 6.7 g/dL (5.8-8.1)
[2018-06-22 10:49] LABS: Anion Gap 18 mmol/L (10-20); Carbon Dioxide 33 mmol/L (23-31); Chloride 94 mmol/L (98-107); Potassium 4.5 mmol/L (3.5-5.1); Sodium 140 mmol/L (136-145)
[2018-06-22 12:00] LABS: CKMB 1.8 ng/mL (0-6.6); Troponin I 0.072 ng/mL (< 0.028)
[2018-06-22] MEDS ORDERED: Aspirin 300 MG Suppository ONE (13:57)
[2018-06-22 14:55] VITALS: BMI 16.2
[2018-06-22 17:00] LABS: Troponin I 0.076 ng/mL (< 0.028)
[2018-06-22] MEDS: Arformoterol 15 MCG/2 ML NEB NEB SCH (19:16)
[2018-06-22] MEDS: Budesonide 0.5 MG/2 ML NEB INH SCH (19:24)
--- NOTE | 2018-06-22 19:39 | CON ---
DATE OF CONSULTATION: 06/22/2018 CONSULTING PHYSICIAN: Dr. Lui. REASON FOR CONSULTATION: Shortness of breath. HISTORY OF PRESENT ILLNESS: Mr. Jones is a 68-year-old -[place] male , who is a patient of my partner, Dr. Thorne. He just left the hospital yesterday. He has longstanding severe COPD which requires a tracheostomy. Apparently, he felt like he was not getting [facility] the [facility] and requested to come back here. He tells me at the [facility], he was receiving oxygen via nasal cannula and not over his trach. PAST MEDICAL HISTORY: 1. COPD. 2. Supraventricular tachycardia. 3. Hypertension. PAST SURGICAL HISTORY: Appendectomy, surgery for small-bowel obstruction, cardiac catheterization. ALLERGIES: None. MEDICATIONS: Prior to admission, prednisone 10 mg daily, Klonopin 0.5 mg b.i.d. , Senokot 2 tablets as needed, scopolamine 1.5 mg patch transdermally every 3 days, Protonix 40 mg daily, melatonin 3 mg nightly, lactulose 20 mg daily as needed, DuoNeb every 4 hours as needed, Neurontin 100 mg b.i.d., Lanoxin 0.125 mg daily, Omnicef 300 mg b.i.d., calcium carbonate 1000 mg every 4 hours as needed, Pulmicort nebs 0.5 mg b.i.d., aspirin 81 mg daily, Brovana 15 mcg nebulized twice daily, Eliquis 5 mg b.i.d. SOCIAL HISTORY: Former smoker, does not consume alcohol. REVIEW OF SYSTEMS: Ten point review of systems otherwise negative. PHYSICAL EXAMINATION: VITAL SIGNS: Temperature 97.7, pulse 98, respirations 20, O2 sat is 99% on 3 liters nasal cannula, also has a trach collar on at 8 liters, blood pressure 129 /67. GENERAL: The patient is a chronically ill appearing male, who communicates verbally as long as his tracheostomy has a speaking valve on top. HEENT: Bitemporal wasting is present. Oropharynx clear. NECK: No adenopathy, no JVD, no bruits. LUNGS: He has diminished breath sounds throughout. No wheezing, no rhonchi. CARDIAC: S1, S2 regular without audible murmur, rub, or gallop. ABDOMEN: Soft, nontender, nondistended. EXTREMITIES: No clubbing, cyanosis. He has severe muscle wasting. NEUROLOGIC: Grossly intact throughout. LABORATORY DATA: White blood cell count 17.9, hematocrit 29.1, platelet count 370. Sodium 140, potassium 4.5, chloride 94, CO2 of 33, BUN 10, creatinine 0.6 , glucose 108. Troponin 0.72. ASSESSMENT: Severe chronic obstructive pulmonary disease, which is probably not far off from his baseline from what I remember seeing him look like in the past. RECOMMENDATIONS: 1. I will get social work involved to see if they can get him a better concentrator to use at the [facility] where he can apply oxygen to his tracheostomy site. 2. Restart his inhaler medication including the Brovana, Pulmicort, Omnicef and prednisone. Again, I do not think the patient is too far off baseline and should be able to go to the [facility] soon. 70 minutes time was spent on this consult. Of that time >50% was spent with the patient, and/or on the patient's hospital unit. LILIYA
--- NOTE | 2018-06-22 20:33 | HP ---
CHIEF COMPLAINT: Anxiety. HISTORY OF PRESENT ILLNESS: The patient is a 68-year-old male [facility]. The patient has been admitted here many times for recurrent COPD exacerbations. Roberta cordova is a forty-fifth admission in the last 6 years. He was admitted in April of this year with respirat ory failure and pneumonia. He could not be extubated and underwent a trach and PEG placement. Subse quently, the patient did improve enough, he was able to discharge and went to a rehab facility where he was present for a few days and return to the hospital at that point, the patient appeared to possi kb have some sepsis related to urinary tract infection, but was in atrial flutter. He was treated w ith antibiotics and Cardiology evaluated the patient and ultimately he underwent ablation by Dr. Wagner and had returned to sinus rhythm. Through all of that the patient has significant malnutrition and debility. He was reevaluated by Speech Therapy and was cleared to have a pureed diet with thin liqui ds. He had #6 fenestrated Shiley with internal cannula placed at the time of discharge yesterday and the patient was sent to [facility]. Today, the patient returns to the emergency department. The his tory is somewhat difficult to fully elucidate, but the patient himself says that he met with some fru stration there and was having significant anxiety. He feels strongly that was the source of his unde rlying shortness of breath. In the emergency department, speech therapy did see the patient had his trach clean and suction and he is doing well now. The patient reports that he has no intention of go ing anywhere when he leaves this hospital other than going home. He was quite clear that he will be getting up on the side of bed. Regardless of our wishes and he says that he will be using a toilet r ather than having anyone clean his " ." REVIEW OF SYSTEMS: Patient was just discharged yesterday, so has not been much time for him to have any new decompensations. He did have a meal there, but was generally turned off by the food. PAST MEDICAL HISTORY: Chronic respiratory failure, status post trach and PEG; hypertension; atrial f lutter, status post ablation; history of pneumonia; moderate protein-calorie malnutrition; peripheral vascular disease; degenerative joint disease; severe tobacco abuse. PAST SURGICAL HISTORY: Trach, PEG, appendectomy, cardiac catheterization, prior abdominal surgery, a nd EP ablation. FAMILY HISTORY: Nothing new significant. SOCIAL HISTORY: The patient has a history of smoking, denies drinking or drugs. He is FULL CODE. ALLERGIES: None. MEDICATIONS: DuoNeb, Nitrostat, Tylenol, Maalox, Eliquis 5 mg b.i.d., aspirin 81 mg every day, Pulmi rod nebs 0.5 mg inhaled b.i.d., Tums p.r.n., Omnicef 300 mg b.i.d., Klonopin 0.5 mg b.i.d., Lanoxin 0.125 mg every day, Neurontin 100 mg b.i.d., lactulose 20 mg every day p.r.n., Melatonin 3 mg at bedt cedrick, Pantoprazole 40 mg every day, prednisone 10 mg every day, scopolamine patch 1.5 mg every 3 days, Senokot 2 at bedtime, Brovana 50 mcg inhaled b.i.d., Pulmicort 0.5 mg inhaled b.i.d. PHYSICAL EXAMINATION: VITAL SIGNS: Temperature 97.7, pulse 98, respirations 20, O2 sat 99%, currently on 3 liters trach co llar. BP is 129/67. GENERAL APPEARANCE: Age appropriate male. He is generally thin and cachectic, but in no distress. He is awake, alert, and talkative. HEENT: PERRL. No OP lesions. NECK: Trach is in place. Appears to be healthy. CARDIOVASCULAR: Regular rate and rhythm. LUNGS: Clear bilaterally. ABDOMEN: Soft, nontender, nondistended. EXTREMITIES: Warm and dry without edema. LABORATORY DATA: White count 17.9, hemoglobin 9.2, MCV 77.4, platelets 370. Sodium 140, potassium 4 .5, chloride 94, CO2 of 33, BUN 10, creatinine 0.59. Troponin 0.072. Chest x-ray is clear. ASSESSMENT AND PLAN: 1. Episode of shortness of breath. It sounds like the patient may have had some anxiety underlying this on top of his severe end-stage chronic obstructive pulmonary disease. The patient himself is fa irly convinced that this was purely an anxiety issue related to his intolerance to the new setting at [facility]. Currently, the patient appears to be stable. We will continue with his usual medication s and consult Pulmonology. 2. Borderline troponin. This may be related to the recent ablation. We will go ahead and check a s eries and keep him on telemetry in the meantime. 3. Leukocytosis, likely secondary to the steroids. 4. Chronic anemia. 5. Dysphagia. Continue with the pureed consistency foods and thin liquids. 6. History of recent atrial flutter with ablation. Continue with the anticoagulation.
[2018-06-23] MEDS ORDERED: Gabapentin 100 MG CAP PO SCH (03:45)
[2018-06-23] MEDS: Acetaminophen 325 MG TAB PO PRN ×2 (03:51→20:09)
[2018-06-23] MEDS: Budesonide 0.5 MG/2 ML NEB INH SCH ×2 (06:47→18:56)
[2018-06-23] MEDS: Arformoterol 15 MCG/2 ML NEB NEB SCH ×2 (07:01→18:55)
[2018-06-23] MEDS: Cefdinir 300 MG CAP PO SCH (08:41)
[2018-06-23] MEDS: Gabapentin 100 MG CAP PO SCH ×2 (08:42→20:09)
[2018-06-23] MEDS: predniSONE 20 MG TAB PO SCH (08:42)
--- NOTE | 2018-06-23 13:39 | PRG ---
DATE OF SERVICE: 06/23/2018 SUBJECTIVE: The patient is doing reasonably well, had no complaints. PHYSICAL EXAMINATION: VITAL SIGNS: Temperature is 97.4, pulse 92, respirations 18, O2 sat 90% on 3 liters, blood pressure 117/62. HEENT: Unremarkable. NECK: No JVD. LUNGS: Clear but distant breath sounds. CARDIAC: S1 and S2 regular. ABDOMEN: Soft. EXTREMITIES: No edema. ASSESSMENT: 1. Severe chronic obstructive pulmonary disease. 2. Status post tracheostomy. PLAN: The patient is really about the same from a pulmonary standpoint as he has been. He could be transferred back to the care home at anytime as long as they have oxidation system set up to where he can get a trach collar.
--- NOTE | 2018-06-23 13:42 | PDOC.PN ---
- Subjective Encounter Start Date: 06/23/18 Encounter Start Time: 09:50 Doing well. No complaints. Tolerating po's. Willing to go back to [facility] if the equipment is there. - Objective Resuscitation Status: Resuscitation Status FULL:Full Resuscitation Vital Signs & Weight: Vital Signs (12 hours) Temp Pulse Resp BP Pulse Ox 06/23/18 11:07 97 24 H 06/23/18 07:50 97.4 F L 92 18 117/62 98 06/23/18 07:01 80 20 06/23/18 06:50 99 06/23/18 06:47 86 20 06/23/18 04:00 98.5 F 93 20 111/55 L 100 06/23/18 02:56 97 Weight Weight 112 lb 14.4 oz I&O: 06/22/18 06/23/18 06/24/18 06:59 06:59 06:59 Intake Total 480 Balance 480 Result Diagrams: 06/22/18 09:55 06/22/18 09:55 Phys Exam - Physical Examination Constitutional: NAD Respiratory: no wheezing, no rales, no rhonchi, clear to auscultation bilateral Diminished throughout. Cardiovascular: RRR, no significant murmur, no rub Gastrointestinal: soft, non-tender, no distention Dx/Plan (1) Chronic respiratory failure Code(s): J96.10 - CHRONIC RESPIRATORY FAILURE, UNSP W HYPOXIA OR HYPERCAPNIA Status: Acute (2) COPD (chronic obstructive pulmonary disease) Status: Acute (3) Chronic anemia Code(s): D64.9 - ANEMIA, UNSPECIFIED Status: Chronic (4) GERD (gastroesophageal reflux disease) Code(s): K21.9 - GASTRO-ESOPHAGEAL REFLUX DISEASE WITHOUT ESOPHAGITIS Status: Chronic Qualifiers: Esophagitis presence: esophagitis presence not specified Qualified Code(s) : K21.9 - Gastro-esophageal reflux disease without esophagitis Comment: on Protonix (5) Moderate protein-calorie malnutrition Code(s): E44.0 - MODERATE PROTEIN-CALORIE MALNUTRITION Status: Chronic - Plan * D/W CM. SNF will have the equipment, but will likely be Monday.
[2018-06-24] MEDS ORDERED: clonazePAM 0.5 MG TAB PO SCH (05:15)
[2018-06-24] MEDS: Budesonide 0.5 MG/2 ML NEB INH SCH ×2 (06:53→19:19)
[2018-06-24] MEDS: Arformoterol 15 MCG/2 ML NEB NEB SCH ×2 (07:05→19:17)
[2018-06-24] MEDS: Cefdinir 300 MG CAP PO SCH (09:01)
[2018-06-24] MEDS: predniSONE 20 MG TAB PO SCH (09:01)
[2018-06-24] MEDS: Gabapentin 100 MG CAP PO SCH ×2 (09:01→21:57)
--- NOTE | 2018-06-24 11:04 | PRG ---
DATE OF SERVICE: 06/24/2018 SUBJECTIVE: The patient is doing reasonably well, had no complaints. PHYSICAL EXAMINATION: VITAL SIGNS: Temperature 97, pulse 92, respirations 22, O2 sat 100% on 2 liters, blood pressure 119/ 56. HEENT: Unremarkable. NECK: Trach in good position. LUNGS: Clear, but distant. CARDIAC: S1 and S2 regular. ABDOMEN: Soft. EXTREMITIES: No edema. ASSESSMENT: Stable severe chronic obstructive pulmonary disease. PLAN: Mainly a placement issue at this point. The patient's Omnicef order was changed yesterday. I am not quite sure why was dose so high, but I will change that back.
--- NOTE | 2018-06-24 14:05 | PDOC.PN ---
- Subjective Encounter Start Date: 06/24/18 Encounter Start Time: 10:30 Has a little discomfort at the trach site with swallowing. - Objective Resuscitation Status: Resuscitation Status FULL:Full Resuscitation Vital Signs & Weight: Vital Signs (12 hours) Temp Pulse Resp BP Pulse Ox 06/24/18 10:54 89 16 06/24/18 08:01 97.0 F L 92 22 H 119/56 L 100 06/24/18 06:55 100 06/24/18 06:53 81 20 06/24/18 04:00 98.1 F 79 16 100/57 L 100 06/24/18 03:45 98 Weight Admit Weight 112 lb 14.4 oz Weight 106 lb 3 oz I&O: 06/23/18 06/24/18 06/25/18 06:59 06:59 06:59 Intake Total 480 680 Balance 480 680 Result Diagrams: 06/22/18 09:55 06/22/18 09:55 Phys Exam - Physical Examination Constitutional: NAD Trach Respiratory: no wheezing, no rales, no rhonchi, clear to auscultation bilateral Cardiovascular: RRR, no significant murmur Gastrointestinal: soft, non-tender, no distention Musculoskeletal: no edema Dx/Plan (1) Chronic respiratory failure Code(s): J96.10 - CHRONIC RESPIRATORY FAILURE, UNSP W HYPOXIA OR HYPERCAPNIA Status: Acute Comment: Trach in place. Stable. Still on steroids, nebs. (2) COPD (chronic obstructive pulmonary disease) Status: Acute (3) Chronic anemia Code(s): D64.9 - ANEMIA, UNSPECIFIED Status: Chronic (4) GERD (gastroesophageal reflux disease) Code(s): K21.9 - GASTRO-ESOPHAGEAL REFLUX DISEASE WITHOUT ESOPHAGITIS Status: Chronic Qualifiers: Esophagitis presence: esophagitis presence not specified Qualified Code(s) : K21.9 - Gastro-esophageal reflux disease without esophagitis Comment: on Protonix (5) Moderate protein-calorie malnutrition Code(s): E44.0 - MODERATE PROTEIN-CALORIE MALNUTRITION Status: Chronic Comment: Taking po's. (6) Dysphagia Code(s): R13.10 - DYSPHAGIA, UNSPECIFIED Status: Acute Comment: Pureed diet with thin liquids. Still has PEG, but not being used. - Plan * Stable. Prepared for transfer back to [facility] now that they have the concentrator they need and the suction. Anticipate that will occur tomorrow. Will need to remain on the pureed diet and thin liquids.
[2018-06-24] MEDS ORDERED: ALPRAZolam 0.25 MG TAB PO SCH (15:45)
[2018-06-24] MEDS ORDERED: Cefdinir 125 MG/5 ML Oral Suspension PO SCH (21:00)
[2018-06-24] MEDS: clonazePAM 0.5 MG TAB PO SCH (21:56)
[2018-06-25] MEDS: Acetaminophen 325 MG TAB PO PRN ×2 (04:07→13:31)
[2018-06-25] MEDS: Budesonide 0.5 MG/2 ML NEB INH SCH ×2 (06:57→18:58)
[2018-06-25] MEDS: Arformoterol 15 MCG/2 ML NEB NEB SCH ×2 (06:57→18:58)
[2018-06-25] MEDS ORDERED: Cefdinir 125 MG/5 ML Oral Suspension PO SCH (09:00)
[2018-06-25] MEDS: clonazePAM 0.5 MG TAB PO SCH ×2 (09:01→20:53)
[2018-06-25] MEDS: predniSONE 20 MG TAB PO SCH (09:01)
[2018-06-25] MEDS: Gabapentin 100 MG CAP PO SCH ×2 (09:02→20:53)
--- NOTE | 2018-06-25 10:17 | PRG ---
DATE OF SERVICE: 06/25/2018 He is doing well. He complains of a sore throat. PHYSICAL EXAMINATION: VITAL SIGNS: Temperature is 97.6, pulse 106, respirations 18, O2 sat 100% on 2 liters. HEENT: Unremarkable. NECK: Trach in place. CARDIAC: S1 and S2 regular. LUNGS: Distant breath sounds. ABDOMEN: Soft. EXTREMITIES: No edema. ASSESSMENT: 1. Stable severe chronic obstructive pulmonary disease. 2. Status post trach. PLAN: I think we can go ahead and stop his antibiotic. He continues on low dose prednisone. He is stable for transfer back to the senior living.
[2018-06-25] MEDS ORDERED: Diabetic Tussin 200 MG/10 ML UDCUP PO PRN (13:15)
[2018-06-26] MEDS: Acetaminophen 325 MG TAB PO PRN ×2 (01:09→12:00)
[2018-06-26] MEDS: Budesonide 0.5 MG/2 ML NEB INH SCH (06:51)
[2018-06-26] MEDS: Arformoterol 15 MCG/2 ML NEB NEB SCH (10:29)
--- NOTE | 2018-06-26 10:50 | PDOC.PN ---
- Subjective Encounter Start Date: 06/25/18 Encounter Start Time: 11:30 Subjective: pt up in bed no complains - Objective Resuscitation Status: Resuscitation Status FULL:Full Resuscitation Vital Signs & Weight: Vital Signs (12 hours) Temp Pulse Resp BP Pulse Ox 06/26/18 10:30 90 12 06/26/18 04:10 97.8 F 90 20 99/56 L 100 06/26/18 02:23 79 16 100 Weight Admit Weight 112 lb 14.4 oz Weight 106 lb 1 oz I&O: 06/25/18 06/26/18 06/27/18 06:59 06:59 06:59 Intake Total 710 840 Output Total 100 375 Balance 610 465 Result Diagrams: 06/22/18 09:55 06/22/18 09:55 Phys Exam - Physical Examination HEENT: PERRLA, moist MMs, sclera anicteric, TM's clear, oral pharynx no lesions , 2+ tonsils Neck: no nodes, no JVD, supple, full ROM Respiratory: no wheezing, no rales, no rhonchi, wheezing present, clear to auscultation bilateral Cardiovascular: RRR, no significant murmur, no rub, gallop, irregular Dx/Plan (1) COPD (chronic obstructive pulmonary disease) Status: Acute (2) Chronic respiratory failure Code(s): J96.10 - CHRONIC RESPIRATORY FAILURE, UNSP W HYPOXIA OR HYPERCAPNIA Status: Acute Comment: Trach in place. Stable. Still on steroids, nebs. (3) Dysphagia Code(s): R13.10 - DYSPHAGIA, UNSPECIFIED Status: Acute Comment: Pureed diet with thin liquids. Still has PEG, but not being used. (4) Afib Code(s): I48.91 - UNSPECIFIED ATRIAL FIBRILLATION Status: Chronic Qualifiers: Atrial fibrillation type: chronic Qualified Code(s): I48.2 - Chronic atrial fibrillation Comment: cardizem on hold, heart rate in 90s - Plan will start pt on his home meds -: pt feels better today states his anxiety meds were not started. * . Review of Systems - Review of Systems Cardiovascular: negative: chest pain, palpitations, orthopnea, paroxysmal nocturnal dyspnea, edema, light headedness, other Gastrointestinal: negative: Nausea, Vomiting, Abdominal Pain, Diarrhea, Constipation, Melena, Hematochezia, Other Genitourinary: negative: Dysuria, Frequency, Incontinence, Hematuria, Retention , Other - Medications/Allergies Allergies/Adverse Reactions: Allergies Allergy/AdvReac Type Severity Reaction Status Date / Time No Known Drug Allergies Allergy Verified 06/22/18 18:36 Medications: Current Medications Acetaminophen (Tylenol) 650 mg PO Q6H PRN PRN Reason: Headache/Fever or Pain Last Admin: 06/26/18 01:09 Dose: 650 mg Albuterol/Ipratropium (Duoneb) 3 ml NEB [id number] [facility] Last Admin: 06/26/18 10:30 Dose: 3 ml Arformoterol Tartrate (Brovana) 15 mcg NEB BID-RT [facility] Last Admin: 06/26/18 10:29 Dose: Not Given Budesonide (Pulmicort Neb Solution) 0.5 mg INH BID-RT [facility] Last Admin: 06/26/18 06:51 Dose: 0.5 mg Clonazepam (Klonopin) 0.5 mg PO BID [facility] Last Admin: 06/25/18 20:53 Dose: 0.5 mg Gabapentin (Neurontin) 100 mg PO BID [facility] Last Admin: 06/25/18 20:53 Dose: 100 mg Guaifenesin (Robitussin Sf) 200 mg PO Q6H PRN PRN Reason: Cough Last Admin: 06/25/18 13:31 Dose: 200 mg Prednisone (Prednisone) 10 mg PO QAM[facility] Last Admin: 06/25/18 09:01 Dose: 10 mg
[2018-06-26] MEDS: Gabapentin 100 MG CAP PO SCH (11:04)
[2018-06-26] MEDS: predniSONE 20 MG TAB PO SCH (11:04)
[2018-06-26] MEDS: clonazePAM 0.5 MG TAB PO SCH (11:04)
--- NOTE | 2018-06-26 11:23 | PRG ---
DATE OF SERVICE: 06/26/2018 Mr. Jones is doing fairly well. He complains of a dry mouth. PHYSICAL EXAMINATION: VITAL SIGNS: He is afebrile. Vital signs are stable. HEENT: Unremarkable except for bitemporal wasting. NECK: Tracheostomy midline clean. CARDIAC: S1 and S2 regular. LUNGS: Distant breath sounds. ABDOMEN: Soft. EXTREMITIES: No edema. ASSESSMENT: Chronic obstructive pulmonary disease, which is clinically stable. PLAN: Awaiting placement. Continue present medications.
--- NOTE | 2018-06-26 11:23 | DIS ---
DATE OF ADMISSION: 06/22/2018 DATE OF DISCHARGE: 06/26/2018 DISCHARGE DIAGNOSES: 1. Chronic obstructive pulmonary disease. 2. Chronic respiratory failure. 3. Dysphagia. 4. Atrial fibrillation. HOSPITAL COURSE: The patient is a very pleasant 68-year-old male who appears more older than his sta blayne age who initially presented to the hospital with significant shortness of breath. The patient wa s just discharged from the facility yesterday and had been admitted multiple times for COPD exacerbat ion at our facility. The patient recently underwent pneumonia and also respiratory failure for which he underwent a PEG and a tracheostomy. The patient is tolerating pureed diet orally and also has a PEG tube. He is getting feeds through that also. After speaking with the patient, I found out that patient's antianxiety medications were not started. No significant changes were made while he was in the hospital here. He was seen by Pulmonology, who did not make any significant changes to his medi cations. Recommended stopping the antibiotics and just doing a low dose prednisone. The patient remington l be discharged back to his nursing Care facility today. PHYSICAL EXAMINATION: VITAL SIGNS: 97.8, 90, 20, 100% on nasal cannula, 99/56. GENERAL: He is awake, alert, oriented x3, does not appear in any distress. CARDIOVASCULAR: S1, S2 present. No murmurs, rubs or gallops. ABDOMEN: Soft, nontender. Bowel sounds are present x2. EXTREMITIES: No edema. RESPIRATORY: He also has a tracheostomy trach collar and a PEG tube. MEDICATIONS: I have continued all his home medications. There were no new medications that were sta rted. I made sure that his Klonopin 0.5 mg b.i.d. was restarted and he is on prednisone 10 mg which again is not new. All of his medications including aspirin and also Eliquis both have been started b ack again. Again, he will be discharged to [facility]. He will follow up as an outpatient with Pulmonology.
[2018-06-26 13:29] VITALS: BP 119/55; TEMP 97.9
== END 2018-06-26 15:10 | disposition home or self-care (01) ==
LOC: ERS 09:36 → 2NO 14:46
PROVIDERS: ADMIT Internal Medicine; ATTEND Internal Medicine
DX: J44.9 Chronic obstructive pulmonary disease, unspecified (principal); J96.10 Chronic respiratory failure, unspecified whether with hypoxia or hypercapnia; I48.91 Unspecified atrial fibrillation; I10 Essential (primary) hypertension; I47.1 Supraventricular tachycardia; E44.0 Moderate protein-calorie malnutrition; Z79.01 Long term (current) use of anticoagulants; Z79.82 Long term (current) use of aspirin; Z79.899 Other long term (current) drug therapy; Z87.891 Personal history of nicotine dependence
CPT/HCPCS: 71045; 80053; 82553; 84484 ×2; 85025; 93005; 94640 ×6; 94760; 97110; 97139 ×4; 97530; 99285; G0378 ×3; G8981; G8982; 36415; G8996-GN-CL; G8997-GN-CL; J7506; J7620; J7626

== ENCOUNTER 2018-07-05 12:32 | Inpatient (IN) | payer MEDICARE, MEDICAID ==
[2018-07-05 13:30] LABS: #Eosinphils 0.1 thou/uL (0.0-0.7); #Lymphocytes 2.1 thou/uL (1.20-3.40); #Monocytes 0.7 thou/uL (0.11-0.59); #Neutrophils 13.3 thou/uL (1.40-6.50); %Basophils 0.2 % (0.0-1.0); %Eosinophils 0.6 % (0.0-10.0); %Lymphocytes 12.8 % (21.0-51.0); %Monocytes 4.2 % (0.0-10.0); %Neutrophils 82.2 % (42.0-75.0); Hemoglobin 9.3 g/dL (14.0-18.0); Mean Corpuscular HGB CONC 30.5 g/dL (32.0-36.0); Mean Corpuscular Hemoglobin 23.3 pg (27.0-31.0); Mean Corpuscular Volume 76.3 fL (78.0-98.0); Mean Platelet Volume 9.9 fL (7.4-10.4); Platelet Count 411 thou/uL (130-400); Red Blood Cell (RBC) Count 4.01 mill/uL (4.70-6.10); White Blood Cell (WBC) Count 16.1 thou/uL (4.8-10.8)
[2018-07-05] MEDS ORDERED: Lorazepam 2 MG/ML VIAL ONE (13:31)
[2018-07-05 13:53] LABS: ALT (SGPT) 12 U/L (8-55); AST (SGOT) 20 U/L (5-34); Albumin 3.6 g/dL (3.4-4.8); Alkaline Phosphatase 86 U/L (40-150); BUN (Urea Nitrogen) 6 mg/dL (8.4-25.7); Bilirubin, Total 0.3 mg/dL (0.2-1.2); Calc. Creatinine Clearance 0 mL/min (70-130); Calcium 9.4 mg/dL (7.8-10.44); Estimated GFR-MDRD Greater than 90; Globulin 3.4 g/dL (2.4-3.5); Glucose 131 mg/dL (80-115)
[2018-07-05 13:58] LABS: Actual Bicarbonate (HCO3a) 44.5 mEq/L (22-28); Analyzer IN Cardio ER; Base Excess (BEa) 15.3 mEq/L (-2.0 to +3.0); Calcium, Ionized 1.11 mmol/L (1.12-1.30); Carboxyhemoglobin (COHb) 0.9 gm% (0.0-3.0); Hemoglobin (Hb) 9.5 g/dL (14.0-18.0); O2 Tension (PaO2) 70.2 mmHg (> 80.0); Potassium - ABG Lab 4.36 mmol/L (3.70-5.30)
[2018-07-05 13:59] LABS: CO2 Tension 91.9 mmHg (35.0-45.0); Puncture Site LRA
[2018-07-05 14:00] LABS: ALV-art Gradient 171.425 (0-20)
[2018-07-05 14:02] LABS: Anion Gap 15 mmol/L (10-20); Carbon Dioxide 38 mmol/L (23-31); Chloride 97 mmol/L (98-107); Potassium 4.5 mmol/L (3.5-5.1); Sodium 145 mmol/L (136-145)
--- NOTE | 2018-07-05 14:19 | RAD ---
PORTABLE CHEST: Date: 07/05/18 HISTORY: Dyspnea. COMPARISON: 06/22/18. FINDINGS: Tracheostomy tube is in satisfactory position. Heart size within normal limits. There are atheroscler otic changes of the aorta. The lungs are clear of any infiltrative process. IMPRESSION: No active intrathoracic disease. Stable exam. POS: [facility]
[2018-07-05 14:20] LABS: CKMB 1.8 ng/mL (0-6.6); Troponin I Less than 0.010 ng/mL (< 0.028)
[2018-07-05] MEDS ORDERED: Calcium Carbonate 500 MG ChewTAB PO PRN (15:39)
[2018-07-05] MEDS ORDERED: Lorazepam 2 MG/ML VIAL SLOW IVP PRN (15:40)
[2018-07-05] MEDS ORDERED: Ondansetron ODT 4 MG TAB PO PRN (15:41)
[2018-07-05] MEDS ORDERED: Acetaminophen 650 MG Suppository PR PRN (15:41)
[2018-07-05] MEDS ORDERED: Ondansetron HCl/PF 4 MG/2 ML Vial IVP PRN (15:41)
[2018-07-05] MEDS ORDERED: Sodium Chloride 0.9% 1,000 ML IV SCH (15:45)
[2018-07-05] MEDS ORDERED: hydrALAZINE 20 MG/ML VIAL SLOW IVP PRN (15:46)
--- NOTE | 2018-07-05 15:51 | HP ---
DATE OF ADMISSION: 07/05/2018 PRIMARY CARE PHYSICIAN: Dr. Maci Mancilla at [facility]. CHIEF COMPLAINT: Shortness of breath. HISTORY OF PRESENT ILLNESS: The patient is a 68-year-old male with a chronic respiratory failure, st atus post trach and PEG, COPD, was brought into the emergency room with increased respiratory distres s at the nursing facility. When EMS arrived, the patient only was able to speak one or two words wit hout getting significant dyspnea. He was in moderate respiratory distress. He received nebulizer tr eatment and Solu-Medrol by EMS. Due to increased somnolence, the trach was changed to cuffed trach a nd he was started on mechanical ventilation. His respiratory rate per EMS was 40. His trach was suc tion by EMS. In the emergency room, his blood gases showed pH of 7.30 with pCO2 91.9, bicarbonate 44.5, pO2 of 70. 2 on 50% FIO2. He received DuoNeb with 2 mg Ativan. PAST MEDICAL HISTORY: 1. Chronic respiratory failure, on home oxygen, status post trach and PEG. 2. Chronic obstructive pulmonary disease. 3. Hypertension. 4. History of atrial flutter, status post ablation recently. 5. Moderate protein calorie malnutrition. 6. History of tobacco abuse. 7. Degenerative joint disease. 8. Peripheral vascular disease. PAST SURGICAL HISTORY: 1. Recent tracheostomy and PEG tube placement. 2. Appendectomy. 3. Abdominal surgery. 4. Cardiac catheterization. ALLERGIES: No known drug allergies. CURRENT HOME MEDICATIONS: We will try to obtain accurate list of medication from [facility]. SOCIAL HISTORY: The patient has a long history of smoking. He is currently at [facility]. He is FULL CODE and makes his own decisions with the help of his family. FAMILY HISTORY: Negative for inheritable diseases per previous record. REVIEW OF SYSTEMS: Cannot be obtained reliably from the patient due to current cognitive status. PHYSICAL EXAMINATION: VITAL SIGNS: On ER arrival showed temperature 98.6, pulse rate of 112, blood pressure 150/73, respir ation of 41, O2 saturation 94% on bagged valve curtis. GENERAL: A 68-year-old male, somnolent, easily arousable on mechanical ventilation. HEENT: Head atraumatic, normocephalic. Sclerae are anicteric. Dry mucous membrane, no oral lesion. NECK: Supple. No JVD. Tracheostomy tube noted. HEART: S1, S2 present. Regular rate and rhythm, tachycardic, no heaves or pulsation. LUNGS Showed minimal accessory respiratory muscle use. He had bilateral rhonchi with scattered rales at bases. Minimal wheezing noted. HEART: Symmetrical. ABDOMEN: Soft, nontender, bowel sounds present. EXTREMITIES: No edema or calf tenderness. NEUROLOGIC: Grossly nonfocal. No new focal deficit. The patient has chronic right upper extremity weakness. The patient is somnolent; however, follows commands to some extent. PSYCHIATRY: As discussed above. SKIN: Warm and dry. LYMPH NODES: No palpable lymph nodes in the neck. PERIPHERAL VASCULAR: Radial pulses palpable bilaterally. MUSCULOSKELETAL: No joint swelling or tenderness. LABORATORY FINDINGS: CBC showed WBC 16.1, hemoglobin 9.3, hematocrit 30.6, platelet count of 411. A BGs as discussed above. Chemistries showed sodium 145, potassium 4.5, chloride 97, bicarbonate 38, B UN 6, creatinine 0.57. Lactic acid 1.2. Troponins were negative. CK was 48. Chest x-ray by my rev iew was negative for infiltrate. Telemetry monitoring by my review showed sinus rhythm/sinus tachycardia. IMPRESSION: 1. Acute hypoxic and hypercapnic respiratory failure secondary to chronic obstructive pulmonary dise ase exacerbation. 2. Chronic respiratory failure, on home oxygen. The patient is status post tracheostomy and PEG. 3. Hypertension. 4. Moderate protein calorie malnutrition. 5. Peripheral vascular disease. 6. Chronic right upper extremity weakness. 7. History of tobacco abuse. 8. Chronic leukocytosis. 9. Chronic hypochromic mild anemia. PLAN: The patient will be monitored in the intensive care unit. We will continue mechanical ventila tion. We will consult Critical Care in a.m. Gentle intravenous hydration. We will confirm home med ications and start accordingly. Plan of care was discussed with the patient. We will discuss the plan of care with the family when t hey arrive.
[2018-07-05 17:08] LABS: Troponin I Less than 0.010 ng/mL (< 0.028)
[2018-07-05] MEDS ORDERED: Prevnar 13-Val Conj/PF 0.5 ML SYRINGE IM ONE (17:15)
[2018-07-05] MEDS ORDERED: Scopolamine 1.5 mg/72 hour Patch TD SCH (18:00)
[2018-07-05] MEDS ORDERED: Arformoterol 15 MCG/2 ML NEB NEB SCH (18:30)
[2018-07-05] MEDS ORDERED: Budesonide 0.5 MG/2 ML NEB NEB SCH (18:30)
[2018-07-05] MEDS: cefTRIAXone\\ROCEPHIN 1 GM in Sodium Chloride 0.9% 100 ML IVPB SCH (18:47)
[2018-07-05] MEDS ORDERED: Albuterol Sulfate 2.5 mg/3 ml Neb NEB PRN (20:03)
[2018-07-05] MEDS ORDERED: guaiFENesin 100 MG/5 ML UDCUP PO SCH (20:15)
[2018-07-05] MEDS: Apixaban 5 MG TAB PO SCH (20:28)
[2018-07-05] MEDS: Doxycycline 100 MG CAP PER TUBE SCH (20:28)
[2018-07-05] MEDS: Pantoprazole 40 MG GRANULES PACKET PER TUBE SCH (20:28)
[2018-07-05] MEDS: Sodium Chloride 0.45% 1,000 ML IV SCH (20:28)
[2018-07-05] MEDS: Gabapentin 100 MG CAP PO SCH (20:28)
[2018-07-05] MEDS: Diabetic Tussin 200 MG/10 ML UDCUP PO SCH (21:10)
--- NOTE | 2018-07-05 21:19 | CON ---
DATE OF CONSULTATION: 07/05/2018 SERVICE: Pulmonary Medicine. REASON FOR CONSULTATION: Respiratory failure. HISTORY OF PRESENT ILLNESS: Patient is a 68-year-old male with advanced COPD and chronic hypercapnic respiratory failure, who has undergone a tracheostomy. He was in his usual state of health at his nursing facility when he started having increasing shortness of breath and lethargy. He was subsequently transitioned to the hospital. An ABG was performed demonstrating chronic hypercapnic respiratory failure. His pH was actually above what he should have been for that pCO2 suggesting there was a metabolic alkalosis component to this respiratory event. Either way, his fenestrated tracheostomy was removed and replaced with a cuffed device. He was placed on mechanical ventilation and tucked into the ICU. I cannot get any additional elements of the presentation from the patient. PAST MEDICAL HISTORY: 1. Chronic obstructive pulmonary disease. 2. Chronic hypoxic and hypercapnic respiratory failure. 3. Hypertension. 4. Atrial fibrillation, status post recent ablation. 5. Osteoarthritis. 6. Peripheral vascular disease. 7. Tobacco abuse, history of. 8. Protein calorie malnutrition. PAST SURGICAL HISTORY: 1. PEG tube placement. 2. Tracheostomy. 3. Appendectomy. 4. Abdominal surgery. 5. Cardiac catheterization. ALLERGIES: No known drug allergies. MEDICATIONS: List of his inpatient medications were reviewed. couple of small updates were made. FAMILY HISTORY: Noncontributory. SOCIAL HISTORY: He has a greater than [id number] history of smoking, but quit recently. He denies any alcohol or illicit drug use. He has no exposure to chemicals, dust, asbestos or tuberculosis. REVIEW OF SYSTEMS: This cannot be obtained because of the patient's mental status changes. PHYSICAL EXAMINATION: VITAL SIGNS: Afebrile, pulse 92, blood pressure 100/60, respirations 18, saturation 94% on 31% FIO2 and PEEP of 5. GENERAL: The patient is encephalopathic on mechanical ventilation. HEENT: Normocephalic, atraumatic. Sclerae are white. conjunctivae pink. Oral mucosa is moist without lesions. LUNGS: Reduced air entry with prolonged expiratory phase. Dependent crackles are present. There are some expiratory wheezing. There is a very prolonged expiratory phase. HEART: Normal rate, regular. ABDOMEN: Soft, nontender, nondistended. Bowel sounds are positive. MUSCULOSKELETAL: No cyanosis or clubbing. There is no pitting in the bilateral lower extremities. NEUROLOGIC: Grossly nonfocal. LABORATORY DATA: WBC 16.1, hemoglobin 9.3, platelets 411,000. Neutrophils are 82%. A pH 7.30, pCO2 91, pO2 70. Bicarbonate 38, which is slightly above baseline. Chloride 97, sodium 145. Basic metabolic profile is otherwise unremarkable. Liver function studies are unremarkable, lactate 1.2. Albumin is actually 3.6. Troponin is negative x2. CK is normal. Lactate is unremarkable. IMAGING: Chest x-ray demonstrates no acute cardiopulmonary abnormality. ASSESSMENT: 1. Acute on chronic hypoxic and hypercapnic respiratory failure. 2. Metabolic alkalosis, possibly related to contraction alkalosis. 3. Chronic obstructive pulmonary disease with acute exacerbation. 4. Metabolic encephalopathy. DISCUSSION AND PLAN: Heavily modified his ventilator settings. We put him on pressure controlled ventilation. He appears to be comfortable on these settings. We will give him frequent nebulized medications. The long-acting beta agonist and nebulized corticosteroids will be interrupted because he is on frequent doses of DuoNebs and systemic steroids. I will continue empiric antibiotics, but I don't think we are dealing with an acute inflammatory process. My suspicion is that the patient developed a contraction alkalosis associated with dehydration. The compensatory maneuver for that was retention of carbon dioxide, this promoted hypoxemia. When we added additional supplemental oxygen, respiratory arrest and the metabolic encephalopathy kicked off. He does have a history of volume overload events. That being said, he is clinically dehydrated today. When he gets out of here, he may need additional free water. Dr. Thorne will assume care of this patient in the morning. Pulmonary Critical Care will continue to follow in this location. CRITICAL CARE TIME: 30 minutes. LILIYA
[2018-07-06] MEDS: Diabetic Tussin 200 MG/10 ML UDCUP PO SCH ×4 (03:29→20:13)
[2018-07-06 05:01] LABS: #Basophils 0.1 thou/uL (0.0-0.2); #Lymphocytes 0.6 thou/uL (1.20-3.40); #Monocytes 0.5 thou/uL (0.11-0.59); #Neutrophils 9.7 thou/uL (1.40-6.50); %Basophils 1.2 % (0.0-1.0); %Eosinophils 0.3 % (0.0-10.0); %Monocytes 4.8 % (0.0-10.0); %Neutrophils 88.7 % (42.0-75.0); Hemoglobin 7.2 g/dL (14.0-18.0); Mean Corpuscular HGB CONC 30.6 g/dL (32.0-36.0); Mean Corpuscular Hemoglobin 22.8 pg (27.0-31.0); Mean Corpuscular Volume 74.6 fL (78.0-98.0); Mean Platelet Volume 10.1 fL (7.4-10.4); Platelet Count 359 thou/uL (130-400); RBC Distribution Width 18.1 % (11.5-14.5); Red Blood Cell (RBC) Count 3.17 mill/uL (4.70-6.10)
[2018-07-06 05:07] LABS: Anion Gap 14 mmol/L (10-20); BUN (Urea Nitrogen) 15 mg/dL (8.4-25.7); Calc. Creatinine Clearance 90 mL/min (70-130); Calcium 8.7 mg/dL (7.8-10.44); Carbon Dioxide 32 mmol/L (23-31); Chloride 97 mmol/L (98-107); Digoxin 0.36 ng/mL (0.8-2.0); Estimated GFR-MDRD Greater than 90; Glucose 123 mg/dL (80-115); Magnesium 2.4 mg/dL (1.6-2.6); Potassium 4.2 mmol/L (3.5-5.1); Sodium 139 mmol/L (136-145)
[2018-07-06 07:00] LABS: Actual Bicarbonate (HCO3a) 33.8 mEq/L (22-28); Base Excess (BEa) 10.1 mEq/L (-2.0 to +3.0); CO2 Tension 42.3 mmHg (35.0-45.0); Calcium, Ionized 1.08 mmol/L (1.12-1.30); Carboxyhemoglobin (COHb) 2.4 gm% (0.0-3.0); Hemoglobin (Hb) 7.4 g/dL (14.0-18.0); O2 Tension (PaO2) 70.4 mmHg (> 80.0); Potassium - ABG Lab 4.13 mmol/L (3.70-5.30); pH, Arterial 7.52 (7.35-7.45)
[2018-07-06 08:13] LABS: Puncture Site RBA
[2018-07-06 08:14] LABS: ALV-art Gradient 97.755 (0-20)
[2018-07-06] MEDS: Digoxin 0.125 MG TAB PO SCH (08:38)
[2018-07-06] MEDS: Gabapentin 100 MG CAP PO SCH ×2 (08:38→20:13)
[2018-07-06] MEDS: Apixaban 5 MG TAB PO SCH ×2 (08:39→20:13)
[2018-07-06] MEDS: Aspirin 81 mg Enteric Coated Tablet PO SCH (08:39)
[2018-07-06] MEDS: Doxycycline 100 MG CAP PER TUBE SCH ×2 (08:39→20:13)
[2018-07-06] MEDS: Sodium Chloride 0.45% 1,000 ML IV SCH ×2 (08:40→23:37)
--- NOTE | 2018-07-06 08:53 | PRG ---
DATE OF SERVICE: 07/06/2018 This morning he is awake, alert, responsive. He was placed on the vent yesterday after he presented with respiratory failure as per the ER notes. He has a #6 tube, was changed over to a cuffed tube and placed on the vent. This morning he is awake, alert, responsive, on the vent, denies pain or discomfort. PHYSICAL EXAMINATION: VITAL SIGNS: Sats 94, blood pressure 112/57, pulse 95, respiration rate 18. GENERAL: Awake, responsive, moves all 4 extremities. He has no sedation. CHEST: Chest reveals decreased breath sounds without wheezing. CARDIAC: Normal S1-S2. No gallops. ABDOMEN: Soft. No masses. LABORATORY DATA: PO2 70, pCO2 47.52, rate of 7, pressure support of 15, PEEP of 5. White count 11,0 00, H&H 7 and 23, platelet count 359. Electrolytes are normal. IMPRESSION: 1. Recurrent respiratory failure. 2. Chronic obstructive pulmonary disease. Chest x-ray is normal. No drop in H&H. 3. Severe deconditioning and cachexia. 4. Recurrent supraventricular tachycardia. PLAN: I agree with present empiric antibiotics, nebulizer treatments, steroids. Try trach collar later on. One-half hour critical care time.
[2018-07-06] MEDS: cefTRIAXone\\ROCEPHIN 1 GM in Sodium Chloride 0.9% 100 ML IVPB SCH (19:07)
--- NOTE | 2018-07-06 20:01 | PDOC.PN ---
- Subjective Encounter Start Date: 07/06/18 Encounter Start Time: 14:00 Patient seen and examined for Resp failure. More awake. No new complaints. No overnight events - Objective Resuscitation Status: Resuscitation Status FULL:Full Resuscitation MAR Reviewed: Yes Vital Signs & Weight: Vital Signs (12 hours) Temp Pulse Resp Pulse Ox 07/06/18 18:35 105 H 28 H 92 L 07/06/18 16:00 96.2 F L 98 07/06/18 14:32 100 28 H 93 L 07/06/18 12:00 98.6 F 07/06/18 11:05 90 L 07/06/18 10:40 96 21 H 95 07/06/18 08:38 95 Weight Admit Weight 110 lb 10.753 oz Weight 110 lb 10.753 oz Most Recent Monitor Data Heart Rate from ECG 109 NIBP 126/68 NIBP BP-Mean 87 Respiration from ECG 23 SpO2 91 I&O: 07/05/18 07/06/18 07/07/18 06:59 06:59 06:59 Intake Total 1671 1170 Output Total 600 850 Balance 1071 320 Result Diagrams: 07/06/18 04:37 07/06/18 04:37 EKG Reviewed by me: Yes (Tele SR) Phys Exam - Physical Examination Constitutional: NAD (on trach collar) Respiratory: no wheezing, no rales Bibasilar rales/rhonchi Cardiovascular: RRR, no rub Gastrointestinal: soft, non-tender, positive bowel sounds Musculoskeletal: no edema Dx/Plan - Plan IMPRESSION/PLAN: 1. Acute hypoxic and hypercapnic respiratory failure secondary to chronic obstructive pulmonary disease exacerbation. Cont Vent support as needed with Nebs and steroids/Atbx 2. Chronic respiratory failure, on home oxygen. The patient is status post tracheostomy and PEG. 3. Hypertension. Will monitor 4. Moderate protein calorie malnutrition/Swallow dysfunction Cont PEG tube feeds 5. Peripheral vascular disease. 6. Chronic right upper extremity weakness. 7. History of tobacco abuse. 8. Chronic leukocytosis. 9. Chronic hypochromic mild anemia. 10. Atrial fib Cont Anticoagulation and Digoxin Review of Systems - Review of Systems Cardiovascular: negative: chest pain, palpitations, orthopnea, paroxysmal nocturnal dyspnea, edema, light headedness, other Gastrointestinal: negative: Nausea, Vomiting, Abdominal Pain, Diarrhea, Constipation, Melena, Hematochezia, Other - Medications/Allergies Allergies/Adverse Reactions: Allergies Allergy/AdvReac Type Severity Reaction Status Date / Time No Known Drug Allergies Allergy Verified 06/22/18 18:36 Medications: Current Medications Acetaminophen (Tylenol) 650 mg PER TUBE Q4H PRN PRN Reason: Headache/Fever or Pain Acetaminophen (Tylenol) 650 mg TN Q4H PRN PRN Reason: Headache/Fever or Pain Al Hydroxide/Mg Hydroxide (Maalox) 30 ml PER TUBE Q6H PRN PRN Reason: Heartburn or Indigestion Albuterol Sulfate (Ventolin) 2.5 mg NEB [id number] PRN PRN Reason: Wheezing Albuterol/Ipratropium (Duoneb) 3 ml NEB [id number] [facility] Last Admin: 07/06/18 18:35 Dose: 3 ml Apixaban (Eliquis) 5 mg PO BID [facility] Last Admin: 07/06/18 08:39 Dose: 5 mg Aspirin (Ecotrin) 81 mg PO DAILY [facility] Last Admin: 07/06/18 08:39 Dose: 81 mg Calcium Carbonate (Tums) 1,000 mg PO Q4H PRN PRN Reason: Heartburn or Indigestion Digoxin (Lanoxin) 0.125 mg PO QAM [facility] Last Admin: 07/06/18 08:38 Dose: 0.125 mg Doxycycline Hyclate (Vibramycin) 100 mg PER TUBE BID [facility] Last Admin: 07/06/18 08:39 Dose: 100 mg Gabapentin (Neurontin) 100 mg PO BID [facility] Last Admin: 07/06/18 08:38 Dose: 100 mg Guaifenesin (Robitussin Sf) 200 mg PO 0300,0900,1500,2100 [facility] Last Admin: 07/06/18 15:00 Dose: 200 mg Hydralazine HCl (Apresoline) 10 mg SLOW IVP Q4H PRN PRN Reason: SBP Greater Than 180 Ceftriaxone Sodium 1 gm/ (Sodium Chloride) 100 mls @ 200 mls/hr IVPB 1800 [facility] Last Admin: 07/06/18 19:07 Dose: 100 mls Sodium Chloride (1/2 Normal Saline) 1,000 mls @ 75 mls/hr IV .[id number] [facility] Last Admin: 07/06/18 08:40 Dose: 1,000 mls Lorazepam (Ativan) 0.5 mg SLOW IVP Q4H PRN PRN Reason: Anxiety Methylprednisolone Sodium Succinate (Solu-Medrol) 20 mg IVP 0100,0900,1700 [facility] Last Admin: 07/06/18 19:07 Dose: 20 mg Ondansetron HCl (Zofran Odt) 4 mg PO Q6H PRN PRN Reason: Nausea/Vomiting Ondansetron HCl (Zofran) 4 mg IVP Q6H PRN PRN Reason: Nausea/Vomiting Pantoprazole Sodium (Protonix) 40 mg PER TUBE 2100 [facility] Last Admin: 07/05/18 20:28 Dose: 40 mg Sodium Chloride (Flush - Normal Saline) 10 ml IVF Q12HR [facility] Last Admin: 07/06/18 08:40 Dose: 10 ml Sodium Chloride (Flush - Normal Saline) 10 ml IVF PRN PRN PRN Reason: Saline Flush
[2018-07-06] MEDS: Pantoprazole 40 MG GRANULES PACKET PER TUBE SCH (20:13)
[2018-07-07] MEDS: Diabetic Tussin 200 MG/10 ML UDCUP PO SCH ×4 (02:07→20:51)
[2018-07-07] MEDS: Mag-Al 1200 mg/1200 mg/30 ML UDCUP PER TUBE PRN (02:50)
[2018-07-07 04:06] LABS: Anion Gap 14 mmol/L (10-20); BUN (Urea Nitrogen) 14 mg/dL (8.4-25.7); Calc. Creatinine Clearance 88 mL/min (70-130); Calcium 8.9 mg/dL (7.8-10.44); Carbon Dioxide 29 mmol/L (23-31); Chloride 99 mmol/L (98-107); Estimated GFR-MDRD Greater than 90; Glucose 120 mg/dL (80-115); Potassium 4.4 mmol/L (3.5-5.1); Sodium 138 mmol/L (136-145)
[2018-07-07 04:47] LABS: Band 2 % (5-11); Hypochromia MODERATE=16-30 cells (100X) (0-5/hpf); Lymphocytes 1 % (21-51); MDiff Complete? YES; Mean Corpuscular HGB CONC 30.1 g/dL (32.0-36.0); Mean Corpuscular Hemoglobin 22.4 pg (27.0-31.0); Mean Corpuscular Volume 74.4 fL (78.0-98.0); Mean Platelet Volume 11.1 fL (7.4-10.4); Microcytosis SLIGHT = 6-15 cells (100X) (0-5/hpf); Neutrophil 97 % (42-75); Nucleated RBC 1 % (0); PLT Morphology Comment Appears Adequate; Platelet Count 322 thou/uL (130-400); RBC Distribution Width 18.3 % (11.5-14.5); Red Blood Cell (RBC) Count 3.56 mill/uL (4.70-6.10); Target Cells SLIGHT = 2-5 cells (100X) (0-1/hpf)
--- NOTE | 2018-07-07 09:27 | PDOC.PN ---
- Subjective Encounter Start Date: 07/07/18 Encounter Start Time: 09:25 Mr. Jones was seen today in follow-up of respiratory failure. He is now extubated. He appears a little tachypneic, he says that when the oxygen is lowered he has trouble breathing. He denies any chest pain. He notes feeling constipated. - Objective Resuscitation Status: Resuscitation Status FULL:Full Resuscitation MAR Reviewed: Yes Vital Signs & Weight: Vital Signs (12 hours) Temp Pulse Resp Pulse Ox 07/07/18 08:00 95 07/07/18 07:19 102 H 19 89 L 07/07/18 07:15 89 L 07/07/18 07:00 98.3 F 07/07/18 06:00 18 07/07/18 04:00 98.5 F 20 07/07/18 02:29 96 07/07/18 02:28 95 22 H 94 L 07/07/18 02:00 21 H 07/07/18 00:00 98.3 F 24 H 93 L 07/06/18 22:22 89 15 96 07/06/18 22:00 26 H Weight Admit Weight 110 lb 10.753 oz Weight 110 lb 10.753 oz Most Recent Monitor Data Heart Rate from ECG 125 NIBP 163/107 NIBP BP-Mean 125 Respiration from ECG 24 SpO2 96 I&O: 07/06/18 07/07/18 07/08/18 06:59 06:59 06:59 Intake Total 1671 3480 Output Total 600 2045 300 Balance 1071 1435 -300 Result Diagrams: 07/07/18 03:32 07/07/18 03:32 Phys Exam - Physical Examination HEENT: PERRLA Respiratory: no wheezing, no rhonchi, clear to auscultation bilateral decreased air movement bilaterally Cardiovascular: no significant murmur, no rub tachycardic, regular, no gallop Gastrointestinal: soft, non-tender, no distention, positive bowel sounds Musculoskeletal: no edema Dx/Plan (1) Acute on chronic respiratory failure with hypoxia and hypercapnia Code(s): J96.21 - ACUTE AND CHRONIC RESPIRATORY FAILURE WITH HYPOXIA; J96.22 - ACUTE AND CHRONIC RESPIRATORY FAILURE WITH HYPERCAPNIA Status: Acute Comment : s/p tracheostomy, in CCU (2) COPD exacerbation Code(s): J44.1 - CHRONIC OBSTRUCTIVE PULMONARY DISEASE W (ACUTE) EXACERBATION Status: Chronic Comment: s/p tracheostomy (3) Afib Code(s): I48.91 - UNSPECIFIED ATRIAL FIBRILLATION Status: Chronic Qualifiers: Atrial fibrillation type: chronic Qualified Code(s): I48.2 - Chronic atrial fibrillation Comment: cardizem on hold, heart rate in 90s (4) HTN (hypertension) Code(s): I10 - ESSENTIAL (PRIMARY) HYPERTENSION Status: Chronic Qualifiers: Hypertension type: essential hypertension Qualified Code(s): I10 - Essential (primary) hypertension Comment: cardizem on hold for hypotension (5) Moderate protein-calorie malnutrition Code(s): E44.0 - MODERATE PROTEIN-CALORIE MALNUTRITION Status: Chronic Comment: Taking po's. (6) Muscular deconditioning Code(s): R29.898 - [facility] SYMPTOMS AND SIGNS INVOLVING THE MUSCULOSKELETAL SYSTEM Status: Acute - Plan * Acute on chronic respiratory failure- the patient is now extubated. on supplemental oxygen via the trach collar * COPD exacerbation- continue Duonebs, and IV steroids, and empiric antibiotics ( Rocephin and Doxycycline) * AFIB- his heart rate is regular, but a bit tachycardic, I suspect he need this heart rate now. Continue Digoxin, and Eliquis for CVA prevention * HTN- blood pressure is a bit elevated- will add Amlodipine * Moderate Protein calorie malnutrition- begin tube feeds when possible. * Mobilize as soon as possible
[2018-07-07] MEDS ORDERED: Simethicone Chewable 80 MG TAB PO PRN (09:33)
[2018-07-07] MEDS ORDERED: Milk Of Magnesia 30 ML UDCUP PO PRN (09:33)
[2018-07-07] MEDS ORDERED: Amlodipine 5 MG TAB PO SCH (09:45)
[2018-07-07] MEDS: Gabapentin 100 MG CAP PO SCH ×2 (09:51→20:08)
[2018-07-07] MEDS: Aspirin 81 mg Enteric Coated Tablet PO SCH (09:51)
[2018-07-07] MEDS: Digoxin 0.125 MG TAB PO SCH (09:51)
[2018-07-07] MEDS: clonazePAM 0.5 MG TAB PO PRN ×2 (09:52→20:53)
[2018-07-07] MEDS: Amlodipine 5 MG TAB PO SCH (09:52)
--- NOTE | 2018-07-07 10:14 | PRG ---
DATE OF SERVICE: 07/07/2018 SUBJECTIVE: This morning, he is awake, alert and responsive. He is anxious last night requiring put ting back on the vent. OBJECTIVE: GENERAL: The patient is clearly anxious. VITAL SIGNS: His sats are 96%. CHEST: Reveals decreased breath sounds without any wheezing. CARDIAC: Normal S1, S2, no gallops. ABDOMEN: Soft. EXTREMITIES: No edema. LABORATORY DATA: His white count is 17,000, H&H is 8 and 26, platelet count 322. Electrolytes are n ormal. IMPRESSION: 1. End-stage chronic obstructive pulmonary disease. 2. Respiratory failure, trach and PEG in place. 3. Major anxiety. PLAN: Continue low dose Xanax, supportive care, PT, steroids. I will keep him in the ICU for another 24 hours. One-half hour critical care time.
[2018-07-07] MEDS: Apixaban 5 MG TAB PO SCH ×2 (10:30→20:08)
[2018-07-07] MEDS: Doxycycline 100 MG CAP PER TUBE SCH ×2 (10:30→20:08)
[2018-07-07] MEDS: Sodium Chloride 0.45% 1,000 ML IV SCH (17:57)
[2018-07-07] MEDS: Mometasone/Formoterol 120 PUFF INHALER INH SCH (18:47)
[2018-07-07] MEDS: Pantoprazole 40 MG GRANULES PACKET PER TUBE SCH (20:08)
[2018-07-07] MEDS: Melatonin 3 MG TAB PO SCH (20:51)
[2018-07-08] MEDS: ALPRAZolam 0.25 MG TAB PO PRN (02:54)
[2018-07-08] MEDS: Diabetic Tussin 200 MG/10 ML UDCUP PO SCH ×4 (02:54→21:18)
[2018-07-08 04:05] LABS: Anion Gap 14 mmol/L (10-20); BUN (Urea Nitrogen) 13 mg/dL (8.4-25.7); Calc. Creatinine Clearance 98 mL/min (70-130); Calcium 8.7 mg/dL (7.8-10.44); Carbon Dioxide 27 mmol/L (23-31); Chloride 104 mmol/L (98-107); Estimated GFR-MDRD Greater than 90; Glucose 100 mg/dL (80-115); Potassium 4.5 mmol/L (3.5-5.1); Sodium 140 mmol/L (136-145)
[2018-07-08 04:09] LABS: Band 5 % (5-11); Hemoglobin 8.2 g/dL (14.0-18.0); Hypochromia SLIGHT = 6-15 cells (100X) (0-5/hpf); Lymphocytes 3 % (21-51); MDiff Complete? YES; Mean Corpuscular HGB CONC 30.8 g/dL (32.0-36.0); Mean Corpuscular Hemoglobin 22.9 pg (27.0-31.0); Mean Corpuscular Volume 74.4 fL (78.0-98.0); Mean Platelet Volume 10.3 fL (7.4-10.4); Monocytes 4 % (0-10); Neutrophil 88 % (42-75); PLT Morphology Comment Appears Adequate; Platelet Count 382 thou/uL (130-400); RBC Distribution Width 18.2 % (11.5-14.5); Target Cells MODERATE= 6-15 cells (100X) (0-1/hpf); White Blood Cell (WBC) Count 18.8 thou/uL (4.8-10.8)
[2018-07-08] MEDS: Sodium Chloride 0.45% 1,000 ML IV SCH (05:22)
[2018-07-08] MEDS: Mometasone/Formoterol 120 PUFF INHALER INH SCH ×2 (08:38→18:41)
[2018-07-08] MEDS: Apixaban 5 MG TAB PO SCH ×2 (09:29→21:18)
[2018-07-08] MEDS: Aspirin 81 mg Enteric Coated Tablet PO SCH (09:30)
[2018-07-08] MEDS: Digoxin 0.125 MG TAB PO SCH (09:30)
[2018-07-08] MEDS: Doxycycline 100 MG CAP PER TUBE SCH ×2 (09:30→21:18)
[2018-07-08] MEDS: Gabapentin 100 MG CAP PO SCH ×2 (09:30→20:38)
[2018-07-08] MEDS: clonazePAM 0.5 MG TAB PO PRN ×2 (09:31→21:20)
--- NOTE | 2018-07-08 09:31 | RAD ---
PORTABLE AP CHEST XRAY: DATE; 07/08/18. HISTORY: COPD. COMPARISON: 06/2018. FINDINGS: Tracheostomy device remains in place and unchanged in position. Cardiac silhouette and pulmonary vas culature are within normal limits. The lungs are clear. There has been no interval change from the prior exam. IMPRESSION: Stable chest. POS: [facility]
[2018-07-08] MEDS: Amlodipine 5 MG TAB PO SCH (09:33)
--- NOTE | 2018-07-08 09:37 | PDOC.PN ---
- Subjective Encounter Start Date: 07/08/18 Encounter Start Time: 09:35 Mr. Jones was seen today in follow-up of COPD exacerbation. He is breathing better today. He says he was being evaluated to have an oral diet at [facility], and would like to continue this. - Objective Resuscitation Status: Resuscitation Status FULL:Full Resuscitation MAR Reviewed: Yes Vital Signs & Weight: Vital Signs (12 hours) Temp Pulse Resp Pulse Ox 07/08/18 08:39 99 07/08/18 08:38 70 24 H 99 07/08/18 08:35 70 24 H 99 07/08/18 04:00 98.4 F 07/08/18 02:25 81 24 H 100 07/08/18 00:00 98.3 F 07/07/18 22:38 83 25 H 100 Weight Admit Weight 110 lb 10.753 oz Weight 110 lb 10.753 oz Most Recent Monitor Data Heart Rate from ECG 96 NIBP 125/65 NIBP BP-Mean 85 Respiration from ECG 26 SpO2 100 I&O: 07/07/18 07/08/18 07/09/18 06:59 06:59 06:59 Intake Total 3480 2595 Output Total 2045 1100 Balance 1435 1495 Result Diagrams: 07/08/18 03:22 07/08/18 03:22 Phys Exam - Physical Examination HEENT: PERRLA Respiratory: no wheezing + soft crackles at the bases, very faint . better air movement today Cardiovascular: RRR, no significant murmur, no rub Gastrointestinal: soft, non-tender, no distention, positive bowel sounds Musculoskeletal: no edema Dx/Plan (1) Acute on chronic respiratory failure with hypoxia and hypercapnia Code(s): J96.21 - ACUTE AND CHRONIC RESPIRATORY FAILURE WITH HYPOXIA; J96.22 - ACUTE AND CHRONIC RESPIRATORY FAILURE WITH HYPERCAPNIA Status: Acute Comment : s/p tracheostomy, in CCU (2) COPD exacerbation Code(s): J44.1 - CHRONIC OBSTRUCTIVE PULMONARY DISEASE W (ACUTE) EXACERBATION Status: Chronic Comment: s/p tracheostomy (3) Afib Code(s): I48.91 - UNSPECIFIED ATRIAL FIBRILLATION Status: Chronic Qualifiers: Atrial fibrillation type: permanent Qualified Code(s): I48.2 - Chronic atrial fibrillation Comment: cardizem on hold, heart rate in 90s (4) HTN (hypertension) Code(s): I10 - ESSENTIAL (PRIMARY) HYPERTENSION Status: Chronic Qualifiers: Hypertension type: essential hypertension Qualified Code(s): I10 - Essential (primary) hypertension Comment: cardizem on hold for hypotension (5) Moderate protein-calorie malnutrition Code(s): E44.0 - MODERATE PROTEIN-CALORIE MALNUTRITION Status: Chronic Comment: Taking po's. (6) Muscular deconditioning Code(s): R29.898 - OTH SYMPTOMS AND SIGNS INVOLVING THE MUSCULOSKELETAL SYSTEM Status: Acute - Plan * Acute on chronic respiratory failure- improved. He was stable overnight on a trach collar * Continue Duonebs, steroids, and Rocephin and Doxycycline * Dysphagia- will consult speech therapy to evaluate his swallow * AFIB- his heart rate is stable- continue Eliaquis for stroke prevention * HTN- blood pressure is stable- continue Amlodipine * He can be moved out of the ICU * Deconditioning- PT/OT
--- NOTE | 2018-07-08 12:35 | PRG ---
DATE OF SERVICE: 07/08/2018 SUBJECTIVE: This morning, he is awake, alert and responsive. His #6 cuffed trach was replaced with a #6 cuffless fenestrated trach. He tolerated the procedure well. OBJECTIVE: VITAL SIGNS: His sats are 92 on a trach collar, respiration 24, pulse 70, blood pressure 113/6 5. CHEST: Reveals decreased breath sounds without any wheezing. CARDIAC: Normal S1, S2, no gallops. ABDOMEN: Soft, no masses. X-RAY FINDINGS: Chest x-ray is clear. LABORATORY DATA: His white count 18,000. IMPRESSION: End-stage chronic obstructive pulmonary disease, recurrent respiratory failure, major an xiety. PLAN: Switch over to oral prednisone, neb treatments, supportive care. He can be transferred out of the ICU.
[2018-07-08] MEDS: Pantoprazole 40 MG GRANULES PACKET PER TUBE SCH (20:38)
[2018-07-08] MEDS: Melatonin 3 MG TAB PO SCH (20:40)
[2018-07-09] MEDS: ALPRAZolam 0.25 MG TAB PO PRN ×2 (00:31→11:20)
[2018-07-09] MEDS: Diabetic Tussin 200 MG/10 ML UDCUP PO SCH ×4 (03:05→21:19)
[2018-07-09 06:33] LABS: Band 1 % (5-11); Hemoglobin 9.4 g/dL (14.0-18.0); Hypochromia SLIGHT = 6-15 cells (100X) (0-5/hpf); Lymphocytes 20 % (21-51); MDiff Complete? YES; Mean Corpuscular HGB CONC 32.1 g/dL (32.0-36.0); Mean Corpuscular Hemoglobin 23.3 pg (27.0-31.0); Mean Corpuscular Volume 72.6 fL (78.0-98.0); Mean Platelet Volume 10.9 fL (7.4-10.4); Microcytosis SLIGHT = 6-15 cells (100X) (0-5/hpf); Monocytes 6 % (0-10); Neutrophil 73 % (42-75); PLT Morphology Comment Appears Adequate; Platelet Count 310 thou/uL (130-400); RBC Distribution Width 18.4 % (11.5-14.5); Red Blood Cell (RBC) Count 4.01 mill/uL (4.70-6.10); White Blood Cell (WBC) Count 15.2 thou/uL (4.8-10.8)
[2018-07-09] MEDS: Mometasone/Formoterol 120 PUFF INHALER INH SCH ×2 (06:56→18:56)
[2018-07-09] MEDS: predniSONE 20 MG TAB PO SCH (08:36)
[2018-07-09] MEDS: Amlodipine 5 MG TAB PO SCH (08:36)
[2018-07-09] MEDS: Aspirin 81 mg Enteric Coated Tablet PO SCH (08:37)
[2018-07-09] MEDS: Digoxin 0.125 MG TAB PO SCH (08:37)
[2018-07-09] MEDS: Apixaban 5 MG TAB PO SCH ×2 (08:37→21:19)
[2018-07-09] MEDS: Doxycycline 100 MG CAP PER TUBE SCH ×2 (08:38→21:19)
[2018-07-09] MEDS: clonazePAM 0.5 MG TAB PO PRN (08:38)
[2018-07-09] MEDS: Gabapentin 100 MG CAP PO SCH ×2 (08:38→21:19)
--- NOTE | 2018-07-09 10:29 | PRG ---
DATE OF SERVICE: 07/09/2018 SUBJECTIVE: This morning, he is awake, alert and responsive, in no distress. He failed a swallow te st. He is going to have a barium study done today. OBJECTIVE: VITAL SIGNS: Sats are 100% on a trach collar, pulse 85, blood pressure 119/57. CHEST: Reveals decreased breath sounds without any wheezing. CARDIAC: Normal S1, S2. No gallops. ABDOMEN: Soft, no masses. LABORATORY DATA: White count 15,000, H&H is 9 and 25. IMPRESSION: 1. End-stage chronic obstructive pulmonary disease. 2. Dysphagia. 3. Supraventricular tachycardia. PLAN: I agree with the therapy consult. Continue low dose prednisone, neb treatments, supportive care. I will follow.
--- NOTE | 2018-07-09 14:13 | PQF ---
CLINICAL DOCUMENTATION IMPROVEMENT CLARIFICATION FORM: ICD-10 Updated PLEASE DO AN ADDENDUM TO THE PROGRESS NOTE WITH ANY DOCUMENTATION UPDATES OR ADDITIONS AND CARRY THROUGH TO DC SUMMARY. THANK YOU. DATE: 07/09/18; 07/10/18 ATTN: Dr. Dunn Please exercise your independent, professional judgment in responding to the clarification form. Clinical indicators are provided on the bottom of this form for your review Please check appropriate box(s): X__ I (concur) with the Nursing Assessment findings as stated below. [ ] Pressure Ulcer: (Stage I: Erythema; Stage II: Partial thickness; Stage III : Full thickness; Stage IV: Necrosis to muscle/bone) [ ] Location: Stage (I to IV): ____(Left____Right___Bilateral___N/A___) [ ] Location: Stage (I to IV): ____(Left Right___Bilateral___N/A___) [ ] No pressure ulcer diagnosis [ ] Other diagnosis [ ] Unable to determine In addition, please specify: Present on Admission (POA): [ X ] Yes [ ] No [ ] Unable to determine For continuity of documentation, please document condition throughout progress notes and discharge summary. Thank You. CLINICAL INDICATORS - SIGNS / SYMPTOMS / LABS NURSING ASSESSMENT 07/05/18 1700: SACRALCOCCYXPERI AT ARRIVAL 07/05/18 PRESSURE ULCER STAGE II RISKS: H&P 07/05: RESIDENT AT [facility]. HX CHRONIC RESP. FAILURE, ON HOME OXYGEN, S/P TRACH & PEG. COPD, HTN. MODERATE PROTEIN CALORIE MALNUTRITION. TREATMENT: SKIN INTERVENTIONS PER NURSING PROTOCOL. MATTRESS: PRESSURE REDUCTION SKIN KEPT FROM EXCESSIVE MOISTURE CPOE 07/07: SUPPLEMENT: MIGHT SHAKE TID Pre-ulcer skin changes limited to persistent focal edema (Stage 1) Abrasion, blister, partial thickness skin loss involving epidermis and/or dermis (Stage 2) Full thickness skin loss involving damage or necrosis of SQ tissue. (Stage 3) Necrosis of soft tissue through to underlying muscle, tendon, or bone. (Stage 4) Purple or maroon discolored skin or blood filled blister Thank you, Susanna (This form is maintained as a part of the permanent medical record) 2014 [employer] All Rights Reserved Susanna Shaw RN, BSN [email or web address] Office: [phone] [facility]
--- NOTE | 2018-07-09 16:21 | RAD ---
MODIFIED BARIUM SWALLOW IN THE PRESENCE OF SPEECH PATHOLOGIST: EXPOSURE 1.8 MINUTES. 0.528 uGy*^cm2. HISTORY: Dysphagia, unspecified. Feeding difficulties. Evaluate for aspiration. COMPARISON: None. FINDINGS: In the presence of the speech pathologist, the patient was given thin liquid, nectar thick, pudding, and solid consistencies. There is penetration with thin liquid consistencies. There is premature spi llage and pooling of vallecula and piriform sinuses with all of the aforementioned consistencies. Th ere is decreased mobility of the epiglottis. IMPRESSION: Penetration as above. Risk factors as above. Please refer to the speech pathologist's report for fe eding recommendations. POS: [facility]
--- NOTE | 2018-07-09 18:27 | PDOC.PN ---
- Subjective Encounter Start Date: 07/09/18 Encounter Start Time: 18:25 Mr. Jones was seen today in follow-up of COPD exacerbation. He is breathing better, but is upset about the tube feeds. He says they make him feel sick. - Objective Resuscitation Status: Resuscitation Status FULL:Full Resuscitation MAR Reviewed: Yes Vital Signs & Weight: Vital Signs (12 hours) Temp Pulse Pulse Resp BP BP BP 07/09/18 15:05 97.8 F 91 20 129/59 L 07/09/18 14:19 87 18 07/09/18 11:21 98.0 F 84 20 130/64 07/09/18 10:20 99 103/55 L 07/09/18 10:15 84 24 H 07/09/18 08:37 85 07/09/18 08:36 85 103/56 L 07/09/18 08:00 97.8 F 07/09/18 06:56 85 24 H Pulse Ox 07/09/18 15:05 95 07/09/18 14:19 97 07/09/18 11:21 98 07/09/18 10:20 07/09/18 10:15 100 07/09/18 08:37 07/09/18 08:36 07/09/18 08:00 100 07/09/18 06:56 100 Weight Admit Weight 110 lb 10.753 oz Weight 110 lb 10.753 oz Most Recent Monitor Data Heart Rate from ECG 84 NIBP 103/55 NIBP BP-Mean 71 Respiration from ECG 30 SpO2 100 I&O: 07/08/18 07/09/18 07/10/18 06:59 06:59 06:59 Intake Total 2595 1206 240 Output Total 1100 10 1 Balance 1495 1196 239 Result Diagrams: 07/09/18 05:35 07/08/18 03:22 Phys Exam - Physical Examination HEENT: PERRLA Respiratory: wheezing present + faint expiratory wheeze, no rales, no rhonchi Cardiovascular: RRR, no significant murmur, no rub Gastrointestinal: soft, non-tender, no distention, positive bowel sounds Musculoskeletal: no edema Dx/Plan (1) Acute on chronic respiratory failure with hypoxia and hypercapnia Code(s): J96.21 - ACUTE AND CHRONIC RESPIRATORY FAILURE WITH HYPOXIA; J96.22 - ACUTE AND CHRONIC RESPIRATORY FAILURE WITH HYPERCAPNIA Status: Acute Comment : s/p tracheostomy, in CCU (2) COPD exacerbation Code(s): J44.1 - CHRONIC OBSTRUCTIVE PULMONARY DISEASE W (ACUTE) EXACERBATION Status: Chronic Comment: s/p tracheostomy (3) Afib Code(s): I48.91 - UNSPECIFIED ATRIAL FIBRILLATION Status: Chronic Qualifiers: Atrial fibrillation type: permanent Qualified Code(s): I48.2 - Chronic atrial fibrillation Comment: cardizem on hold, heart rate in 90s (4) HTN (hypertension) Code(s): I10 - ESSENTIAL (PRIMARY) HYPERTENSION Status: Chronic Qualifiers: Hypertension type: essential hypertension Qualified Code(s): I10 - Essential (primary) hypertension Comment: cardizem on hold for hypotension (5) Moderate protein-calorie malnutrition Code(s): E44.0 - MODERATE PROTEIN-CALORIE MALNUTRITION Status: Chronic Comment: Taking po's. (6) Muscular deconditioning Code(s): R29.898 - OTH SYMPTOMS AND SIGNS INVOLVING THE MUSCULOSKELETAL SYSTEM Status: Acute - Plan * Acute on chronic respiratory failure- improving * COPD exacerbation- he has been changed conner Prednisone, and Doxycycline by PEG * Dysphagia- spoke with speech therapy- he is not yet safe to take any nutrition by mouth. I explained this to the patient, and he reluctantly agrees- will consult [employer] Supervisor to help with tube feed formula * AFIB- his heart rate has been stable * HTN- blood pressure is stable * Hopefully back to NH soon * .
[2018-07-09] MEDS: Pantoprazole 40 MG GRANULES PACKET PER TUBE SCH (21:19)
[2018-07-09] MEDS: Melatonin 3 MG TAB PO SCH (21:19)
[2018-07-10] MEDS: Diabetic Tussin 200 MG/10 ML UDCUP PO SCH ×4 (03:00→14:43)
[2018-07-10 05:14] LABS: #Eosinphils 0.2 thou/uL (0.0-0.7); #Lymphocytes 2.2 thou/uL (1.20-3.40); #Monocytes 1.2 thou/uL (0.11-0.59); #Neutrophils 7.2 thou/uL (1.40-6.50); %Basophils 0.3 % (0.0-1.0); %Eosinophils 1.7 % (0.0-10.0); %Lymphocytes 20.4 % (21.0-51.0); %Monocytes 11.4 % (0.0-10.0); %Neutrophils 66.2 % (42.0-75.0); Hemoglobin 8.5 g/dL (14.0-18.0); Mean Corpuscular Hemoglobin 22.8 pg (27.0-31.0); Mean Corpuscular Volume 73.4 fL (78.0-98.0); Mean Platelet Volume 10.8 fL (7.4-10.4); Platelet Count 346 thou/uL (130-400); RBC Distribution Width 18.2 % (11.5-14.5); Red Blood Cell (RBC) Count 3.72 mill/uL (4.70-6.10); White Blood Cell (WBC) Count 10.8 thou/uL (4.8-10.8)
[2018-07-10] MEDS: Mometasone/Formoterol 120 PUFF INHALER INH SCH (07:12)
[2018-07-10] MEDS: Gabapentin 100 MG CAP PO SCH (08:42)
[2018-07-10] MEDS: Digoxin 0.125 MG TAB PO SCH (08:42)
[2018-07-10] MEDS: Doxycycline 100 MG CAP PER TUBE SCH (08:44)
[2018-07-10] MEDS: Apixaban 5 MG TAB PO SCH (08:44)
[2018-07-10] MEDS: Aspirin 81 mg Enteric Coated Tablet PO SCH ×2 (08:44→08:45)
[2018-07-10] MEDS: predniSONE 20 MG TAB PO SCH (08:45)
[2018-07-10] MEDS: Amlodipine 5 MG TAB PO SCH (08:46)
--- NOTE | 2018-07-10 09:41 | PRG ---
DATE OF SERVICE: 07/10/2018 This morning, he is awake, alert and responsive. PHYSICAL EXAMINATION: VITAL SIGNS: Blood pressure 130/62, pulse 72, respiration 18, sats 100% on trach collar. CHEST: No wheezing or crackles. CARDIAC: Normal S1-S2. No gallops. ABDOMEN: Soft, no masses. EXTREMITIES: No edema. LABORATORY DATA: White count 10,000, H&H 8 and 27, platelet count is normal. IMPRESSION: 1. 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 2. Dysphagia with aspiration. PLAN: Pulmonary kat there is nothing additional to offer at this time. Probably needs outpatient s peech therapy before he can swallow. I doubt he has got pneumonia. He can be [facility] at [facility]. Obviously he is to avoid p.o. intake.
[2018-07-10] MEDS: Mag-Al 1200 mg/1200 mg/30 ML UDCUP PER TUBE PRN (10:13)
[2018-07-10] MEDS: Acetaminophen 325 MG TAB PER TUBE PRN ×2 (10:15→14:43)
[2018-07-10 12:04] VITALS: BMI 16.0
[2018-07-10 12:17] VITALS: TEMP 98.1
[2018-07-10] MEDS: ALPRAZolam 0.25 MG TAB PO PRN (14:43)
--- NOTE | 2018-07-10 14:50 | DIS ---
DATE OF ADMISSION: 07/05/2018 DATE OF DISCHARGE: 07/10/2018 PRIMARY CARE PHYSICIAN: Avril Almodovar M.D. DISCHARGE DISPOSITION: Back to the [facility]. DISCHARGE DIAGNOSES: 1. Acute on chronic respiratory failure with hypoxia and hypercapnia. 2. Chronic obstructive pulmonary disease exacerbation. 3. Chronic respiratory failure, on home oxygen. 4. Protein calorie malnutrition. 5. Severe physical deconditioning. 6. Hypertension. DISCHARGE MEDICATIONS: Include prednisone 20 mg daily as well as doxycycline 100 mg twice a day for 5 days, simethicone 80 mg p.r.n., Protonix 40 mg daily, melatonin 3 mg daily, Dulera 200/5 mcg 2 puff s twice a day, gabapentin 100 mg twice daily, DuoNebs q.4 as needed, digoxin 0.125 mg daily, calcium carbonate 1000 mg as needed, aspirin 81 mg daily, Eliquis 5 mg twice a day, amlodipine 5 mg daily. PROCEDURES DONE DURING ADMISSION: The patient had a modified barium swallow showing there was penetr ation with thin liquid consistencies and there was premature spillage and pulling of the vallecula of all consistencies. CODE STATUS: FULL CODE. ALLERGIES: No known drug allergies. HOSPITAL COURSE: Mr. Jones is a 68-year-old gentleman who presented to the emergency room with com plaints of shortness of breath. He has a long history of fairly severe chronic respiratory failure d ue to chronic obstructive pulmonary disease. He has a trach and PEG. He was sent over from the [facility] home and he was barely able to speak one or two words without significant dyspnea. He was hypoxi c and hypercapnic, and was admitted to the ICU and placed on the ventilator. Pulmonary and Critical Care was consulted. He was stabilized and able to be extubated. He was then treated empirically wit h antibiotics and DuoNebs and steroids for COPD exacerbation. There was no evidence of pneumonia. O nce he was stabilized, he was able to be extubated and his swallowing was examined as the patient wan blayne to try to take something by mouth; however, he did not do well with the swallowing study. He was encouraged not to try to take anything orally as he had a high risk for aspiration. He reluctantly agreed to this. We will have a dietitian see him with regards to his formula that he uses for his tu be feeds and they says it makes him "sick". Hopefully, this can be adjusted and the patient will be discharged back to the [facility]. He would continue speech therapy there. He was fitte d for a fenestrated trach and is now able to talk. Hopefully with further speech therapy, he will be come strong enough to be able to tolerate things orally.
[2018-07-10 16:30] VITALS: BP 117/60
--- NOTE | 2018-07-11 15:02 | RAD ---
CHEST 1 VIEW: HISTORY: A 68-year-old female with a history of small bowel obstruction, respiratory distress. COMPARISON: 07/05/18. FINDINGS: Tracheostomy tube in place. Monitor leads overlie the chest. Heterogeneous bone demineralization. Heart size is normal. The lungs are clear. IMPRESSION: No acute intrathoracic disease. POS: [facility]
== END 2018-07-10 16:50 | DRG 208 ==
LOC: ERS 12:32 → CCU 15:30 → 2NO 07-09 10:07 → CCU 07-09 10:26 → 2NO 07-09 10:53
PROVIDERS: ADMIT Internal Medicine; ATTEND Internal Medicine
PROC: 5A1935Z Respiratory Ventilation, Less than 24 Consecutive Hours (ICD-10-PCS; principal; 2018-07-05)
DX: J96.21 Acute and chronic respiratory failure with hypoxia (principal); G93.41 Metabolic encephalopathy; J44.1 Chronic obstructive pulmonary disease with (acute) exacerbation; E44.0 Moderate protein-calorie malnutrition; E87.3 Alkalosis; R64 Cachexia; I47.1 Supraventricular tachycardia; Z68.1 Body mass index [BMI] 19.9 or less, adult; I73.9 Peripheral vascular disease, unspecified; L89.152 Pressure ulcer of sacral region, stage 2; J96.22 Acute and chronic respiratory failure with hypercapnia; Z93.0 Tracheostomy status; I10 Essential (primary) hypertension; D50.9 Iron deficiency anemia, unspecified; Z93.1 Gastrostomy status; F17.210 Nicotine dependence, cigarettes, uncomplicated; Z99.81 Dependence on supplemental oxygen; R53.1 Weakness; F41.9 Anxiety disorder, unspecified; Z79.899 Other long term (current) drug therapy
CPT/HCPCS: 36415; 71045; 74230; 80048; 80053; 80162; 82553; 82805; 83605; 83735; 84484; 85025; 87040; 94002; 94003; 94640; 96374; A4216; G8981-GP-CK; G8981-GP-CN; G8982-GP-CK; G8987-GO-CL; G8988-GO-CK; G8996-GN-CL; G8996-GN-CM; G8997-GN-CJ; G8997-GN-CK; J0696; J2060; J2920; J7050; J7506; J7620; J7626

== ENCOUNTER 2018-08-06 03:13 | Inpatient (IN) | payer MEDICARE, MEDICAID ==
[2018-08-06] MEDS ORDERED: Lidocaine 2% Jelly 5 ML TUBE ONE (03:44)
[2018-08-06 04:16] LABS: #Basophils 0.1 thou/uL (0.0-0.2); #Eosinphils 0.1 thou/uL (0.0-0.7); #Lymphocytes 1.5 thou/uL (1.20-3.40); #Monocytes 1.2 thou/uL (0.11-0.59); #Neutrophils 7.2 thou/uL (1.40-6.50); %Basophils 0.6 % (0.0-1.0); %Eosinophils 0.5 % (0.0-10.0); %Lymphocytes 15.4 % (21.0-51.0); %Monocytes 11.8 % (0.0-10.0); %Neutrophils 71.6 % (42.0-75.0); Hemoglobin 9.9 g/dL (14.0-18.0); Mean Corpuscular HGB CONC 30.5 g/dL (32.0-36.0); Mean Corpuscular Hemoglobin 22.6 pg (27.0-31.0); Mean Platelet Volume 11.1 fL (7.4-10.4); Platelet Count 226 thou/uL (130-400); RBC Distribution Width 18.4 % (11.5-14.5); Red Blood Cell (RBC) Count 4.36 mill/uL (4.70-6.10)
[2018-08-06 04:37] LABS: ALT (SGPT) 18 U/L (8-55); AST (SGOT) 18 U/L (5-34); Albumin 4.1 g/dL (3.4-4.8); Alkaline Phosphatase 68 U/L (40-150); BUN (Urea Nitrogen) 11 mg/dL (8.4-25.7); Bilirubin, Total 0.3 mg/dL (0.2-1.2); CK (CPK) 57 U/L (30-200); Calc. Creatinine Clearance 0 mL/min (70-130); Calcium 9.2 mg/dL (7.8-10.44); Estimated GFR-MDRD Greater than 90; Globulin 3.1 g/dL (2.4-3.5); Glucose 100 mg/dL (80-115); Protein, Total 7.2 g/dL (5.8-8.1)
[2018-08-06 04:41] LABS: CKMB 1.8 ng/mL (0-6.6); Troponin I Less than 0.010 ng/mL (< 0.028)
[2018-08-06 04:49] LABS: Anion Gap 13 mmol/L (10-20); Chloride 87 mmol/L (98-107); Potassium 4.5 mmol/L (3.5-5.1); Sodium 142 mmol/L (136-145)
[2018-08-06 04:52] LABS: Carbon Dioxide 47 mmol/L (23-31)
[2018-08-06] MEDS ORDERED: Piperacillin/Tazobactam 4.5 GM VIAL ONE (04:55)
[2018-08-06] MEDS ORDERED: methylPREDNISolone Sod Succ/PF 125 MG/2 ML VIAL ONE (04:55)
[2018-08-06 04:56] LABS: Actual Bicarbonate (HCO3a) 45.7 mEq/L (22-28); Analyzer IN Cardio ER; Base Excess (BEa) 18.3 mEq/L (-2.0 to +3.0); Calcium, Ionized 1.08 mmol/L (1.12-1.30); Carboxyhemoglobin (COHb) 0.5 gm% (0.0-3.0); Hemoglobin (Hb) 9.6 g/dL (14.0-18.0); Potassium - ABG Lab 4.91 mmol/L (3.70-5.30); pH, Arterial 7.41 (7.35-7.45)
[2018-08-06] MEDS ORDERED: CCU Electrolyte Replacement 1 EACH IVPB ONE (05:30)
[2018-08-06] MEDS ORDERED: Norepinephrine 8 MG/0.9% NS 250 ML IVPB PRN (05:30)
[2018-08-06] MEDS ORDERED: Ventilator Sedation Protocol 1 EACH FS SCH (05:30)
[2018-08-06] MEDS ORDERED: Acetaminophen 650 MG Suppository PR PRN (05:30)
[2018-08-06] MEDS ORDERED: Lorazepam 2 MG/ML VIAL ONE (05:36)
[2018-08-06 05:43] LABS: Puncture Site LRA
[2018-08-06] MEDS ORDERED: Propofol 1,000 MG/100 ML VIAL IV PRN (05:50)
[2018-08-06] MEDS ORDERED: Propofol BOLUS 1,000 MG/100 ML VIAL IV PRN (05:50)
[2018-08-06] MEDS ORDERED: DISCONTINUE PREVIOUS NARCOTIC PAIN MEDICATIONS AND BENZODIAZEPINES FS SCH (05:50)
[2018-08-06] MEDS ORDERED: fentaNYL Citrate/PF 2,000 MCG in Sodium Chloride 0.9% 60 ML IV SCH (05:50)
[2018-08-06] MEDS ORDERED: Fentanyl BOLUS 250 ML IVPB PRN (05:50)
[2018-08-06] MEDS ORDERED: Magnesium Oxide 400 MG TAB PO PRN ×2 (05:52)
[2018-08-06] MEDS ORDERED: Potassium Chloride 40 MEQ in Premix Bag 1 BAG IVPB PRN (05:52)
[2018-08-06] MEDS ORDERED: Potassium Phosphate 9 MMOL in Sodium Chloride 0.9% 100 ML IVPB PRN (05:52)
[2018-08-06] MEDS ORDERED: Potassium Chloride 20 MEQ TAB PO PRN (05:52)
[2018-08-06] MEDS ORDERED: Potassium Phosphate 12 MMOL in Sodium Chloride 0.9% 250 ML 250 ML IV PRN (05:52)
[2018-08-06] MEDS ORDERED: Magnesium 2 GM/NS 0.9% 100 ML 2 GM in Premix Bag 1 BAG IVPB PRN (05:52)
[2018-08-06] MEDS ORDERED: Potassium Phosphate 15 MMOL in Sodium Chloride 0.9% 250 ML 250 ML IV PRN (05:52)
[2018-08-06] MEDS ORDERED: Potassium Chloride 40 MEQ in Sodium Chloride 0.9% 250 ML 250 ML IVPB PRN (05:52)
[2018-08-06] MEDS ORDERED: CCU ELECTROLYTE REPLACEMENT PROTOCOL FS PRN (05:52)
--- NOTE | 2018-08-06 09:29 | RAD ---
AP VIEW CHEST: Date: 08/06/18 HISTORY: Dyspnea. FINDINGS: Comparison made to previous exam from 07/08/18. AP view of chest demonstrates interval exchange of the tracheostomy type tube. The lungs are well aerated. No evidence of active intrathoracic disease seen. No evidence of effusion s, pneumonia, or pneumothorax seen. Calcification of the aorta is seen. IMPRESSION: Unremarkable AP view of chest in a patient with a tracheostomy tube in place. POS: [facility]
[2018-08-06 09:42] LABS: Bilirubin Negative (Negative); Blood, Urine Negative (Negative); Clarity CLEAR (Clear); Glucose, Urine (Dipstick) Negative (Negative); Leukocyte Negative (Negative); Nitrite Negative (Negative); Protein, Urine (Dipstick) 30 mg/dL (Neg-Trace); Specific Gravity, Urine 1.021 (1.002-1.036); Urobilinogen 0.2 mg/dL (0.2-1.0); pH, Urine 8.5 (5.0-9.0)
[2018-08-06 09:48] LABS: Bacteria/HPF None Seen HPF (None Seen); Hyaline Casts/LPF 0-3 HYALINE CAST LPF (0-3 Hyaline); Squamous Epithelial 0-3 HPF (0-3); WBC/HPF 0-3 HPF (0-3)
--- NOTE | 2018-08-06 12:41 | CON ---
DATE OF CONSULTATION: 08/06/2018 Thirty-five minutes critical care time. HISTORY OF PRESENT ILLNESS: Mr. Callahan is well known to our service. He is a 68-year-old male with a history of end-stage COPD with a tracheostomy, who is a resident of [facility]. He wa s brought in last night with hypoxemia. Apparently, the nursing staff there was unable to suction th e patient's trached. He was brought in here and he was changed to a cuffed trach and placed on mecha nical ventilation. He appears stable on mechanical ventilation at this time and does not appear to h ave any complaints. PAST MEDICAL HISTORY: 1. End-stage chronic obstructive pulmonary disease. 2. Chronic hypoxic and hypercapnic respiratory failure. 3. Hypertension. 4. Atrial fibrillation. 5. Osteoarthritis. 6. Peripheral vascular disease. 7. Tobacco abuse. 8. Protein calorie malnutrition. PAST SURGICAL HISTORY: 1. PEG tube placement. 2. Tracheostomy. 3. Appendectomy. 4. Abdominal surgery. 5. Cardiac catheterization. ALLERGIES: None. FAMILY MEDICAL HISTORY: Unremarkable. SOCIAL HISTORY: Patient quit smoking a few months ago, has a [id number] history of smoking. REVIEW OF SYSTEMS: Twelve point review of systems otherwise negative. MEDICATIONS PRIOR TO ADMISSION: Prednisone 20 mg daily, Klonopin 0.5 mg as needed, scopolamine patch every 3 days, Protonix, nitroglycerin, Dulera, melatonin, lactulose, DuoNeb, gabapentin, doxycycline , Lanoxin, Tums, Ecotrin, Brovana, Eliquis, Norvasc and Maalox. PHYSICAL EXAMINATION: VITAL SIGNS: Temperature 100.8, pulse 120, respirations 21, O2 saturation 97%, blood pressure 97/38. GENERAL: The patient on mechanical ventilation through tracheostomy. HEENT: Remarkable for bitemporal wasting. NECK: No adenopathy, no JVD. LUNGS: Diminished breath sounds bilaterally, no wheezing. CARDIOVASCULAR: S1, S2, slightly tachycardic. ABDOMEN: Soft, nontender. PEG tube noted. EXTREMITIES: Severe muscle wasting without edema. LABORATORY DATA: Sodium 142, potassium 4.5, chloride 87, CO2 of 47, BUN 11, creatinine 0.5, glucose 100. A pH 7.41, pCO2 of 74, pO2 of 78 on SIMV rate 14, tidal 450, PEEP 5, pressure support 10, FiO2 40%. White cell count 10, hematocrit 42.3, platelet count 226. Chest x-ray shows hyperinflation wit hout infiltrate. ASSESSMENT: 1. Chronic obstructive pulmonary disease with exacerbation. 2. Acute on chronic respiratory failure. 3. Multiple other medical problems as listed above. PLAN: 1. The patient will be kept on mechanical ventilation overnight. Continue steroids, nebulization tr eatments. 2. Restart the Brovana and Pulmicort. 3. Place him back on his Eliquis and aspirin and review medications from jail.
[2018-08-06] MEDS: Piperacillin/Tazobactam 4.5 GM in Sodium Chloride 0.9% 100 ML IVPB SCH ×2 (14:04→21:53)
[2018-08-06] MEDS: Morphine 4 MG/ML VIAL SLOW IVP PRN ×2 (14:17→21:11)
[2018-08-06] MEDS ORDERED: clonazePAM 0.5 MG TAB PO SCH (15:45)
[2018-08-06] MEDS: Lorazepam 2 MG/ML VIAL SLOW IVP PRN ×2 (15:50→20:55)
--- NOTE | 2018-08-06 16:26 | HP ---
PRIMARY CARE PROVIDER: Maci Mancilla M.D. CHIEF COMPLAINT: Shortness of breath. HISTORY OF PRESENT ILLNESS: Mr. Jones is a pleasant 68-year-old gentleman who was seen at [facility] on August 06, 2018, following transfer from [facility]. He was hospitalized at this facility from July 05, 2018, to July 10, 2018, for acute on chr onic respiratory failure with hypoxia and hypercapnia and chronic obstructive pulmonary disease exace rbation. He was reportedly found by custodial staff with having difficulty breathing. His oxygen saturatio n was 80 at bedtime. Attempts were made to suction the patient's tracheostomy, but they were unsucce ssful. EMS was called and patient was brought to the emergency room. The patient is unable to provide any significant history secondary to tracheostomy. REVIEW OF SYSTEMS: Could not be completed because patient could not answer questions. PAST MEDICAL HISTORY: Chronic respiratory failure on home oxygen, status post tracheostomy and PEG, chronic obstructive pulmonary disease, hypertension, atrial fibrillation, status post ablation, moder ate protein calorie malnutrition, degenerative joint disease, peripheral vascular disease. PAST SURGICAL HISTORY: Tracheostomy, PEG placement, appendectomy, abdominal surgery, and cardiac cat heterization. ALLERGIES: No known drug allergies. CURRENT MEDICATIONS: Aspirin 81 mg daily, clonazepam 0.5 mg 3 times a day, gabapentin 100 mg 2 times a day, digoxin 125 mcg daily, melatonin 3 mg at bedtime, Norvasc 5 mg daily, prednisone 20 mg daily, Protonix 40 mg daily, apixaban 5 mg 2 times a day. SOCIAL HISTORY: The patient lives at [facility]. He is an ex-smoker. No current tobacc o use, alcohol use, or recreational drug use. FAMILY HISTORY: No family history of premature coronary artery disease. CODE STATUS: I attempted to discuss his code status. Patient indicates that he wants everything to be done to keep him going in case of stoppage of heart or of breathing. PHYSICAL EXAMINATION: GENERAL: Mr. Jones is awake and alert, not in acute distress. VITAL SIGNS: Blood pressure is 110/62, pulse 88, respiratory rate 16, and oxygen saturation 100% on ventilator through tracheostomy. He is afebrile. He appears malnourished, with a BMI of 18.9. EYES: No scleral icterus. No conjunctival pallor. ENT: Moist mucosal membranes, no oropharyngeal erythema or exudates. NECK: Nontender, tracheostomy present. RESPIRATORY: Accessory muscles of breathing are not active. Chest wall movements are symmetric bila terally. LUNGS: Examination reveals diminished breath sounds at both bases. CARDIOVASCULAR: S1 and S2 are heard, regular. Peripheral pulses palpable. ABDOMEN: Soft, nontender, bowel sounds heard. EXTREMITIES: He has PEG tube. NEUROLOGIC: No facial droop. Deep tendon reflexes are 2+. SKIN: No rashes or subcutaneous nodules. LYMPHATIC: No cervical lymphadenopathy. PSYCHIATRIC: Normal mood, patient appears to be oriented to person, unable to assess orientation to place or time. LABORATORY DATA: Mr. Jones' labs and investigations were reviewed. I reviewed his electrocardiogr am, which shows sinus tachycardia, no ST changes to suggest an acute coronary syndrome. I also revie wed his chest x-ray, which does not show any pulmonary infiltrates. He has a normal white count, nor mal platelet count, microcytic anemia with hemoglobin 9.9, last known hemoglobin 8.5 on July 10, 2018, D-dimer normal at 0.32, normal sodium, normal potassium, elevated carbon dioxide of 47, unrema rkable liver profile, normal troponin I, normal BNP. Urinalysis negative for nitrite and leukocyte e sterase and arterial blood gases showing pH 7.41, pCO2 of 74 and pO2 of 78. ASSESSMENT AND PLAN: Mr. Jones is a pleasant 68-year-old gentleman who was seen at [facility] on August 06, 2018. His problem list includes: 1. Acute on chronic hypercapnic respiratory failure: Mr. Jones is presenting with acute on chroni c hypercapnic respiratory failure, most likely secondary to chronic obstructive pulmonary disease exa cerbation. He will be admitted to the hospital for further management. 2. Chronic obstructive pulmonary disease exacerbation. He will be treated with oxygen, steroids, br onchodilators, and antibiotics. He has been started on levofloxacin, Zosyn, and vancomycin in the em ergency room, which I will continue for now. 3. Hypertension: We will resume home medications, monitor vital signs and titrate antihypertensives as needed. 4. History of atrial flutter: We will continue apixaban. Many thanks for allowing me to participate in the patient's care. Please feel free to contact me wit h any questions or concerns. LEVEL OF RISK: High. LEVEL OF COMPLEXITY: High.
[2018-08-06] MEDS ORDERED: Budesonide 0.5 MG/2 ML NEB NEB SCH (18:30)
[2018-08-06] MEDS ORDERED: Prevnar 13-Val Conj/PF 0.5 ML SYRINGE IM ONE (18:30)
[2018-08-06] MEDS: Arformoterol 15 MCG/2 ML NEB NEB SCH (19:28)
[2018-08-06] MEDS: Budesonide 0.5 MG/2 ML NEB INH SCH (19:29)
[2018-08-06] MEDS: Vancomycin HCl 1 GM in Premix Bag 1 BAG IVPB SCH (19:54)
[2018-08-06] MEDS: Famotidine/PF 20 mg/2ml Vial SLOW IVP SCH (20:49)
[2018-08-06] MEDS: Apixaban 5 MG TAB PER TUBE SCH (20:49)
[2018-08-06] MEDS: Gabapentin 100 MG CAP PO SCH (20:49)
[2018-08-06] MEDS: clonazePAM 0.5 MG TAB PER TUBE SCH (20:49)
[2018-08-06] MEDS ORDERED: Enoxaparin Sodium 40 MG/0.4 ML SYRINGE SC SCH (21:00)
[2018-08-06] MEDS ORDERED: Arformoterol 15 MCG/2 ML NEB NEB SCH (21:00)
[2018-08-06] MEDS: Melatonin 3 MG TAB PO SCH (21:02)
[2018-08-07 05:50] LABS: Band 3 % (5-11); Hemoglobin 7.1 g/dL (14.0-18.0); Lymphocytes 16 % (21-51); MDiff Complete? YES; Mean Corpuscular HGB CONC 30.4 g/dL (32.0-36.0); Mean Corpuscular Hemoglobin 21.5 pg (27.0-31.0); Mean Corpuscular Volume 70.5 fL (78.0-98.0); Mean Platelet Volume 7.9 fL (7.4-10.4); Monocytes 9 % (0-10); Neutrophil 72 % (42-75); PLT Morphology Comment Appears Adequate; Platelet Count 196 thou/uL (130-400); RBC Distribution Width 18.8 % (11.5-14.5); Red Blood Cell (RBC) Count 3.33 mill/uL (4.70-6.10); White Blood Cell (WBC) Count 6.9 thou/uL (4.8-10.8)
[2018-08-07] MEDS: Piperacillin/Tazobactam 4.5 GM in Sodium Chloride 0.9% 100 ML IVPB SCH ×3 (05:53→21:21)
[2018-08-07 06:26] LABS: ALT (SGPT) 12 U/L (8-55); AST (SGOT) 15 U/L (5-34); Albumin 3.4 g/dL (3.4-4.8); Alkaline Phosphatase 47 U/L (40-150); Anion Gap 16 mmol/L (10-20); BUN (Urea Nitrogen) 19 mg/dL (8.4-25.7); Bilirubin, Total 0.3 mg/dL (0.2-1.2); Calc. Creatinine Clearance 70 mL/min (70-130); Calcium 8.8 mg/dL (7.8-10.44); Carbon Dioxide 34 mmol/L (23-31); Chloride 94 mmol/L (98-107); Estimated GFR-MDRD Greater than 90; Globulin 2.3 g/dL (2.4-3.5); Glucose 133 mg/dL (80-115); Potassium 3.6 mmol/L (3.5-5.1); Protein, Total 5.7 g/dL (5.8-8.1); Sodium 140 mmol/L (136-145)
[2018-08-07 07:22] LABS: Base Excess (BEa) 12.5 mEq/L (-2.0 to +3.0); CO2 Tension 48.3 mmHg (35.0-45.0); Calcium, Ionized 1.11 mmol/L (1.12-1.30); Carboxyhemoglobin (COHb) 1.5 gm% (0.0-3.0); Hemoglobin (Hb) 9.2 g/dL (14.0-18.0); O2 Tension (PaO2) 94.5 mmHg (> 80.0); Potassium - ABG Lab 3.45 mmol/L (3.70-5.30)
[2018-08-07 07:23] LABS: Puncture Site LR
[2018-08-07 07:24] LABS: ALV-art Gradient 59.025 (0-20)
[2018-08-07] MEDS: Budesonide 0.5 MG/2 ML NEB INH SCH ×2 (07:38→18:27)
[2018-08-07] MEDS: Arformoterol 15 MCG/2 ML NEB NEB SCH ×2 (07:38→18:28)
[2018-08-07] MEDS: Digoxin 0.125 MG TAB PO SCH (08:39)
[2018-08-07] MEDS: Vancomycin HCl 1 GM in Premix Bag 1 BAG IVPB SCH ×2 (08:39→20:13)
[2018-08-07] MEDS: clonazePAM 0.5 MG TAB PER TUBE SCH ×3 (08:40→20:14)
[2018-08-07] MEDS: Famotidine/PF 20 mg/2ml Vial SLOW IVP SCH ×2 (08:40→20:14)
[2018-08-07] MEDS: Apixaban 5 MG TAB PER TUBE SCH ×2 (08:40→20:14)
[2018-08-07] MEDS: Aspirin 81 mg Enteric Coated Tablet PO SCH (08:40)
[2018-08-07] MEDS: Gabapentin 100 MG CAP PO SCH ×2 (08:40→20:14)
[2018-08-07] MEDS: Amlodipine 5 MG TAB PO SCH (08:41)
[2018-08-07] MEDS: Pantoprazole 40 MG GRANULES PACKET PO SCH (08:42)
--- NOTE | 2018-08-07 09:03 | PRG ---
DATE OF SERVICE: 08/07/2018 This morning he is awake, alert, responsive. He presented with recurrent respiratory failure. Appar ently once again he had problems suctioning his trach. I do not see any infiltrates on his chest x-ray. Blood culture is growing some kind of staph species gram positive. PHYSICAL EXAMINATION: GENERAL: He is awake, alert, responsive. VITAL SIGNS: Blood pressure is 104/50, respiratory 32, pulse 100. ____. CHEST: Chest revealed decreased breath sounds without wheezing. CARDIAC: Normal S1, S2. No gallops. ABDOMEN: Soft, no masses. NEURO: Neurologically he is awake, alert and responsive. LABORATORY DATA: White count is 6000, H&H 7 and 23, platelet count 196. PO2 was 94, pCO2 48, pH 7. 50, rate of 12. Electrolytes are normal. IMPRESSION: 1. Respiratory failure, possibly gram positive sepsis. 2. Severe deconditioning. 3. Supraventricular tachycardia. 4. Retained secretions. 5. Anxiety. PLAN: Discontinue sedation. Adjust vent. Continue nutrition, PT and supportive care. One-half hour critical care time.
--- NOTE | 2018-08-07 10:23 | RAD ---
PORTABLE CHEST: HISTORY: CCU followup with dyspnea. Intubation. COMPARISON: 08/06/2018 FINDINGS: Tracheostomy device again noted. The lungs appear well aerated and clear of infiltrate. No evidence of vascular congestion or edema. No interval change noted. POS: [facility]
--- NOTE | 2018-08-07 16:33 | PDOC.PN ---
- Subjective Encounter Start Date: 08/07/18 Encounter Start Time: 09:20 Pt seen for followup re: acute on chronic hypercapnic respiratory failure. Pt able to answer some questions by nodding or shaking head, but unsure as to reliability, could not complete ROS. - Objective MAR Reviewed: Yes Vital Signs & Weight: Vital Signs (12 hours) Temp Pulse Pulse Pulse BP BP BP 08/07/18 14:51 82 08/07/18 13:55 95 84 96/58 L 105/62 08/07/18 13:05 87 08/07/18 10:48 95 110/59 L 08/07/18 08:41 108 H 08/07/18 08:39 108 H 08/07/18 08:00 98.9 F Pulse Ox Pulse Ox Pulse Ox 08/07/18 14:51 08/07/18 13:55 99 100 08/07/18 13:05 08/07/18 10:48 08/07/18 08:41 08/07/18 08:39 08/07/18 08:00 100 Weight Admit Weight 124 lb Weight 125 lb 5.198 oz Most Recent Monitor Data Heart Rate from ECG 108 NIBP 98/54 NIBP BP-Mean 68 Respiration from ECG 20 SpO2 100 I&O: 08/06/18 08/07/18 08/08/18 06:59 06:59 06:59 Intake Total 165 07977 Output Total 775 160 Balance -610 08046 Result Diagrams: 08/07/18 04:49 08/07/18 04:49 EKG Reviewed by me: Yes (Tele: NSR) Phys Exam - Physical Examination Malnourished HEENT: moist MMs, sclera anicteric, oral pharynx no lesions, 2+ tonsils Neck: no nodes, supple, full ROM tracheostomy Respiratory: no wheezing, no rales, no rhonchi, clear to auscultation bilateral Cardiovascular: RRR, no rub S1, S2 Gastrointestinal: soft, non-tender, positive bowel sounds G-tube Neurological: moves all 4 limbs Psychiatric: normal affect Deviation from normal: Pt oriented to person and place, not to time Dx/Plan (1) Acute and chronic respiratory failure with hypercapnia Code(s): J96.22 - ACUTE AND CHRONIC RESPIRATORY FAILURE WITH HYPERCAPNIA Status: Acute Comment: pt is in CCU, ventilated through tracheostomy (2) Sepsis Code(s): A41.9 - SEPSIS, UNSPECIFIED ORGANISM Status: Acute Comment: secondary to bacteremia (3) Bacteremia Code(s): R78.81 - BACTEREMIA Status: Acute Comment: continue IV Zosyn, vancomycin and levofloxacin (4) PAF (paroxysmal atrial fibrillation) Code(s): I48.0 - PAROXYSMAL ATRIAL FIBRILLATION Status: Chronic Comment: on Eliquis (5) GERD (gastroesophageal reflux disease) Code(s): K21.9 - GASTRO-ESOPHAGEAL REFLUX DISEASE WITHOUT ESOPHAGITIS Status: Chronic Qualifiers: Esophagitis presence: esophagitis presence not specified Qualified Code(s) : K21.9 - Gastro-esophageal reflux disease without esophagitis Comment: on Protonix (6) HTN (hypertension) Code(s): I10 - ESSENTIAL (PRIMARY) HYPERTENSION Status: Chronic Qualifiers: Hypertension type: essential hypertension Qualified Code(s): I10 - Essential (primary) hypertension Comment: Blood pressure is low (7) Moderate protein-calorie malnutrition Code(s): E44.0 - MODERATE PROTEIN-CALORIE MALNUTRITION Status: Chronic Comment: Dietitian consulted - Plan * . Review of Systems - Medications/Allergies Allergies/Adverse Reactions: Allergies Allergy/AdvReac Type Severity Reaction Status Date / Time No Known Drug Allergies Allergy Verified 06/22/18 18:36 Medications: Current Medications Acetaminophen (Tylenol) 650 mg ND Q6H PRN PRN Reason: Fever > 101 or Mild Pain Last Admin: 08/06/18 21:46 Dose: 650 mg Albuterol/Ipratropium (Duoneb) 3 ml NEB [id number] [facility] Last Admin: 08/07/18 14:51 Dose: 3 ml Amlodipine Besylate (Norvasc) 5 mg PO DAILY [facility] Last Admin: 08/07/18 08:41 Dose: Not Given Apixaban (Eliquis) 5 mg PER TUBE BID [facility] Last Admin: 08/07/18 08:40 Dose: 5 mg Arformoterol Tartrate (Brovana) 15 mcg NEB BID-RT [facility] Last Admin: 08/07/18 07:38 Dose: 15 mcg Aspirin (Ecotrin) 81 mg PO DAILY [facility] Last Admin: 08/07/18 08:40 Dose: 81 mg Budesonide (Pulmicort Neb Solution) 0.5 mg INH BID-RT [facility] Last Admin: 08/07/18 07:38 Dose: 0.5 mg Clonazepam (Klonopin) 0.5 mg PER TUBE TID [facility] Last Admin: 08/07/18 14:47 Dose: 0.5 mg Digoxin (Lanoxin) 0.125 mg PO QAM [facility] Last Admin: 08/07/18 08:39 Dose: 0.125 mg Famotidine (Pepcid) 20 mg SLOW IVP BID [facility] Last Admin: 08/07/18 08:40 Dose: 20 mg Gabapentin (Neurontin) 100 mg PO BID [facility] Last Admin: 08/07/18 08:40 Dose: 100 mg Norepinephrine Bitartrate (Levophed) 250 mls @ 0 mls/hr IVPB PRN PRN; Protocol PRN Reason: To maintain MAP > 65 Fentanyl Citrate 2,000 mcg/ (Sodium Chloride) 100 mls @ 0 mls/hr IV INF [facility]; Protocol Stop: 09/05/18 05:50 Fentanyl Citrate (Fentanyl Bolus) 250 mls @ 0 mls/hr IVPB PRN PRN PRN Reason: Breakthrough pain/agitation Stop: 09/05/18 05:50 Potassium Chloride 40 meq/ (Sodium Chloride) 270 mls @ 135 mls/hr IVPB ASDIR PRN PRN Reason: FOR SERUM K+ 2.5 - 3.5 Potassium Chloride 40 meq/ (Device) 100 mls @ 50 mls/hr IVPB ASDIR PRN PRN Reason: FOR SERUM K+ 2.5 - 3.5 Magnesium Sulfate 1 gm/ Sodium (Chloride) 102 mls @ 102 mls/hr IV PRN PRN PRN Reason: MAG LEVEL 1.4 - 2.0 Magnesium Sulfate 2 gm/ Device 100 mls @ 100 mls/hr IVPB ASDIR PRN PRN Reason: MAGNESIUM < 1.4 Potassium Phosphate 9 mmol/ (Sodium Chloride) 103 mls @ 25.75 mls/hr IVPB ASDIR PRN PRN Reason: Phosphate 1.0-1.8 Potassium Phosphate 12 mmol/ (Sodium Chloride) 254 mls @ 63.5 mls/hr IV ASDIR PRN PRN Reason: Serum phosphate 0.5-0.9 Potassium Phosphate 15 mmol/ (Sodium Chloride) 255 mls @ 63.75 mls/hr IV ASDIR PRN PRN Reason: Serum Phos < 0.5 Vancomycin HCl 1 gm/ Device 200 mls @ 200 mls/hr IVPB 0800,2000 [facility] Last Admin: 08/07/18 08:39 Dose: 200 mls Levofloxacin 750 mg/ Device 150 mls @ 100 mls/hr IVPB 0500 [facility] Last Admin: 08/07/18 05:52 Dose: 150 mls Piperacillin Sod/Tazobactam (Sod 4.5 gm/ Sodium Chloride) 100 mls @ 200 mls/hr IVPB Q8HR [facility] Last Admin: 08/07/18 14:47 Dose: 100 mls Lorazepam (Ativan) 2 mg SLOW IVP Q1H PRN PRN Reason: Breakthrough agitation Stop: 09/05/18 05:50 Last Admin: 08/06/18 20:55 Dose: 2 mg Magnesium Oxide (Magnesium Oxide) 400 mg PO BIDPRN PRN PRN Reason: FOR SERUM MAG 1.4 - 2.0 Magnesium Oxide (Magnesium Oxide) 800 mg PO PRN PRN PRN Reason: FOR SERUM MAG < 1.4 Melatonin (Melatonin) 3 mg PO HS [facility] Last Admin: 08/06/18 21:02 Dose: 3 mg Methylprednisolone Sodium Succinate (Solu-Medrol) 40 mg IVP Q6HR [facility] Last Admin: 08/07/18 12:18 Dose: 40 mg Miscellaneous Medication (Phos-Nak) 1 pkt PO TIDPRN PRN PRN Reason: FOR PHOS LEVEL 1.0 - 1.8 Miscellaneous Medication (Phos-Nak) 2 pkt PO TIDPRN PRN PRN Reason: FOR PHOS LEVEL 0.5 - 1.0 Miscellaneous Medication (Pharmacy To Dose) 1 each IVPB ONE PRN PRN Reason: Pharmacy to dose Stop: 08/13/18 08:20 Morphine Sulfate (Morphine) 2 mg SLOW IVP Q1H PRN PRN Reason: BREAKTHROUGH PAIN/AGITATION Stop: 09/05/18 05:52 Last Admin: 08/06/18 21:11 Dose: 2 mg Discontinue Previous Narcotic Pain Medications And Benzodiazepines 1 each FS .ONE [facility] Stop: 09/05/18 05:50 Ccu Electrolyte (Replacement Protocol) 0 each FS PRN PRN PRN Reason: FOR ELECTROLYTE REPLACEMENT Pantoprazole Sodium (Protonix) 40 mg PO DAILY [facility] Last Admin: 08/07/18 08:42 Dose: Not Given Potassium Chloride (K-Dur) 40 meq PO ASDIR PRN PRN Reason: FOR SERUM K+ 2.5 - 3.5 Potassium Chloride (Klor-Con) 40 meq PER TUBE ASDIR PRN PRN Reason: FOR SERUM K+ 2.5-3.5 Propofol (Diprivan) 1,000 mg IV INF PRN; Protocol PRN Reason: TO ACHIEVE GOAL RASS Stop: 09/05/18 05:50 Last Admin: 08/06/18 22:01 Dose: 1,000 mg Propofol (Diprivan Bolus) 20 mg IV Q5MIN PRN PRN Reason: BREAKTHROUGH AGITATION Stop: 09/05/18 05:50 Sodium Chloride (Flush - Normal Saline) 10 ml IVF Q12HR [facility] Last Admin: 08/07/18 08:39 Dose: 10 ml Sodium Chloride (Flush - Normal Saline) 10 ml IVF PRN PRN PRN Reason: Saline Flush
[2018-08-07 19:24] LABS: Vancomycin, Trough 14.5 ug/mL
[2018-08-07] MEDS: Melatonin 3 MG TAB PO SCH (20:14)
[2018-08-08] MEDS: Lorazepam 2 MG/ML VIAL SLOW IVP PRN ×3 (01:59→16:11)
[2018-08-08] MEDS: Piperacillin/Tazobactam 4.5 GM in Sodium Chloride 0.9% 100 ML IVPB SCH ×3 (05:38→22:44)
[2018-08-08 05:50] LABS: Band 2 % (5-11); Hemoglobin 6.5 g/dL (14.0-18.0); Hypochromia MODERATE=16-30 cells (100X) (0-5/hpf); MDiff Complete? YES; Mean Corpuscular HGB CONC 31.2 g/dL (32.0-36.0); Mean Corpuscular Hemoglobin 21.9 pg (27.0-31.0); Mean Corpuscular Volume 70.2 fL (78.0-98.0); Mean Platelet Volume 6.8 fL (7.4-10.4); Microcytosis SLIGHT = 6-15 cells (100X) (0-5/hpf); Monocytes 3 % (0-10); Neutrophil 95 % (42-75); PLT Morphology Comment Appears Adequate; Platelet Count 173 thou/uL (130-400); Polychromasia SLIGHT = 2-3 cells (100X) (0-2/hpf); RBC Distribution Width 18.5 % (11.5-14.5); Red Blood Cell (RBC) Count 2.95 mill/uL (4.70-6.10); Target Cells SLIGHT = 2-5 cells (100X) (0-1/hpf); White Blood Cell (WBC) Count 11.2 thou/uL (4.8-10.8)
[2018-08-08 05:58] LABS: ALT (SGPT) 11 U/L (8-55); AST (SGOT) 16 U/L (5-34); Albumin 3.1 g/dL (3.4-4.8); Alkaline Phosphatase 39 U/L (40-150); BUN (Urea Nitrogen) 14 mg/dL (8.4-25.7); Bilirubin, Total Less than 0.2 mg/dL (0.2-1.2); Calc. Creatinine Clearance 95 mL/min (70-130); Calcium 8.4 mg/dL (7.8-10.44); Estimated GFR-MDRD Greater than 90; Globulin 2.1 g/dL (2.4-3.5); Glucose 136 mg/dL (80-115); Protein, Total 5.2 g/dL (5.8-8.1)
[2018-08-08] MEDS: Budesonide 0.5 MG/2 ML NEB INH SCH ×2 (05:59→18:30)
[2018-08-08 06:06] LABS: Anion Gap 12 mmol/L (10-20); Carbon Dioxide 34 mmol/L (23-31); Chloride 98 mmol/L (98-107); Potassium 3.1 mmol/L (3.5-5.1); Sodium 141 mmol/L (136-145)
[2018-08-08] MEDS: Arformoterol 15 MCG/2 ML NEB NEB SCH ×2 (06:07→18:29)
[2018-08-08] MEDS: Vancomycin HCl 1 GM in Premix Bag 1 BAG IVPB SCH ×2 (07:29→20:37)
[2018-08-08] MEDS: Apixaban 5 MG TAB PER TUBE SCH ×2 (07:30→22:43)
[2018-08-08] MEDS: Aspirin 81 mg Enteric Coated Tablet PO SCH (07:30)
[2018-08-08] MEDS: Famotidine/PF 20 mg/2ml Vial SLOW IVP SCH ×2 (07:30→22:43)
[2018-08-08] MEDS: Digoxin 0.125 MG TAB PO SCH (07:30)
[2018-08-08] MEDS: Gabapentin 100 MG CAP PO SCH ×2 (07:31→22:43)
[2018-08-08] MEDS: Amlodipine 5 MG TAB PO SCH (07:31)
[2018-08-08] MEDS: clonazePAM 0.5 MG TAB PER TUBE SCH ×3 (07:31→22:43)
[2018-08-08] MEDS: Pantoprazole 40 MG GRANULES PACKET PO SCH (07:32)
--- NOTE | 2018-08-08 08:03 | PRG ---
DATE OF SERVICE: 08/08/2018 Mr. Jones is awake, alert, responsive. A #[address], recurrent tracheal obstruction. PHYSICAL EXAMINATION: VITAL SIGNS: Temperature 99, blood pressure 91/50, pulse 80, respiration rate 18. GENERAL: He is awake, responsive, denies any difficulty breathing. CHEST: Chest reveals decreased breath sounds, no wheezing. CARDIAC: Normal S1, S2. No gallops. ABDOMEN: Soft, no masses. NEUROLOGIC: Awake, responsive. EXTREMITIES: He has no edema. Electrolytes are normal. Potassium is. His vancomycin level is 14. White count is unremarkable, H &H is 6 and 20. Cultures are growing gram positive cocci and the horace appears to be a contamination, though we will await final identification. IMPRESSION: 1. Anemia, possibly gastrointestinal bleed. 2. Respiratory failure. 3. End-stage chronic obstructive pulmonary disease. 4. Supraventricular tachycardia. PLAN: We will talk with his sister today regarding ongoing issues and care. We will try a trial of CPAP, antibiotics, neb treatments, supportive care. One-half hour critical care time.
[2018-08-08 08:34] LABS: Actual Bicarbonate (HCO3a) 32.7 mEq/L (22-28); Analyzer IN Cardio ER; Base Excess (BEa) 7.9 mEq/L (-2.0 to +3.0); CO2 Tension 48.2 mmHg (35.0-45.0); Calcium, Ionized 1.12 mmol/L (1.12-1.30); Carboxyhemoglobin (COHb) 0.5 gm% (0.0-3.0); Hemoglobin (Hb) 8.1 g/dL (14.0-18.0); O2 Tension (PaO2) 102.7 mmHg (> 80.0); pH, Arterial 7.45 (7.35-7.45)
[2018-08-08 08:37] LABS: Puncture Site L.R.
--- NOTE | 2018-08-08 09:06 | RAD ---
AP CHEST: History: Ventilator dependent patient. Date: 08-08-18 Comparison: 08-07-18 FINDINGS: AP chest demonstrates a tracheostomy tube in place. The lungs are well aerated. No evidence of acute intrathoracic abnormality seen. No evidence of effus ions, pneumonia, or pneumothorax seen. Calcification of the aorta is seen. IMPRESSION: Tracheostomy tube in place. No acute intrathoracic abnormalities seen. POS: [facility]
[2018-08-08] MEDS ORDERED: Midazolam HCl 2 mg/2 ml Vial ONE (10:37)
--- NOTE | 2018-08-08 17:59 | PDOC.PN ---
- Subjective Encounter Start Date: 08/08/18 Encounter Start Time: 10:20 Pt seen for followup re: acute on chronic hypercapnic respiratory failure. Not answering questions consistently, could not complete ROS. - Objective MAR Reviewed: Yes Vital Signs & Weight: Vital Signs (12 hours) Temp Pulse Resp BP Pulse Ox 08/08/18 16:00 99.2 F 20 08/08/18 15:35 104 H 107/56 L 08/08/18 14:17 107 H 30 H 99 08/08/18 14:00 26 H 08/08/18 13:08 95 130/65 08/08/18 12:00 99.0 F 24 H 08/08/18 11:10 104 H 102/65 08/08/18 10:04 102 H 140/74 08/08/18 10:00 34 H 08/08/18 09:40 93 29 H 100 08/08/18 09:35 32 H 08/08/18 09:01 79 99/55 L 08/08/18 08:00 77 25 H 108/59 L 100 08/08/18 07:00 99.0 F 08/08/18 06:07 92 22 H 99 08/08/18 06:06 99 08/08/18 06:03 87 97/54 L 08/08/18 06:00 18 08/08/18 05:59 92 41 H 90 L Weight Admit Weight 124 lb Weight 125 lb 7.088 oz Most Recent Monitor Data Heart Rate from ECG 99 NIBP 105/49 NIBP BP-Mean 67 Respiration from ECG 22 SpO2 100 I&O: 08/07/18 08/08/18 08/09/18 06:59 06:59 06:59 Intake Total 165 1848 240 Output Total 775 1355 1010 Balance -610 271 -770 Result Diagrams: 08/08/18 05:10 08/08/18 05:10 EKG Reviewed by me: Yes (Tele: NSR) Phys Exam - Physical Examination Constitutional: NAD HEENT: moist MMs tracheostomy Respiratory: clear to auscultation bilateral Cardiovascular: RRR Gastrointestinal: soft Neurological: moves all 4 limbs Psychiatric: normal affect Dx/Plan (1) Acute and chronic respiratory failure with hypercapnia Code(s): J96.22 - ACUTE AND CHRONIC RESPIRATORY FAILURE WITH HYPERCAPNIA Status: Acute Comment: trialing CPAP today (2) Sepsis Code(s): A41.9 - SEPSIS, UNSPECIFIED ORGANISM Status: Acute Comment: secondary to Corynebacterium bacteremia (3) Bacteremia Code(s): R78.81 - BACTEREMIA Status: Acute Comment: continue IV Zosyn, vancomycin and levofloxacin for Corynebacterium bacteremia (4) PAF (paroxysmal atrial fibrillation) Code(s): I48.0 - PAROXYSMAL ATRIAL FIBRILLATION Status: Chronic Comment: continue Eliquis (5) GERD (gastroesophageal reflux disease) Code(s): K21.9 - GASTRO-ESOPHAGEAL REFLUX DISEASE WITHOUT ESOPHAGITIS Status: Chronic Qualifiers: Esophagitis presence: esophagitis presence not specified Qualified Code(s) : K21.9 - Gastro-esophageal reflux disease without esophagitis Comment: continue Protonix (6) HTN (hypertension) Code(s): I10 - ESSENTIAL (PRIMARY) HYPERTENSION Status: Chronic Qualifiers: Hypertension type: essential hypertension Qualified Code(s): I10 - Essential (primary) hypertension Comment: Blood pressure is low (7) Moderate protein-calorie malnutrition Code(s): E44.0 - MODERATE PROTEIN-CALORIE MALNUTRITION Status: Chronic Comment: Dietitian consulted - Plan continue antibiotics * . hemoglobin dropped, continue to monitor Review of Systems - Medications/Allergies Allergies/Adverse Reactions: Allergies Allergy/AdvReac Type Severity Reaction Status Date / Time No Known Drug Allergies Allergy Verified 06/22/18 18:36 Medications: Current Medications Acetaminophen (Tylenol) 650 mg IA Q6H PRN PRN Reason: Fever > 101 or Mild Pain Last Admin: 08/06/18 21:46 Dose: 650 mg Albuterol/Ipratropium (Duoneb) 3 ml NEB [id number] [facility] Last Admin: 08/08/18 14:17 Dose: 3 ml Amlodipine Besylate (Norvasc) 5 mg PO DAILY [facility] Last Admin: 08/08/18 07:31 Dose: Not Given Apixaban (Eliquis) 5 mg PER TUBE BID [facility] Last Admin: 08/08/18 07:30 Dose: 5 mg Arformoterol Tartrate (Brovana) 15 mcg NEB BID-RT [facility] Last Admin: 08/08/18 06:07 Dose: 15 mcg Aspirin (Ecotrin) 81 mg PO DAILY [facility] Last Admin: 08/08/18 07:30 Dose: 81 mg Budesonide (Pulmicort Neb Solution) 0.5 mg INH BID-RT [facility] Last Admin: 08/08/18 05:59 Dose: 0.5 mg Clonazepam (Klonopin) 0.5 mg PER TUBE TID [facility] Last Admin: 08/08/18 14:13 Dose: 0.5 mg Digoxin (Lanoxin) 0.125 mg PO QAM [facility] Last Admin: 08/08/18 07:30 Dose: 0.125 mg Famotidine (Pepcid) 20 mg SLOW IVP BID [facility] Last Admin: 08/08/18 07:30 Dose: 20 mg Gabapentin (Neurontin) 100 mg PO BID [facility] Last Admin: 08/08/18 07:31 Dose: 100 mg Norepinephrine Bitartrate (Levophed) 250 mls @ 0 mls/hr IVPB PRN PRN; Protocol PRN Reason: To maintain MAP > 65 Fentanyl Citrate 2,000 mcg/ (Sodium Chloride) 100 mls @ 0 mls/hr IV INF [facility]; Protocol Stop: 09/05/18 05:50 Fentanyl Citrate (Fentanyl Bolus) 250 mls @ 0 mls/hr IVPB PRN PRN PRN Reason: Breakthrough pain/agitation Stop: 09/05/18 05:50 Potassium Chloride 40 meq/ (Sodium Chloride) 270 mls @ 135 mls/hr IVPB ASDIR PRN PRN Reason: FOR SERUM K+ 2.5 - 3.5 Potassium Chloride 40 meq/ (Device) 100 mls @ 50 mls/hr IVPB ASDIR PRN PRN Reason: FOR SERUM K+ 2.5 - 3.5 Magnesium Sulfate 1 gm/ Sodium (Chloride) 102 mls @ 102 mls/hr IV PRN PRN PRN Reason: MAG LEVEL 1.4 - 2.0 Magnesium Sulfate 2 gm/ Device 100 mls @ 100 mls/hr IVPB ASDIR PRN PRN Reason: MAGNESIUM < 1.4 Potassium Phosphate 9 mmol/ (Sodium Chloride) 103 mls @ 25.75 mls/hr IVPB ASDIR PRN PRN Reason: Phosphate 1.0-1.8 Potassium Phosphate 12 mmol/ (Sodium Chloride) 254 mls @ 63.5 mls/hr IV ASDIR PRN PRN Reason: Serum phosphate 0.5-0.9 Potassium Phosphate 15 mmol/ (Sodium Chloride) 255 mls @ 63.75 mls/hr IV ASDIR PRN PRN Reason: Serum Phos < 0.5 Vancomycin HCl 1 gm/ Device 200 mls @ 200 mls/hr IVPB 0800,2000 [facility] Last Admin: 08/08/18 07:29 Dose: 200 mls Piperacillin Sod/Tazobactam (Sod 4.5 gm/ Sodium Chloride) 100 mls @ 200 mls/hr IVPB Q8HR [facility] Last Admin: 08/08/18 14:13 Dose: 100 mls Lorazepam (Ativan) 2 mg SLOW IVP Q1H PRN PRN Reason: Breakthrough agitation Stop: 09/05/18 05:50 Last Admin: 08/08/18 16:11 Dose: 2 mg Magnesium Oxide (Magnesium Oxide) 400 mg PO BIDPRN PRN PRN Reason: FOR SERUM MAG 1.4 - 2.0 Magnesium Oxide (Magnesium Oxide) 800 mg PO PRN PRN PRN Reason: FOR SERUM MAG < 1.4 Melatonin (Melatonin) 3 mg PO HS [facility] Last Admin: 08/07/18 20:14 Dose: 3 mg Methylprednisolone Sodium Succinate (Solu-Medrol) 40 mg IVP BID [facility] Last Admin: 08/08/18 09:28 Dose: Not Given Miscellaneous Medication (Phos-Nak) 1 pkt PO TIDPRN PRN PRN Reason: FOR PHOS LEVEL 1.0 - 1.8 Miscellaneous Medication (Phos-Nak) 2 pkt PO TIDPRN PRN PRN Reason: FOR PHOS LEVEL 0.5 - 1.0 Miscellaneous Medication (Pharmacy To Dose) 1 each IVPB ONE PRN PRN Reason: Pharmacy to dose Stop: 08/13/18 08:20 Morphine Sulfate (Morphine) 2 mg SLOW IVP Q1H PRN PRN Reason: BREAKTHROUGH PAIN/AGITATION Stop: 09/05/18 05:52 Last Admin: 08/06/18 21:11 Dose: 2 mg Discontinue Previous Narcotic Pain Medications And Benzodiazepines 1 each FS .ONE [facility] Stop: 09/05/18 05:50 Ccu Electrolyte (Replacement Protocol) 0 each FS PRN PRN PRN Reason: FOR ELECTROLYTE REPLACEMENT Pantoprazole Sodium (Protonix) 40 mg PO DAILY [facility] Last Admin: 08/08/18 07:32 Dose: 40 mg Potassium Chloride (K-Dur) 40 meq PO ASDIR PRN PRN Reason: FOR SERUM K+ 2.5 - 3.5 Potassium Chloride (Klor-Con) 40 meq PER TUBE ASDIR PRN PRN Reason: FOR SERUM K+ 2.5-3.5 Last Admin: 08/08/18 06:25 Dose: 40 meq Propofol (Diprivan) 1,000 mg IV INF PRN; Protocol PRN Reason: TO ACHIEVE GOAL RASS Stop: 09/05/18 05:50 Last Admin: 08/06/18 22:01 Dose: 1,000 mg Propofol (Diprivan Bolus) 20 mg IV Q5MIN PRN PRN Reason: BREAKTHROUGH AGITATION Stop: 09/05/18 05:50 Sodium Chloride (Flush - Normal Saline) 10 ml IVF Q12HR [facility] Last Admin: 08/08/18 07:32 Dose: 10 ml Sodium Chloride (Flush - Normal Saline) 10 ml IVF PRN PRN PRN Reason: Saline Flush
--- NOTE | 2018-08-08 20:13 | OP ---
This is a 68-year-old gentleman with end-stage COPD who comes to the hospital every 3-4 weeks with re current tracheal obstruction, hypoxemia, but with normal chest x-ray. I had a lengthy discussion wit h his sister who is the power of title attorney regarding his ongoing care. His chest x-ray was normal at this time, and then again he had evidence of hypoxemia. We felt at this time that we are going to do a diagnostic therapeutic bronchoscopy to see whether he has got extensive mucous plugs. Thereafter, after informed consent from the patient and the sister, flexible bronchoscope was passed using adapt er endotracheal tube, distal trachea was normal. The left lung had a single large mucus plug which w as cleared, which was suctioned and lavaged to clear. Thereafter, the entire left lung, upper and lo wer lobes were without any further abnormalities noted. Right lung inspected down and this was compl etely normal. No endobronchial obstruction or blood or pus was seen. Patient otherwise tolerated the procedure well. Please note discussion with the patient's sister and the patient that more than likely he is no t really weanable. He is going to require long-term 24-hour vent care. Discussed with the social insurance analyst and we will try and get him to a facility where they manages vent. Otherwise, we will require home ventilator with 24-hour care. It is unclear what this will be accomplished here in town. The patient understands the problem. IMPRESSION: 1. Recurrent respiratory failure, severe hypoxemia, end-stage chronic obstructive pulmonary disease. 2. Recent bronchoscopy, single clear plug in the left main stem bronchus suction and would like to saul shepard
[2018-08-08] MEDS: Melatonin 3 MG TAB PO SCH (22:43)
[2018-08-09 05:30] LABS: Hemoglobin 6.5 g/dL (14.0-18.0); MDiff Complete? YES; Mean Corpuscular HGB CONC 30.6 g/dL (32.0-36.0); Mean Corpuscular Hemoglobin 21.7 pg (27.0-31.0); Mean Corpuscular Volume 70.9 fL (78.0-98.0); Mean Platelet Volume 8.9 fL (7.4-10.4); Platelet Count 179 thou/uL (130-400); RBC Distribution Width 18.6 % (11.5-14.5); Red Blood Cell (RBC) Count 2.98 mill/uL (4.70-6.10); White Blood Cell (WBC) Count 16.6 thou/uL (4.8-10.8)
[2018-08-09 05:31] LABS: Anisocytosis SLIGHT = 6-15 cells (100X) (0-5/hpf); Band 15 % (5-11); Hypochromia MODERATE=16-30 cells (100X) (0-5/hpf); Lymphocytes 6 % (21-51); Neutrophil 79 % (42-75); PLT Morphology Comment Appears Adequate
[2018-08-09 05:45] LABS: ALT (SGPT) 12 U/L (8-55); AST (SGOT) 16 U/L (5-34); Albumin 3.1 g/dL (3.4-4.8); Alkaline Phosphatase 40 U/L (40-150); BUN (Urea Nitrogen) 11 mg/dL (8.4-25.7); Bilirubin, Total Less than 0.2 mg/dL (0.2-1.2); Calc. Creatinine Clearance 98 mL/min (70-130); Calcium 8.4 mg/dL (7.8-10.44); Estimated GFR-MDRD Greater than 90; Glucose 128 mg/dL (80-115); Protein, Total 5.1 g/dL (5.8-8.1)
[2018-08-09 05:54] LABS: Anion Gap 7 mmol/L (10-20); Carbon Dioxide 39 mmol/L (23-31); Chloride 101 mmol/L (98-107); Potassium 3.5 mmol/L (3.5-5.1); Sodium 143 mmol/L (136-145)
[2018-08-09] MEDS: Piperacillin/Tazobactam 4.5 GM in Sodium Chloride 0.9% 100 ML IVPB SCH ×3 (07:21→20:31)
[2018-08-09] MEDS: Budesonide 0.5 MG/2 ML NEB INH SCH ×2 (07:24→18:39)
[2018-08-09] MEDS: Arformoterol 15 MCG/2 ML NEB NEB SCH ×2 (07:25→18:39)
[2018-08-09 07:41] LABS: Actual Bicarbonate (HCO3a) 38.8 mEq/L (22-28); Base Excess (BEa) 14.1 mEq/L (-2.0 to +3.0); CO2 Tension 52.5 mmHg (35.0-45.0); Carboxyhemoglobin (COHb) 2.3 gm% (0.0-3.0); Hemoglobin (Hb) 6.6 g/dL (14.0-18.0); O2 Tension (PaO2) 71.2 mmHg (> 80.0); pH, Arterial 7.49 (7.35-7.45)
[2018-08-09 07:43] LABS: Puncture Site RRA
[2018-08-09 07:44] LABS: ALV-art Gradient 77.075 (0-20)
[2018-08-09 09:20] LABS: Vancomycin, Trough 13.9 ug/mL
[2018-08-09] MEDS: Amlodipine 5 MG TAB PO SCH (09:49)
[2018-08-09] MEDS: Apixaban 5 MG TAB PER TUBE SCH ×2 (09:49→20:32)
[2018-08-09] MEDS: Aspirin 81 mg Enteric Coated Tablet PO SCH (09:50)
[2018-08-09] MEDS: Famotidine/PF 20 mg/2ml Vial SLOW IVP SCH (09:50)
[2018-08-09] MEDS: Pantoprazole 40 MG GRANULES PACKET PO SCH (09:51)
[2018-08-09] MEDS: Digoxin 0.125 MG TAB PO SCH (09:51)
[2018-08-09] MEDS: clonazePAM 0.5 MG TAB PER TUBE SCH ×3 (09:51→20:32)
[2018-08-09] MEDS: Gabapentin 100 MG CAP PO SCH ×2 (09:51→20:31)
[2018-08-09] MEDS: Vancomycin HCl 750 MG in Sodium Chloride 0.9% 250 ML 250 ML IVPB SCH ×2 (10:13→17:25)
--- NOTE | 2018-08-09 10:14 | PRG ---
DATE OF SERVICE: 08/09/2018 SUBJECTIVE: This morning, he is awake, alert and responsive. He is on the vent. He had his trach c hanged yesterday to a #6 Shiley cuffed. OBJECTIVE: VITAL SIGNS: Pulse is 76, sats are 95%, blood pressure 94/54, respiration 20. CHEST: Reveals no wheezing. CARDIAC: Normal S1, S2, no gallops. ABDOMEN: Soft. NEUROLOGIC: Awake, alert, responsive. No pain or discomfort. LABORATORY DATA: PO2 is 71, pCO2 50, pH 7.49, rate of 10, 30% FIO2, 400 tidal volume. IMPRESSION: 1. Chronic obstructive pulmonary disease exacerbation, end-stage respiratory failure. 2. Major anxiety. 3. Supraventricular tachycardia. 4. Anemia. PLAN: Once again, we will try a trach. He underwent a bronchoscopy yesterday. I did not seem much infection in his lungs, just a single muc us plug in his left lung which was suctioned and lavaged. Chest x-ray was normal. Continue PT, and supportive care. One-half hour critical care time.
--- NOTE | 2018-08-09 10:48 | PDOC.PN ---
- Subjective Encounter Start Date: 08/09/18 Encounter Start Time: 08:30 -: old records requested/rev Patient seen and examined. No new complaints. No overnight events pt is on vent - Objective MAR Reviewed: Yes Vital Signs & Weight: Vital Signs (12 hours) Temp Pulse Resp Pulse Ox 08/09/18 10:27 87 13 99 08/09/18 08:00 27 H 08/09/18 07:26 78 08/09/18 07:00 99.0 F 08/09/18 06:00 24 H 08/09/18 05:00 98.7 F 08/09/18 04:00 25 H 08/09/18 02:50 96 08/09/18 02:49 79 21 H 97 08/09/18 02:00 25 H 08/09/18 00:00 27 H Weight Admit Weight 124 lb Weight 125 lb 7.088 oz Most Recent Monitor Data Heart Rate from ECG 75 NIBP 96/53 NIBP BP-Mean 67 Respiration from ECG 21 SpO2 94 I&O: 08/08/18 08/09/18 08/10/18 06:59 06:59 06:59 Intake Total 1848 2496 Output Total 1355 1660 60 Balance 493 836 -60 Result Diagrams: 08/09/18 04:30 08/09/18 04:30 EKG Reviewed by me: Yes (nsr) Phys Exam - Physical Examination Constitutional: NAD HEENT: PERRLA, moist MMs, sclera anicteric Neck: no JVD, supple tracheostomy+ Respiratory: no wheezing, no rales, no rhonchi reduced air entry both side Cardiovascular: RRR, no significant murmur, no rub Gastrointestinal: soft, non-tender, no distention, positive bowel sounds Musculoskeletal: no edema, pulses present calle+ Neurological: non-focal, normal sensation Psychiatric: normal affect, A&O x 3 Dx/Plan (1) Acute on chronic respiratory failure with hypoxia and hypercapnia Code(s): J96.21 - ACUTE AND CHRONIC RESPIRATORY FAILURE WITH HYPOXIA; J96.22 - ACUTE AND CHRONIC RESPIRATORY FAILURE WITH HYPERCAPNIA Status: Acute Comment : (2) PAF (paroxysmal atrial fibrillation) Code(s): I48.0 - PAROXYSMAL ATRIAL FIBRILLATION Status: Chronic Comment: (3) GERD (gastroesophageal reflux disease) Code(s): K21.9 - GASTRO-ESOPHAGEAL REFLUX DISEASE WITHOUT ESOPHAGITIS Status: Chronic Qualifiers: Esophagitis presence: esophagitis presence not specified Qualified Code(s) : K21.9 - Gastro-esophageal reflux disease without esophagitis Comment: continue Protonix (4) HTN (hypertension) Code(s): I10 - ESSENTIAL (PRIMARY) HYPERTENSION Status: Chronic Qualifiers: Hypertension type: essential hypertension Qualified Code(s): I10 - Essential (primary) hypertension Comment: (5) Moderate protein-calorie malnutrition Code(s): E44.0 - MODERATE PROTEIN-CALORIE MALNUTRITION Status: Chronic Comment: (6) Osteoarthritis Code(s): M19.90 - UNSPECIFIED OSTEOARTHRITIS, UNSPECIFIED SITE Status: Chronic Qualifiers: Osteoarthritis location: unspecified site Osteoarthritis type: unspecified Qualified Code(s): M19.90 - Unspecified osteoarthritis, unspecified site Comment: stable (7) PVD (peripheral vascular disease) Code(s): I73.9 - PERIPHERAL VASCULAR DISEASE, UNSPECIFIED Status: Chronic Comment: stable (8) Chronic anemia Code(s): D64.9 - ANEMIA, UNSPECIFIED Status: Chronic (9) COPD exacerbation Code(s): J44.1 - CHRONIC OBSTRUCTIVE PULMONARY DISEASE W (ACUTE) EXACERBATION Status: Chronic Comment: s/p tracheostomy - Plan cont current plan of care, continue antibiotics, respiratory therapy * continue vancomycin and zosyn * continue solumedrol * vent as per pulmonary. * continue respiratory therapy Review of Systems - Review of Systems Other: difficulty to do ROS as he can not talk on vent, though is is awake - Medications/Allergies Allergies/Adverse Reactions: Allergies Allergy/AdvReac Type Severity Reaction Status Date / Time No Known Drug Allergies Allergy Verified 06/22/18 18:36 Medications: Current Medications Acetaminophen (Tylenol) 650 mg [place] Q6H PRN PRN Reason: Fever > 101 or Mild Pain Last Admin: 08/06/18 21:46 Dose: 650 mg Albuterol/Ipratropium (Duoneb) 3 ml NEB [id number] [facility] Last Admin: 08/09/18 10:27 Dose: 3 ml Amlodipine Besylate (Norvasc) 5 mg PO DAILY [facility] Last Admin: 08/09/18 09:49 Dose: Not Given Apixaban (Eliquis) 5 mg PER TUBE BID [facility] Last Admin: 08/09/18 09:49 Dose: Not Given Arformoterol Tartrate (Brovana) 15 mcg NEB BID-RT [facility] Last Admin: 08/09/18 07:25 Dose: 15 mcg Aspirin (Ecotrin) 81 mg PO DAILY [facility] Last Admin: 08/09/18 09:50 Dose: Not Given Budesonide (Pulmicort Neb Solution) 0.5 mg INH BID-RT [facility] Last Admin: 08/09/18 07:24 Dose: 0.5 mg Clonazepam (Klonopin) 0.5 mg PER TUBE TID [facility] Last Admin: 08/09/18 09:51 Dose: 0.5 mg Digoxin (Lanoxin) 0.125 mg PO QAM [facility] Last Admin: 08/09/18 09:51 Dose: 0.125 mg Famotidine (Pepcid) 20 mg SLOW IVP BID [facility] Last Admin: 08/09/18 09:50 Dose: 20 mg Gabapentin (Neurontin) 100 mg PO BID [facility] Last Admin: 08/09/18 09:51 Dose: 100 mg Norepinephrine Bitartrate (Levophed) 250 mls @ 0 mls/hr IVPB PRN PRN; Protocol PRN Reason: To maintain MAP > 65 Fentanyl Citrate 2,000 mcg/ (Sodium Chloride) 100 mls @ 0 mls/hr IV INF [facility]; Protocol Stop: 09/05/18 05:50 Fentanyl Citrate (Fentanyl Bolus) 250 mls @ 0 mls/hr IVPB PRN PRN PRN Reason: Breakthrough pain/agitation Stop: 09/05/18 05:50 Potassium Chloride 40 meq/ (Sodium Chloride) 270 mls @ 135 mls/hr IVPB ASDIR PRN PRN Reason: FOR SERUM K+ 2.5 - 3.5 Potassium Chloride 40 meq/ (Device) 100 mls @ 50 mls/hr IVPB ASDIR PRN PRN Reason: FOR SERUM K+ 2.5 - 3.5 Magnesium Sulfate 1 gm/ Sodium (Chloride) 102 mls @ 102 mls/hr IV PRN PRN PRN Reason: MAG LEVEL 1.4 - 2.0 Magnesium Sulfate 2 gm/ Device 100 mls @ 100 mls/hr IVPB ASDIR PRN PRN Reason: MAGNESIUM < 1.4 Potassium Phosphate 9 mmol/ (Sodium Chloride) 103 mls @ 25.75 mls/hr IVPB ASDIR PRN PRN Reason: Phosphate 1.0-1.8 Potassium Phosphate 12 mmol/ (Sodium Chloride) 254 mls @ 63.5 mls/hr IV ASDIR PRN PRN Reason: Serum phosphate 0.5-0.9 Potassium Phosphate 15 mmol/ (Sodium Chloride) 255 mls @ 63.75 mls/hr IV ASDIR PRN PRN Reason: Serum Phos < 0.5 Piperacillin Sod/Tazobactam (Sod 4.5 gm/ Sodium Chloride) 100 mls @ 200 mls/hr IVPB Q8HR [facility] Last Admin: 08/09/18 07:21 Dose: 100 mls Vancomycin HCl 750 mg/ Sodium (Chloride) 250 mls @ 250 mls/hr IVPB 0200,1000, 1800 [facility] Last Admin: 08/09/18 10:13 Dose: 250 mls Lorazepam (Ativan) 2 mg SLOW IVP Q1H PRN PRN Reason: Breakthrough agitation Stop: 09/05/18 05:50 Last Admin: 08/08/18 16:11 Dose: 2 mg Magnesium Oxide (Magnesium Oxide) 400 mg PO BIDPRN PRN PRN Reason: FOR SERUM MAG 1.4 - 2.0 Magnesium Oxide (Magnesium Oxide) 800 mg PO PRN PRN PRN Reason: FOR SERUM MAG < 1.4 Melatonin (Melatonin) 3 mg PO HS [facility] Last Admin: 08/08/18 22:43 Dose: 3 mg Methylprednisolone Sodium Succinate (Solu-Medrol) 40 mg IVP BID [facility] Last Admin: 08/09/18 09:50 Dose: 40 mg Miscellaneous Medication (Phos-Nak) 1 pkt PO TIDPRN PRN PRN Reason: FOR PHOS LEVEL 1.0 - 1.8 Miscellaneous Medication (Phos-Nak) 2 pkt PO TIDPRN PRN PRN Reason: FOR PHOS LEVEL 0.5 - 1.0 Miscellaneous Medication (Pharmacy To Dose) 1 each IVPB ONE PRN PRN Reason: Pharmacy to dose Stop: 08/13/18 08:20 Morphine Sulfate (Morphine) 2 mg SLOW IVP Q1H PRN PRN Reason: BREAKTHROUGH PAIN/AGITATION Stop: 09/05/18 05:52 Last Admin: 08/06/18 21:11 Dose: 2 mg Discontinue Previous Narcotic Pain Medications And Benzodiazepines 1 each FS .ONE [facility] Stop: 09/05/18 05:50 Ccu Electrolyte (Replacement Protocol) 0 each FS PRN PRN PRN Reason: FOR ELECTROLYTE REPLACEMENT Pantoprazole Sodium (Protonix) 40 mg PO DAILY [facility] Last Admin: 08/09/18 09:51 Dose: 40 mg Potassium Chloride (K-Dur) 40 meq PO ASDIR PRN PRN Reason: FOR SERUM K+ 2.5 - 3.5 Potassium Chloride (Klor-Con) 40 meq PER TUBE ASDIR PRN PRN Reason: FOR SERUM K+ 2.5-3.5 Last Admin: 08/08/18 06:25 Dose: 40 meq Propofol (Diprivan) 1,000 mg IV INF PRN; Protocol PRN Reason: TO ACHIEVE GOAL RASS Stop: 09/05/18 05:50 Last Admin: 08/06/18 22:01 Dose: 1,000 mg Propofol (Diprivan Bolus) 20 mg IV Q5MIN PRN PRN Reason: BREAKTHROUGH AGITATION Stop: 09/05/18 05:50 Sodium Chloride (Flush - Normal Saline) 10 ml IVF Q12HR [facility] Last Admin: 08/09/18 09:58 Dose: Not Given Sodium Chloride (Flush - Normal Saline) 10 ml IVF PRN PRN PRN Reason: Saline Flush
--- NOTE | 2018-08-09 11:00 | RAD ---
PORTABLE CHEST: HISTORY: Respiratory distress. COMPARISON: Prior day's study. FINDINGS: Heart size is within normal limits. There are atherosclerotic changes of the aorta. The lungs show chronic appearing change. Tracheostomy tube is in satisfactory position. IMPRESSION: Placement of tracheostomy tube, which is in satisfactory position. Stable lung findings. POS: [facility]
[2018-08-09] MEDS: Vancomycin HCl 1 GM in Premix Bag 1 BAG IVPB SCH (11:37)
[2018-08-09] MEDS: Melatonin 3 MG TAB PO SCH (21:15)
[2018-08-10] MEDS: Vancomycin HCl 750 MG in Sodium Chloride 0.9% 250 ML 250 ML IVPB SCH (03:00)
[2018-08-10] MEDS: Piperacillin/Tazobactam 4.5 GM in Sodium Chloride 0.9% 100 ML IVPB SCH (05:25)
[2018-08-10 05:55] LABS: Band 1 % (5-11); Hemoglobin 8.4 g/dL (14.0-18.0); Hypochromia SLIGHT = 6-15 cells (100X) (0-5/hpf); Lymphocytes 2 % (21-51); MDiff Complete? YES; Mean Corpuscular HGB CONC 30.8 g/dL (32.0-36.0); Mean Corpuscular Hemoglobin 23.1 pg (27.0-31.0); Mean Corpuscular Volume 74.8 fL (78.0-98.0); Mean Platelet Volume 8.3 fL (7.4-10.4); Microcytosis SLIGHT = 6-15 cells (100X) (0-5/hpf); Monocytes 5 % (0-10); Neutrophil 92 % (42-75); Platelet Count 189 thou/uL (130-400); RBC Distribution Width 20.7 % (11.5-14.5); Red Blood Cell (RBC) Count 3.64 mill/uL (4.70-6.10); White Blood Cell (WBC) Count 19.2 thou/uL (4.8-10.8)
[2018-08-10 05:58] LABS: ALT (SGPT) 21 U/L (8-55); AST (SGOT) 19 U/L (5-34); Albumin 3.2 g/dL (3.4-4.8); Alkaline Phosphatase 43 U/L (40-150); Anion Gap 10 mmol/L (10-20); BUN (Urea Nitrogen) 12 mg/dL (8.4-25.7); Bilirubin, Total 0.3 mg/dL (0.2-1.2); Calc. Creatinine Clearance 101 mL/min (70-130); Calcium 8.5 mg/dL (7.8-10.44); Carbon Dioxide 37 mmol/L (23-31); Chloride 103 mmol/L (98-107); Estimated GFR-MDRD Greater than 90; Globulin 2.2 g/dL (2.4-3.5); Glucose 134 mg/dL (80-115); Potassium 3.7 mmol/L (3.5-5.1); Protein, Total 5.4 g/dL (5.8-8.1); Sodium 146 mmol/L (136-145)
[2018-08-10] MEDS: Budesonide 0.5 MG/2 ML NEB INH SCH ×2 (07:28→18:26)
[2018-08-10] MEDS: Arformoterol 15 MCG/2 ML NEB NEB SCH ×2 (07:29→18:26)
--- NOTE | 2018-08-10 08:14 | RAD ---
PORTABLE CHEST: History: Ventilator and CCU follow up. Comparison: 08-09-18 FINDINGS/IMPRESSION: Tracheostomy device unchanged. Lungs remain aerated and clear with no focal infiltrate. No interval c hange apparent. POS: [facility]
[2018-08-10] MEDS ORDERED: DC Sedation Protocol FS ONE (08:32)
--- NOTE | 2018-08-10 08:55 | PRG ---
DATE OF SERVICE: 08/10/2018 This is a 68-year-old gentleman who remains in the ICU on a trach collar. I have replaced his trach to a #6 cuffed Shiley, he was an the vent last night. Secretions are clear. PHYSICAL EXAMINATION: VITAL SIGNS: He is afebrile, pulse 84, respiration 22, sats 100%, blood pressure 109/56. CHEST: Chest reveals decreased breath sounds without any wheezing. CARDIAC: Normal S1, S2. ABDOMEN: Soft, no masses. LABORATORY: White count 19,000, H&H 8 and 27, platelet count normal. Electrolytes are normal. His cultures growing ____ staph versus contamination and colonization. IMPRESSION: 1. Chronic obstructive pulmonary disease exacerbation. 2. Bronchitis. 3. Severe deconditioning. 4. Recurrent supraventricular tachycardia. 5. Anemia. The patient is to decide about long-term care. He is definitely going to require placement back on t he vent from time to time. It is unclear if he can go back to the custodial. His best option is long-term vent place versus home with hospice. The family will make a decision. He needs to stay in the ICU. One-half hour critical care time.
[2018-08-10 09:23] LABS: Vancomycin, Trough 17.4 ug/mL
[2018-08-10] MEDS: Pantoprazole 40 MG GRANULES PACKET PO SCH (10:34)
[2018-08-10] MEDS: Amlodipine 5 MG TAB PO SCH (10:34)
[2018-08-10] MEDS: Gabapentin 100 MG CAP PO SCH ×2 (10:35→22:23)
[2018-08-10] MEDS: Aspirin 81 mg Enteric Coated Tablet PO SCH (10:35)
[2018-08-10] MEDS: Digoxin 0.125 MG TAB PO SCH (10:35)
[2018-08-10] MEDS: Cefdinir 300 MG CAP PO SCH ×2 (10:35→22:23)
[2018-08-10] MEDS: Apixaban 5 MG TAB PER TUBE SCH ×2 (10:35→22:23)
[2018-08-10] MEDS: clonazePAM 0.5 MG TAB PER TUBE SCH ×3 (10:36→22:23)
--- NOTE | 2018-08-10 11:42 | PDOC.PN ---
- Subjective Encounter Start Date: 08/10/18 Encounter Start Time: 09:00 -: old records requested/rev pt is now off vent, he is with trach collar, he is very weak, - Objective MAR Reviewed: Yes Vital Signs & Weight: Vital Signs (12 hours) Temp Pulse Resp BP Pulse Ox 08/10/18 10:35 93 08/10/18 10:34 89 126/65 08/10/18 10:28 97 24 H 100 08/10/18 07:24 84 28 H 100 08/10/18 05:52 22 H 08/10/18 04:00 22 H 08/10/18 03:26 106 H 08/10/18 02:00 27 H 08/10/18 00:00 97.9 F 29 H Weight Admit Weight 124 lb Weight 127 lb 3.2 oz Most Recent Monitor Data Heart Rate from ECG 90 NIBP 111/56 NIBP BP-Mean 74 Respiration from ECG 27 SpO2 100 I&O: 08/09/18 08/10/18 08/11/18 06:59 06:59 06:59 Intake Total 2496 2908 Output Total 1660 2235 Balance 836 673 Result Diagrams: 08/10/18 04:40 08/10/18 04:40 Radiology Reviewed by me: Yes (chest xray reviewed) EKG Reviewed by me: Yes (nsr) Phys Exam - Physical Examination Constitutional: NAD HEENT: PERRLA, moist MMs, sclera anicteric Neck: no JVD, supple tracheostomy+ silent chest Cardiovascular: RRR, no significant murmur, no rub Gastrointestinal: soft, non-tender, no distention, positive bowel sounds peg+ Musculoskeletal: no edema, pulses present Neurological: non-focal, normal sensation Lymphatic: no nodes Psychiatric: normal affect Skin: no rash, normal turgor Dx/Plan (1) COPD exacerbation Code(s): J44.1 - CHRONIC OBSTRUCTIVE PULMONARY DISEASE W (ACUTE) EXACERBATION Status: Chronic Comment: pt has end stage copd (2) Acute on chronic respiratory failure with hypoxia and hypercapnia Code(s): J96.21 - ACUTE AND CHRONIC RESPIRATORY FAILURE WITH HYPOXIA; J96.22 - ACUTE AND CHRONIC RESPIRATORY FAILURE WITH HYPERCAPNIA Status: Acute Comment : (3) PAF (paroxysmal atrial fibrillation) Code(s): I48.0 - PAROXYSMAL ATRIAL FIBRILLATION Status: Chronic Comment: (4) GERD (gastroesophageal reflux disease) Code(s): K21.9 - GASTRO-ESOPHAGEAL REFLUX DISEASE WITHOUT ESOPHAGITIS Status: Chronic Qualifiers: Esophagitis presence: esophagitis presence not specified Qualified Code(s) : K21.9 - Gastro-esophageal reflux disease without esophagitis Comment: continue Protonix (5) HTN (hypertension) Code(s): I10 - ESSENTIAL (PRIMARY) HYPERTENSION Status: Chronic Qualifiers: Hypertension type: essential hypertension Qualified Code(s): I10 - Essential (primary) hypertension Comment: (6) Moderate protein-calorie malnutrition Code(s): E44.0 - MODERATE PROTEIN-CALORIE MALNUTRITION Status: Chronic Comment: (7) Osteoarthritis Code(s): M19.90 - UNSPECIFIED OSTEOARTHRITIS, UNSPECIFIED SITE Status: Chronic Qualifiers: Osteoarthritis location: unspecified site Osteoarthritis type: unspecified Qualified Code(s): M19.90 - Unspecified osteoarthritis, unspecified site Comment: stable (8) PVD (peripheral vascular disease) Code(s): I73.9 - PERIPHERAL VASCULAR DISEASE, UNSPECIFIED Status: Chronic Comment: stable (9) Chronic anemia Code(s): D64.9 - ANEMIA, UNSPECIFIED Status: Chronic - Plan cont current plan of care, continue antibiotics, respiratory therapy * continue solumderol * antibiotics changed to oral omnicef * this pt has very severe end stage copd, without intermittent help of ventilator he will be always at risk for admission, agree with pulmonary recommendation, pt and family have to make decision regarding goal of care * palliative care will be consulted * pt's prognosis is very poor * medication reviewed as below * symptomatic treatment. Review of Systems - Review of Systems Constitutional: weakness. negative: fever, chills, sweats, malaise, other Respiratory: Cough, Shortness of Breath, SOB with Excertion. negative: Dry, Hemoptysis, Pleuritic Pain, Sputum, Wheezing Cardiovascular: negative: chest pain, palpitations, orthopnea, paroxysmal nocturnal dyspnea, edema, light headedness, other Gastrointestinal: negative: Nausea, Vomiting, Abdominal Pain, Diarrhea, Constipation, Melena, Hematochezia, Other Genitourinary: negative: Dysuria, Frequency, Incontinence, Hematuria, Retention , Other Musculoskeletal: negative: Neck Pain, Shoulder Pain, Arm Pain, Back Pain, Hand Pain, Leg Pain, Foot Pain, Other Skin: negative: Rash, Lesions, Hugo, Bruising, Other - Medications/Allergies Allergies/Adverse Reactions: Allergies Allergy/AdvReac Type Severity Reaction Status Date / Time No Known Drug Allergies Allergy Verified 06/22/18 18:36 Medications: Current Medications Acetaminophen (Tylenol) 650 mg MD Q6H PRN PRN Reason: Fever > 101 or Mild Pain Last Admin: 08/06/18 21:46 Dose: 650 mg Albuterol/Ipratropium (Duoneb) 3 ml NEB [id number] [facility] Last Admin: 08/10/18 10:28 Dose: 3 ml Amlodipine Besylate (Norvasc) 5 mg PO DAILY [facility] Last Admin: 08/10/18 10:34 Dose: 5 mg Apixaban (Eliquis) 5 mg PER TUBE BID [facility] Last Admin: 08/10/18 10:35 Dose: 5 mg Arformoterol Tartrate (Brovana) 15 mcg NEB BID-RT [facility] Last Admin: 08/10/18 07:29 Dose: 15 mcg Aspirin (Ecotrin) 81 mg PO DAILY [facility] Last Admin: 08/10/18 10:35 Dose: 81 mg Budesonide (Pulmicort Neb Solution) 0.5 mg INH BID-RT [facility] Last Admin: 08/10/18 07:28 Dose: 0.5 mg Cefdinir (Omnicef) 300 mg PO BID [facility] Stop: 08/15/18 09:01 Last Admin: 08/10/18 10:35 Dose: 300 mg Clonazepam (Klonopin) 0.5 mg PER TUBE TID [facility] Last Admin: 08/10/18 10:36 Dose: 0.5 mg Digoxin (Lanoxin) 0.125 mg PO QAM [facility] Last Admin: 08/10/18 10:35 Dose: 0.125 mg Gabapentin (Neurontin) 100 mg PO BID [facility] Last Admin: 08/10/18 10:35 Dose: 100 mg Norepinephrine Bitartrate (Levophed) 250 mls @ 0 mls/hr IVPB PRN PRN; Protocol PRN Reason: To maintain MAP > 65 Potassium Chloride 40 meq/ (Sodium Chloride) 270 mls @ 135 mls/hr IVPB ASDIR PRN PRN Reason: FOR SERUM K+ 2.5 - 3.5 Potassium Chloride 40 meq/ (Device) 100 mls @ 50 mls/hr IVPB ASDIR PRN PRN Reason: FOR SERUM K+ 2.5 - 3.5 Magnesium Sulfate 1 gm/ Sodium (Chloride) 102 mls @ 102 mls/hr IV PRN PRN PRN Reason: MAG LEVEL 1.4 - 2.0 Magnesium Sulfate 2 gm/ Device 100 mls @ 100 mls/hr IVPB ASDIR PRN PRN Reason: MAGNESIUM < 1.4 Potassium Phosphate 9 mmol/ (Sodium Chloride) 103 mls @ 25.75 mls/hr IVPB ASDIR PRN PRN Reason: Phosphate 1.0-1.8 Potassium Phosphate 12 mmol/ (Sodium Chloride) 254 mls @ 63.5 mls/hr IV ASDIR PRN PRN Reason: Serum phosphate 0.5-0.9 Potassium Phosphate 15 mmol/ (Sodium Chloride) 255 mls @ 63.75 mls/hr IV ASDIR PRN PRN Reason: Serum Phos < 0.5 Lorazepam (Ativan) 2 mg SLOW IVP Q1H PRN PRN Reason: Breakthrough agitation Stop: 09/05/18 05:50 Last Admin: 08/08/18 16:11 Dose: 2 mg Magnesium Oxide (Magnesium Oxide) 400 mg PO BIDPRN PRN PRN Reason: FOR SERUM MAG 1.4 - 2.0 Magnesium Oxide (Magnesium Oxide) 800 mg PO PRN PRN PRN Reason: FOR SERUM MAG < 1.4 Melatonin (Melatonin) 3 mg PO [facility] Last Admin: 08/09/18 21:15 Dose: 3 mg Methylprednisolone Sodium Succinate (Solu-Medrol) 40 mg IVP BID [facility] Last Admin: 08/10/18 10:36 Dose: 40 mg Miscellaneous Medication (Phos-Nak) 1 pkt PO TIDPRN PRN PRN Reason: FOR PHOS LEVEL 1.0 - 1.8 Miscellaneous Medication (Phos-Nak) 2 pkt PO TIDPRN PRN PRN Reason: FOR PHOS LEVEL 0.5 - 1.0 Miscellaneous Medication (Pharmacy To Dose) 1 each IVPB ONE PRN PRN Reason: Pharmacy to dose Stop: 08/13/18 08:20 Ccu Electrolyte (Replacement Protocol) 0 each FS PRN PRN PRN Reason: FOR ELECTROLYTE REPLACEMENT Pantoprazole Sodium (Protonix) 40 mg PO DAILY [facility] Last Admin: 08/10/18 10:34 Dose: 40 mg Potassium Chloride (K-Dur) 40 meq PO ASDIR PRN PRN Reason: FOR SERUM K+ 2.5 - 3.5 Potassium Chloride (Klor-Con) 40 meq PER TUBE ASDIR PRN PRN Reason: FOR SERUM K+ 2.5-3.5 Last Admin: 08/08/18 06:25 Dose: 40 meq Propofol (Diprivan) 1,000 mg IV INF PRN; Protocol PRN Reason: TO ACHIEVE GOAL RASS Stop: 09/05/18 05:50 Last Admin: 08/06/18 22:01 Dose: 1,000 mg Sodium Chloride (Flush - Normal Saline) 10 ml IVF Q12HR [facility] Last Admin: 08/10/18 10:36 Dose: 10 ml Sodium Chloride (Flush - Normal Saline) 10 ml IVF PRN PRN PRN Reason: Saline Flush
[2018-08-10] MEDS: Melatonin 3 MG TAB PO SCH (22:23)
[2018-08-11] MEDS: Budesonide 0.5 MG/2 ML NEB INH SCH ×2 (07:55→18:34)
[2018-08-11] MEDS: Arformoterol 15 MCG/2 ML NEB NEB SCH ×2 (07:55→18:33)
--- NOTE | 2018-08-11 08:10 | PRG ---
DATE OF SERVICE: 08/11/2018 SUBJECTIVE: Mr. Jones wear the ventilator last night. He is awake and alert. I have reviewed his notes in detail and it does not appear that he can stay off the ventilator for very long most days. PHYSICAL EXAMINATION: VITAL SIGNS: His temperature is 97.9, pulse 81, blood pressure 103/57, O2 saturation 100%. A 24-aubrie r intake 1232, output 2334. HEENT: Remarkable for bitemporal wasting. NECK: No adenopathy or JVD. LUNGS: Diminished breath sounds. Trach in place. CARDIOVASCULAR: S1, S2 regular. ABDOMEN: Soft, nontender. EXTREMITIES: No edema. LABORATORY DATA: No labs were done today. ASSESSMENT: 1. End-stage chronic obstructive pulmonary disease. 2. Chronic obstructive pulmonary disease exacerbation. 3. Chronic respiratory failure requiring mechanical ventilation. PLAN: The patient would be best served by LTAC placement. Weaning from the ventilator is likely to take a while and may not last for very long given his history. I have reviewed the current orders in the chart. He is on oral antibiotics, IV steroids, and nebulization therapy. We will try to take h im off the ventilator during the day and see how he does.
[2018-08-11 09:00] LABS: BUN (Urea Nitrogen) 13 mg/dL (8.4-25.7); Calc. Creatinine Clearance 0 mL/min (70-130); Calcium 8.7 mg/dL (7.8-10.44); Estimated GFR-MDRD Greater than 90; Glucose 143 mg/dL (80-115)
[2018-08-11 09:05] LABS: Band 7 % (5-11); Eosinophils 1 % (0-10); Hemoglobin 8.7 g/dL (14.0-18.0); Hypochromia MODERATE=16-30 cells (100X) (0-5/hpf); Large Platelets SLIGHT; Lymphocytes 8 % (21-51); MDiff Complete? YES; Mean Corpuscular HGB CONC 30.5 g/dL (32.0-36.0); Mean Corpuscular Hemoglobin 23.2 pg (27.0-31.0); Mean Corpuscular Volume 76.3 fL (78.0-98.0); Mean Platelet Volume 9.1 fL (7.4-10.4); Microcytosis SLIGHT = 6-15 cells (100X) (0-5/hpf); Monocytes 6 % (0-10); Neutrophil 78 % (42-75); Platelet Count 209 thou/uL (130-400); RBC Distribution Width 21.2 % (11.5-14.5); Red Blood Cell (RBC) Count 3.76 mill/uL (4.70-6.10); Schistocytes SLIGHT = 2-5 cells (100X) (0-1/hpf); Target Cells SLIGHT = 2-5 cells (100X) (0-1/hpf); White Blood Cell (WBC) Count 20.9 thou/uL (4.8-10.8)
[2018-08-11 09:11] LABS: Anion Gap 10 mmol/L (10-20); Carbon Dioxide 38 mmol/L (23-31); Chloride 100 mmol/L (98-107); Potassium 4.4 mmol/L (3.5-5.1); Sodium 144 mmol/L (136-145)
[2018-08-11] MEDS: Cefdinir 300 MG CAP PO SCH ×2 (10:00→21:44)
[2018-08-11] MEDS: Pantoprazole 40 MG GRANULES PACKET PO SCH (10:00)
[2018-08-11] MEDS: Aspirin 81 mg Enteric Coated Tablet PO SCH (10:00)
[2018-08-11] MEDS: Digoxin 0.125 MG TAB PO SCH (10:00)
[2018-08-11] MEDS: Apixaban 5 MG TAB PER TUBE SCH ×2 (10:00→21:44)
[2018-08-11] MEDS: clonazePAM 0.5 MG TAB PER TUBE SCH ×3 (10:00→21:44)
[2018-08-11] MEDS: Gabapentin 100 MG CAP PO SCH ×2 (10:00→21:44)
[2018-08-11] MEDS: Amlodipine 5 MG TAB PO SCH (10:10)
--- NOTE | 2018-08-11 11:36 | PDOC.PN ---
- Subjective Encounter Start Date: 08/11/18 Encounter Start Time: 09:30 Patient seen and examined. No new complaints. No overnight events pt is now on vent - Objective MAR Reviewed: Yes Vital Signs & Weight: Vital Signs (12 hours) Temp Pulse Resp BP Pulse Ox 08/11/18 10:29 102 H 21 H 96 08/11/18 10:10 108 H 135/74 08/11/18 10:00 109 H 08/11/18 07:54 85 17 99 08/11/18 05:00 98.1 F 08/11/18 01:58 84 22 H 100 Weight Admit Weight 124 lb Weight 2.042 oz Most Recent Monitor Data Heart Rate from ECG 97 NIBP 91/51 NIBP BP-Mean 64 Respiration from ECG 35 SpO2 100 I&O: 08/10/18 08/11/18 08/12/18 06:59 06:59 06:59 Intake Total 2908 1962 Output Total 2235 3034 Balance 673 -1072 Result Diagrams: 08/11/18 08:15 08/11/18 08:15 EKG Reviewed by me: Yes (nsr) Phys Exam - Physical Examination Constitutional: NAD HEENT: PERRLA, sclera anicteric Neck: no nodes, supple trach+ silent chest Cardiovascular: RRR, no significant murmur, no rub Gastrointestinal: soft, non-tender, no distention, positive bowel sounds peg+ Musculoskeletal: no edema, pulses present Neurological: non-focal, normal sensation Lymphatic: no nodes Psychiatric: normal affect Skin: no rash, normal turgor Dx/Plan (1) COPD exacerbation Code(s): J44.1 - CHRONIC OBSTRUCTIVE PULMONARY DISEASE W (ACUTE) EXACERBATION Status: Chronic Comment: pt has end stage copd (2) Acute on chronic respiratory failure with hypoxia and hypercapnia Code(s): J96.21 - ACUTE AND CHRONIC RESPIRATORY FAILURE WITH HYPOXIA; J96.22 - ACUTE AND CHRONIC RESPIRATORY FAILURE WITH HYPERCAPNIA Status: Acute Comment : (3) PAF (paroxysmal atrial fibrillation) Code(s): I48.0 - PAROXYSMAL ATRIAL FIBRILLATION Status: Chronic Comment: (4) GERD (gastroesophageal reflux disease) Code(s): K21.9 - GASTRO-ESOPHAGEAL REFLUX DISEASE WITHOUT ESOPHAGITIS Status: Chronic Qualifiers: Esophagitis presence: esophagitis presence not specified Qualified Code(s) : K21.9 - Gastro-esophageal reflux disease without esophagitis Comment: continue Protonix (5) HTN (hypertension) Code(s): I10 - ESSENTIAL (PRIMARY) HYPERTENSION Status: Chronic Qualifiers: Hypertension type: essential hypertension Qualified Code(s): I10 - Essential (primary) hypertension Comment: (6) Moderate protein-calorie malnutrition Code(s): E44.0 - MODERATE PROTEIN-CALORIE MALNUTRITION Status: Chronic Comment: (7) Osteoarthritis Code(s): M19.90 - UNSPECIFIED OSTEOARTHRITIS, UNSPECIFIED SITE Status: Chronic Qualifiers: Osteoarthritis location: unspecified site Osteoarthritis type: unspecified Qualified Code(s): M19.90 - Unspecified osteoarthritis, unspecified site Comment: stable (8) PVD (peripheral vascular disease) Code(s): I73.9 - PERIPHERAL VASCULAR DISEASE, UNSPECIFIED Status: Chronic Comment: stable (9) Chronic anemia Code(s): D64.9 - ANEMIA, UNSPECIFIED Status: Chronic - Plan cont current plan of care * continue vent as needed * he will need ltac placement * prognosis is poor * medication reviewed as below * symptomatic treatment. Review of Systems - Review of Systems Constitutional: weakness. negative: fever, chills, sweats, malaise, other Respiratory: Cough, Shortness of Breath, SOB with Excertion. negative: Dry, Hemoptysis, Pleuritic Pain, Sputum, Wheezing Cardiovascular: negative: chest pain, palpitations, orthopnea, paroxysmal nocturnal dyspnea, edema, light headedness, other Gastrointestinal: negative: Nausea, Vomiting, Abdominal Pain, Diarrhea, Constipation, Melena, Hematochezia, Other Genitourinary: negative: Dysuria, Frequency, Incontinence, Hematuria, Retention , Other Musculoskeletal: negative: Neck Pain, Shoulder Pain, Arm Pain, Back Pain, Hand Pain, Leg Pain, Foot Pain, Other - Medications/Allergies Allergies/Adverse Reactions: Allergies Allergy/AdvReac Type Severity Reaction Status Date / Time No Known Drug Allergies Allergy Verified 06/22/18 18:36 Medications: Current Medications Acetaminophen (Tylenol) 650 mg MO Q6H PRN PRN Reason: Fever > 101 or Mild Pain Last Admin: 08/06/18 21:46 Dose: 650 mg Albuterol/Ipratropium (Duoneb) 3 ml NEB [id number] [facility] Last Admin: 08/11/18 10:29 Dose: 3 ml Amlodipine Besylate (Norvasc) 5 mg PO DAILY [facility] Last Admin: 08/11/18 10:10 Dose: 5 mg Apixaban (Eliquis) 5 mg PER TUBE BID [facility] Last Admin: 08/11/18 10:00 Dose: 5 mg Arformoterol Tartrate (Brovana) 15 mcg NEB BID-RT [facility] Last Admin: 08/11/18 07:55 Dose: 15 mcg Aspirin (Ecotrin) 81 mg PO DAILY [facility] Last Admin: 08/11/18 10:00 Dose: 81 mg Budesonide (Pulmicort Neb Solution) 0.5 mg INH BID-RT [facility] Last Admin: 08/11/18 07:55 Dose: 0.5 mg Cefdinir (Omnicef) 300 mg PO BID [facility] Stop: 08/15/18 09:01 Last Admin: 08/11/18 10:00 Dose: 300 mg Clonazepam (Klonopin) 0.5 mg PER TUBE TID [facility] Last Admin: 08/11/18 10:00 Dose: 0.5 mg Digoxin (Lanoxin) 0.125 mg PO QAM [facility] Last Admin: 08/11/18 10:00 Dose: 0.125 mg Gabapentin (Neurontin) 100 mg PO BID [facility] Last Admin: 08/11/18 10:00 Dose: 100 mg Potassium Chloride 40 meq/ (Sodium Chloride) 270 mls @ 135 mls/hr IVPB ASDIR PRN PRN Reason: FOR SERUM K+ 2.5 - 3.5 Potassium Chloride 40 meq/ (Device) 100 mls @ 50 mls/hr IVPB ASDIR PRN PRN Reason: FOR SERUM K+ 2.5 - 3.5 Magnesium Sulfate 1 gm/ Sodium (Chloride) 102 mls @ 102 mls/hr IV PRN PRN PRN Reason: MAG LEVEL 1.4 - 2.0 Magnesium Sulfate 2 gm/ Device 100 mls @ 100 mls/hr IVPB ASDIR PRN PRN Reason: MAGNESIUM < 1.4 Potassium Phosphate 9 mmol/ (Sodium Chloride) 103 mls @ 25.75 mls/hr IVPB ASDIR PRN PRN Reason: Phosphate 1.0-1.8 Potassium Phosphate 12 mmol/ (Sodium Chloride) 254 mls @ 63.5 mls/hr IV ASDIR PRN PRN Reason: Serum phosphate 0.5-0.9 Potassium Phosphate 15 mmol/ (Sodium Chloride) 255 mls @ 63.75 mls/hr IV ASDIR PRN PRN Reason: Serum Phos < 0.5 Lorazepam (Ativan) 2 mg SLOW IVP Q1H PRN PRN Reason: Breakthrough agitation Stop: 09/05/18 05:50 Last Admin: 08/08/18 16:11 Dose: 2 mg Magnesium Oxide (Magnesium Oxide) 400 mg PO BIDPRN PRN PRN Reason: FOR SERUM MAG 1.4 - 2.0 Magnesium Oxide (Magnesium Oxide) 800 mg PO PRN PRN PRN Reason: FOR SERUM MAG < 1.4 Melatonin (Melatonin) 3 mg PO HS [facility] Last Admin: 08/10/18 22:23 Dose: 3 mg Methylprednisolone Sodium Succinate (Solu-Medrol) 40 mg IVP BID [facility] Last Admin: 08/11/18 10:00 Dose: 40 mg Miscellaneous Medication (Phos-Nak) 1 pkt PO TIDPRN PRN PRN Reason: FOR PHOS LEVEL 1.0 - 1.8 Miscellaneous Medication (Phos-Nak) 2 pkt PO TIDPRN PRN PRN Reason: FOR PHOS LEVEL 0.5 - 1.0 Miscellaneous Medication (Pharmacy To Dose) 1 each IVPB ONE PRN PRN Reason: Pharmacy to dose Stop: 08/13/18 08:20 Ccu Electrolyte (Replacement Protocol) 0 each FS PRN PRN PRN Reason: FOR ELECTROLYTE REPLACEMENT Pantoprazole Sodium (Protonix) 40 mg PO DAILY [facility] Last Admin: 08/11/18 10:00 Dose: 40 mg Potassium Chloride (K-Dur) 40 meq PO ASDIR PRN PRN Reason: FOR SERUM K+ 2.5 - 3.5 Potassium Chloride (Klor-Con) 40 meq PER TUBE ASDIR PRN PRN Reason: FOR SERUM K+ 2.5-3.5 Last Admin: 08/08/18 06:25 Dose: 40 meq Propofol (Diprivan) 1,000 mg IV INF PRN; Protocol PRN Reason: TO ACHIEVE GOAL RASS Stop: 09/05/18 05:50 Last Admin: 08/06/18 22:01 Dose: 1,000 mg Sodium Chloride (Flush - Normal Saline) 10 ml IVF Q12HR [facility] Last Admin: 08/11/18 10:01 Dose: 10 ml Sodium Chloride (Flush - Normal Saline) 10 ml IVF PRN PRN PRN Reason: Saline Flush
--- NOTE | 2018-08-11 13:25 | EKG ---
Test Reason : SOB Blood Pressure : / mmHG Vent. Rate : 108 BPM Atrial Rate : 108 BPM P-R Int : 112 ms QRS Dur : 068 ms QT Int : 294 ms P-R-T Axes : 077 077 061 degrees QTc Int : 393 ms Sinus tachycardia Otherwise normal ECG Confirmed by TERRY WALDROP ([id number]), marketing editor KRISTOPHER BURNETT ([id number]) on 08/11/2018 1:25:23 PM Referred By: Confirmed By:TERRY WALDROP
[2018-08-11] MEDS ORDERED: Sodium Bicarbonate Tab 325 MG TAB PER TUBE PRN (16:50)
[2018-08-11] MEDS ORDERED: Pancrelipase DR 12000 1 CAP FS PRN (16:50)
[2018-08-11] MEDS: Melatonin 3 MG TAB PO SCH (21:44)
[2018-08-12] MEDS: Aspirin 81 mg Enteric Coated Tablet PO SCH (07:55)
[2018-08-12] MEDS: Apixaban 5 MG TAB PER TUBE SCH ×2 (07:56→21:44)
[2018-08-12] MEDS: Digoxin 0.125 MG TAB PO SCH (07:56)
[2018-08-12] MEDS: Gabapentin 100 MG CAP PO SCH ×2 (07:56→21:45)
[2018-08-12] MEDS: Pantoprazole 40 MG GRANULES PACKET PO SCH (07:56)
[2018-08-12] MEDS: Cefdinir 300 MG CAP PO SCH ×2 (07:56→21:44)
[2018-08-12] MEDS: clonazePAM 0.5 MG TAB PER TUBE SCH ×3 (07:57→21:45)
[2018-08-12] MEDS: Arformoterol 15 MCG/2 ML NEB NEB SCH ×2 (07:57→18:46)
[2018-08-12] MEDS: Budesonide 0.5 MG/2 ML NEB INH SCH ×2 (07:57→18:46)
[2018-08-12] MEDS: Amlodipine 5 MG TAB PO SCH (08:02)
--- NOTE | 2018-08-12 08:30 | PRG ---
DATE OF SERVICE: 08/12/2018 SUBJECTIVE: He is on a trach collar this morning, appears comfortable and in no distress. PHYSICAL EXAMINATION: VITAL SIGNS: His temperature is 98.1, pulse 84, blood pressure 111/53. A 24-hour intake 1739, outpu t 2458. HEENT: Remarkable for bitemporal wasting. NECK: No JVD. Trach in good position. LUNGS: Clear but distant. CARDIOVASCULAR: S1, S2 regular. ABDOMEN: Soft. EXTREMITIES: No edema. LABORATORY DATA: No labs were done today. ASSESSMENT: 1. End-stage chronic obstructive pulmonary disease. 2. Chronic respiratory failure requiring mechanical ventilation. PLAN: 1. Continue daytime trach collar. 2. Up in a chair as tolerated. 3. We will see if I can locate a Passy-Butler speaking valve.
--- NOTE | 2018-08-12 11:02 | PDOC.PN ---
- Subjective Encounter Start Date: 08/12/18 Encounter Start Time: 09:15 he required vent last night, this morning on trach collar, seated in chair, appears very weak - Objective MAR Reviewed: Yes Vital Signs & Weight: Vital Signs (12 hours) Temp Pulse Resp Pulse Ox 08/12/18 08:02 75 08/12/18 08:01 99 08/12/18 08:00 98.1 F 100 08/12/18 07:56 75 14 99 08/12/18 04:00 98.1 F 08/12/18 02:57 85 16 100 08/12/18 00:00 98.3 F Weight Admit Weight 124 lb Weight 126 lb 8.725 oz Most Recent Monitor Data Heart Rate from ECG 102 NIBP 93/58 NIBP BP-Mean 69 Respiration from ECG 24 SpO2 100 I&O: 08/11/18 08/12/18 08/13/18 06:59 06:59 06:59 Intake Total 9662 1739 75 Output Total 9275 4298 115 Balance -1072 -719 -40 Result Diagrams: 08/11/18 08:15 08/11/18 08:15 EKG Reviewed by me: Yes (nsr) Phys Exam - Physical Examination Constitutional: NAD cachectic HEENT: PERRLA, sclera anicteric Neck: no JVD, supple trach+ silent chest Cardiovascular: RRR, no significant murmur, no rub Gastrointestinal: soft, non-tender, no distention, positive bowel sounds PEG+ Musculoskeletal: no edema, pulses present Neurological: non-focal, normal sensation Psychiatric: normal affect Skin: no rash, normal turgor Dx/Plan (1) COPD exacerbation Code(s): J44.1 - CHRONIC OBSTRUCTIVE PULMONARY DISEASE W (ACUTE) EXACERBATION Status: Chronic Comment: pt has end stage copd (2) Acute on chronic respiratory failure with hypoxia and hypercapnia Code(s): J96.21 - ACUTE AND CHRONIC RESPIRATORY FAILURE WITH HYPOXIA; J96.22 - ACUTE AND CHRONIC RESPIRATORY FAILURE WITH HYPERCAPNIA Status: Acute Comment : (3) PAF (paroxysmal atrial fibrillation) Code(s): I48.0 - PAROXYSMAL ATRIAL FIBRILLATION Status: Chronic Comment: (4) GERD (gastroesophageal reflux disease) Code(s): K21.9 - GASTRO-ESOPHAGEAL REFLUX DISEASE WITHOUT ESOPHAGITIS Status: Chronic Qualifiers: Esophagitis presence: esophagitis presence not specified Qualified Code(s) : K21.9 - Gastro-esophageal reflux disease without esophagitis Comment: continue Protonix (5) HTN (hypertension) Code(s): I10 - ESSENTIAL (PRIMARY) HYPERTENSION Status: Chronic Qualifiers: Hypertension type: essential hypertension Qualified Code(s): I10 - Essential (primary) hypertension Comment: (6) Moderate protein-calorie malnutrition Code(s): E44.0 - MODERATE PROTEIN-CALORIE MALNUTRITION Status: Chronic Comment: (7) Osteoarthritis Code(s): M19.90 - UNSPECIFIED OSTEOARTHRITIS, UNSPECIFIED SITE Status: Chronic Qualifiers: Osteoarthritis location: unspecified site Osteoarthritis type: unspecified Qualified Code(s): M19.90 - Unspecified osteoarthritis, unspecified site Comment: stable (8) PVD (peripheral vascular disease) Code(s): I73.9 - PERIPHERAL VASCULAR DISEASE, UNSPECIFIED Status: Chronic Comment: stable (9) Chronic anemia Code(s): D64.9 - ANEMIA, UNSPECIFIED Status: Chronic - Plan cont current plan of care, continue antibiotics, respiratory therapy * vent as needed * solumderol reduced today * medication reviewed as below * symptomatic treatment * continue antibiotics as per below * supportive care * may need ltac for vent support. Review of Systems - Review of Systems Constitutional: weakness, malaise. negative: fever, chills, sweats, other Respiratory: Shortness of Breath, SOB with Excertion. negative: Cough, Dry, Hemoptysis, Pleuritic Pain, Sputum, Wheezing Cardiovascular: negative: chest pain, palpitations, orthopnea, paroxysmal nocturnal dyspnea, edema, light headedness, other Gastrointestinal: negative: Nausea, Vomiting, Abdominal Pain, Diarrhea, Constipation, Melena, Hematochezia, Other Genitourinary: negative: Dysuria, Frequency, Incontinence, Hematuria, Retention , Other Musculoskeletal: negative: Neck Pain, Shoulder Pain, Arm Pain, Back Pain, Hand Pain, Leg Pain, Foot Pain, Other - Medications/Allergies Allergies/Adverse Reactions: Allergies Allergy/AdvReac Type Severity Reaction Status Date / Time No Known Drug Allergies Allergy Verified 06/22/18 18:36 Medications: Current Medications Acetaminophen (Tylenol) 650 mg NE Q6H PRN PRN Reason: Fever > 101 or Mild Pain Last Admin: 08/06/18 21:46 Dose: 650 mg Albuterol/Ipratropium (Duoneb) 3 ml NEB [id number] [facility] Last Admin: 08/12/18 07:56 Dose: 3 ml Amlodipine Besylate (Norvasc) 5 mg PO DAILY [facility] Last Admin: 08/12/18 08:02 Dose: 5 mg Lipase/Protease/Amylase (Jaya Duran [id number]) 1 cap FS .PER PROTOCOL PRN PRN Reason: TUBE OCCLUSION PROTOCOL Last Admin: 08/11/18 18:08 Dose: 1 cap Apixaban (Eliquis) 5 mg PER TUBE BID [facility] Last Admin: 08/12/18 07:56 Dose: 5 mg Arformoterol Tartrate (Brovana) 15 mcg NEB BID-RT [facility] Last Admin: 08/12/18 07:57 Dose: 15 mcg Aspirin (Ecotrin) 81 mg PO DAILY [facility] Last Admin: 08/12/18 07:55 Dose: 81 mg Budesonide (Pulmicort Neb Solution) 0.5 mg INH BID-RT [facility] Last Admin: 08/12/18 07:57 Dose: 0.5 mg Cefdinir (Omnicef) 300 mg PO BID [facility] Stop: 08/15/18 09:01 Last Admin: 08/12/18 07:56 Dose: 300 mg Clonazepam (Klonopin) 0.5 mg PER TUBE TID [facility] Last Admin: 08/12/18 07:57 Dose: 0.5 mg Digoxin (Lanoxin) 0.125 mg PO QAM [facility] Last Admin: 08/12/18 07:56 Dose: 0.125 mg Gabapentin (Neurontin) 100 mg PO BID [facility] Last Admin: 08/12/18 07:56 Dose: 100 mg Potassium Chloride 40 meq/ (Sodium Chloride) 270 mls @ 135 mls/hr IVPB ASDIR PRN PRN Reason: FOR SERUM K+ 2.5 - 3.5 Potassium Chloride 40 meq/ (Device) 100 mls @ 50 mls/hr IVPB ASDIR PRN PRN Reason: FOR SERUM K+ 2.5 - 3.5 Magnesium Sulfate 1 gm/ Sodium (Chloride) 102 mls @ 102 mls/hr IV PRN PRN PRN Reason: MAG LEVEL 1.4 - 2.0 Magnesium Sulfate 2 gm/ Device 100 mls @ 100 mls/hr IVPB ASDIR PRN PRN Reason: MAGNESIUM < 1.4 Potassium Phosphate 9 mmol/ (Sodium Chloride) 103 mls @ 25.75 mls/hr IVPB ASDIR PRN PRN Reason: Phosphate 1.0-1.8 Potassium Phosphate 12 mmol/ (Sodium Chloride) 254 mls @ 63.5 mls/hr IV ASDIR PRN PRN Reason: Serum phosphate 0.5-0.9 Potassium Phosphate 15 mmol/ (Sodium Chloride) 255 mls @ 63.75 mls/hr IV ASDIR PRN PRN Reason: Serum Phos < 0.5 Magnesium Oxide (Magnesium Oxide) 400 mg PO BIDPRN PRN PRN Reason: FOR SERUM MAG 1.4 - 2.0 Magnesium Oxide (Magnesium Oxide) 800 mg PO PRN PRN PRN Reason: FOR SERUM MAG < 1.4 Melatonin (Melatonin) 3 mg PO HS [facility] Last Admin: 08/11/18 21:44 Dose: 3 mg Methylprednisolone Sodium Succinate (Solu-Medrol) 20 mg IVP BID [facility] Last Admin: 08/12/18 10:35 Dose: Not Given Miscellaneous Medication (Phos-Nak) 1 pkt PO TIDPRN PRN PRN Reason: FOR PHOS LEVEL 1.0 - 1.8 Miscellaneous Medication (Phos-Nak) 2 pkt PO TIDPRN PRN PRN Reason: FOR PHOS LEVEL 0.5 - 1.0 Miscellaneous Medication (Pharmacy To Dose) 1 each IVPB ONE PRN PRN Reason: Pharmacy to dose Stop: 08/13/18 08:20 Ccu Electrolyte (Replacement Protocol) 0 each FS PRN PRN PRN Reason: FOR ELECTROLYTE REPLACEMENT Pantoprazole Sodium (Protonix) 40 mg PO DAILY [facility] Last Admin: 08/12/18 07:56 Dose: 40 mg Potassium Chloride (K-Dur) 40 meq PO ASDIR PRN PRN Reason: FOR SERUM K+ 2.5 - 3.5 Potassium Chloride (Klor-Con) 40 meq PER TUBE ASDIR PRN PRN Reason: FOR SERUM K+ 2.5-3.5 Last Admin: 08/08/18 06:25 Dose: 40 meq Sodium Bicarbonate (Bicarbonate, Sodium) 650 mg PER TUBE .PER PROTOCOL PRN PRN Reason: ENTERAL TUBE OCCLUSION Last Admin: 08/11/18 18:08 Dose: 650 mg Sodium Chloride (Flush - Normal Saline) 10 ml IVF Q12HR [facility] Last Admin: 08/12/18 08:08 Dose: 10 ml Sodium Chloride (Flush - Normal Saline) 10 ml IVF PRN PRN PRN Reason: Saline Flush
[2018-08-12] MEDS: Melatonin 3 MG TAB PO SCH (21:45)
[2018-08-13] MEDS: Budesonide 0.5 MG/2 ML NEB INH SCH ×2 (08:04→19:10)
[2018-08-13] MEDS: Arformoterol 15 MCG/2 ML NEB NEB SCH ×2 (08:04→19:11)
--- NOTE | 2018-08-13 08:14 | PRG ---
DATE OF SERVICE: 08/13/2018 He remains on the vent at nighttime. He remains very agitated, constantly complaining of being short of breath. PHYSICAL EXAMINATION: VITAL SIGNS: His sats are 93% on a trach collar 30%, blood pressure 100/80, pulse 110, respiration 2 0. CHEST: Chest reveals decreased breath sounds, no wheezing. CARDIAC: Normal S1, S2, no gallops masses. NEURO: Neurologically awake, responsive. IMPRESSION: End-stage chronic obstructive pulmonary disease requiring nocturnal ventilation with rec urrent admission to the hospital since his trach requiring vent support. PLAN: At this stage, the patient wants to go to LTAC. We will try and arrange for LTAC as per the [facility] staff and [employer]. Nothing additional to offer at this time, neb treatments, steroids, supportive care. One-half hour critical care time.
[2018-08-13] MEDS: Digoxin 0.125 MG TAB PO SCH (09:07)
[2018-08-13] MEDS: Aspirin 81 mg Enteric Coated Tablet PO SCH (09:08)
[2018-08-13] MEDS: clonazePAM 0.5 MG TAB PER TUBE SCH ×3 (09:08→21:19)
[2018-08-13] MEDS: guaiFENesin ER 600 MG TAB PO SCH ×2 (09:08→21:19)
[2018-08-13] MEDS: Apixaban 5 MG TAB PER TUBE SCH ×2 (09:08→21:19)
[2018-08-13] MEDS: Cefdinir 300 MG CAP PO SCH ×2 (09:09→21:19)
[2018-08-13] MEDS: Gabapentin 100 MG CAP PO SCH ×2 (09:09→21:19)
[2018-08-13] MEDS: Pantoprazole 40 MG GRANULES PACKET PO SCH (09:10)
[2018-08-13] MEDS: predniSONE 20 MG TAB PO SCH (09:10)
[2018-08-13] MEDS: Amlodipine 5 MG TAB PO SCH (09:10)
--- NOTE | 2018-08-13 10:00 | PDOC.PN ---
- Subjective Encounter Start Date: 08/13/18 Encounter Start Time: 07:50 Patient seen and examined. No new complaints. No overnight events - Objective MAR Reviewed: Yes Vital Signs & Weight: Vital Signs (12 hours) Temp Pulse Resp Pulse Ox 08/13/18 09:10 95 08/13/18 09:07 95 08/13/18 08:10 97 08/13/18 08:04 122 H 18 93 L 08/13/18 04:00 98.4 F 19 08/13/18 02:09 80 08/13/18 02:08 77 15 100 08/13/18 00:00 98.2 F 11 L 08/12/18 22:04 107 H 14 100 Weight Admit Weight 124 lb Weight 125 lb 14.143 oz Most Recent Monitor Data Heart Rate from ECG 101 NIBP 104/56 NIBP BP-Mean 72 Respiration from ECG 24 SpO2 99 I&O: 08/12/18 08/13/18 08/14/18 06:59 06:59 06:59 Intake Total 1739 1268 Output Total 2458 1500 125 Balance -71 -232 -125 Result Diagrams: 08/11/18 08:15 08/11/18 08:15 EKG Reviewed by me: Yes (nsr) Phys Exam - Physical Examination Constitutional: NAD cachectic, weak HEENT: PERRLA, moist MMs, sclera anicteric Neck: no JVD, supple tracheostomy+ Respiratory: no wheezing, no rales, no rhonchi reduced air entry both side Cardiovascular: RRR, no significant murmur, no rub Gastrointestinal: soft, non-tender, no distention, positive bowel sounds peg tube+ Musculoskeletal: no edema, pulses present calle+ Neurological: non-focal, normal sensation, moves all 4 limbs Lymphatic: no nodes Psychiatric: normal affect Skin: no rash, normal turgor Dx/Plan (1) COPD exacerbation Code(s): J44.1 - CHRONIC OBSTRUCTIVE PULMONARY DISEASE W (ACUTE) EXACERBATION Status: Chronic Comment: pt has end stage copd (2) Acute on chronic respiratory failure with hypoxia and hypercapnia Code(s): J96.21 - ACUTE AND CHRONIC RESPIRATORY FAILURE WITH HYPOXIA; J96.22 - ACUTE AND CHRONIC RESPIRATORY FAILURE WITH HYPERCAPNIA Status: Acute Comment : (3) PAF (paroxysmal atrial fibrillation) Code(s): I48.0 - PAROXYSMAL ATRIAL FIBRILLATION Status: Chronic Comment: (4) GERD (gastroesophageal reflux disease) Code(s): K21.9 - GASTRO-ESOPHAGEAL REFLUX DISEASE WITHOUT ESOPHAGITIS Status: Chronic Qualifiers: Esophagitis presence: esophagitis presence not specified Qualified Code(s) : K21.9 - Gastro-esophageal reflux disease without esophagitis Comment: continue Protonix (5) HTN (hypertension) Code(s): I10 - ESSENTIAL (PRIMARY) HYPERTENSION Status: Chronic Qualifiers: Hypertension type: essential hypertension Qualified Code(s): I10 - Essential (primary) hypertension Comment: (6) Moderate protein-calorie malnutrition Code(s): E44.0 - MODERATE PROTEIN-CALORIE MALNUTRITION Status: Chronic Comment: (7) Osteoarthritis Code(s): M19.90 - UNSPECIFIED OSTEOARTHRITIS, UNSPECIFIED SITE Status: Chronic Qualifiers: Osteoarthritis location: unspecified site Osteoarthritis type: unspecified Qualified Code(s): M19.90 - Unspecified osteoarthritis, unspecified site Comment: stable (8) PVD (peripheral vascular disease) Code(s): I73.9 - PERIPHERAL VASCULAR DISEASE, UNSPECIFIED Status: Chronic Comment: stable (9) Chronic anemia Code(s): D64.9 - ANEMIA, UNSPECIFIED Status: Chronic - Plan cont current plan of care, 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 Review of Systems - Review of Systems Constitutional: weakness. negative: fever, chills, sweats, malaise, other Respiratory: Shortness of Breath, SOB with Excertion. negative: Cough, Dry, Hemoptysis, Pleuritic Pain, Sputum, Wheezing Cardiovascular: negative: chest pain, palpitations, orthopnea, paroxysmal nocturnal dyspnea, edema, light headedness, other Gastrointestinal: negative: Nausea, Vomiting, Abdominal Pain, Diarrhea, Constipation, Melena, Hematochezia, Other Genitourinary: negative: Dysuria, Frequency, Incontinence, Hematuria, Retention , Other Musculoskeletal: negative: Neck Pain, Shoulder Pain, Arm Pain, Back Pain, Hand Pain, Leg Pain, Foot Pain, Other Skin: negative: Rash, Lesions, Hugo, Bruising, Other - Medications/Allergies Allergies/Adverse Reactions: Allergies Allergy/AdvReac Type Severity Reaction Status Date / Time No Known Drug Allergies Allergy Verified 06/22/18 18:36 Medications: Current Medications Acetaminophen (Tylenol) 650 mg MO Q6H PRN PRN Reason: Fever > 101 or Mild Pain Last Admin: 08/06/18 21:46 Dose: 650 mg Albuterol/Ipratropium (Duoneb) 3 ml NEB [id number] [facility] Last Admin: 08/13/18 08:04 Dose: 3 ml Amlodipine Besylate (Norvasc) 5 mg PO DAILY [facility] Last Admin: 08/13/18 09:10 Dose: 5 mg Lipase/Protease/Amylase ([place] [id number]) 1 cap FS .PER PROTOCOL PRN PRN Reason: TUBE OCCLUSION PROTOCOL Last Admin: 08/11/18 18:08 Dose: 1 cap Apixaban (Eliquis) 5 mg PER TUBE BID [facility] Last Admin: 08/13/18 09:08 Dose: 5 mg Arformoterol Tartrate (Brovana) 15 mcg NEB BID-RT [facility] Last Admin: 08/12/18 18:46 Dose: 15 mcg Aspirin (Ecotrin) 81 mg PO DAILY [facility] Last Admin: 08/13/18 09:08 Dose: 81 mg Budesonide (Pulmicort Neb Solution) 0.5 mg INH BID-RT [facility] Last Admin: 08/12/18 18:46 Dose: 0.5 mg Cefdinir (Omnicef) 300 mg PO BID [facility] Stop: 08/15/18 09:01 Last Admin: 08/13/18 09:09 Dose: 300 mg Clonazepam (Klonopin) 0.5 mg PER TUBE TID [facility] Last Admin: 08/12/18 21:45 Dose: 0.5 mg Digoxin (Lanoxin) 0.125 mg PO QAM [facility] Last Admin: 08/13/18 09:07 Dose: 0.125 mg Gabapentin (Neurontin) 100 mg PO BID [facility] Last Admin: 08/13/18 09:09 Dose: 100 mg Guaifenesin (Mucinex) 1,200 mg PO Q12HR [facility] Last Admin: 08/13/18 09:08 Dose: 1,200 mg Potassium Chloride 40 meq/ (Sodium Chloride) 270 mls @ 135 mls/hr IVPB ASDIR PRN PRN Reason: FOR SERUM K+ 2.5 - 3.5 Potassium Chloride 40 meq/ (Device) 100 mls @ 50 mls/hr IVPB ASDIR PRN PRN Reason: FOR SERUM K+ 2.5 - 3.5 Magnesium Sulfate 1 gm/ Sodium (Chloride) 102 mls @ 102 mls/hr IV PRN PRN PRN Reason: MAG LEVEL 1.4 - 2.0 Potassium Phosphate 9 mmol/ (Sodium Chloride) 103 mls @ 25.75 mls/hr IVPB ASDIR PRN PRN Reason: Phosphate 1.0-1.8 Potassium Phosphate 12 mmol/ (Sodium Chloride) 254 mls @ 63.5 mls/hr IV ASDIR PRN PRN Reason: Serum phosphate 0.5-0.9 Potassium Phosphate 15 mmol/ (Sodium Chloride) 255 mls @ 63.75 mls/hr IV ASDIR PRN PRN Reason: Serum Phos < 0.5 Melatonin (Melatonin) 3 mg PO [facility] Last Admin: 08/12/18 21:45 Dose: 3 mg Miscellaneous Medication (Phos-Nak) 1 pkt PO TIDPRN PRN PRN Reason: FOR PHOS LEVEL 1.0 - 1.8 Miscellaneous Medication (Phos-Nak) 2 pkt PO TIDPRN PRN PRN Reason: FOR PHOS LEVEL 0.5 - 1.0 Ccu Electrolyte (Replacement Protocol) 0 each FS PRN PRN PRN Reason: FOR ELECTROLYTE REPLACEMENT Pantoprazole Sodium (Protonix) 40 mg PO DAILY [facility] Last Admin: 08/13/18 09:10 Dose: 40 mg Potassium Chloride (K-Dur) 40 meq PO ASDIR PRN PRN Reason: FOR SERUM K+ 2.5 - 3.5 Potassium Chloride (Klor-Con) 40 meq PER TUBE ASDIR PRN PRN Reason: FOR SERUM K+ 2.5-3.5 Last Admin: 08/08/18 06:25 Dose: 40 meq Prednisone (Prednisone) 40 mg PO [facility] Last Admin: 08/13/18 09:10 Dose: 40 mg Sodium Bicarbonate (Bicarbonate, Sodium) 650 mg PER TUBE .PER PROTOCOL PRN PRN Reason: ENTERAL TUBE OCCLUSION Last Admin: 08/11/18 18:08 Dose: 650 mg Sodium Chloride (Flush - Normal Saline) 10 ml IVF Q12HR [facility] Last Admin: 08/12/18 21:46 Dose: 10 ml Sodium Chloride (Flush - Normal Saline) 10 ml IVF PRN PRN PRN Reason: Saline Flush
--- NOTE | 2018-08-13 11:39 | PQF ---
CLINICAL DOCUMENTATION IMPROVEMENT CLARIFICATION FORM: ICD-10 Updated PLEASE DO AN ADDENDUM TO THE PROGRESS NOTE WITH ANY DOCUMENTATION UPDATES OR ADDITIONS AND CARRY THROUGH TO DC SUMMARY. THANK YOU. DATE: 08/13/18 ATTN: Dr. Roy Please exercise your independent, professional judgment in responding to the clarification form. Clinical indicators are provided on the bottom of this form for your review Please check appropriate box(s) to clarify if the following diagnosis has been ruled in or ruled out: SEPSIS [ ] Ruled in diagnosis [ ] Continue to treat [ ] Resolved [ ] Ruled out diagnosis [ ] Cannot rule out diagnosis [ ] Other diagnosis [ x ] Unable to determine In addition, please specify: Present on Admission (POA): [ ] Yes [ ] No [ x ] Unable to determine For continuity of documentation, please document condition throughout progress notes and discharge summary. Thank You. CLINICAL INDICATORS - SIGNS / SYMPTOMS / LABS PN 08/08: SEPSIS. SECONDARY TO CORYNEBACTERIUM BACTEREMIA PULMONOLOGY PN 08/10: HIS CULTURES GROWING ____ STAPH VERSUS CONTAMINATION AND COLONIZATION. PN 08/11-08/13: COPD EXACERBATION. PT HAS END STAGE COPD ACUTE ON CHRONIC RESPIRATORY FAILURE WITH HYPOXIA & HYPERCAPNIA RISKS: H&P 08/06: INTERMEDIATE RESIDENT. S/P TRACH & PEG. COPD, HTN, A FIB. PRESENTS WITH ACUTE ON CHRONIC HYPERCAPNIC RESP. FAILURE MOST LIKELY 2/2 COPD EXACERBATION. TREATMENT: PN 08/08: CONTINUE IV ZOSYN, VANCOMYCIN AND LEVOFLOXACIN FOR CORYNEBACTERIUM BACTEREMIA ORDER 08/10: OMNICEF 300 MG PO BID 5 DAYS FOR COPD EXACERBATION. Thank you, Susanna (This form is maintained as a part of the permanent medical record) 2014 [employer]. All Rights Reserved Susanna Shaw RN, BSN [email or web address] Office: [phone] [facility]
--- NOTE | 2018-08-13 11:59 | PQF ---
CLINICAL DOCUMENTATION IMPROVEMENT CLARIFICATION FORM: ICD-10 Updated PLEASE DO AN ADDENDUM TO THE PROGRESS NOTE WITH ANY DOCUMENTATION UPDATES OR ADDITIONS AND CARRY THROUGH TO DC SUMMARY. THANK YOU. DATE: 08/13/18 ATTN: Dr. Roy Please exercise your independent, professional judgment in responding to the clarification form. Clinical indicators are provided on the bottom of this form for your review Please check appropriate box(s): ____X___ I (concur) with the Nursing Assessment findings as stated below. [ ] Pressure Ulcer: (Stage I: Erythema; Stage II: Partial thickness; Stage III : Full thickness; Stage IV: Necrosis to muscle/bone) [ ] Location: Stage (I to IV): ____(Left____Right___Bilateral___N/A___) [ ] Location: Stage (I to IV): ____(Left____Right___Bilateral___N/A___) [ ] No pressure ulcer diagnosis [ ] Other diagnosis [ ] Unable to determine In addition, please specify: Present on Admission (POA): [ ] Yes [ ] No [ X ] Unable to determine For continuity of documentation, please document condition throughout progress notes and discharge summary. Thank You. CLINICAL INDICATORS - SIGNS / SYMPTOMS / LABS NURSING ASSESSMENT 08/06/18 @ 0945: SUBHAYX PRESSURE ULCER. STAGE II RISKS: H&P 08/06: LIVES AT [facility]. HX: TRACH & PEG. MODERATE PROTEIN CALORIE MALNUTRITION. PRESENTS WITH ACUTE ON CHRONIC HYPERCAPNIC RESP. FAILURE MOST LIKELY 2/2 COPD EXACERBATION. TREATMENT: SKIN INTERVENTIONS PER NURSING PROTOCOL: POSITION CHANGES: Q2H IN BED, Q1 H IN CHAIR SKIN KEPT FROM EXCESSIVE MOISTURE. Pre-ulcer skin changes limited to persistent focal edema (Stage 1) Abrasion, blister, partial thickness skin loss involving epidermis and/or dermis (Stage 2) Full thickness skin loss involving damage or necrosis of SQ tissue. (Stage 3) Necrosis of soft tissue through to underlying muscle, tendon, or bone. (Stage 4) Purple or maroon discolored skin or blood filled blister Thank you, Susanna (This form is maintained as a part of the permanent medical record) 2015 [email or web address] All Rights Reserved Susanna Shaw RN, BSN [email or web address] Office: [phone] [facility]
[2018-08-13] MEDS: Melatonin 3 MG TAB PO SCH (21:19)
[2018-08-14] MEDS: Budesonide 0.5 MG/2 ML NEB INH SCH ×2 (07:38→18:08)
[2018-08-14] MEDS: Arformoterol 15 MCG/2 ML NEB NEB SCH ×2 (07:38→18:08)
--- NOTE | 2018-08-14 08:24 | PDOC.PN ---
- Subjective Encounter Start Date: 08/14/18 Encounter Start Time: 08:10 pt seated in chair, has trach collar in place, no fever, his Bp runs low - Objective MAR Reviewed: Yes Vital Signs & Weight: Vital Signs (12 hours) Temp Pulse Resp BP Pulse Ox 08/14/18 07:39 100 08/14/18 07:37 94 23 H 98 08/14/18 04:00 98.4 F 16 08/14/18 03:17 82 08/14/18 00:00 98.1 F 11 L 08/13/18 22:45 107 H 101/56 L 08/13/18 22:41 100 Weight Admit Weight 124 lb Weight 121 lb 4.068 oz Most Recent Monitor Data Heart Rate from ECG 93 NIBP 99/55 NIBP BP-Mean 69 Respiration from ECG 28 SpO2 100 I&O: 08/13/18 08/14/18 08/15/18 06:59 06:59 06:59 Intake Total 1268 926 Output Total 1500 1785 Balance -232 -859 Result Diagrams: 08/11/18 08:15 08/11/18 08:15 EKG Reviewed by me: Yes Phys Exam - Physical Examination Constitutional: NAD cachectic HEENT: PERRLA, moist MMs, sclera anicteric Neck: no JVD, supple tracheostomy+ Respiratory: no wheezing, no rales, no rhonchi reduced air entry bilateral Cardiovascular: RRR, no significant murmur, no rub Gastrointestinal: soft, non-tender, no distention, positive bowel sounds PEG+ Musculoskeletal: no edema, pulses present calle+ Neurological: non-focal, moves all 4 limbs Psychiatric: normal affect, A&O x 3 Skin: no rash, normal turgor Dx/Plan (1) COPD exacerbation Code(s): J44.1 - CHRONIC OBSTRUCTIVE PULMONARY DISEASE W (ACUTE) EXACERBATION Status: Chronic Comment: pt has end stage copd (2) Acute on chronic respiratory failure with hypoxia and hypercapnia Code(s): J96.21 - ACUTE AND CHRONIC RESPIRATORY FAILURE WITH HYPOXIA; J96.22 - ACUTE AND CHRONIC RESPIRATORY FAILURE WITH HYPERCAPNIA Status: Acute Comment : (3) PAF (paroxysmal atrial fibrillation) Code(s): I48.0 - PAROXYSMAL ATRIAL FIBRILLATION Status: Chronic Comment: (4) GERD (gastroesophageal reflux disease) Code(s): K21.9 - GASTRO-ESOPHAGEAL REFLUX DISEASE WITHOUT ESOPHAGITIS Status: Chronic Qualifiers: Esophagitis presence: esophagitis presence not specified Qualified Code(s) : K21.9 - Gastro-esophageal reflux disease without esophagitis Comment: continue Protonix (5) HTN (hypertension) Code(s): I10 - ESSENTIAL (PRIMARY) HYPERTENSION Status: Chronic Qualifiers: Hypertension type: essential hypertension Qualified Code(s): I10 - Essential (primary) hypertension Comment: (6) Moderate protein-calorie malnutrition Code(s): E44.0 - MODERATE PROTEIN-CALORIE MALNUTRITION Status: Chronic Comment: (7) Osteoarthritis Code(s): M19.90 - UNSPECIFIED OSTEOARTHRITIS, UNSPECIFIED SITE Status: Chronic Qualifiers: Osteoarthritis location: unspecified site Osteoarthritis type: unspecified Qualified Code(s): M19.90 - Unspecified osteoarthritis, unspecified site Comment: stable (8) PVD (peripheral vascular disease) Code(s): I73.9 - PERIPHERAL VASCULAR DISEASE, UNSPECIFIED Status: Chronic Comment: stable (9) Chronic anemia Code(s): D64.9 - ANEMIA, UNSPECIFIED Status: Chronic - Plan cont current plan of care, 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 Review of Systems - Review of Systems Constitutional: weakness. negative: fever, chills, sweats, malaise, other Respiratory: Cough, SOB with Excertion. negative: Dry, Shortness of Breath, Hemoptysis, Pleuritic Pain, Sputum, Wheezing Cardiovascular: negative: chest pain, palpitations, orthopnea, paroxysmal nocturnal dyspnea, edema, light headedness, other Gastrointestinal: negative: Nausea, Vomiting, Abdominal Pain, Diarrhea, Constipation, Melena, Hematochezia, Other Genitourinary: negative: Dysuria, Frequency, Incontinence, Hematuria, Retention , Other Musculoskeletal: negative: Neck Pain, Shoulder Pain, Arm Pain, Back Pain, Hand Pain, Leg Pain, Foot Pain, Other Skin: negative: Rash, Lesions, Hugo, Bruising, Other - Medications/Allergies Allergies/Adverse Reactions: Allergies Allergy/AdvReac Type Severity Reaction Status Date / Time No Known Drug Allergies Allergy Verified 06/22/18 18:36 Medications: Current Medications Acetaminophen (Tylenol) 650 mg [place] Q6H PRN PRN Reason: Fever > 101 or Mild Pain Last Admin: 08/06/18 21:46 Dose: 650 mg Albuterol/Ipratropium (Duoneb) 3 ml NEB [id number] [facility] Last Admin: 08/14/18 07:37 Dose: 3 ml Amlodipine Besylate (Norvasc) 5 mg PO DAILY [facility] Last Admin: 08/13/18 09:10 Dose: 5 mg Lipase/Protease/Amylase ([place] [id number]) 1 cap FS .PER PROTOCOL PRN PRN Reason: TUBE OCCLUSION PROTOCOL Last Admin: 08/11/18 18:08 Dose: 1 cap Apixaban (Eliquis) 5 mg PER TUBE BID [facility] Last Admin: 08/13/18 21:19 Dose: 5 mg Arformoterol Tartrate (Brovana) 15 mcg NEB BID-RT [facility] Last Admin: 08/14/18 07:38 Dose: 15 mcg Aspirin (Ecotrin) 81 mg PO DAILY [facility] Last Admin: 08/13/18 09:08 Dose: 81 mg Budesonide (Pulmicort Neb Solution) 0.5 mg INH BID-RT [facility] Last Admin: 08/14/18 07:38 Dose: 0.5 mg Cefdinir (Omnicef) 300 mg PO BID [facility] Stop: 08/15/18 09:01 Last Admin: 08/13/18 21:19 Dose: 300 mg Clonazepam (Klonopin) 0.5 mg PER TUBE TID [facility] Last Admin: 08/13/18 21:19 Dose: 0.5 mg Digoxin (Lanoxin) 0.125 mg PO QAM [facility] Last Admin: 08/13/18 09:07 Dose: 0.125 mg Gabapentin (Neurontin) 100 mg PO BID [facility] Last Admin: 08/13/18 21:19 Dose: 100 mg Guaifenesin (Mucinex) 1,200 mg PO Q12HR [facility] Last Admin: 08/13/18 21:19 Dose: 1,200 mg Potassium Chloride 40 meq/ (Sodium Chloride) 270 mls @ 135 mls/hr IVPB ASDIR PRN PRN Reason: FOR SERUM K+ 2.5 - 3.5 Potassium Chloride 40 meq/ (Device) 100 mls @ 50 mls/hr IVPB ASDIR PRN PRN Reason: FOR SERUM K+ 2.5 - 3.5 Magnesium Sulfate 1 gm/ Sodium (Chloride) 102 mls @ 102 mls/hr IV PRN PRN PRN Reason: MAG LEVEL 1.4 - 2.0 Potassium Phosphate 9 mmol/ (Sodium Chloride) 103 mls @ 25.75 mls/hr IVPB ASDIR PRN PRN Reason: Phosphate 1.0-1.8 Potassium Phosphate 12 mmol/ (Sodium Chloride) 254 mls @ 63.5 mls/hr IV ASDIR PRN PRN Reason: Serum phosphate 0.5-0.9 Potassium Phosphate 15 mmol/ (Sodium Chloride) 255 mls @ 63.75 mls/hr IV ASDIR PRN PRN Reason: Serum Phos < 0.5 Melatonin (Melatonin) 3 mg PO [facility] Last Admin: 08/13/18 21:19 Dose: 3 mg Miscellaneous Medication (Phos-Nak) 1 pkt PO TIDPRN PRN PRN Reason: FOR PHOS LEVEL 1.0 - 1.8 Miscellaneous Medication (Phos-Nak) 2 pkt PO TIDPRN PRN PRN Reason: FOR PHOS LEVEL 0.5 - 1.0 Ccu Electrolyte (Replacement Protocol) 0 each FS PRN PRN PRN Reason: FOR ELECTROLYTE REPLACEMENT Pantoprazole Sodium (Protonix) 40 mg PO DAILY [facility] Last Admin: 08/13/18 09:10 Dose: 40 mg Potassium Chloride (K-Dur) 40 meq PO ASDIR PRN PRN Reason: FOR SERUM K+ 2.5 - 3.5 Potassium Chloride (Klor-Con) 40 meq PER TUBE ASDIR PRN PRN Reason: FOR SERUM K+ 2.5-3.5 Last Admin: 08/08/18 06:25 Dose: 40 meq Prednis[facility] (Pred[facility]) [facility] Quetiapine Fumarate (Seroquel) 25 mg PO BID [facility] Last Admin: 08/13/18 21:19 Dose: 25 mg Sodium Bicarbonate (Bicarbonate, Sodium) 650 mg PER TUBE .PER PROTOCOL PRN PRN Reason: ENTERAL TUBE OCCLUSION Last Admin: 08/11/18 18:08 Dose: 650 mg Sodium Chloride (Flush - Normal Saline) 10 ml IVF Q12HR [facility] Last Admin: 08/13/18 21:20 Dose: 10 ml Sodium Chloride (Flush - Normal Saline) 10 ml IVF PRN PRN PRN Reason: Saline Flush
--- NOTE | 2018-08-14 08:52 | PRG ---
DATE OF SERVICE: 08/14/2018 Jessy Jones had a better night. He is less short of breath, less coughing, more relaxed. PHYSICAL EXAMINATION: VITAL SIGNS: Blood pressure 199/55. He is on 100% trach collar 30% FiO2, pulse 80, respiration rate 18. CHEST: No wheezing. CARDIAC: Normal S1, S2. No gallops. ABDOMEN: Soft, no masses. IMPRESSION: 1. End-stage chronic obstructive pulmonary disease, trach and PEG. 2. Severe deconditioning. PLAN: Try to get him a placement. Continue antianxiety medicine. Continue supportive care and PT. One-half hour critical care time.
[2018-08-14] MEDS: clonazePAM 0.5 MG TAB PER TUBE SCH ×3 (09:24→20:32)
[2018-08-14] MEDS: Gabapentin 100 MG CAP PO SCH ×2 (09:24→20:32)
[2018-08-14] MEDS: predniSONE 20 MG TAB PO SCH ×2 (09:24→09:40)
[2018-08-14] MEDS: Cefdinir 300 MG CAP PO SCH ×2 (09:24→20:33)
[2018-08-14] MEDS: Digoxin 0.125 MG TAB PO SCH (09:25)
[2018-08-14] MEDS: guaiFENesin ER 600 MG TAB PO SCH ×2 (09:25→20:32)
[2018-08-14] MEDS: Apixaban 5 MG TAB PER TUBE SCH ×2 (09:25→20:32)
[2018-08-14] MEDS: Amlodipine 5 MG TAB PO SCH (09:25)
[2018-08-14] MEDS: Aspirin 81 mg Enteric Coated Tablet PO SCH (09:25)
[2018-08-14] MEDS: Pantoprazole 40 MG GRANULES PACKET PO SCH (09:26)
[2018-08-14] MEDS: Melatonin 3 MG TAB PO SCH (20:33)
[2018-08-15] MEDS: Budesonide 0.5 MG/2 ML NEB INH SCH ×2 (07:14→18:14)
[2018-08-15] MEDS: Arformoterol 15 MCG/2 ML NEB NEB SCH ×2 (07:15→18:14)
--- NOTE | 2018-08-15 08:46 | PRG ---
DATE OF SERVICE: 08/15/2018 This morning he is awake, responsive. He is better. He did not go back on the vent last night. PHYSICAL EXAMINATION: VITAL SIGNS: Sats 100% on 25% FiO2, trach collar, respiration 24, blood pressure 108/55, temperature 99. CHEST: Chest reveals decreased breath sounds, no wheezing. CARDIAC: Normal S1, S2. ABDOMEN: Soft, no masses. IMPRESSION: 1. End-stage chronic obstructive pulmonary disease, status post trach. 2. Major anxiety. 3. Supraventricular tachycardia. PLAN: We will discuss with addiction social worker. We can replace the trach to a cuffless trach, eventually placement.
[2018-08-15] MEDS: Cefdinir 300 MG CAP PO SCH (09:18)
[2018-08-15] MEDS: Gabapentin 100 MG CAP PO SCH ×2 (09:18→21:10)
[2018-08-15] MEDS: predniSONE 20 MG TAB PO SCH (09:19)
[2018-08-15] MEDS: Digoxin 0.125 MG TAB PO SCH (09:19)
[2018-08-15] MEDS: clonazePAM 0.5 MG TAB PER TUBE SCH ×3 (09:19→21:10)
[2018-08-15] MEDS: guaiFENesin ER 600 MG TAB PO SCH ×2 (09:19→21:10)
[2018-08-15] MEDS: Aspirin 81 mg Enteric Coated Tablet PO SCH (09:20)
[2018-08-15] MEDS: Amlodipine 5 MG TAB PO SCH (09:20)
[2018-08-15] MEDS: Pantoprazole 40 MG GRANULES PACKET PO SCH (09:21)
[2018-08-15] MEDS: Apixaban 5 MG TAB PER TUBE SCH ×2 (09:23→21:11)
--- NOTE | 2018-08-15 09:36 | PDOC.PN ---
- Subjective Encounter Start Date: 08/15/18 Encounter Start Time: 08:00 -: old records requested/rev Patient seen and examined. No new complaints. No overnight events - Objective MAR Reviewed: Yes Vital Signs & Weight: Vital Signs (12 hours) Temp Pulse Resp BP Pulse Ox 08/15/18 09:20 90 111/65 08/15/18 09:19 90 08/15/18 07:12 93 24 H 100 08/15/18 03:04 86 18 100 08/15/18 03:00 98.5 F 08/14/18 23:00 98.2 F 08/14/18 22:15 88 26 H 100 Weight Admit Weight 124 lb Weight 123 lb 14.397 oz Most Recent Monitor Data Heart Rate from ECG 127 NIBP 103/67 NIBP BP-Mean 79 Respiration from ECG 23 SpO2 94 I&O: 08/14/18 08/15/18 08/16/18 06:59 06:59 06:59 Intake Total 926 1146 Output Total 1785 1020 40 Balance -859 126 -40 Result Diagrams: 08/11/18 08:15 08/11/18 08:15 EKG Reviewed by me: Yes (nsr) Phys Exam - Physical Examination Constitutional: NAD HEENT: PERRLA, moist MMs, sclera anicteric Neck: no JVD, supple trach collar+ Respiratory: no wheezing, no rales, no rhonchi reduced air entry Cardiovascular: RRR, no significant murmur, no rub Gastrointestinal: soft, non-tender, no distention, positive bowel sounds peg+ calle+ Musculoskeletal: no edema, pulses present Neurological: non-focal, normal sensation, moves all 4 limbs Psychiatric: normal affect, A&O x 3 Skin: no rash, normal turgor Dx/Plan (1) COPD exacerbation Code(s): J44.1 - CHRONIC OBSTRUCTIVE PULMONARY DISEASE W (ACUTE) EXACERBATION Status: Chronic Comment: pt has end stage copd (2) Acute on chronic respiratory failure with hypoxia and hypercapnia Code(s): J96.21 - ACUTE AND CHRONIC RESPIRATORY FAILURE WITH HYPOXIA; J96.22 - ACUTE AND CHRONIC RESPIRATORY FAILURE WITH HYPERCAPNIA Status: Acute Comment : (3) PAF (paroxysmal atrial fibrillation) Code(s): I48.0 - PAROXYSMAL ATRIAL FIBRILLATION Status: Chronic Comment: (4) GERD (gastroesophageal reflux disease) Code(s): K21.9 - GASTRO-ESOPHAGEAL REFLUX DISEASE WITHOUT ESOPHAGITIS Status: Chronic Qualifiers: Esophagitis presence: esophagitis presence not specified Qualified Code(s) : K21.9 - Gastro-esophageal reflux disease without esophagitis Comment: continue Protonix (5) HTN (hypertension) Code(s): I10 - ESSENTIAL (PRIMARY) HYPERTENSION Status: Chronic Qualifiers: Hypertension type: essential hypertension Qualified Code(s): I10 - Essential (primary) hypertension Comment: (6) Moderate protein-calorie malnutrition Code(s): E44.0 - MODERATE PROTEIN-CALORIE MALNUTRITION Status: Chronic Comment: (7) Osteoarthritis Code(s): M19.90 - UNSPECIFIED OSTEOARTHRITIS, UNSPECIFIED SITE Status: Chronic Qualifiers: Osteoarthritis location: unspecified site Osteoarthritis type: unspecified Qualified Code(s): M19.90 - Unspecified osteoarthritis, unspecified site Comment: stable (8) PVD (peripheral vascular disease) Code(s): I73.9 - PERIPHERAL VASCULAR DISEASE, UNSPECIFIED Status: Chronic Comment: stable (9) Chronic anemia Code(s): D64.9 - ANEMIA, UNSPECIFIED Status: Chronic - Plan cont current plan of care, 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 negative: fever, chills, sweats, malaise, other Respiratory: Shortness of Breath, SOB with Excertion. negative: Cough, Dry, Hemoptysis, Pleuritic Pain, Sputum, Wheezing Cardiovascular: negative: chest pain, palpitations, orthopnea, paroxysmal nocturnal dyspnea, edema, light headedness, other Gastrointestinal: negative: Nausea, Vomiting, Abdominal Pain, Diarrhea, Constipation, Melena, Hematochezia, Other Genitourinary: negative: Dysuria, Frequency, Incontinence, Hematuria, Retention , Other Musculoskeletal: negative: Neck Pain, Shoulder Pain, Arm Pain, Back Pain, Hand Pain, Leg Pain, Foot Pain, Other Skin: negative: Rash, Lesions, Hugo, Bruising, Other - Medications/Allergies Allergies/Adverse Reactions: Allergies Allergy/AdvReac Type Severity Reaction Status Date / Time No Known Drug Allergies Allergy Verified 06/22/18 18:36 Medications: Current Medications Acetaminophen (Tylenol) 650 mg [place] Q6H PRN PRN Reason: Fever > 101 or Mild Pain Last Admin: 08/06/18 21:46 Dose: 650 mg Albuterol/Ipratropium (Duoneb) 3 ml NEB [id number] OMID Last Admin: 08/15/18 07:12 Dose: 3 ml Amlodipine Besylate (Norvasc) 5 mg PO DAILY [facility] Last Admin: 08/15/18 09:20 Dose: 5 mg Lipase/Protease/Amylase (Jaya Duran [id number]) 1 cap FS .PER PROTOCOL PRN PRN Reason: TUBE OCCLUSION PROTOCOL Last Admin: 08/11/18 18:08 Dose: 1 cap Apixaban (Eliquis) 5 mg PER TUBE BID [facility] Last Admin: 08/15/18 09:23 Dose: 5 mg Arformoterol Tartrate (Brovana) 15 mcg NEB BID-RT [facility] Last Admin: 08/15/18 07:15 Dose: 15 mcg Aspirin (Ecotrin) 81 mg PO DAILY [facility] Last Admin: 08/15/18 09:20 Dose: 81 mg Budesonide (Pulmicort Neb Solution) 0.5 mg INH BID-RT [facility] Last Admin: 08/15/18 07:14 Dose: 0.5 mg Clonazepam (Klonopin) 0.5 mg PER TUBE TID [facility] Last Admin: 08/15/18 09:19 Dose: 0.5 mg Digoxin (Lanoxin) 0.125 mg PO QAM [facility] Last Admin: 08/15/18 09:19 Dose: 0.125 mg Gabapentin (Neurontin) 100 mg PO BID [facility] Last Admin: 08/15/18 09:18 Dose: 100 mg Guaifenesin (Mucinex) 1,200 mg PO Q12HR [facility] Last Admin: 08/15/18 09:19 Dose: 1,200 mg Potassium Chloride 40 meq/ (Sodium Chloride) 270 mls @ 135 mls/hr IVPB ASDIR PRN PRN Reason: FOR SERUM K+ 2.5 - 3.5 Potassium Chloride 40 meq/ (Device) 100 mls @ 50 mls/hr IVPB ASDIR PRN PRN Reason: FOR SERUM K+ 2.5 - 3.5 Magnesium Sulfate 1 gm/ Sodium (Chloride) 102 mls @ 102 mls/hr IV PRN PRN PRN Reason: MAG LEVEL 1.4 - 2.0 Potassium Phosphate 9 mmol/ (Sodium Chloride) 103 mls @ 25.75 mls/hr IVPB ASDIR PRN PRN Reason: Phosphate 1.0-1.8 Potassium Phosphate 12 mmol/ (Sodium Chloride) 254 mls @ 63.5 mls/hr IV ASDIR PRN PRN Reason: Serum phosphate 0.5-0.9 Potassium Phosphate 15 mmol/ (Sodium Chloride) 255 mls @ 63.75 mls/hr IV ASDIR PRN PRN Reason: Serum Phos < 0.5 Melatonin (Melatonin) 3 mg PO HS [facility] Last Admin: 08/14/18 20:33 Dose: 3 mg Miscellaneous Medication (Phos-Nak) 1 pkt PO TIDPRN PRN PRN Reason: FOR PHOS LEVEL 1.0 - 1.8 Miscellaneous Medication (Phos-Nak) 2 pkt PO TIDPRN PRN PRN Reason: FOR PHOS LEVEL 0.5 - 1.0 Ccu Electrolyte (Replacement Protocol) 0 each FS PRN PRN PRN Reason: FOR ELECTROLYTE REPLACEMENT Pantoprazole Sodium (Protonix) 40 mg PO DAILY [facility] Last Admin: 08/15/18 09:21 Dose: 40 mg Potassium Chloride (K-Dur) 40 meq PO ASDIR PRN PRN Reason: FOR SERUM K+ 2.5 - 3.5 Potassium Chloride (Klor-Con) 40 meq PER TUBE ASDIR PRN PRN Reason: FOR SERUM K+ 2.5-3.5 Last Admin: 08/08/18 06:25 Dose: 40 meq Prednisone (Prednisone) 20 mg PO QAM[facility] Last Admin: 08/15/18 09:19 Dose: 20 mg Quetiapine Fumarate (Seroquel) 25 mg PO BID [facility] Last Admin: 08/15/18 09:20 Dose: 25 mg Sodium Bicarbonate (Bicarbonate, Sodium) 650 mg PER TUBE .PER PROTOCOL PRN PRN Reason: ENTERAL TUBE OCCLUSION Last Admin: 08/11/18 18:08 Dose: 650 mg Sodium Chloride (Flush - Normal Saline) 10 ml IVF Q12HR [facility] Last Admin: 08/14/18 20:33 Dose: 10 ml Sodium Chloride (Flush - Normal Saline) 10 ml IVF PRN PRN PRN Reason: Saline Flush
[2018-08-15] MEDS: Melatonin 3 MG TAB PO SCH (21:11)
[2018-08-16 05:10] VITALS: BMI 16.5
[2018-08-16] MEDS: Budesonide 0.5 MG/2 ML NEB INH SCH (07:39)
[2018-08-16] MEDS: Arformoterol 15 MCG/2 ML NEB NEB SCH (07:40)
--- NOTE | 2018-08-16 08:28 | PRG ---
DATE OF SERVICE: 08/16/2018 He is stable. No shortness of breath or coughing or wheezing. He is on a #6 cuffless fenestrated wi thout any problems. PHYSICAL EXAMINATION: VITAL SIGNS: Blood pressure is 107/61, sats 100% on 28% trach collar, respiration 16, pulse 95. CHEST: Decreased breath sounds, no wheezing. CARDIAC: Normal S1-S2. No gallops. ABDOMEN: Soft, no masses. IMPRESSION: 1. End-stage chronic obstructive pulmonary disease. 2. Recurrent supraventricular tachycardia. 3. Recurrent mucous plugs. PLAN: Continue PT and supportive care. Transfer out of the ICU to a monitored bed. Eventually saul mo.
[2018-08-16] MEDS: Apixaban 5 MG TAB PER TUBE SCH (10:41)
[2018-08-16] MEDS: Aspirin 81 mg Enteric Coated Tablet PO SCH (10:42)
[2018-08-16] MEDS: Amlodipine 5 MG TAB PO SCH (10:42)
[2018-08-16] MEDS: predniSONE 20 MG TAB PO SCH (10:44)
[2018-08-16] MEDS: clonazePAM 0.5 MG TAB PER TUBE SCH ×2 (10:44→17:34)
[2018-08-16] MEDS: Gabapentin 100 MG CAP PO SCH (10:44)
[2018-08-16] MEDS: Digoxin 0.125 MG TAB PO SCH (10:44)
[2018-08-16] MEDS: guaiFENesin ER 600 MG TAB PO SCH (10:45)
[2018-08-16] MEDS: Pantoprazole 40 MG GRANULES PACKET PO SCH (10:45)
[2018-08-16 10:48] VITALS: BP 109/71
--- NOTE | 2018-08-16 11:38 | PDOC.PN ---
- Subjective Encounter Start Date: 08/16/18 Encounter Start Time: 09:15 Subjective: awake, follows verbal stimuli -: on trach collar - Objective MAR Reviewed: Yes Vital Signs & Weight: Vital Signs (12 hours) Temp Pulse Resp BP Pulse Ox 08/16/18 11:04 90 16 100 08/16/18 10:44 95 08/16/18 10:42 85 109/71 08/16/18 08:00 98.2 F 100 08/16/18 07:37 95 16 100 08/16/18 03:00 97.8 F 08/16/18 02:58 76 18 100 08/16/18 00:00 97.5 F L Weight Admit Weight 124 lb Weight 108 lb 11.006 oz Most Recent Monitor Data Heart Rate from ECG 97 NIBP 109/71 NIBP BP-Mean 83 Respiration from ECG 21 SpO2 96 I&O: 08/15/18 08/16/18 08/17/18 06:59 06:59 06:59 Intake Total 1146 1399 Output Total 1020 1120 80 Balance 126 279 -80 Result Diagrams: 08/11/18 08:15 08/11/18 08:15 Phys Exam - Physical Examination HEENT: PERRLA, moist MMs Neck: no JVD trach+ Respiratory: no wheezing, no rales rhonchi+ Cardiovascular: RRR, no rub Gastrointestinal: soft, no distention, positive bowel sounds peg+ Musculoskeletal: no edema, pulses present chronic right UE plegia, moves all other limbs well Psychiatric: A&O x 3 Dx/Plan (1) Acute on chronic respiratory failure with hypoxia and hypercapnia Code(s): J96.21 - ACUTE AND CHRONIC RESPIRATORY FAILURE WITH HYPOXIA; J96.22 - ACUTE AND CHRONIC RESPIRATORY FAILURE WITH HYPERCAPNIA Status: Acute Comment : (2) COPD exacerbation Code(s): J44.1 - CHRONIC OBSTRUCTIVE PULMONARY DISEASE W (ACUTE) EXACERBATION Status: Chronic Comment: pt has end stage copd (3) Chronic anemia Code(s): D64.9 - ANEMIA, UNSPECIFIED Status: Chronic (4) GERD (gastroesophageal reflux disease) Code(s): K21.9 - GASTRO-ESOPHAGEAL REFLUX DISEASE WITHOUT ESOPHAGITIS Status: Chronic Qualifiers: Esophagitis presence: esophagitis presence not specified Qualified Code(s) : K21.9 - Gastro-esophageal reflux disease without esophagitis Comment: continue Protonix (5) HTN (hypertension) Code(s): I10 - ESSENTIAL (PRIMARY) HYPERTENSION Status: Chronic Qualifiers: Hypertension type: essential hypertension Qualified Code(s): I10 - Essential (primary) hypertension Comment: (6) Moderate protein-calorie malnutrition Code(s): E44.0 - MODERATE PROTEIN-CALORIE MALNUTRITION Status: Chronic Comment: (7) Muscular deconditioning Code(s): R29.898 - OTH SYMPTOMS AND SIGNS INVOLVING THE MUSCULOSKELETAL SYSTEM Status: Chronic (8) Osteoarthritis Code(s): M19.90 - UNSPECIFIED OSTEOARTHRITIS, UNSPECIFIED SITE Status: Chronic Qualifiers: Osteoarthritis location: unspecified site Osteoarthritis type: unspecified Qualified Code(s): M19.90 - Unspecified osteoarthritis, unspecified site Comment: stable (9) PAF (paroxysmal atrial fibrillation) Code(s): I48.0 - PAROXYSMAL ATRIAL FIBRILLATION Status: Chronic Comment: (10) PVD (peripheral vascular disease) Code(s): I73.9 - PERIPHERAL VASCULAR DISEASE, UNSPECIFIED Status: Chronic Comment: stable - Plan hemostable -: continue nebs, prednisone -: may dc to skilled unit if accepted -: is on asp, eliquis, norvasc, dig and seroquel * . Review of Systems - Medications/Allergies Allergies/Adverse Reactions: Allergies Allergy/AdvReac Type Severity Reaction Status Date / Time No Known Drug Allergies Allergy Verified 06/22/18 18:36 Medications: Current Medications Acetaminophen (Tylenol) 650 mg [place] Q6H PRN PRN Reason: Fever > 101 or Mild Pain Last Admin: 08/06/18 21:46 Dose: 650 mg Albuterol/Ipratropium (Duoneb) 3 ml NEB [id number] OMID Last Admin: 08/16/18 11:04 Dose: 3 ml Amlodipine Besylate (Norvasc) 5 mg PO DAILY [facility] Last Admin: 08/16/18 10:42 Dose: 5 mg Lipase/Protease/Amylase ([place] [id number]) 1 cap FS .PER PROTOCOL PRN PRN Reason: TUBE OCCLUSION PROTOCOL Last Admin: 08/11/18 18:08 Dose: 1 cap Apixaban (Eliquis) 5 mg PER TUBE BID [facility] Last Admin: 08/16/18 10:41 Dose: 5 mg Arformoterol Tartrate (Brovana) 15 mcg NEB BID-RT [facility] Last Admin: 08/16/18 07:40 Dose: 15 mcg Aspirin (Ecotrin) 81 mg PO DAILY [facility] Last Admin: 08/16/18 10:42 Dose: 81 mg Budesonide (Pulmicort Neb Solution) 0.5 mg INH BID-RT [facility] Last Admin: 08/16/18 07:39 Dose: 0.5 mg Clonazepam (Klonopin) 0.5 mg PER TUBE TID [facility] Last Admin: 08/16/18 10:44 Dose: 0.5 mg Digoxin (Lanoxin) 0.125 mg PO QAM [facility] Last Admin: 08/16/18 10:44 Dose: 0.125 mg Gabapentin (Neurontin) 100 mg PO BID [facility] Last Admin: 08/16/18 10:44 Dose: 100 mg Guaifenesin (Mucinex) 1,200 mg PO Q12HR [facility] Last Admin: 08/16/18 10:45 Dose: 1,200 mg Potassium Chloride 40 meq/ (Sodium Chloride) 270 mls @ 135 mls/hr IVPB ASDIR PRN PRN Reason: FOR SERUM K+ 2.5 - 3.5 Potassium Chloride 40 meq/ (Device) 100 mls @ 50 mls/hr IVPB ASDIR PRN PRN Reason: FOR SERUM K+ 2.5 - 3.5 Magnesium Sulfate 1 gm/ Sodium (Chloride) 102 mls @ 102 mls/hr IV PRN PRN PRN Reason: MAG LEVEL 1.4 - 2.0 Potassium Phosphate 9 mmol/ (Sodium Chloride) 103 mls @ 25.75 mls/hr IVPB ASDIR PRN PRN Reason: Phosphate 1.0-1.8 Potassium Phosphate 12 mmol/ (Sodium Chloride) 254 mls @ 63.5 mls/hr IV ASDIR PRN PRN Reason: Serum phosphate 0.5-0.9 Potassium Phosphate 15 mmol/ (Sodium Chloride) 255 mls @ 63.75 mls/hr IV ASDIR PRN PRN Reason: Serum Phos < 0.5 Melatonin (Melatonin) 3 mg PO HS [facility] Last Admin: 08/15/18 21:11 Dose: 3 mg Miscellaneous Medication (Phos-Nak) 1 pkt PO TIDPRN PRN PRN Reason: FOR PHOS LEVEL 1.0 - 1.8 Miscellaneous Medication (Phos-Nak) 2 pkt PO TIDPRN PRN PRN Reason: FOR PHOS LEVEL 0.5 - 1.0 Ccu Electrolyte (Replacement Protocol) 0 each FS PRN PRN PRN Reason: FOR ELECTROLYTE REPLACEMENT Pantoprazole Sodium (Protonix) 40 mg PO DAILY [facility] Last Admin: 08/16/18 10:45 Dose: 40 mg Potassium Chloride (K-Dur) 40 meq PO ASDIR PRN PRN Reason: FOR SERUM K+ 2.5 - 3.5 Potassium Chloride (Klor-Con) 40 meq PER TUBE ASDIR PRN PRN Reason: FOR SERUM K+ 2.5-3.5 Last Admin: 08/08/18 06:25 Dose: 40 meq Prednisone (Prednisone) 20 mg PO QAM-WM [facility] Last Admin: 08/16/18 10:44 Dose: 20 mg Quetiapine Fumarate (Seroquel) 25 mg PO BID [facility] Last Admin: 08/16/18 10:41 Dose: 25 mg Sodium Bicarbonate (Bicarbonate, Sodium) 650 mg PER TUBE .PER PROTOCOL PRN PRN Reason: ENTERAL TUBE OCCLUSION Last Admin: 08/11/18 18:08 Dose: 650 mg Sodium Chloride (Flush - Normal Saline) 10 ml IVF Q12HR [facility] Last Admin: 08/16/18 10:46 Dose: 10 ml Sodium Chloride (Flush - Normal Saline) 10 ml IVF PRN PRN PRN Reason: Saline Flush
[2018-08-16 16:49] VITALS: TEMP 98.6
--- NOTE | 2018-08-17 14:01 | DIS ---
DATE OF ADMISSION: 08/06/2018 DATE OF DISCHARGE: 08/16/2018 DISCHARGE DISPOSITION: To half-way unit near [place]. PRIMARY DISCHARGE DIAGNOSES: Acute on chronic respiratory failure with hypoxia and hypercarbia and h ypercapnia, chronic obstructive pulmonary disease exacerbation with history of end-stage chronic obst ructive pulmonary disease, trach and PEG, chronic anemia, gastroesophageal reflux disease, moderate p rotein malnutrition, hypertension, deconditioning, osteoarthritis, paroxysmal atrial fibrillation, pe ripheral vascular disease. PROCEDURES DONE DURING HOSPITALIZATION: The patient has had multiple imaging studies for his acute o n chronic respiratory failure. He also had bronchoscopy done with clearing of mucus plug from the le ft main stem bronchus. Blood cultures grew presumptive corynebacterium. Influenza A and B antigens were negative. A repeat blood culture done on the shows no growth. Discharge H&H 8 and 28, rosenda telet count 209. White count of 20 with 78% neutrophils. Discharge BUN and creatinine 13 and 0.5, a lbumin is 3.2. DISCHARGE MEDICATIONS: DuoNebs q.6 hourly and q.2 hourly p.r.n., Eliquis 5 mg twice daily, Norvasc 5 mg p.o. daily, digoxin 0.125 mg p.o. daily, Neurontin 100 mg p.o. twice daily, melatonin 3 mg p.o. a t bedtime, Protonix 40 mg p.o. daily, prednisone 20 mg p.o. daily, Seroquel 25 mg twice daily, Klonop in 0.5 mg as directed. ALLERGIES: No known drug allergies. INPATIENT CONSULTS: Dr. Thorne for Pulmonology. BRIEF COURSE DURING HOSPITALIZATION: The patient initially was brought to emergency room after he wa s transferred from [facility] for complaints of shortness of breath. The patient has kno wn history of chronic respiratory failure with end-stage COPD on trach collar and PEG feeding. The p atient was essentially placed on ventilator and has had consultation with Dr. Thorne. The patient was successfully weaned off and is placed on his trach collar for the most part. For the last 2 days, he has now been on the ventilator. He has known history of end-stage COPD and likely might require bed time BiPAP. In view of his requirements, patient is being discharged to a skilled unit, which can ta ke care of his trach, PEG and if needed nocturnal ventilation near [facility]. A total of 35 minutes was spent on discharge plan. His overall prognosis is guarded. Please see a f loy-to-face documentation for the day of discharge on [facility].
== END 2018-08-16 14:10 | DRG 208 ==
LOC: ERS 03:13 → CCU 05:30
PROVIDERS: ADMIT Internal Medicine; ATTEND Internal Medicine
PROC: 5A1945Z Respiratory Ventilation, 24-96 Consecutive Hours (ICD-10-PCS; 2018-08-06)
PROC: 02HV33Z Insertion of Infusion Device into Superior Vena Cava, Percutaneous Approach (ICD-10-PCS; principal; 2018-08-12)
DX: J96.21 Acute and chronic respiratory failure with hypoxia (principal); I48.92 Unspecified atrial flutter; E44.0 Moderate protein-calorie malnutrition; J44.0 Chronic obstructive pulmonary disease with (acute) lower respiratory infection; Z68.1 Body mass index [BMI] 19.9 or less, adult; Z99.81 Dependence on supplemental oxygen; J44.9 Chronic obstructive pulmonary disease, unspecified; I73.9 Peripheral vascular disease, unspecified; I48.91 Unspecified atrial fibrillation; I10 Essential (primary) hypertension; F41.9 Anxiety disorder, unspecified; D64.9 Anemia, unspecified; R00.0 Tachycardia, unspecified; K21.9 Gastro-esophageal reflux disease without esophagitis; Z93.0 Tracheostomy status; Z93.1 Gastrostomy status
CPT/HCPCS: 36415; 36416; 36430; 36556; 51702; 71045; 80048; 80053; 80202; 81003; 81015; 82553; 82805; 83605; 83880; 84484; 85007; 85025; 85027; 85379; 86850; 86900; 86901; 87040; 87804; 93005; 93010; 94002; 94003; 94640; 94760; 96361; 96365; 96366; 96367; 96375; G8978-GP-CM; G8979-GP-CL; G9162-GN-CM; G9163-GN-CK; J1956; J2060; J2250; J2270; J2543; J2704; J2920; J2930; J3370; J7050; J7506; J7620; J7626; P9016; S0028